=== PATIENT | male | born 1990 | race Caucasian/White ===

== ENCOUNTER → 2016-12-11 | Outpatient (CLI) | payer MEDICARE, OTHER ==
[2016-12-11 09:45] LABS: Anisocytosis Slight; Basophils % (A) 1 %; CH 33.7; CHCM 34.3; Eosinophils # (A) 0.2 k/uL (0-0.7); Eosinophils % (A) 4 %; HDW 3.69; HGB 12.7 gm/dL (13.0-17.5); Luc # (Auto) 0.07; Luc % (Auto) 2; Lymphocytes # (A) 1.6 k/uL (1.0-4.8); Lymphocytes % (A) 36 %; MCH 32.2 pg (25.0-35.0); MCHC 32.7 g/dL (31.0-37.0); MCV 98.6 fL (80.0-100.0); Macrocytosis Slight; Mean Platelet Volume 6.3; Monocytes # (A) 0.4 k/uL (0-1.0); Monocytes % (A) 8 %; Neutrophils # (A) 2.3 k/uL (1.3-7.7); Neutrophils % (A) 51 %; Poikilocytosis Slight; RBC 3.95 m/uL (4.30-5.90); RDW 16.3 % (11.5-15.5); WBC 4.5 k/uL (3.8-10.6); WBC (Perox) 4.49
== END | disposition home or self-care (01) ==
LOC: LABWHC1 08:37
PROVIDERS: ATTEND Psychiatry & Neurology Neurology
DX: G40.813 Lennox-Gastaut syndrome, intractable, with status epilepticus (principal)
CPT/HCPCS: 36415; 80164; 80177; 84450; 84460; 85025

== ENCOUNTER 2018-12-28 15:53 | Emergency (ER) | payer MEDICARE, OTHER ==
[2018-12-28 16:21] VITALS: BP 126/53; PULSE 92; RESP 18; TEMP 97.2
--- NOTE | 2018-12-28 19:13 | ED ---
General Adult HPI - General Chief complaint: Recheck/Abnormal Lab/Rx Stated complaint: Pulled trac out Time Seen by Provider: 12/28/18 16:55 Source: Caregiver Mode of arrival: ambulatory Limitations: altered mental status, physical limitation - History of Present Illness Initial comments: Patient is a 28-year-old male presenting to emergency department with his caregiver after pulling out his tracheostomy tube. Caregiver notes the trach was removed at noon and she did not attempt to replace it.. Caregiver reports trach placement approximately 1 year ago. Caregiver notes she brought a new tracheostomy to for replacement as she did not attempted replacement. Caregiver denies giving the patient any medication to alleviate his symptoms. Caregiver denies decreased oxygen, shortness of breath, chest tightness, chest pain. Caregiver reports patient is acting at his baseline. - Related Data Home Medications Medication Instructions Recorded Confirmed Clobazam [Onfi] 10 mg PEG/G-TUBE BID 08/26/15 12/28/18 Lacosamide [Vimpat] 200 mg PEG/G-TUBE TID 08/26/15 12/28/18 Ascorbic Acid [Vitamin C] 500 mg PEG/G-TUBE BID 12/28/18 12/28/18 Banzel 400mg 1,600 mg PEG/G-TUBE BID 12/28/18 12/28/18 Folic Acid 1 mg PEG/G-TUBE DAILY 12/28/18 12/28/18 Magnesium Hydroxide [Milk of 4,800 mg PEG/G-TUBE MOWEFR 12/28/18 12/28/18 Magnesia] Metoprolol Tartrate [Lopressor] 25 mg PEG/G-TUBE BID 12/28/18 12/28/18 Pantoprazole Sodium [Protonix] 40 mg PEG/G-TUBE BID 12/28/18 12/28/18 Polyethylene Glycol 3350 [Miralax] 17 gm PEG/G-TUBE DAILY 12/28/18 12/28/18 Vitamin B Complex 1 cap PEG/G-TUBE DAILY 12/28/18 12/28/18 clonazePAM [KlonoPIN] 1 mg PEG/G-TUBE TID 12/28/18 12/28/18 levETIRAcetam [Keppra Oral 2,000 mg PEG/G-TUBE TID 12/28/18 12/28/18 Solution] Allergies Allergy/AdvReac Type Severity Reaction Status Date / Time amoxicillin trihydrate Allergy Unknown Verified 12/28/18 18:05 [From Augmentin] ceftriaxone sodium Allergy Unknown Verified 12/28/18 18:05 [From Rocephin] cephalexin monohydrate Allergy Unknown Verified 12/28/18 18:05 [From Keflex] Penicillins Allergy Unknown Verified 12/28/18 18:05 phenobarbital Allergy Unknown Verified 12/28/18 18:05 phenytoin sodium Allergy Unknown Verified 12/28/18 18:05 [From Dilantin] phenytoin sodium extended Allergy Unknown Verified 12/28/18 18:05 [From Dilantin] potassium clavulanate Allergy Unknown Verified 12/28/18 18:05 [From Augmentin] Cephalosporins AdvReac Unknown Verified 12/28/18 18:05 lorazepam [From Ativan] AdvReac Unknown Verified 12/28/18 18:05 Review of Systems ROS Statement: Those systems with pertinent positive or pertinent negative responses have been documented in the HPI. ROS Other: All systems not noted in ROS Statement are negative. Past Medical History Past Medical History: Asthma, Respiratory Disorder, Seizure Disorder Additional Past Medical History / Comment(s): developmental delay, autism History of Any Multi-Drug Resistant Organisms: None Reported Additional Past Surgical History / Comment(s): vagal nerve stimulator 12/2014, left ureter stent, embolist surgery, heel cord lengthening Past Psychological History: ADD/ADHD Smoking Status: Never smoker Past Alcohol Use History: None Reported Past Drug Use History: None Reported General Exam Limitations: altered mental status, physical limitation General appearance: alert, in no apparent distress Head exam: Present: atraumatic, normocephalic, normal inspection Eye exam: Present: normal appearance, PERRL, EOMI Pupils: Present: normal accommodation Neck exam: Present: other (Tracheostomy) Respiratory exam: Present: normal lung sounds bilaterally Cardiovascular Exam: Present: regular rate, normal rhythm, normal heart sounds Neurological exam: Present: alert, oriented X3 Psychiatric exam: Present: normal affect, normal mood Skin exam: Present: warm, intact, normal color Course Vital Signs 12/28/18 16:14 Temperature 97.2 F L Pulse Rate 92 Respiratory 18 Rate Blood Pressure 126/53 O2 Sat by Pulse 98 Oximetry Procedures - Procedures Initial comment: Tracheostomy tube placement by respiratory. Medical Decision Making - Medical Decision Making Patient is a 28-year-old male presenting to emergency department with his caregiver after pulling out his stool. Tracheostomy tube replacement was performed by Kristin from respiratory department. Patient will be discharged as he is acting at his baseline. Caregiver advised to follow-up with primary care. Caregiver advised to return to emergency department if symptoms worsen. Case discussed with physician. Disposition Clinical Impression: Tracheostomy complication, unspecified Disposition: HOME SELF-CARE Condition: Stable Additional Instructions: Please follow-up with primary care. Patient to emergency department if symptoms worsen. Please follow proper tracheostomy tube care. Is patient prescribed a controlled substance at d/c from ED?: No Referrals: Rodri Alcantar MD [Primary Care Provider] - 1-2 days Time of Disposition: 19:13
== END 2018-12-28 19:23 | disposition home or self-care (01) ==
LOC: EC 15:53
DX: J95.09 Other tracheostomy complication (principal); R41.82 Altered mental status, unspecified; G40.909 Epilepsy, unspecified, not intractable, without status epilepticus; F84.0 Autistic disorder; Z88.0 Allergy status to penicillin; Z88.1 Allergy status to other antibiotic agents; Z88.8 Allergy status to other drugs, medicaments and biological substances; Z79.899 Other long term (current) drug therapy
CPT/HCPCS: 99283

== ENCOUNTER 2019-01-16 16:58 | Emergency (ER) | payer MEDICARE, OTHER ==
[2019-01-16] MEDS ORDERED: KETOROLAC 30 MG/ML 1 ML VIAL IM STA (18:38)
[2019-01-16] MEDS ORDERED: MORPHINE SULFATE 2 MG/ML SYRINGE IM STA (20:00)
[2019-01-16 20:22] VITALS: RESP 18
--- NOTE | 2019-01-16 20:23 | ED ---
General Adult HPI - General Chief complaint: Urogenital Stated complaint: Hypotensive Time Seen by Provider: 01/16/19 17:00 Source: patient Mode of arrival: wheelchair Limitations: no limitations - History of Present Illness Initial comments: Patient is a 28 year-old autistic male with a complex medical history that is presenting for urinary retention. Caregiver states that the patient has not been able to urinate since early this morning even though he has been ingesting fluids. Caregiver reports a previous case of urinary retention and which they found the underlying cause to be a kidney stone. Patient is nonverbal. Caregiver states the patient has been in discomfort. Caregiver denies nausea, vomiting, diarrhea. Caregiver denies giving the patient medication to alleviate the symptoms. - Related Data Home Medications Medication Instructions Recorded Confirmed Clobazam [Onfi] 10 mg PEG/G-TUBE BID 08/26/15 12/28/18 Lacosamide [Vimpat] 200 mg PEG/G-TUBE TID 08/26/15 12/28/18 Ascorbic Acid [Vitamin C] 500 mg PEG/G-TUBE BID 12/28/18 12/28/18 Banzel 400mg 1,600 mg PEG/G-TUBE BID 12/28/18 12/28/18 Folic Acid 1 mg PEG/G-TUBE DAILY 12/28/18 12/28/18 Magnesium Hydroxide [Milk of 4,800 mg PEG/G-TUBE MOWEFR 12/28/18 12/28/18 Magnesia] Metoprolol Tartrate [Lopressor] 25 mg PEG/G-TUBE BID 12/28/18 12/28/18 Pantoprazole Sodium [Protonix] 40 mg PEG/G-TUBE BID 12/28/18 12/28/18 Polyethylene Glycol 3350 [Miralax] 17 gm PEG/G-TUBE DAILY 12/28/18 12/28/18 Vitamin B Complex 1 cap PEG/G-TUBE DAILY 12/28/18 12/28/18 clonazePAM [KlonoPIN] 1 mg PEG/G-TUBE TID 12/28/18 12/28/18 levETIRAcetam [Keppra Oral 2,000 mg PEG/G-TUBE TID 12/28/18 12/28/18 Solution] Allergies Allergy/AdvReac Type Severity Reaction Status Date / Time amoxicillin trihydrate Allergy Unknown Verified 01/16/19 17:06 [From Augmentin] ceftriaxone sodium Allergy Unknown Verified 01/16/19 17:06 [From Rocephin] cephalexin monohydrate Allergy Unknown Verified 01/16/19 17:06 [From Keflex] Penicillins Allergy Unknown Verified 01/16/19 17:06 phenobarbital Allergy Unknown Verified 01/16/19 17:06 phenytoin sodium Allergy Unknown Verified 01/16/19 17:06 [From Dilantin] phenytoin sodium extended Allergy Unknown Verified 01/16/19 17:06 [From Dilantin] potassium clavulanate Allergy Unknown Verified 01/16/19 17:06 [From Augmentin] Cephalosporins AdvReac Unknown Verified 01/16/19 17:06 lorazepam [From Ativan] AdvReac Unknown Verified 01/16/19 17:06 Review of Systems ROS Statement: Those systems with pertinent positive or pertinent negative responses have been documented in the HPI. ROS Other: All systems not noted in ROS Statement are negative. Past Medical History Past Medical History: Asthma, Respiratory Disorder, Seizure Disorder Additional Past Medical History / Comment(s): developmental delay, autism History of Any Multi-Drug Resistant Organisms: None Reported Additional Past Surgical History / Comment(s): vagal nerve stimulator 12/2014, left ureter stent, embolist surgery, heel cord lengthening Past Psychological History: ADD/ADHD Smoking Status: Never smoker Past Alcohol Use History: None Reported Past Drug Use History: None Reported General Exam Limitations: language barrier, physical limitation General appearance: alert, in no apparent distress Head exam: Present: atraumatic, normal inspection Eye exam: Present: normal appearance ENT exam: Present: normal exam, other (Tracheostomy) Neck exam: Present: normal inspection Respiratory exam: Present: normal lung sounds bilaterally Cardiovascular Exam: Present: regular rate, normal rhythm, normal heart sounds GI/Abdominal exam: Present: soft, other (Suprapubic discomfort on palpation) Extremities exam: Present: normal inspection Back exam: Present: normal inspection Neurological exam: Present: alert, oriented X3 Psychiatric exam: Present: normal affect, normal mood Skin exam: Present: warm, intact, normal color Course Vital Signs 01/16/19 01/16/19 01/16/19 17:01 17:40 20:22 Temperature 97.9 F Pulse Rate 66 80 76 Respiratory 16 20 18 Rate Blood Pressure 91/59 108/71 99/58 O2 Sat by Pulse 100 100 100 Oximetry 01/16/19 21:27 Temperature Pulse Rate 63 Respiratory 18 Rate Blood Pressure 105/59 O2 Sat by Pulse 98 Oximetry Procedures - Catheter Insertion (Urinary) Indications: to alleviate urinary retention Does Patient Have: no prosthetic heart valve, no penile implant, no artificial urethral sphincter Prophylactic Antibiotics Given: No Bladder Scan/US before Catheterization: Yes (900 ml) Preparation: Povidone-Iodine Type of Catheter Inserted: Guerrero Catheter Albanian Size: 14 Catheter Balloon Size (mLs): 10 Topical Anesthesia Used: Yes (Lidocaine) Results: successfully catheterized-immediate flow Patient Tolerated Procedure: well Complications: none Medical Decision Making - Medical Decision Making Patient is a 28-year-old male presents emergency Department with urinary retention. Bladder scan is showing approximately 900 mL of fluid. Guerrero catheter placement was attempted 3 times even with this smallest size. HEENT attempts failed due to an obstruction. The urine was removed. The Guerrero appears to be coiling in the urethra once it approaches the obstruction site. Patient was given morphine for symptomatically relief. Urology was counseled of the case and they suggested using lidocaine gel on the catheter tip. I performed another catheter attempt with lidocaine cream which was successful. Patient has drained over 900 mL of urine. Patient will be discharged with c atheter in place. Caregiver advised to follow up with urology. Strict return parameters were thoroughly discussed with caregiver was understandable and agrees. Case discussed with Dr. Jordan who is in agreement with the treatment plan. Disposition Clinical Impression: Urinary retention Disposition: HOME SELF-CARE Condition: Stable Instructions (If sedation given, give patient instructions): Urinary Tract Infection in Men (ED) Additional Instructions: Please follow up with urology. Please follow proper catheter care instructions. Please return to emergency department if symptoms worsen. Is patient prescribed a controlled substance at d/c from ED?: No Referrals: Rodri Alcantar MD [Primary Care Provider] - 1-2 days Mukund Jacobson MD [STAFF PHYSICIAN] - 1-2 days Ashish Tamayo MD [STAFF PHYSICIAN] - 1-2 days
[2019-01-16] MEDS ORDERED: LIDOCAINE URO-JET JELLY 2% 5 ML KIT URETHRAL ONE (20:32)
[2019-01-16 22:20] VITALS: BP 100/63; PULSE 70; TEMP 98.2
[2019-01-16 22:23] LABS: Appearance,Urine Clear (Clear); Bilirubin,Urine Negative (Negative); Blood,Urine Negative (Negative); Color,Urine Yellow; Glucose,Urine (UA) Negative (Negative); Ketones,Urine Negative (Negative); Leukocyte Esterase,Urine Negative (Negative); Nitrite,Urine Negative (Negative); Protein,Urine Negative (Negative); Specific Gravity,Urine 1.009 (1.001-1.035); Urobilinogen,Urine <2.0 mg/dL (<2.0)
== END 2019-01-16 22:21 | disposition home or self-care (01) ==
LOC: EC 16:58
DX: R33.9 Retention of urine, unspecified (principal); I95.9 Hypotension, unspecified; G40.909 Epilepsy, unspecified, not intractable, without status epilepticus; Z79.899 Other long term (current) drug therapy; Z88.0 Allergy status to penicillin; Z88.1 Allergy status to other antibiotic agents; Z88.8 Allergy status to other drugs, medicaments and biological substances
CPT/HCPCS: 99285; 51702; 96372 ×2; 51798; 81003; J1885; J2270

== ENCOUNTER → 2019-02-12 | Outpatient (CLI) | payer MEDICARE, OTHER ==
--- NOTE | 2019-02-12 14:20 | US ---
EXAMINATION TYPE: US kidneys/renal and bladder DATE OF EXAM: 02/12/2019 COMPARISON: Prior ultrasound dated February 2002 CLINICAL HISTORY: N13.30 Unspecified hydronephrosis. History of UPJ obstruction with stent, left side in 2004, History of urinary retention and hydronephrosis. EXAM MEASUREMENTS: Right Kidney: 11.6 x 5.8 x 5.6 cm Left Kidney: 13.1 x 7.5 x 7.4 cm cm Right Kidney: There is echogenic focus upper pole with shadowing = 1.0 cm suggesting parenchymal calc ification, mild hydronephrosis is present Left Kidney: Hydronephrosis is moderate to severe on the left exam Bladder: distended with thickened wall =0.7 cm, some internal debris suspected. Bilateral Jets seen: No Normal Post Void Residual: Unable to get patient to void. Exam limited d/t special needs patient. Patient unable to hold breath, or urinate. IMPRESSION: Bilateral hydronephrosis left greater than right.
== END ==
LOC: RADUSWWP 12:10
PROVIDERS: ATTEND Urology
DX: N13.30 Unspecified hydronephrosis (principal); Z88.0 Allergy status to penicillin; Z88.1 Allergy status to other antibiotic agents; Z88.8 Allergy status to other drugs, medicaments and biological substances
CPT/HCPCS: 76770

== ENCOUNTER → 2019-02-26 | Outpatient (CLI) | payer MEDICARE, OTHER ==
[~2019-02-26] MED LIST: FUROSEMIDE 10 MG/ML 2 ML VIAL IV ONE
--- NOTE | 2019-03-01 09:34 | NM ---
EXAMINATION TYPE: NM lasix renogram DATE OF EXAM: 02/26/2019 COMPARISON: NONE HISTORY: Hydronephrosis Following administration of 10 mCi Tc 99m MAG3 with 20mg Lasix. Immediate images post injection FINDINGS: Left: 47.8 %. Right: 52.2 %. Max renal flow left: 9.5 minutes. Max renal flow right: 52.2 minutes. Satisfactory accumulation of radiotracer within both renal collecting systems. After the administrati on of Lasix, there is prompt excretion from both collecting systems. T 1/2 left: Not obtainable minutes. T 1/2 right: Not obtainable minutes. IMPRESSION: 1. Limited exam as discussed above. Split renal function is 48% on the left and 52% on the right. 2. Findings compatible with bilateral hydronephrosis with prolonged time of clearance of radiotracer.
== END | disposition home or self-care (01) ==
LOC: RADNMMAIN 13:08
PROVIDERS: ATTEND Urology
DX: N13.30 Unspecified hydronephrosis (principal); Z88.0 Allergy status to penicillin; Z88.1 Allergy status to other antibiotic agents; Z88.2 Allergy status to sulfonamides; Z88.8 Allergy status to other drugs, medicaments and biological substances
CPT/HCPCS: 78708; A9562

== ENCOUNTER 2019-03-14 13:59 | Emergency (ER) | payer MEDICARE, OTHER ==
[2019-03-14 14:42] LABS: Basophils % (A) 0 %; Eosinophils # (A) 0.1 k/uL (0-0.7); Eosinophils % (A) 2 %; HCT 38.3 % (39.0-53.0); HGB 12.9 gm/dL (13.0-17.5); Lymphocytes % (A) 15 %; MCH 33.1 pg (25.0-35.0); MCHC 33.6 g/dL (31.0-37.0); MCV 98.5 fL (80.0-100.0); Macrocytosis Slight; Monocytes # (A) 0.3 k/uL (0-1.0); Monocytes % (A) 5 %; Neutrophils % (A) 78 %; Platelet Count 232 k/uL (150-450); Poikilocytosis Slight; RBC 3.89 m/uL (4.30-5.90); RDW 15.8 % (11.5-15.5); WBC 6.5 k/uL (3.8-10.6)
--- NOTE | 2019-03-14 14:49 | XR ---
EXAMINATION TYPE: XR KUB DATE OF EXAM: 03/14/2019 COMPARISON: 06/20/2014 HISTORY: Abnormal distention TECHNIQUE: 2 views supine FINDINGS: There is no sign of intestinal obstruction or pneumoperitoneum. Fecal pattern is fairly nor mal. There are clips in the left upper quadrant. Bony structures are intact. Gastrostomy tube is noted. IMPRESSION: Nonacute abdomen.
[2019-03-14 14:56] LABS: ALT 23 U/L (21-72); AST 18 U/L (17-59); African American GFR (CKD) >90 (>60 ml/min/1.73 sqM); Albumin 4.1 g/dL (3.5-5.0); Alkaline Phosphatase 97 U/L (38-126); Anion Gap 10 mmol/L; Blood Urea Nitrogen 12 mg/dL (9-20); Calcium 9.9 mg/dL (8.4-10.2); Carbon Dioxide 26 mmol/L (22-30); Chloride 105 mmol/L (98-107); Glucose 102 mg/dL (74-99); Non-African American GFR(CKD) >90 (>60 ml/min/1.73 sqM); Potassium 3.9 mmol/L (3.5-5.1); Sodium 141 mmol/L (137-145); Total Bilirubin 0.5 mg/dL (0.2-1.3); Total Protein 7.1 g/dL (6.3-8.2)
--- NOTE | 2019-03-14 15:41 | ED ---
Abdominal Pain HPI - General Chief Complaint: Abdominal Pain Stated Complaint: ABDOMINAL PAIN Time Seen by Provider: 03/14/19 14:10 Source: patient Mode of arrival: ambulatory Limitations: no limitations - History of Present Illness Initial Comments: Patient is a 28-year-old male with a history of developmental delay, autism and epilepsy is presenting to emergency Department with his caregiver for a chief complaint of abdominal pain. Caregiver reports patient takes MiraLAX daily and typically has bowel movements every 3 days. Patient had a bowel movement early yesterday. Caregiver reports she noticed abdominal distention today at 1200. Patient has a patent PEG tube according to the caregiver. Caregiver denies any vomiting, fevers or chills. Caregiver reports the patient typically urinates after 1500 after he receives his daily dose of Flomax 3 hours prior to that. Caregiver states the patient has not urinated since yesterday at 2200. - Related Data Home Medications Medication Instructions Recorded Confirmed Clobazam [Onfi] 10 mg PEG/G-TUBE BID 08/26/15 12/28/18 Lacosamide [Vimpat] 200 mg PEG/G-TUBE TID 08/26/15 12/28/18 Ascorbic Acid [Vitamin C] 500 mg PEG/G-TUBE BID 12/28/18 12/28/18 Banzel 400mg 1,600 mg PEG/G-TUBE BID 12/28/18 12/28/18 Folic Acid 1 mg PEG/G-TUBE DAILY 12/28/18 12/28/18 Magnesium Hydroxide [Milk of 4,800 mg PEG/G-TUBE MOWEFR 12/28/18 12/28/18 Magnesia] Metoprolol Tartrate [Lopressor] 25 mg PEG/G-TUBE BID 12/28/18 12/28/18 Pantoprazole Sodium [Protonix] 40 mg PEG/G-TUBE BID 12/28/18 12/28/18 Polyethylene Glycol 3350 [Miralax] 17 gm PEG/G-TUBE DAILY 12/28/18 12/28/18 Vitamin B Complex 1 cap PEG/G-TUBE DAILY 12/28/18 12/28/18 clonazePAM [KlonoPIN] 1 mg PEG/G-TUBE TID 12/28/18 12/28/18 levETIRAcetam [Keppra Oral 2,000 mg PEG/G-TUBE TID 12/28/18 12/28/18 Solution] Allergies Allergy/AdvReac Type Severity Reaction Status Date / Time amoxicillin trihydrate Allergy Unknown Verified 03/14/19 14:08 [From Augmentin] ceftriaxone sodium Allergy Unknown Verified 03/14/19 14:08 [From Rocephin] cephalexin monohydrate Allergy Unknown Verified 03/14/19 14:08 [From Keflex] Penicillins Allergy Unknown Verified 03/14/19 14:08 phenobarbital Allergy Unknown Verified 03/14/19 14:08 phenytoin sodium Allergy Unknown Verified 03/14/19 14:08 [From Dilantin] phenytoin sodium extended Allergy Unknown Verified 03/14/19 14:08 [From Dilantin] potassium clavulanate Allergy Unknown Verified 03/14/19 14:08 [From Augmentin] Cephalosporins AdvReac Unknown Verified 03/14/19 14:08 lorazepam [From Ativan] AdvReac Unknown Verified 03/14/19 14:08 Review of Systems ROS Statement: Those systems with pertinent positive or pertinent negative responses have been documented in the HPI. ROS Other: All systems not noted in ROS Statement are negative. Past Medical History Past Medical History: Asthma, Respiratory Disorder, Seizure Disorder Additional Past Medical History / Comment(s): developmental delay, autism History of Any Multi-Drug Resistant Organisms: None Reported Additional Past Surgical History / Comment(s): vagal nerve stimulator 12/2014, left ureter stent, embolist surgery, heel cord lengthening Past Psychological History: ADD/ADHD Smoking Status: Never smoker Past Alcohol Use History: None Reported Past Drug Use History: None Reported General Exam Limitations: no limitations General appearance: alert, in no apparent distress Head exam: Present: atraumatic, normocephalic, normal inspection Eye exam: Present: normal appearance, PERRL, EOMI Pupils: Present: normal accommodation ENT exam: Present: normal exam, mucous membranes moist, normal external ear exam Neck exam: Present: normal inspection, full ROM Respiratory exam: Present: normal lung sounds bilaterally Cardiovascular Exam: Present: regular rate, normal rhythm, normal heart sounds GI/Abdominal exam: Present: distended, other (PEG tube). Absent: tenderness, guarding, mass, pulsatile mass Extremities exam: Present: normal inspection, full ROM Back exam: Present: normal inspection, full ROM Neurological exam: Present: alert, oriented X3 Psychiatric exam: Present: normal affect, normal mood Skin exam: Present: warm, intact, normal color Course Vital Signs 03/14/19 03/14/19 14:06 17:04 Temperature 97.5 F L 98.8 F Pulse Rate 102 H 78 Respiratory 20 19 Rate Blood Pressure 109/65 115/80 O2 Sat by Pulse 98 100 Oximetry Medical Decision Making - Medical Decision Making Patient is a 28-year-old male with history of developmental delay, autism and epilepsy presenting to emergency Department with his caregiver for a chief complaint of abdominal pain. CBC and CMP are unremarkable. KUB is showing no signs of intestinal obstruction. I was able to put fluid through the PEG tube using a Abraham syringe. On reevaluation patient had urinated large amounts. Patient still had a post-residual volume of 700 mL. Guerrero catheter was placed using lidojet. Patient was able to fully evacuate the bladder. Repeat bladder scan showing urine of approximately 20 mL. Caregiver is satisfied and is ready go home. Strict return parameters were thoroughly discussed with caregiver who is understanding and agreeable. Case discussed with physician. - Lab Data Result diagrams: 03/14/19 14:30 03/14/19 14:30 Lab Results 03/14/19 03/14/19 Range/Units 14:30 14:30 WBC 6.5 (3.8-10.6) k/uL RBC 3.89 L (4.30-5.90) m/uL Hgb 12.9 L (13.0-17.5) gm/dL Hct 38.3 L (39.0-53.0) % MCV 98.5 (80.0-100.0) fL MCH 33.1 (25.0-35.0) pg MCHC 33.6 (31.0-37.0) g/dL RDW 15.8 H (11.5-15.5) % Plt Count 232 (150-450) k/uL Neutrophils % 78 % Lymphocytes % 15 % Monocytes % 5 % Eosinophils % 2 % Basophils % 0 % Neutrophils # 5.0 (1.3-7.7) k/uL Lymphocytes # 1.0 (1.0-4.8) k/uL Monocytes # 0.3 (0-1.0) k/uL Eosinophils # 0.1 (0-0.7) k/uL Basophils # 0.0 (0-0.2) k/uL Poikilocytosis Slight Macrocytosis Slight Sodium 141 (137-145) mmol/L Potassium 3.9 (3.5-5.1) mmol/L Chloride 105 (98-107) mmol/L Carbon Dioxide 26 (22-30) mmol/L Anion Gap 10 mmol/L BUN 12 (9-20) mg/dL Creatinine 0.61 L (0.66-1.25) mg/dL Est GFR (CKD-EPI)AfAm >90 (>60 ml/min/1.73 sqM) Est GFR (CKD-EPI)NonAf >90 (>60 ml/min/1.73 sqM) Glucose 102 H (74-99) mg/dL Calcium 9.9 (8.4-10.2) mg/dL Total Bilirubin 0.5 (0.2-1.3) mg/dL AST 18 (17-59) U/L ALT 23 (21-72) U/L Alkaline Phosphatase 97 (38-126) U/L Total Protein 7.1 (6.3-8.2) g/dL Albumin 4.1 (3.5-5.0) g/dL Disposition Clinical Impression: Urinary retention Disposition: HOME SELF-CARE Condition: Stable Instructions (If sedation given, give patient instructions): Urinary Retention in Men (ED) Additional Instructions: Please follow with primary care. Please return to emergency department if symptoms worsen. Follow proper PEG tube instructions. Is patient prescribed a controlled substance at d/c from ED?: No Referrals: Rodri Alcantar MD [Primary Care Provider] - 1-2 days Time of Disposition: 16:56
[2019-03-14] MEDS ORDERED: LIDOCAINE URO-JET JELLY 2% 5 ML KIT URETHRAL ONE (16:03)
[2019-03-14 17:11] VITALS: BP 115/80; PULSE 78; RESP 19; TEMP 98.8
== END 2019-03-14 17:06 | disposition home or self-care (01) ==
LOC: EC 13:59
DX: R33.9 Retention of urine, unspecified (principal); R14.0 Abdominal distension (gaseous); R10.9 Unspecified abdominal pain; G40.909 Epilepsy, unspecified, not intractable, without status epilepticus; F84.0 Autistic disorder; Z88.0 Allergy status to penicillin; Z88.1 Allergy status to other antibiotic agents; Z88.8 Allergy status to other drugs, medicaments and biological substances; Z79.899 Other long term (current) drug therapy; Z93.1 Gastrostomy status
CPT/HCPCS: 36415; 51702; 51798; 74018; 80053; 85025; 99284

== ENCOUNTER → 2019-04-24 | Outpatient (CLI) | payer MEDICARE, OTHER ==
[2019-04-24 11:18] LABS: HCT 43.4 % (39.0-53.0); HGB 14.5 gm/dL (13.0-17.5); MCH 33.1 pg (25.0-35.0); MCHC 33.5 g/dL (31.0-37.0); MCV 98.7 fL (80.0-100.0); Macrocytosis Slight; Mean Platelet Volume 6.7; Platelet Count 199 k/uL (150-450); RDW 15.7 % (11.5-15.5); WBC 7.2 k/uL (3.8-10.6)
[2019-04-24 17:07] LABS: T4, Free (Free Thyroxine) 1.2 ng/dL (0.80-1.80)
[2019-04-24 17:24] LABS: Iron Saturation 37.27 (15.00-50.00)
[2019-04-24 18:20] LABS: Hemoglobin A1C 3.8 % (4.0-6.0)
[2019-04-26 08:55] LABS: Levetiracetam (Keppra) 30.2 ug/mL (3.0-60.0)
== END | disposition home or self-care (01) ==
LOC: LABWHC1 10:31
PROVIDERS: ATTEND Internal Medicine
DX: E61.1 Iron deficiency (principal); R63.4 Abnormal weight loss
CPT/HCPCS: 84439; 80177; 83540; 83550; 84443; 85027; 83036; 36415; G0480; 80339

== ENCOUNTER → 2019-09-17 | Outpatient (CLI) | payer MEDICARE | END | disposition home or self-care (01) | LOC: LABPAT 13:19 | PROVIDERS: ATTEND Urology | DX: Z01.812 Encounter for preprocedural laboratory examination (principal); R39.14 Feeling of incomplete bladder emptying | CPT/HCPCS: 87077; 87086; 87186 ==

== ENCOUNTER 2019-09-22 07:33 | Day surgery (SDC) | payer MEDICARE, OTHER ==
--- NOTE | 2019-09-20 11:01 | P.GSHP ---
History of Present Illness H&P Date: 09/20/19 Chief Complaint: Incomplete voiding The patient is a 29-year-old male with a history of mental retardation and seizures who originally underwent an endopyelotomy for treatment of a left ureteropelvic junction obstruction in [place] in 2004. A nonobstructive calculus was present in the left kidney at that time and was not treated. MAG3 diuretic renogram in 2004 continued to show caliectasis but there was no evidence of obstruction. He has had problems with infrequent voiding over the last year. He has been taken to the emergency room on several occasions for the purpose of catheterization. He was seen by me in 12/2018. Follow-up renal ultrasound on 02/12/2019 showed bilateral hydronephrosis which was worse on the left side. Repeat MAG3 renogram with Lasix washout on showed prompt excretion from both kidneys. The patient continued to have infrequent voiding and constipation. According to his caregiver he can go 18-27 hours without voiding. Usually has a bowel movement every 3 days. I discussed showing the patient's caregiver had to catheterize him and he came to the office on 09/15 for this purpose. At that time I was unable to insert a 14 Kinyarwanda catheter. Cystoscopy showed a very tight bladder neck which was felt to be a contributory factor to his infrequent bladder emptying and bilateral hydronephrosis. The patient had previously been given a trial of tamsulosin with no improvement. It was my feeling that transurethral incision of the bladder neck and prostate would be a better treatment option than intermittent catheterization or a chronic catheter. The patient is admitted for this purpose. The patient was noted to have 50-100,000 colonies of Enterococcus faecalis on a voided urine culture done preop. According to the caregiver the specimen may have been contaminated at that time. Due to the uncertainty the patient has been started on Macrobid 100 mg twice a day and will also receive gentamicin IV preop. - Review of Systems ROS unobtainable: Reports: due to mental status - Constitutional Constitutional: Denies fever - Cardiovascular Cardiovascular: Denies shortness of breath, Denies syncope - Respiratory Respiratory: Denies cough, Denies wheezing - Gastrointestinal Gastrointestinal: Reports constipation - Genitourinary (Male) Genitourinary: Reports as per HPI Past Medical History Past Medical History: Asthma, Respiratory Disorder, Seizure Disorder Additional Past Medical History / Comment(s): developmental delay, autism History of Any Multi-Drug Resistant Organisms: None Reported Additional Past Surgical History / Comment(s): vagal nerve stimulator 12/2014, left endopyelotomy for treatment of UPJ obstruction-2004, heel cord lengthening, PEG tube Past Psychological History: ADD/ADHD Smoking Status: Never smoker Past Alcohol Use History: None Reported Past Drug Use History: None Reported Medications and Allergies Home Medications Medication Instructions Recorded Confirmed Type Clobazam [Onfi] 10 mg PEG/G-TUBE BID 08/26/15 12/28/18 History Lacosamide [Vimpat] 200 mg PEG/G-TUBE TID 08/26/15 12/28/18 History Ascorbic Acid [Vitamin C] 500 mg PEG/G-TUBE BID 12/28/18 12/28/18 History Banzel 400mg 1,600 mg PEG/G-TUBE BID 12/28/18 12/28/18 History Folic Acid 1 mg PEG/G-TUBE DAILY 12/28/18 12/28/18 History Magnesium Hydroxide [Milk of 4,800 mg PEG/G-TUBE MOWEFR 12/28/18 12/28/18 Hist ory Magnesia] Metoprolol Tartrate [Lopressor] 25 mg PEG/G-TUBE BID 12/28/18 12/28/18 History Pantoprazole Sodium [Protonix] 40 mg PEG/G-TUBE BID 12/28/18 12/28/18 History Polyethylene Glycol 3350 [Miralax] 17 gm PEG/G-TUBE DAILY 12/28/18 12/28/18 History Vitamin B Complex 1 cap PEG/G-TUBE DAILY 12/28/18 12/28/18 History clonazePAM [KlonoPIN] 1 mg PEG/G-TUBE TID 12/28/18 12/28/18 History levETIRAcetam [Keppra Oral 2,000 mg PEG/G-TUBE TID 12/28/18 12/28/18 History Solution] Allergies Allergy/AdvReac Type Severity Reaction Status Date / Time amoxicillin trihydrate Allergy Unknown Verified 03/14/19 14:08 [From Augmentin] ceftriaxone sodium Allergy Unknown Verified 03/14/19 14:08 [From Rocephin] cephalexin monohydrate Allergy Unknown Verified 03/14/19 14:08 [From Keflex] Penicillins Allergy Unknown Verified 03/14/19 14:08 phenobarbital Allergy Unknown Verified 03/14/19 14:08 phenytoin sodium Allergy Unknown Verified 03/14/19 14:08 [From Dilantin] phenytoin sodium extended Allergy Unknown Verified 03/14/19 14:08 [From Dilantin] potassium clavulanate Allergy Unknown Verified 03/14/19 14:08 [From Augmentin] Cephalosporins AdvReac Unknown Verified 03/14/19 14:08 lorazepam [From Ativan] AdvReac Unknown Verified 03/14/19 14:08 Surgical - Exam - General well developed, well nourished - ENT no hearing loss - Neck no masses, no lymphadectomy - Respiratory normal expansion, normal respiratory effort, clear to auscultation - Cardiovascular Rhythm: regular Abnormal Heart Sounds: no systolic murmur, no diastolic murmur - Abdomen Abdomen: soft, no organomegaly Hernia: none - Genitourinary normal penis with no external lesions, testicles non-tender Assessment and Plan (1) Incomplete bladder emptying Narrative/Plan: The patient will undergo transurethral incision of the bladder neck and prostate under general anesthesia. His caregiver and guardian is aware of the operative risks which include anesthesia, bleeding, infection and persistent incomplete and/or infrequent bladder emptying. Status: Acute Code(s): R33.9 - RETENTION OF URINE, UNSPECIFIED SNOMED C ode(s): [id number]
[2019-09-20 15:54] VITALS: BMI 22.6
[~2019-09-22 07:33] MED LIST changes: +DEXAMETHASONE SOD PHOSPHATE 10 MG/ML 1 ML VIAL IV ONE; -FUROSEMIDE 10 MG/ML 2 ML VIAL IV ONE; +HYDROmorphone 0.5 MG/0.5 ML SYRINGE IVP PRN; +LACTATED RINGERS 1,000 ML IV SCH; +LIDOCAINE 1% 20 ML VIAL (10MG/ML) FOR IV START INTRADERMA PRN; +MIDAZOLAM 2 MG/2 ML VIAL IV PRN; +ONDANSETRON 4 MG/2 ML VIAL IVP ONE; +SCOPOLAMINE 1.5MG/72HR PATCH TRANSDERM ONE
[2019-09-22] MEDS ORDERED: GENTAMICIN 110 MG in SODIUM CHLORIDE 0.9% 100 ML IVPB ONE (08:00)
[2019-09-22] MEDS ORDERED: LIDOCAINE 1% INJ 10MG/ML (20 ML MDV) ONE (09:35)
[2019-09-22] MEDS ORDERED: PROPOFOL 10 MG/ML 20 ML VIAL IV ONE (09:35)
[2019-09-22] MEDS ORDERED: fentaNYL (PF) 50 MCG/ML 2 ML AMP ONE (09:35)
[2019-09-22] MEDS ORDERED: MIDAZOLAM 2 MG/2 ML VIAL ONE (09:35)
[2019-09-22] MEDS ORDERED: GLYCOPYRROLATE 0.2 MG/ML 2 ML VIAL ONE (09:35)
[2019-09-22] MEDS ORDERED: ROCURONIUM BROMIDE 10 MG/ML 5 ML VIAL IV ONE (09:35)
[2019-09-22] MEDS ORDERED: NEOSTIGMINE 1 MG/ML 10 ML VIAL ONE (09:35)
[2019-09-22] MEDS ORDERED: LACTATED RINGERS 1,000 ML IV ONE (10:23)
--- NOTE | 2019-09-22 10:47 | P.OP ---
Date of Procedure: 09/22/19 Preoperative Diagnosis: Incomplete bladder emptying secondary to vesicle neck hypertrophy Postoperative Diagnosis: Incomplete bladder emptying secondary to vesicle neck hypertrophy Procedure(s) Performed: Transurethral incision of vesical neck and prostate Anesthesia: EVIN Surgeon: Mukund Jacobson Estimated Blood Loss (ml): 30 Pathology: other (Fragments of bladder neck) Condition: stable Disposition: PACU Indications for Procedure: The patient is a 29-year-old male with mental retardation who has developed bilateral hydronephrosis secondary to infrequent bladder emptying and incomplete bladder emptying. Transurethral incision of the bladder neck and prostate is planned to reduce any potential bladder outflow obstruction. Description of Procedure: The patient was taken the operating suite where adequate general anesthesia via intubation of his tracheostomy was performed. He was placed in the dorsal lithotomy position with his legs suspended from padded Pete stirrups. Pneumatic compression stockings were applied to the lower legs. The genitalia was prepped Betadine solution and draped in sterile fashion. A 25-Peruvian resectoscope sheath with visual obturator and 30 lens was passed through the urethra and into the bladder. The anterior urethra was unremarkable. The prostatic urethra was short with marked elevation of the bladder neck. The bladder was examined. Both ureteral orifices were of normal location and configuration. The bladder was free of tumor foreign body and diverticulum. Unfortunately a Loan knife was not available and for that reason a 24-Peruvian resectoscope loop was modified into a V shape. Using the resectoscope and loop incisions were made through the bladder neck and prostatic urethra at 5 and 7:00. Bleeding vessels were controlled using electrocautery. The tissue resected between the loop was removed from the bladder through the resectoscope. After ensuring adequate hemostasis the resectoscope was removed. A 16-Peruvian coud catheter was inserted and left to gravity drainage. Patient tolerated procedure well and left the operative room awake and in satisfactory condition. His catheter will be removed in 2 days provided that his urine remains clear.
[2019-09-22 10:56] VITALS: TEMP 97
[2019-09-22 12:17] VITALS: BP 107/66; PULSE 48; RESP 18
== END 2019-09-22 13:19 | disposition home or self-care (01) ==
LOC: OR 07:33
PROVIDERS: ATTEND Urology
DX: N32.89 Other specified disorders of bladder (principal); R33.8 Other retention of urine; F79 Unspecified intellectual disabilities; I10 Essential (primary) hypertension; J45.909 Unspecified asthma, uncomplicated; Z93.0 Tracheostomy status; K21.9 Gastro-esophageal reflux disease without esophagitis; G40.909 Epilepsy, unspecified, not intractable, without status epilepticus; F84.0 Autistic disorder; Z96.82 Presence of neurostimulator; Z79.899 Other long term (current) drug therapy; Z88.0 Allergy status to penicillin; Z88.8 Allergy status to other drugs, medicaments and biological substances
CPT/HCPCS: 88305; 52450; J2250; J1100; J2710; J2405; J2001; J3010; J1580; J2704

== ENCOUNTER 2019-10-10 11:45 | Inpatient (IN) | payer MEDICARE, OTHER ==
[2019-10-10] MEDS ORDERED: SODIUM CHLORIDE 0.9% 1,000 ML IV STA ×2 (12:14)
[2019-10-10] MEDS ORDERED: PANTOPRAZOLE 40 MG/10 ML VIAL IVP STA (12:14)
[2019-10-10] MEDS ORDERED: ONDANSETRON 4 MG/2 ML VIAL IVP STA ×2 (12:34→12:35)
[2019-10-10] MEDS ORDERED: levETIRAcetam IV 1,500 MG in SALINE 1 100ML.BAG IVPB STA (12:40)
[2019-10-10] MEDS ORDERED: DIAZEPAM 5 MG/ML 2 ML INJ IVP STA (12:40)
--- NOTE | 2019-10-10 12:44 | ED ---
GI Bleed HPI - General Chief complaint: GI Bleed Stated complaint: Possible GI Bleed Time Seen by Provider: 10/10/19 11:57 Source: patient, RN notes reviewed, old records reviewed Mode of arrival: wheelchair Limitations: no limitations - History of Present Illness Initial comments: This Patient is a 29-year-old male with history of developmental delay, autism. He has a tracheostomy and PEG tube. He presents today with his aunt, guardian and caregiver. Patient presents today with vomiting black coffee-ground emesis, and black substance coming from the PEG tube for the past 2 days. Patient's caregiver also reports that she is concerned for obstruction as she we'll give the Patient medications and then Patient will have severe vomiting afterwards. She denies any cough or fevers. Patient last bowel movements were consistent with diarrhea almost if it's passing over an obstruction. Patient has had previous GI bleeds. Patient had his PEG tube placed at [facility], but has seen Dr. Saleh in the past. Patient's caregiver reports that he has been urinating slightly less. - Related Data Home Medications Medication Instructions Recorded Confirmed Clobazam [Onfi] 20 mg PEG/G-TUBE BID@0000,1200 08/26/15 10/10/19 Lacosamide [Vimpat] 200 mg PEG/G-TUBE 08/26/15 10/10/19 TID@0000,0930,1700 Ascorbic Acid [Vitamin C] 500 mg PEG/G-TUBE BID@0930,1700 12/28/18 10/10/19 Folic Acid 1 mg PEG/G-TUBE DAILY@0930 12/28/18 10/10/19 Polyethylene Glycol 3350 [Miralax] 17 gm PEG/G-TUBE DAILY@0930 12/28/18 10/10/19 Vitamin B Complex 1 cap PEG/G-TUBE DAILY@0930 12/28/18 10/10/19 clonazePAM [KlonoPIN] 1 mg PEG/G-TUBE TID@0000,0930,1700 12/28/18 10/10/19 levETIRAcetam [Keppra Oral 1,800 mg PEG/G-TUBE 12/28/18 10/10/19 Solution] TID@0000,0930,1700 Albuterol Nebulized [Ventolin 5 mg INHALATION Q12H 09/20/19 10/10/19 Nebulized] Cbd Oil 100 mg PEG/G-TUBE BID@0930,1200 09/20/19 10/10/19 Dexlansoprazole [Dexilant] 60 mg PEG/G-TUBE DAILY@0909/20/19 10/10/19 L.acidoph,Paracasei, B.lactis 1 cap PEG/G-TUBE Q72H 09/20/19 10/10/19 [Probiotic] Scopolamine [Scopolamine 1 MG/72 1 patch TRANSDERM Q72H 09/20/19 10/10/19 HR patch] Tamsulosin [Flomax] 0.4 mg PEG/G-TUBE DAILY@0930 09/20/19 10/10/19 Magnesium Citrate 5 oz PO ONCE PRN 10/10/19 10/10/19 Magnesium Hydroxide [Milk of 4,800 mg PO HS PRN 10/10/19 10/10/19 Magnesia] Na Phos,M-B/Na Phos,Di-Ba [Fleet 133 ml RECTAL ONCE PRN 10/10/19 10/10/19 Adult] Rufinamide [Banzel] 1,600 mg PO BID@0000,1200 10/10/19 10/10/19 Allergies Allergy/AdvReac Type Severity Reaction Status Date / Time amoxicillin trihydrate Allergy Unknown Verified 10/10/19 11:56 [From Augmentin] ceftriaxone sodium Allergy Unknown Verified 10/10/19 11:56 [From Rocephin] cephalexin monohydrate Allergy Unknown Verified 10/10/19 11:56 [From Keflex] Penicillins Allergy Unknown Verified 10/10/19 11:56 phenobarbital Allergy Unknown Verified 10/10/19 11:56 phenytoin sodium Allergy Unknown Verified 10/10/19 11:56 [From Dilantin] phenytoin sodium extended Allergy Unknown Verified 10/10/19 11:56 [From Dilantin] potassium clavulanate Allergy Unknown Verified 10/10/19 11:56 [From Augmentin] Cephalosporins AdvReac Unknown Verified 10/10/19 11:56 lorazepam [From Ativan] AdvReac Unknown Verified 10/10/19 11:56 Review of Systems ROS Statement: Those systems with pertinent positive or pertinent negative responses have been documented in the HPI. ROS Other: All systems not noted in ROS Statement are negative. Past Medical History Past Medical History: Asthma, Respiratory Disorder, Seizure Disorder Additional Past Medical History / Comment(s): developmental delay, autism History of Any Multi-Drug Resistant Organisms: None Reported Additional Past Surgical History / Comment(s): vagal nerve stimulator 12/2014, left ureter stent, embolist surgery, heel cord lengthening Past Psychological History: ADD/ADHD Smoking Status: Never smoker General Exam - General Exam Comments Initial Comments: 29-year-old male. Nonverbal. Limitations: no limitations General appearance: alert, in no apparent distress Head exam: Present: atraumatic, normocephalic, normal inspection Eye exam: Present: normal appearance, PERRL, EOMI. Absent: scleral icterus, conjunctival injection, periorbital swelling ENT exam: Present: normal exam, normal oropharynx (Evidence of brown dried emesis over her lips.), mucous membranes dry, mucous membranes moist, other (Patient has evidence of trachea.) Neck exam: Present: normal inspection. Absent: tenderness, meningismus, lymphadenopathy Respiratory exam: Present: normal lung sounds bilaterally. Absent: respiratory distress, wheezes, rales, rhonchi, stridor Cardiovascular Exam: Present: regular rate GI/Abdominal exam: Present: soft, tenderness, normal bowel sounds, other (peg tube site appears well). Absent: distended, guarding, rebound, rigid Extremities exam: Present: normal inspection, full ROM, normal capillary refill. Absent: tenderness, pedal edema, joint swelling, calf tenderness Back exam: Present: normal inspection Neurological exam: Present: alert, oriented X3, CN II-XII intact Psychiatric exam: Present: normal affect, normal mood Skin exam: Present: warm, dry, intact, normal color. Absent: rash Course Vital Signs 10/10/19 10/10/19 10/10/19 11:46 13:02 13:22 Temperature 97.8 F Pulse Rate 68 89 92 Respiratory 18 Rate Blood Pressure 154/94 O2 Sat by Pulse 97 Oximetry - Reevaluation(s) Reevaluation #1: 10/10/19 15:54 Patient's had episodes of projectile [id number] emesis. Positive occult blood and gastric occult blood. Medical Decision Making - Medical Decision Making 29-year-old male with a history of small mental delay autism and epilepsy. He is nonverbal with history of tracheostomy tube and PEG tube. He presented today with complaints of concern for bowel obstruction, with coffee-ground emesis and a small amount of diarrhea. He's had history of bowel instructions the past. Patient caregiver is quite concerned that he has been vomiting up his antiseizure medications and has not been able to tolerate these medicines and is worried that he may go into status epilepticus. She received IV Keppra, and 2 mg of diazepam at this time. He has not had any seizure activity. Patient's caregiver reports that he is not urinating quite as much since having these episodes of diarrhea and vomiting. Patient had multiple episodes of coffee-ground emesis in emergency department. Patient was given IV fluids, laboratory obtained. Evidence of leukocytosis. When he had emesis there is concern for some aspiration. His chest x-ray shows evidence of bilateral pneumonia. Patient will be started on Levaquin and clindamycin due to ALLERGIES. At this time patient's computed tomography scan abdomen and pelvis was completed and shows evidence of dilated bowel loops and colonic extending to the rectum. Patient received enema and is having large bowel movements. At this time also received Guerrero catheter due to some concern for urinary retention related to this colonic stasis. Patient caregiver was informed of all plans. Due to the coffee-ground emesis left consult to GI, hemoglobin is stable at this time. He did receive IV Protonix.. It hopefully can resume PEG tube medications once his vomiting controlled after the colonic impaction is removed after his enemas. - Lab Data Result diagrams: 10/10/19 12:24 10/10/19 12:24 Lab Results 10/10/19 10/10/19 10/10/19 Range/Units 12:24 12:24 12:24 WBC 16.4 H (3.8-10.6) k/uL RBC 4.31 (4.30-5.90) m/uL Hgb 14.1 (13.0-17.5) gm/dL Hct 43.0 (39.0-53.0) % MCV 99.7 (80.0-100.0) fL MCH 32.7 (25.0-35.0) pg MCHC 32.8 (31.0-37.0) g/dL RDW 15.9 H (11.5-15.5) % Plt Count 269 (150-450) k/uL Neutrophils % 92 % Lymphocytes % 3 % Monocytes % 4 % Eosinophils % 1 % Basophils % 0 % Neutrophils # 15.0 H (1.3-7.7) k/uL Lymphocytes # 0.5 L (1.0-4.8) k/uL Monocytes # 0.7 (0-1.0) k/uL Eosinophils # 0.1 (0-0.7) k/uL Basophils # 0.0 (0-0.2) k/uL Macrocytosis Slight PT 9.6 (9.0-12.0) sec INR 0.9 (<1.2) APTT 25.4 (22.0-30.0) sec Sodium 139 (137-145) mmol/L Potassium 3.2 L (3.5-5.1) mmol/L Chloride 106 (98-107) mmol/L Carbon Dioxide 23 (22-30) mmol/L Anion Gap 10 mmol/L BUN 19 (9-20) mg/dL Creatinine 0.78 (0.66-1.25) mg/dL Est GFR (CKD-EPI)AfAm >90 (>60 ml/min/1.73 sqM) Est GFR (CKD-EPI)NonAf >90 (>60 ml/min/1.73 sqM) Glucose 121 H (74-99) mg/dL Plasma Lactic Acid Antonio (0.7-2.0) mmol/L Calcium 9.4 (8.4-10.2) mg/dL Magnesium 2.1 (1.6-2.3) mg/dL Total Bilirubin 0.5 (0.2-1.3) mg/dL AST 20 (17-59) U/L ALT 13 (4-49) U/L Alkaline Phosphatase 129 H (38-126) U/L Total Protein 6.8 (6.3-8.2) g/dL Albumin 4.3 (3.5-5.0) g/dL Lipase 104 (23-300) U/L Gastric Occult Blood (Negative) Stool Occult Blood (Negative) Blood Type Blood Type Confirm Blood Type Recheck Bld Type Recheck Status Antibody Screen Spec Expiration Date 10/10/19 10/10/19 10/10/19 Range/Units 12:24 12:24 12:24 WBC (3.8-10.6) k/uL RBC (4.30-5.90) m/uL Hgb (13.0-17.5) gm/dL Hct (39.0-53.0) % MCV (80.0-100.0) fL MCH (25.0-35.0) pg MCHC (31.0-37.0) g/dL RDW (11.5-15.5) % Plt Count (150-450) k/uL Neutrophils % % Lymphocytes % % Monocytes % % Eosinophils % % Basophils % % Neutrophils # (1.3-7.7) k/uL Lymphocytes # (1.0-4.8) k/uL Monocytes # (0-1.0) k/uL Eosinophils # (0-0.7) k/uL Basophils # (0-0.2) k/uL Macrocytosis PT (9.0-12.0) sec INR (<1.2) APTT (22.0-30.0) sec Sodium (137-145) mmol/L Potassium (3.5-5.1) mmol/L Chloride (98-107) mmol/L Carbon Dioxide (22-30) mmol/L Anion Gap mmol/L BUN (9-20) mg/dL Creatinine (0.66-1.25) mg/dL Est GFR (CKD-EPI)AfAm (>60 ml/min/1.73 sqM) Est GFR (CKD-EPI)NonAf (>60 ml/min/1.73 sqM) Glucose (74-99) mg/dL Plasma Lactic Acid Antonio 0.9 (0.7-2.0) mmol/L Calcium (8.4-10.2) mg/dL Magnesium (1.6-2.3) mg/dL Total Bilirubin (0.2-1.3) mg/dL AST (17-59) U/L ALT (4-49) U/L Alkaline Phosphatase (38-126) U/L Total Protein (6.3-8.2) g/dL Albumin (3.5-5.0) g/dL Lipase (23-300) U/L Gastric Occult Blood (Negative) Stool Occult Blood Positive (Negative) Blood Type O Positive Blood Type Confirm Blood Type Recheck No Previous Record Bld Type Recheck Status CABO Indicated Antibody Screen NEGATIVE Spec Expiration Date 10/13/2019 - 232310/10/19 10/10/19 Range/Units 12:30 13:38 WBC (3.8-10.6) k/uL RBC (4.30-5.90) m/uL Hgb (13.0-17.5) gm/dL Hct (39.0-53.0) % MCV (80.0-100.0) fL MCH (25.0-35.0) pg MCHC (31.0-37.0) g/dL RDW (11.5-15.5) % Plt Count (150-450) k/uL Neutrophils % % Lymphocytes % % Monocytes % % Eosinophils % % Basophils % % Neutrophils # (1.3-7.7) k/uL Lymphocytes # (1.0-4.8) k/uL Monocytes # (0-1.0) k/uL Eosinophils # (0-0.7) k/uL Basophils # (0-0.2) k/uL Macrocytosis PT (9.0-12.0) sec INR (<1.2) APTT (22.0-30.0) sec Sodium (137-145) mmol/L Potassium (3.5-5.1) mmol/L Chloride (98-107) mmol/L Carbon Dioxide (22-30) mmol/L Anion Gap mmol/L BUN (9-20) mg/dL Creatinine (0.66-1.25) mg/dL Est GFR (CKD-EPI)AfAm (>60 ml/min/1.73 sqM) Est GFR (CKD-EPI)NonAf (>60 ml/min/1.73 sqM) Glucose (74-99) mg/dL Plasma Lactic Acid Antonio (0.7-2.0) mmol/L Calcium (8.4-10.2) mg/dL Magnesium (1.6-2.3) mg/dL Total Bilirubin (0.2-1.3) mg/dL AST (17-59) U/L ALT (4-49) U/L Alkaline Phosphatase (38-126) U/L Total Protein (6.3-8.2) g/dL Albumin (3.5-5.0) g/dL Lipase (23-300) U/L Gastric Occult Blood Positive (Negative) Stool Occult Blood (Negative) Blood Type Blood Type Confirm O Positive Blood Type Recheck Bld Type Recheck Status Antibody Screen Spec Expiration Date 10/10/19 15:10 EKG shows normal sinus rhythm normal ECG. Ventricular rate of 80 bpm. SC intervals 150 ms. QS duration is 80 ms. QT QTc is 370/447 seconds. - Radiology Data Radiology results: report reviewed CT shows findings demonstrated dilated bowel loops prominently colonic extending the level of the rectum. Correlating for colonic ileus. Retained fecal debris throughout the colon. Lower lobe infiltrate. Hiatal hernia with thickened distal wall esophagus correlate for esophagitis. Evidence of PEG tube. X-ray shows bilateral lower lobe infiltrate. Critical Care Time Critical Care Time: Yes Total Critical Care Time: 30 Disposition Clinical Impression: Bowel obstruction, Fecal impaction of colon, Aspiration pneumonia, GI bleed, Leukocytosis, Coffee ground emesis, Seizure disorder Disposition: ADMITTED IP TO THIS HOSP Condition: Stable Is patient prescribed a controlled substance at d/c from ED?: No Referrals: Rodri Alcantar MD [Primary Care Provider] - 1-2 days Time of Disposition: 15:51
[2019-10-10] MEDS ORDERED: ALBUTEROL NEBULIZED (CONC) 5 MG, SODIUM CHLORIDE 0.9% NEBULIZ 3 ML INHALATION STA ×2 (12:51)
[2019-10-10 12:56] LABS: Basophils % (A) 0 %; Eosinophils # (A) 0.1 k/uL (0-0.7); Eosinophils % (A) 1 %; HGB 14.1 gm/dL (13.0-17.5); Lymphocytes # (A) 0.5 k/uL (1.0-4.8); Lymphocytes % (A) 3 %; MCH 32.7 pg (25.0-35.0); MCHC 32.8 g/dL (31.0-37.0); MCV 99.7 fL (80.0-100.0); Macrocytosis Slight; Mean Platelet Volume 6.8; Monocytes # (A) 0.7 k/uL (0-1.0); Monocytes % (A) 4 %; Neutrophils % (A) 92 %; Platelet Count 269 k/uL (150-450); RBC 4.31 m/uL (4.30-5.90); RDW 15.9 % (11.5-15.5); WBC 16.4 k/uL (3.8-10.6)
[2019-10-10] MEDS ORDERED: ALBUTEROL NEBULIZED 2.5 MG/3 ML INHALATION STA (13:01)
[2019-10-10 13:06] LABS: INR 0.9 (<1.2); Partial Thromboplastin Time 25.4 sec (22.0-30.0); Prothrombin Time 9.6 sec (9.0-12.0)
[2019-10-10 13:07] LABS: ALT 13 U/L (4-49); AST 20 U/L (17-59); African American GFR (CKD) >90 (>60 ml/min/1.73 sqM); Albumin 4.3 g/dL (3.5-5.0); Alkaline Phosphatase 129 U/L (38-126); Anion Gap 10 mmol/L; Blood Urea Nitrogen 19 mg/dL (9-20); Calcium 9.4 mg/dL (8.4-10.2); Carbon Dioxide 23 mmol/L (22-30); Chloride 106 mmol/L (98-107); Glucose 121 mg/dL (74-99); Magnesium 2.1 mg/dL (1.6-2.3); Non-African American GFR(CKD) >90 (>60 ml/min/1.73 sqM); Potassium 3.2 mmol/L (3.5-5.1); Sodium 139 mmol/L (137-145); Total Bilirubin 0.5 mg/dL (0.2-1.3); Total Protein 6.8 g/dL (6.3-8.2)
--- NOTE | 2019-10-10 14:22 | XR ---
EXAMINATION TYPE: XR chest 2V DATE OF EXAM: 10/10/2019 COMPARISON: 08/26/2015 TECHNIQUE: PA and lateral views submitted. HISTORY: Cough FINDINGS: Limited inspiration. Cardiac device and tracheostomy tube noted. Subsegmental changes involving the l aaron bases. Hypertrophic and degenerative change of the spine. No overt failure. IMPRESSION: 1. Bilateral lower lobe infiltrate.
--- NOTE | 2019-10-10 14:26 | CT ---
EXAMINATION TYPE: CT abdomen pelvis w con DATE OF EXAM: 10/10/2019 COMPARISON: Pain HISTORY: GI bleed, possible obstruction CT DLP: 1422.3 mGycm Automated exposure control for dose reduction was used. CONTRAST: CT scan of the abdomen pelvis is performed with IV Contrast, patient injected with 100 mL of Isovue 3 00. FINDINGS- LUNG BASES-subsegmental changes involving the lung bases suggestive of pneumonia. There is a large hi atal hernia with thickening of the distal esophagus.. LIVER/GB- No gross abnormality is appreciated. PANCREAS- No gross abnormality is seen. SPLEEN- No gross abnormality is seen. ADRENALS- No gross abnormality is seen. KIDNEYS/BLADDER-there is prominence of the renal collecting systems bilaterally. This was also noted by recent ultrasound. A punctate 2 mm upper pole right renal calculus noted.. BOWEL-PEG tube is seen and there appears to be a dilated bowel loops. Extends to the level of the rec madelin. Small amount of free fluid in the pelvis. Correlate for colonic ileus or fecal impaction.. LYMPH NODES- No greater than 1cm abdominal or pelvic lymph nodes areappreciated. OSSEOUS STRUCTURES- No significant abnormality is seen. OTHER- aorta of normal caliber. IMPRESSION- 1. Findings demonstrate markedly dilated bowel loops predominantly colonic extending to the level of the rectum. Correlate for colonic ileus. Retained fecal debris throughout the colon. 2. Lower lobe bilateral infiltrate. 3. Hiatal hernia with thickened wall the distal esophagus correlate for esophagitis. 4. PEG tube.
[2019-10-10] MEDS ORDERED: LEVOFLOXACIN 750MG-D5W PMX 750 MG in DEXTROSE/WATER 1 150ML.BAG IVPB STA (14:48)
[2019-10-10] MEDS ORDERED: CLINDAMYCIN 600 MG in DEXTROSE 5% IN WATER 50 ML IVPB STA ×2 (15:34)
[2019-10-10] MEDS ORDERED: MORPHINE SULFATE 4 MG/ML SYRINGE IV PRN (15:46)
[2019-10-10] MEDS ORDERED: NALOXONE 0.4 MG/ML 1 ML VIAL IV PRN (15:46)
[2019-10-10] MEDS ORDERED: ONDANSETRON 4 MG/2 ML VIAL IVP PRN (15:46)
[2019-10-10] MEDS ORDERED: SODIUM CHLORIDE 0.9% 1,000 ML IV SCH (16:00)
[2019-10-10] MEDS ORDERED: NA PHOS,M-B/NA PHOS,DI-BA 133 ML ENEMA RECTAL PRN (16:00)
[2019-10-10] MEDS ORDERED: MAGNESIUM CITRATE 296 ML BOTTLE PO PRN (16:00)
[2019-10-10] MEDS ORDERED: LACOSAMIDE 200 MG PEG/G-TUBE SCH (17:00)
[2019-10-10] MEDS ORDERED: ASCORBIC ACID 500 MG TAB PEG/G-TUBE SCH (17:00)
[2019-10-10 17:08] LABS: Appearance,Urine Cloudy (Clear); Bacteria,Urine Rare /hpf; Bilirubin,Urine Negative (Negative); Blood,Urine Small (Negative); Color,Urine Yellow; Glucose,Urine (UA) Negative (Negative); Ketones,Urine 1+ (Negative); Leukocyte Esterase,Urine Large (Negative); Mucus,Urine Few /hpf; Nitrite,Urine Negative (Negative); Protein,Urine 1+ (Negative); RBC,Urine 57 /hpf (0-5); WBC,Urine >182 /hpf (0-5)
[2019-10-10 17:09] LABS: Specific Gravity,Urine 1.049 (1.001-1.035)
[2019-10-10] MEDS: clonazePAM 1 MG TAB PEG/G-TUBE SCH ×2 (19:10→23:50)
[2019-10-10] MEDS ORDERED: IPRATROPIUM-ALBUTEROL 3 ML NEB INHALATION PRN (19:17)
[2019-10-10] MEDS ORDERED: ALBUTEROL NEBULIZED 2.5 MG/3 ML INHALATION SCH (20:00)
[2019-10-10] MEDS: IPRATROPIUM-ALBUTEROL 3 ML NEB INHALATION SCH (20:59)
[2019-10-10] MEDS ORDERED: MAGNESIUM HYDROXIDE 2,400 MG/10 ML CUP PO PRN (21:00)
--- NOTE | 2019-10-10 21:37 | HP ---
HISTORY AND PHYSICAL CHIEF COMPLAINTS: GI bleed. HISTORY OF PRESENT ILLNESS: This 29-year-old gentleman with a past medical history of asthma, history of developmental delay, history of respiratory disease, seizure disorder, history of autism, had history of being followed by Dr. Alcantar in the outpatient setting, had last night. The patient's aunt is guardian and caregiver. The patient today presented with vomiting of black colored coffee material, black stools coming out of the PEG tube for the last 2 days. Patient apparently aspirated too. The family is concerned about obstructions which the patient previously had on multiple occasions. The patient also had previous PEG tube insertion and infection and also being managed in [facility]. The patient has seen Dr. Trammell also. The patient currently is stuporous and unable to give a coherent history. Most of the history taken from my discussion with the ER physician, review of chart and discussion with the caregiver at the bedside. There is no history of any trauma at this time. The patient had history of constipation, also. The patient was given with some significant results in the ER. PAST MEDICAL HISTORY: History of asthma, seizure disorder, history of autism, PEG tube placement, ADHD. MEDICATIONS: Prior to admission include home medications are : 1. Vitamin B complex p.o. daily. 2. Banzel 60 mg p.o. b.i.d. 3. Fleet daily p.r.n. 4. Folic acid 1 mg daily. 5. Onfi 20 mg per PEG daily. 6. Magnesium citrate 5 mg p.r.n. 8. Flomax 0.4. 9. Scopolamine 1 patch q.72h hours. 10.Probiotic. 11.Ventolin 2.5 mg b.i.d. 12.MiraLAX 17 g daily. 13.CBD oil 100 mg b.i.d. 14.Dexilant 60 mg per PEG daily. 15.Vitamin C 500 mg b.i.d. 16.Keppra 800 mg p.o. t.i.d. 17.Vimpat 200 mg p.o. t.i.d. 18.Klonopin 1 mg p.o. t.i.d. ALLERGIES: AMOXICILLIN, ROCEPHIN, PENICILLIN, PHENOBARBITAL, DILANTIN, AUGMENTIN, CEPHALOSPORIN, ATIVAN. Family history, social history and review of systems could not be taken because of change in mental status. No history of any smoking per chart. PHYSICAL EXAM: Patient is stuporous. Pulse is at 98. Blood pressure 140/80, respiration 18, temperature 98.2, pulse ox 98% on room air. HEENT is conjunctivae normal. NECK: No JVD. CARDIOVASCULAR: S1, S2 muffled. RESPIRATORY: Breath sounds diminished in the bases. A few scattered rhonchi and crackles. ABDOMEN: Soft. PEG tube in situ. No guarding. No rigidity. No mass palpable. LEGS no edema. NERVOUS SYSTEM: Diffuse contractures and diffuse weakness also. LYMPHATICS: No lymph nodes palpable in the neck or axilla or groin. JOINTS: No active deforming arthropathy. Nervous system otherwise mentioned earlier. The patient is stuporous. Does not cooperate with the exam. Does not move the legs. Skin: No ulcers. No rashes and no bleeding. JOINTS no active deforming arthropathy. LABS: WBC 16.4, hemoglobin 14.6. INR is 0.9 sodium 130 potassium 3.2. UA shows possibly UTI. Stool OB is positive. Gastric OB is also positive. The chest x-ray shows bilateral lower lobe infiltrates, possible aspiration. Abdomen and pelvis CAT scan showed markedly dilated bowel loops upper abdomen predominantly colonic extending to the level of the rectum possibly and lower lobe infiltrate and hiatal hernia, PEG tube placement. ASSESSMENT: 1. Upper gastrointestinal bleeding with possibly peptic ulcer disease. 2. Possible bilateral aspiration pneumonia. 3. Possible bowel obstruction and colonic obstruction secondary to possible constipation. 4. Hypokalemia. 5. Rule out possible urinary tract infection. 6. History of asthma. 7. History of seizure disorder. 8. History of development delay. 9. History of autism. 10.History of seizure disorder partial complex. 11.History of intraabdominal wall abscess. 12.History of vagal nerve stimulator. 13.PEG tube placement. 14.Left ureteral stent. 15.History of attention-deficit disorder, attention-deficit/hyperactivity disorder. 16.FULL CODE. RECOMMENDATION AND DISCUSSION: This 29-year-old gentleman presented with multiple complex medical issues. Continue current medications at this time. We will initiate broad-spectrum IV antibiotics. I would also recommend Gastroenterology and surgical consultation also. Continue the current medications. Monitor hemoglobin closely. The overall prognosis guarded because of multiple complex medical issues. Further recommendations to follow. A copy being forwarded to Dr. Alcantar who is the primary physician. We will also administer bronchodilators and keep the patient NPO for now and continue to monitor, n.p.o. except medications for now and continue to monitor. Prognosis guarded. Further recommendations to follow. MMODL / IJN: [id number] / MTDD
[2019-10-10] MEDS: PANTOPRAZOLE 40 MG/10 ML VIAL IV SCH (21:38)
[2019-10-10] MEDS: SODIUM CHLORIDE 0.9% 1,000 ML IV SCH (21:39)
[2019-10-10] MEDS: LACOSAMIDE IV 200 MG in SODIUM CHLORIDE 0.9% 50 ML IVPB SCH (21:49)
[2019-10-10] MEDS: levETIRAcetam ORAL SOLN 500 MG/5 ML CUP PEG/G-TUBE SCH (23:50)
[2019-10-10] MEDS: metroNIDAZOLE-NS PMX 500 MG in SALINE 1 100ML.BAG IVPB SCH (23:52)
[2019-10-11] MEDS ORDERED: RUFINAMIDE PO SCH
[2019-10-11] MEDS: RUFINAMIDE PO SCH ×2 (03:01→12:09)
[2019-10-11] MEDS: IPRATROPIUM-ALBUTEROL 3 ML NEB INHALATION SCH ×3 (07:55→20:08)
[2019-10-11 08:21] LABS: Basophils % (A) 0 %; Eosinophils # (A) 0.2 k/uL (0-0.7); Eosinophils % (A) 2 %; HCT 35.4 % (39.0-53.0); HGB 11.6 gm/dL (13.0-17.5); Lymphocytes % (A) 14 %; MCH 32.6 pg (25.0-35.0); MCHC 32.8 g/dL (31.0-37.0); MCV 99.5 fL (80.0-100.0); Macrocytosis Slight; Mean Platelet Volume 6.8; Monocytes # (A) 0.4 k/uL (0-1.0); Monocytes % (A) 5 %; Neutrophils # (A) 5.8 k/uL (1.3-7.7); Neutrophils % (A) 77 %; Platelet Count 229 k/uL (150-450); Poikilocytosis Slight; RBC 3.56 m/uL (4.30-5.90); WBC 7.5 k/uL (3.8-10.6)
[2019-10-11] MEDS: metroNIDAZOLE-NS PMX 500 MG in SALINE 1 100ML.BAG IVPB SCH ×2 (08:28→15:42)
[2019-10-11] MEDS: PANTOPRAZOLE 40 MG/10 ML VIAL IV SCH ×2 (08:28→22:21)
[2019-10-11 08:30] LABS: African American GFR (CKD) >90 (>60 ml/min/1.73 sqM); Anion Gap 8 mmol/L; Blood Urea Nitrogen 13 mg/dL (9-20); Calcium 8.7 mg/dL (8.4-10.2); Carbon Dioxide 25 mmol/L (22-30); Chloride 110 mmol/L (98-107); Glucose 90 mg/dL (74-99); Non-African American GFR(CKD) >90 (>60 ml/min/1.73 sqM); Potassium 3.3 mmol/L (3.5-5.1); Sodium 143 mmol/L (137-145)
[2019-10-11] MEDS: levETIRAcetam ORAL SOLN 500 MG/5 ML CUP PEG/G-TUBE SCH ×2 (08:49→18:00)
[2019-10-11] MEDS: TAMSULOSIN 0.4 MG CAP.ER.24H PO SCH (08:49)
[2019-10-11] MEDS: FOLIC ACID 1 MG TAB PEG/G-TUBE SCH (08:49)
[2019-10-11] MEDS: LACTOBACILLUS ACIDOPH & BULGAR 1 EACH PACKET PEG/G-TUBE SCH (08:49)
[2019-10-11] MEDS: clonazePAM 1 MG TAB PEG/G-TUBE SCH ×2 (08:49→18:00)
[2019-10-11] MEDS: SODIUM CHLORIDE 0.9% 1,000 ML IV SCH (08:50)
[2019-10-11] MEDS ORDERED: SCOPOLAMINE 1.5MG/72HR PATCH TRANSDERM SCH (09:00)
[2019-10-11] MEDS: LACOSAMIDE IV 200 MG in SODIUM CHLORIDE 0.9% 50 ML IVPB SCH ×2 (09:19→22:20)
[2019-10-11] MEDS ORDERED: CANNABIDIOL PEG/G-TUBE SCH (09:30)
[2019-10-11] MEDS ORDERED: DEXLANSOPRAZOLE 60 MG PEG/G-TUBE SCH (09:30)
[2019-10-11] MEDS ORDERED: POLYETHYLENE GLYCOL 3350 17 GM POWD.PACK PEG/G-TUBE SCH (09:30)
[2019-10-11] MEDS ORDERED: NON FORMULARY DRUG (Vitamin B Complex [Vitamin B Complex] 1 CAP) PEG/G-TUBE SCH (09:30)
--- NOTE | 2019-10-11 10:40 | P.CONS ---
History of Present Illness - Reason for Consult Consult date: 10/10/19 aspiration pneumonia Requesting physician: Rakesh Haji - Chief Complaint vomiting x 2 days - History of Present Illness Patient is a 29-year-old male with developmental delay autism and this patient currently do have a tracheostomy and a PEG tube and has been under the care of his aunt who is his guardian, the patient has been brought to the [facility] ER today with the vomiting black coffee-ground emesis and the black's substance coming from his PEG tube for the last 2 days aunt who provided most of the history did mention what ever had to give him to his feeding tube comes out through his mouth within 2 hours is not very clear the patient has been complai wong of any abdominal pain and had no diarrhea or bleeding per rectum no significant cough has been noticed by the aunt with the same to the patient was brought into the ER on arrival to the ER the patient has been afebrile patient did have white count of 16.4 patient did have a positive UA he also have a chest x-ray shows bilateral lower lobe infiltrate CT of abdominal pelvis was completed which shows markedly dilated bowel loops predominantly colonic extending to the level of the rectum correlate for ileus lower lobe infiltrate hiatal hernia with thickened wall distal esophagus correlate for esophagitis patient has been started on Levaquin because of his multiple antibiotic allergies infectious disease was consulted for further recommendation regarding antibiotic and concern for possible aspiration pneumonia most information has been obtained from review the chart and talking to the aunt as the patient himself is unable to write and reliable history. Review of Systems Positive points mentioned in history of present illness complete review could not be obtained because of his underlying medical condition Past Medical History Past Medical History: Asthma, Respiratory Disorder, Seizure Disorder Additional Past Medical History / Comment(s): developmental delay, autism, last sz last night partial complex, trach, intra abdominal wall abcess History of Any Multi-Drug Resistant Organisms: None Reported Additional Past Surgical History / Comment(s): vagal nerve stimulator 12/2014, left ureter stent, embolist surgery, heel cord lengthening, trans urethral prostate incision Past Anesthesia/Blood Transfusion Reactions: No Reported Reaction Past Psychological History: ADD/ADHD Smoking Status: Never smoker Past Alcohol Use History: None Reported Past Drug Use History: None Reported Medications and Allergies Home Medications Medication Instructions Recorded Confirmed Type Clobazam [Onfi] 20 mg PEG/G-TUBE BID@0000,1200 08/26/15 10/10/19 History Lacosamide [Vimpat] 200 mg PEG/G-TUBE 08/26/15 10/10/19 History TID@0000,0930,1700 Ascorbic Acid [Vitamin C] 500 mg PEG/G-TUBE BID@0930,1700 12/28/18 10/10/19 History Folic Acid 1 mg PEG/G-TUBE DAILY@0912/28/18 10/10/19 History Polyethylene Glycol 3350 [Miralax] 17 gm PEG/G-TUBE DAILY@30 12/28/18 10/10/19 History Vitamin B Complex 1 cap PEG/G-TUBE DAILY@92912/28/18 10/10/19 History clonazePAM [KlonoPIN] 1 mg PEG/G-TUBE TID@0000,0930,1700 12/28/18 10/10/19 History levETIRAcetam [Keppra Oral 1,800 mg PEG/G-TUBE 12/28/18 10/10/19 History Solution] TID@0000,0930,1700 Albuterol Nebulized [Ventolin 5 mg INHALATION Q12H 09/20/19 10/10/19 History Nebulized] Cbd Oil 100 mg PEG/G-TUBE BID@0930,1200 09/20/19 10/10/19 History Dexlansoprazole [Dexilant] 60 mg PEG/G-TUBE DAILY@92909/20/19 10/10/19 History L.acidoph,Paracasei, B.lactis 1 cap PEG/G-TUBE Q72H 09/20/19 10/10/19 History [Probiotic] Scopolamine [Scopolamine 1 MG/72 1 patch TRANSDERM Q72H 09/20/19 10/10/19 History HR patch] Tamsulosin [Flomax] 0.4 mg PEG/G-TUBE DAILY@92909/20/19 10/10/19 History Magnesium Citrate 5 oz PO ONCE PRN 10/10/19 10/10/19 History Magnesium Hydroxide [Milk of 4,800 mg PO HS PRN 10/10/19 10/10/19 History Magnesia] Na Phos,M-B/Na Phos,Di-Ba [Fleet 133 ml RECTAL ONCE PRN 10/10/19 10/10/19 History Adult] Rufinamide [Banzel] 1,600 mg PO BID@0000,1200 10/10/19 10/10/19 History Allergies Allergy/AdvReac Type Severity Reaction Status Date / Time amoxicillin trihydrate Allergy Unknown Verified 10/10/19 11:56 [From Augmentin] ceftriaxone sodium Allergy Unknown Verified 10/10/19 11:56 [From Rocephin] cephalexin monohydrate Allergy Unknown Verified 10/10/19 11:56 [From Keflex] Penicillins Allergy Unknown Verified 10/10/19 11:56 phenobarbital Allergy Unknown Verified 10/10/19 11:56 phenytoin sodium Allergy Unknown Verified 10/10/19 11:56 [From Dilantin] phenytoin sodium extended Allergy Unknown Verified 10/10/19 11:56 [From Dilantin] potassium clavulanate Allergy Unknown Verified 10/10/19 11:56 [From Augmentin] Cephalosporins AdvReac Unknown Verified 10/10/19 11:56 lorazepam [From Ativan] AdvReac Unknown Verified 10/10/19 11:56 Physical Exam Vitals: Vital Signs Temp Pulse Pulse Resp BP BP Pulse Ox 10/10/19 18:17 98.3 F 74 21 96/58 95 10/10/19 16:56 98 18 148/88 98 10/10/19 13:22 92 10/10/19 13:02 89 10/10/19 11:46 97.8 F 68 18 154/94 97 Intake and Output 10/10/19 10/10/19 10/10/19 06:59 14:59 22:59 Other: Voiding Method Indwelling Catheter Weight 74.843 kg 74.843 kg GENERAL DESCRIPTION: Middle-aged male lying in bed, no distress. No tachypnea or accessory muscle of respiration use. HEENT: Shows Pallor , no scleral icterus. Oral mucous membrane is dry. No pharyngeal erythema or thrush NECK: Trachea central, no thyromegaly. LUNGS: Unlabored breathing. Decreased breath sound at the base. No wheeze or crackle. HEART: S1, S2, regular rate and rhythm. No loud murmur ABDOMEN: Soft, no tenderness , guarding or rigidity, no organomegaly EXTREMITIES: No edema of feet. SKIN: No rash, no masses palpable. NEUROLOGICAL: The patient is awake, orientation could not determine as the patie nt with underlying autism and developmental delay Results CBC & Chem 7: 10/11/19 07:42 10/11/19 07:42 Labs: Abnormal Lab Results - Last 24 Hours (Table) 10/10/19 10/10/19 10/10/19 Range/Units 12:24 12:24 16:39 WBC 16.4 H (3.8-10.6) k/uL RDW 15.9 H (11.5-15.5) % Neutrophils # 15.0 H (1.3-7.7) k/uL Lymphocytes # 0.5 L (1.0-4.8) k/uL Potassium 3.2 L (3.5-5.1) mmol/L Glucose 121 H (74-99) mg/dL Alkaline Phosphatase 129 H (38-126) U/L Ur Specific [place] 1.049 H (1.001-1.035) Urine Protein 1+ H (Negative) Urine Ketones 1+ H (Negative) Urine Blood Small H (Negative) Ur Leukocyte Esterase Large H (Negative) Urine RBC 57 H (0-5) /hpf Urine WBC >182 H (0-5) /hpf Urine Bacteria Rare H (None) /hpf Urine Mucus Few H (None) /hpf Assessment and Plan Assessment: 1-patient presented to hospital with vomiting in this patient who did have elevated white count presentation though no temperature and CT abdominal pelvis has been suggestive of colonic ileus and bilateral lobe infiltrate underlying aspiration pneumonitis not entirely excluded. 2-patient with multiple antibiotic allergies that would limit the number of antibiotics safe to use (1) Allergy to antibiotic Current Visit: Yes Status: Acute Code(s): Z88.1 - ALLERGY STATUS TO OTHER ANTIBIOTIC AGENTS STATUS SNOMED Code(s): 677013548037597 (2) Aspiration pneumonia Current Visit: Yes Status: Acute Code(s): J69.0 - PNEUMONITIS DUE TO INHALATION OF FOOD AND VOMIT SNOMED Code(s): 885313652 Plan: 1-try to obtain a sputum for Gram stain and culture 2-Levaquin 500 mg daily, however will add Flagyl 500 mg IV every 8 hour 3-IV fluids We will follow on clinical condition and cultures to further adjust medication if needed Thank you for this consultation will follow this patient along with you Time with Patient: Greater than 30
--- NOTE | 2019-10-11 13:13 | P.CNPUL ---
History of Present Illness Consult date: 10/11/19 Reason for consult: dyspnea, hypoxemia, pneumonia Chief complaint: Aspiration pneumonia History of present illness: This is a 29-year-old status post trach and PEG due to developmental delay, patient has a history of chronic seizure disorder, patient's PEG tube has been recently changed about 2 months ago developed problems associated with severe constipation and vomiting and bluish blood-tinged secretions coming out through the PEG tube came into the hospital for further evaluation suspicion of pneumonia, chest x-ray revealed bilateral lower lobe infiltrate consistent with aspiration pneumonia patient is currently getting broad-spectrum antibiotics finally he has a bowel movement is abdomen is more softer now, patient also has a computed tomography scan of the abdominal pelvis which revealed dilated loops of bowel and colon Review of Systems ROS unobtainable: due to mental status Past Medical History Past Medical History: Asthma, Respiratory Disorder, Seizure Disorder Additional Past Medical History / Comment(s): developmental delay, autism, last sz last night partial complex, trach, intra abdominal wall abcess History of Any Multi-Drug Resistant Organisms: None Reported Additional Past Surgical History / Comment(s): vagal nerve stimulator 12/2014, left ureter stent, embolist surgery, heel cord lengthening, trans urethral prostate incision Past Anesthesia/Blood Transfusion Reactions: No Reported Reaction Past Psychological History: ADD/ADHD Smoking Status: Never smoker Past Alcohol Use History: None Reported Past Drug Use History: None Reported Medications and Allergies Home Medications Medication Instructions Recorded Confirmed Type Clobazam [Onfi] 20 mg PEG/G-TUBE BID@0000,1200 08/26/15 10/10/19 History Lacosamide [Vimpat] 200 mg PEG/G-TUBE 08/26/15 10/10/19 History TID@0000,0930,1700 Ascorbic Acid [Vitamin C] 500 mg PEG/G-TUBE BID@0930,1700 12/28/18 10/10/19 History Folic Acid 1 mg PEG/G-TUBE DAILY@0930 12/28/18 10/10/19 History Polyethylene Glycol 3350 [Miralax] 17 gm PEG/G-TUBE DAILY@0930 12/28/18 10/10/19 History Vitamin B Complex 1 cap PEG/G-TUBE DAILY@0930 12/28/18 10/10/19 History clonazePAM [KlonoPIN] 1 mg PEG/G-TUBE TID@0000,0930,1700 12/28/18 10/10/19 History levETIRAcetam [Keppra Oral 1,800 mg PEG/G-TUBE 12/28/18 10/10/19 History Solution] TID@0000,0930,1700 Albuterol Nebulized [Ventolin 5 mg INHALATION Q12H 09/20/19 10/10/19 History Nebulized] Cbd Oil 100 mg PEG/G-TUBE BID@0930,1200 09/20/19 10/10/19 History Dexlansoprazole [Dexilant] 60 mg PEG/G-TUBE DAILY@0930 09/20/19 10/10/19 History L.acidoph,Paracasei, B.lactis 1 cap PEG/G-TUBE Q72H 09/20/19 10/10/19 History [Probiotic] Scopolamine [Scopolamine 1 MG/72 1 patch TRANSDERM Q72H 09/20/19 10/10/19 History HR patch] Tamsulosin [Flomax] 0.4 mg PEG/G-TUBE DAILY@0930 09/20/19 10/10/19 History Magnesium Citrate 5 oz PO ONCE PRN 10/10/19 10/10/19 History Magnesium Hydroxide [Milk of 4,800 mg PO HS PRN 10/10/19 10/10/19 History Magnesia] Na Phos,M-B/Na Phos,Di-Ba [Fleet 133 ml RECTAL ONCE PRN 10/10/19 10/10/19 Hist ory Adult] Rufinamide [Banzel] 1,600 mg PO BID@0000,1200 10/10/19 10/10/19 History Allergies Allergy/AdvReac Type Severity Reaction Status Date / Time amoxicillin trihydrate Allergy Unknown Verified 10/10/19 11:56 [From Augmentin] ceftriaxone sodium Allergy Unknown Verified 10/10/19 11:56 [From Rocephin] cephalexin monohydrate Allergy Unknown Verified 10/10/19 11:56 [From Keflex] Penicillins Allergy Unknown Verified 10/10/19 11:56 phenobarbital Allergy Unknown Verified 10/10/19 11:56 phenytoin sodium Allergy Unknown Verified 10/10/19 11:56 [From Dilantin] phenytoin sodium extended Allergy Unknown Verified 10/10/19 11:56 [From Dilantin] potassium clavulanate Allergy Unknown Verified 10/10/19 11:56 [From Augmentin] Cephalosporins AdvReac Unknown Verified 10/10/19 11:56 lorazepam [From Ativan] AdvReac Unknown Verified 10/10/19 11:56 Physical Exam Vitals: Vital Signs Temp Pulse Pulse Resp BP BP Pulse Ox 10/11/19 11:56 84 10/11/19 11:44 86 10/11/19 08:11 82 10/11/19 07:56 80 10/11/19 07:12 97.9 F 65 18 90/57 95 10/11/19 00:27 97.3 F L 84 14 94/50 92 L 10/10/19 21:10 86 10/10/19 20:59 88 10/10/19 18:17 98.3 F 74 21 96/58 95 10/10/19 16:56 98 18 148/88 98 10/10/19 13:22 92 Intake and Output 10/10/19 10/11/19 10/11/19 22:59 06:59 14:59 Intake Total 550 500 420 Output Total 950 200 Balance -400 300 420 Intake: Intake, IV Titration 550 500 300 Amount Clindamycin 600 mg In 50 Dextrose 5% in Water 50 ml @ 50 mls/hr IVPB ONCE [facility] Rx#:[id number] Lacosamide IV 200 mg In 100 50 Sodium Chloride 0.9% 50 ml @ 100 mls/hr IVPB BID [facility] Rx#:[id number] Sodium Chloride 0.9% 1, 400 400 150 000 ml @ 50 mls/hr IV . Q20H [facility] Rx#:[id number] metroNIDAZOLE-NS PMX 500 100 100 mg In Saline 1 100ml.bag @ 100 mls/hr IVPB Q8HR [facility] Rx#:[id number] Tube Feeding 120 Output: Urine 950 200 Uretheral (Guerrero) 950 200 Other: Voiding Method Indwelling Catheter Indwelling Catheter Indwelling Catheter Weight 74.843 kg - Constitutional General appearance: average body habitus, disheveled, no acute distress - EENT Eyes: EOMI, PERRLA Ears: bilateral: normal - Neck Neck: normal ROM Carotids: bilateral: upstroke normal - Respiratory Respiratory: bilateral: CTA, diminished, negative: dullness, rales, rhonchi - Cardiovascular Rhythm: regular Heart sounds: normal: S1, S2 - Gastrointestinal General gastrointestinal: decreased bowel sounds - Musculoskeletal Musculoskeletal: generalized weakness, strength equal bilaterally Results - Laboratory Findings CBC and BMP: 10/11/19 07:42 10/11/19 07:42 PT/INR, D-dimer PT 9.6 sec (9.0-12.0) 10/10/19 12:24 INR 0.9 (<1.2) 10/10/19 12:24 Abnormal lab findings: Abnormal Labs 10/10/19 10/10/19 10/10/19 12:24 12:24 16:39 WBC 16.4 H RBC Hgb Hct RDW 15.9 H Neutrophils # 15.0 H Lymphocytes # 0.5 L Potassium 3.2 L Chloride Glucose 121 H Alkaline Phosphatase 129 H Ur Specific [place] 1.049 H Urine Protein 1+ H Urine Ketones 1+ H Urine Blood Small H Ur Leukocyte Esterase Large H Urine RBC 57 H Urine WBC >182 H Urine Bacteria Rare H Urine Mucus Few H 10/11/19 10/11/19 07:42 07:42 WBC RBC 3.56 L Hgb 11.6 L Hct 35.4 L RDW 16.0 H Neutrophils # Lymphocytes # Potassium 3.3 L Chloride 110 H Glucose Alkaline Phosphatase Ur Specific [place] Urine Protein Urine Ketones Urine Blood Ur Leukocyte Esterase Urine RBC Urine WBC Urine Bacteria Urine Mucus - Diagnostic Findings Chest x-ray: report reviewed, image reviewed (Finding as noted above) Assessment and Plan Assessment: Acute hypoxic respiratory failure Bilateral aspiration pneumonia Bowel obstruction likely due to retained fecal material Developmentally delayed Status post chronic Peg tube and tracheostomy Severe degree of seizure disorder Past history of respiratory failure requiring vent support Plan: Maintain trach keep saturation over 92% supplemental oxygen as needed Pulmonary toilet Respiratory to suction as needed Seizure precautions Nothing by mouth for now Hold tube feed Broad-spectrum antibiotics for bilateral aspiration pneumonia Further recommendations pending plan of care as per clinical response of the patient Time with Patient: Greater than 30
--- NOTE | 2019-10-11 14:17 | P.GSCN ---
History of Present Illness Consult date: 10/11/19 Reason for Consult: bowel obstruction Requesting physician: Rakesh Haji History of present illness: CHIEF COMPLAINT: bowel obstruction HISTORY OF PRESENT ILLNESS: 29-year-old male with history of developmental delay and autism who has a tracheostomy and PEG tube who presented to the emergency room with his family and caregiver secondary to emesis. Apparently patient's fa brenda has been giving him his medications and patient has been vomiting afterwards. General surgery was consulted for further evaluation. PAST MEDICAL HISTORY: See list. PAST SURGICAL HISTORY: See list. SOCIAL HISTORY: No illicit drug use. REVIEW OF SYSTEMS: Unable to obtain secondary to cognitive impairment PHYSICAL EXAM: VITAL SIGNS: Reviewed. GENERAL: Well-developed in no acute distress. HEENT: Trach noted. No sclera icterus. Extraocular movements grossly intact. Moist buccal mucosa. Head is atraumatic, normocephalic. ABDOMEN: Soft. Distended. Nontender. PEG tube noted. NEUROLOGIC: Nonverbal at baseline LABORATORY DATA: WBC 16.4 on admission. Repeat 7.5. IMAGING: CT abdomen and pelvis: Findings demonstrate markedly dilated bowel loops predominantly colonic exciting to follow up the rectum. Correlate for colonic ileus. Retained fecal debris throughout the colon. Hiatal hernia with thickened wall of the distal esophagus. Correlate for esophagitis. PEG tube noted. ASSESSMENT: 1. Vomiting 2. Megacolon, colonic ileus 3. History of trach and PEG PLAN: -Soap suds enemas until clear -No oral cathartics to be given via PEG tube -Place PEG tube to dependent drainage Nurse practitioner note has been reviewed by physician. Signing provider agrees with the documented findings, assessment, and plan of care. Past Medical History Past Medical History: Asthma, Respiratory Disorder, Seizure Disorder Additional Past Medical History / Comment(s): developmental delay, autism, last sz last night partial complex, trach, intra abdominal wall abcess History of Any Multi-Drug Resistant Organisms: None Reported Additional Past Surgical History / Comment(s): vagal nerve stimulator 12/2014, left ureter stent, embolist surgery, heel cord lengthening, trans urethral prostate incision Past Anesthesia/Blood Transfusion Reactions: No Reported Reaction Past Psychological History: ADD/ADHD Smoking Status: Never smoker Past Alcohol Use History: None Reported Past Drug Use History: None Reported Medications and Allergies Home Medications Medication Instructions Recorded Confirmed Type Clobazam [Onfi] 20 mg PEG/G-TUBE BID@0000,1200 08/26/15 10/10/19 History Lacosamide [Vimpat] 200 mg PEG/G-TUBE 08/26/15 10/10/19 History TID@0000,0930,1700 Ascorbic Acid [Vitamin C] 500 mg PEG/G-TUBE BID@0930,1700 12/28/18 10/10/19 History Folic Acid 1 mg PEG/G-TUBE DAILY@0930 12/28/18 10/10/19 History Polyethylene Glycol 3350 [Miralax] 17 gm PEG/G-TUBE DAILY@0930 12/28/18 10/10/19 History Vitamin B Complex 1 cap PEG/G-TUBE DAILY@92912/28/18 10/10/19 History clonazePAM [KlonoPIN] 1 mg PEG/G-TUBE TID@0000,0930,1700 12/28/18 10/10/19 History levETIRAcetam [Keppra Oral 1,800 mg PEG/G-TUBE 12/28/18 10/10/19 History Solution] TID@0000,0930,1700 Albuterol Nebulized [Ventolin 5 mg INHALATION Q12H 09/20/19 10/10/19 History Nebulized] Cbd Oil 100 mg PEG/G-TUBE BID@0930,1200 09/20/19 10/10/19 History Dexlansoprazole [Dexilant] 60 mg PEG/G-TUBE DAILY@92909/20/19 10/10/19 History L.acidoph,Paracasei, B.lactis 1 cap PEG/G-TUBE Q72H 09/20/19 10/10/19 History [Probiotic] Scopolamine [Scopolamine 1 MG/72 1 patch TRANSDERM Q72H 09/20/19 10/10/19 History HR patch] Tamsulosin [Flomax] 0.4 mg PEG/G-TUBE DAILY@92909/20/19 10/10/19 History Magnesium Citrate 5 oz PO ONCE PRN 10/10/19 10/10/19 History Magnesium Hydroxide [Milk of 4,800 mg PO HS PRN 10/10/19 10/10/19 History Magnesia] Na Phos,M-B/Na Phos,Di-Ba [Fleet 133 ml RECTAL ONCE PRN 10/10/19 10/10/19 History Adult] Rufinamide [Banzel] 1,600 mg PO BID@0000,1200 10/10/19 10/10/19 History Allergies Allergy/AdvReac Type Severity Reaction Status Date / Time amoxicillin trihydrate Allergy Unknown Verified 10/10/19 11:56 [From Augmentin] ceftriaxone sodium Allergy Unknown Verified 10/10/19 11:56 [From Rocephin] cephalexin monohydrate Allergy Unknown Verified 10/10/19 11:56 [From Keflex] Penicillins Allergy Unknown Verified 10/10/19 11:56 phenobarbital Allergy Unknown Verified 10/10/19 11:56 phenytoin sodium Allergy Unknown Verified 10/10/19 11:56 [From Dilantin] phenytoin sodium extended Allergy Unknown Verified 10/10/19 11:56 [From Dilantin] potassium clavulanate Allergy Unknown Verified 10/10/19 11:56 [From Augmentin] Cephalosporins AdvReac Unknown Verified 10/10/19 11:56 lorazepam [From Ativan] AdvReac Unknown Verified 10/10/19 11:56 Surgical - Exam Vital Signs Temp Pulse Resp BP Pulse Ox 97.8 F 68 18 154/94 97 10/10/19 11:46 10/10/19 11:46 10/10/19 11:46 10/10/19 11:46 10/10/19 11:46 Results - Labs 10/11/19 07:42 10/11/19 07:42 Abnormal Lab Results - Last 24 Hours (Table) 10/10/19 10/11/19 10/11/19 Range/Units 16:39 07:42 07:42 RBC 3.56 L (4.30-5.90) m/uL Hgb 11.6 L (13.0-17.5) gm/dL Hct 35.4 L (39.0-53.0) % RDW 16.0 H (11.5-15.5) % Potassium 3.3 L (3.5-5.1) mmol/L Chloride 110 H (98-107) mmol/L Ur Specific [place] 1.049 H (1.001-1.035) Urine Protein 1+ H (Negative) Urine Ketones 1+ H (Negative) Urine Blood Small H (Negative) Ur Leukocyte Esterase Large H (Negative) Urine RBC 57 H (0-5) /hpf Urine WBC >182 H (0-5) /hpf Urine Bacteria Rare H (None) /hpf Urine Mucus Few H (None) /hpf Microbiology - Last 24 Hours (Table) 10/10/19 22:00 Urine Culture - Preliminary Urine,Catheterized Diabetes panel 10/11/19 Range/Units 07:42 Sodium 143 (137-145) mmol/L Potassium 3.3 L (3.5-5.1) mmol/L Chloride 110 H (98-107) mmol/L Carbon Dioxide 25 (22-30) mmol/L BUN 13 (9-20) mg/dL Creatinine 0.74 (0.66-1.25) mg/dL Glucose 90 (74-99) mg/dL Calcium 8.7 (8.4-10.2) mg/dL Calcium panel 10/11/19 Range/Units 07:42 Calcium 8.7 (8.4-10.2) mg/dL Pituitary panel 10/11/19 Range/Units 07:42 Sodium 143 (137-145) mmol/L Potassium 3.3 L (3.5-5.1) mmol/L Chloride 110 H (98-107) mmol/L Carbon Dioxide 25 (22-30) mmol/L BUN 13 (9-20) mg/dL Creatinine 0.74 (0.66-1.25) mg/dL Glucose 90 (74-99) mg/dL Calcium 8.7 (8.4-10.2) mg/dL Adrenal panel 10/11/19 Range/Units 07:42 Sodium 143 (137-145) mmol/L Potassium 3.3 L (3.5-5.1) mmol/L Chloride 110 H (98-107) mmol/L Carbon Dioxide 25 (22-30) mmol/L BUN 13 (9-20) mg/dL Creatinine 0.74 (0.66-1.25) mg/dL Glucose 90 (74-99) mg/dL Calcium 8.7 (8.4-10.2) mg/dL
--- NOTE | 2019-10-11 14:49 | XR ---
Abdomen HISTORY: Bowel obstruction Frontal view of the abdomen correlated to prior KUB 819, CT 10/10/2019 The air-filled loops of small and large bowel are present. Retained fecal debris is present within th e rectum. Metallic coils are present and grouped in the left upper quadrant. No evident pneumoperiton eum or pathologic calcification. Lung bases are not included on exam. IMPRESSION: The large amount of fecal debris seen in the sigmoid and rectum on prior exam is not evid ent on today's exam, correlate for fecal stasis. Correlate for ileus.
--- NOTE | 2019-10-11 16:55 | CDI ---
Documentation Clarification Form Date: 10/11/2019 04:38:15 PM From: Jacquelin Borges RN CCDS Admit Date: 10/10/2019 03:51:00 PM Patient Name: Gibran Baldwin Visit Number: [id number] Discharge Date: ATTENTION: The Clinical Documentation Specialists (CDI) and [facility] Coding Staff appreciate your assistance in clarifying documentation. Please respond to the clarification below the line at the bottom and electronically sign. The CDI & [facility] Coding staff will review the response and follow-up if needed. Please note: Queries are made part of the Legal Health Record. If you have any questions, please contact the author of this message via ITS. Dr. Adin Cardoza Your patient has a documented diagnosis of Acute Hypoxic Respiratory Failure which may lack sufficient clinical evidence/support. In your 10/10 Consult History/Risk Factors: 29-year-old male presents to the ED with black coffee ground emesis, a black substance coming from peg tube and severe vomiting. Medical history of Developmental delay, Autism, Tracheostomy and Peg tube. Clinical Indicators: 10/09 11:46 VSS 154/94 69 97.8 18 97% room air 10/10 00:27 RR 14 oxygen saturation 92% room air 10/10 07:12 RR 18 oxygen saturation 95% room air Per your Pulmonology consult 10/10 Maintain trach keep saturation over 92% supplemental oxygen as needed Per your Pulmonology consult Past history of respiratory failure requiring vent support. Treatment: Pulmonary toilet, Respiratory to suction as needed. Supplemental oxygen as needed Based on the clinical evidence and your professional judgment, do you feel Acute Hypoxic Respiratory is a valid diagnosis? No, Acute Hypoxic Respiratory Failure is ruled out. Other (please specify diagnosis) __Pneumonia (Last Revision: July 2019) MTDD
[2019-10-11] MEDS: LEVOFLOXACIN 750MG-D5W PMX 750 MG in DEXTROSE/WATER 1 150ML.BAG IVPB SCH (17:01)
[2019-10-11] MEDS ORDERED: POLYETHYLENE GLYCOL 3350 17 GM POWD.PACK PO SCH (17:15)
--- NOTE | 2019-10-11 17:58 | PN ---
PROGRESS NOTE DATE OF SERVICE: 10/11/2019 This 29-year-old gentleman who was admitted with acute upper GI bleeding with possibly peptic ulcer also had bilateral aspiration pneumonia. The patient also had tracheostomy and PEG tube. The patient also had possibly suspected lower abdominal obstruction with possible chronic obstruction. The patient also had a CT scan of the abdomen and pelvis. Multiple consultants are following the patient closely. Plain x-ray of the abdomen flat plate, which was ordered by me and reviewed personally by me today showed significant dilated bowel loops. Patient is being closely monitored. Past medical history reviewed. Review of systems could not be taken; the patient is rather drowsy. CURRENT MEDICATIONS: Reviewed. They include: 1. DuoNeb q.i.d. and p.r.n. 2. Klonopin 1 mg b.i.d. 3. Folic acid. 4. Dilaudid. 5. Lacosamide. 6. Lactobacillus. 7. Keppra. 8. Levaquin 750 mg. 9. Flagyl 500 mg IV q.8. 10.Narcan. 11.Onfi. 12.Banzel. 13.Zofran. 14.Protonix. 15.Flomax. PHYSICAL EXAMINATION: The pulse is 82, blood pressure 90/57, respiration 18, temperature 97.9, pulse ox 94% on room air. HEENT: Conjunctivae normal. NECK: No jugular venous distention. Status post tracheostomy. CARDIOVASCULAR SYSTEM: S1, S2 muffled. RESPIRATORY SYSTEM: Breath sounds diminished at the bases. A few scattered rhonchi and crackles. ABDOMEN: Soft. Mild diffuse distention. No mass palpable. PEG tube LEGS: No edema. No swelling. NERVOUS SYSTEM: No focal deficit. LABS: WBC 7.5, hemoglobin 11.6, sodium 143, potassium 3.3. UA noted; possible UTI. ASSESSMENT: 1. Acute upper gastrointestinal bleeding with possible peptic ulcer disease. 2. Possible bibasilar aspiration pneumonia. 3. Possible bowel obstruction with colonic distention, possibly secondary to constipation. 4. Possible acute urinary tract infection, present on admission. 5. Hypokalemia. 6. History of asthma. 7. History of seizure disorder. 8. History of developmental delay. 9. History of autism. 10.History of seizure disorder, partial complex. 11.History intraabdominal wall abscess. 12.History of vagal nerve stimulator. 13.PEG tube placement. 14.Left ureteral stent. 15.History of attention deficit disorder, attention deficit hyperactivity disorder. 16.FULL CODE. RECOMMENDATIONS AND DISCUSSION: I recommend to continue current medications, continue with the monitoring, symptomatic treatment. Continue with broad-spectrum IV antibiotics. I would also recommend surgical evaluation. Patient is n.p.o. Would also recommend infectious disease and pulmonary evaluations. Guarded prognosis because of multiple complex medical issues. Further recommendations to follow. Cut down on the IV fluids. DVT prophylaxis. MMODL / IJN: [id number] / MTDD
[2019-10-11] MEDS: HEPARIN SODIUM,PORCINE 5,000 UNIT/ML 1 ML VIAL SQ SCH (22:21)
--- NOTE | 2019-10-11 22:53 | CONS ---
CONSULTATION DATE OF DICTATION: 10/11/2019 REASON FOR CONSULTATION: Coffee-ground emesis. HISTORY OF PRESENT ILLNESS: The patient is a 29-year-old white male with history of developmental delay, seizure disorder and autism who was brought to the emergency room by his aunt, where he presented with abdominal distention, worsening constipation and multiple episodes of coffee-ground emesis. The patient has a history of chronic constipation and has been in the hospital recently for the same. He was started on MiraLAX through the PEG tube and he was doing reasonably well. However, for the last one week his schedule has been changed and he started having worsening constipation. The patient was having abdominal distention with abdominal discomfort associated with multiple episodes of nausea or vomiting that happened 2 days ago. He had about 3 or 4 episodes of coffee-ground emesis and he was taken to the emergency room and subsequently admitted to the hospital for further evaluation. His initial abdominal x-rays did show evidence of fecal stasis. The patient was given 2 enemas in the ER and he had 2 large bowel movements. PAST MEDICAL HISTORY: Significant for developmental delay, seizure disorder, asthma, autism, ADHD. PAST SURGICAL HISTORY: PEG tube placement. MEDICATIONS: Medications at home include vitamin B, Fleet enemas as needed, folic acid, magnesium citrate, Flomax, scopolamine, probiotic, Ventolin, MiraLAX, CBD oil, Dexilant, Vitamin C, Keppra, Vimpat and Klonopin. ALLERGIES: AMOXICILLIN, ROCEPHIN, PENICILLIN, PHENOBARB, DILANTIN, AUGMENTIN, CEPHALOSPORIN AND ATIVAN. FAMILY HISTORY: Unremarkable. REVIEW OF SYSTEMS: Review of systems could not be obtained because patient could not provide this. PHYSICAL EXAMINATION: He appears comfortable. No apparent distress. Vital signs are stable. Blood pressure is 140/82, pulse rate 86 per minute and afebrile. HEENT examination unremarkable. Conjunctivae pink. Sclerae anicteric. Oral cavity no lesions. NECK: No JVD or lymph node enlargement. CHEST: Clear to auscultation. HEART: Regular rate and rhythm. ABDOMEN: Soft. PEG tube in place. It was non-tender, non-distended. Bowel sounds are positive. No organomegaly. EXTREMITIES: No pedal edema. NEUROLOGIC: He is awake. Some extremity contractures noted. LABS/IMAGING: Labs done at the time of admission to the hospital showed WBC 16.4, hemoglobin 14.1, platelets normal. Today hemoglobin is down to 11.6, WBC 7.5, platelets normal. Basic metabolic panel is within normal limits. PT/INR is within normal limits. BUN is 19, creatinine 0.78. CT of the abdomen and pelvis done in the emergency room yesterday did show markedly dilated bowel loops predominantly involving the colon extending all the way to the level of rectum with retained fecal debris throughout the colon. There was a hiatal hernia with thickening of the distal wall of the esophagus and left lower lobe bilateral infiltrate noted. Abdominal x-rays from this morning: Large amount of fecal debris in the sigmoid and rectum consistent with fecal stasis. IMPRESSION: 1. Chronic constipation with CT scan of the abdomen showing dilated colon with retained stool, especially in the rectum and in the sigmoid colon consistent with severe fecal stasis. Patient presently receiving enema and had 2 large bowel movements. Will start him back on MiraLAX via the PEG tube 17 grams twice daily. 2. Upper gastrointestinal bleed with several episodes of coffee-ground emesis. Hemoglobin dropped from 14 to 11.5 g/dL. Last EGD done at the time of PEG tube placement was about a year and a half ago. 3. History of developmental delay and autism. 4. History of seizure disorder. 5. Possible urinary tract infection, on broad-spectrum antibiotics. RECOMMENDATIONS: 1. Monitor hemoglobin daily. 2. Continue Protonix 40 mg daily. 3. Will continue Fleet enemas as needed and start him on MiraLAX via the PEG tube. Will do 17.5 grams twice daily and adjust based on results. 4. Continue with antibiotics. 5. Repeat CBC in the morning. 6. No plans for any endoscopic intervention at the present time. 7. Will follow with you closely. Thank you for this consultation. MMODL / IJN: [id number] /
--- NOTE | 2019-10-11 22:57 | PN ---
PROGRESS NOTE DATE OF SERVICE: 10/11/2019 REASON FOR FOLLOWUP: Possible aspiration pneumonia. INTERVAL HISTORY: The patient is currently afebrile. Patient has been breathing comfortably. No significant cough has been reported. No further vomiting and the patient did have a bowel movement. The patient himself unable to provide any history. PHYSICAL EXAMINATION: Blood pressure 92/50 with a pulse of 82, temperature 97.9. He is 94% on room air. General description is a young male lying in bed in no distress. Respiratory system: Unlabored breathing, decreased breath sounds in the base. No wheeze. Heart S1, S2. Regular rate and rhythm. ABDOMEN: Soft. No tenderness. LABS: Hemoglobin 11.4, white count normal at 7.5 creatinine 0.74. DIAGNOSTIC IMPRESSION AND PLAN: Patient admitted to the hospital with acute nausea, vomiting in this patient with evidence of large bowel obstruction. Chest x-ray also suspicious for pneumonia. Patient does have MULTIPLE ANTIBIOTIC ALLERGIES. Currently covered on Levaquin and Flagyl to continue and monitor his clinical course closely. MMODL / IJN: [id number] /
[2019-10-12] MEDS: RUFINAMIDE PO SCH ×2 (01:08→11:37)
[2019-10-12] MEDS: levETIRAcetam ORAL SOLN 500 MG/5 ML CUP PEG/G-TUBE SCH ×3 (01:08→17:02)
[2019-10-12] MEDS: metroNIDAZOLE-NS PMX 500 MG in SALINE 1 100ML.BAG IVPB SCH ×3 (01:09→15:37)
[2019-10-12] MEDS: clonazePAM 1 MG TAB PEG/G-TUBE SCH ×3 (01:09→17:03)
[2019-10-12] MEDS: SODIUM CHLORIDE 0.9% 1,000 ML IV SCH (07:44)
[2019-10-12 07:46] LABS: Basophils % (A) 0 %; Eosinophils # (A) 0.1 k/uL (0-0.7); Eosinophils % (A) 2 %; HCT 33.4 % (39.0-53.0); Lymphocytes % (A) 20 %; MCH 33.2 pg (25.0-35.0); MCHC 33.1 g/dL (31.0-37.0); MCV 100.5 fL (80.0-100.0); Macrocytosis Slight; Monocytes # (A) 0.3 k/uL (0-1.0); Monocytes % (A) 5 %; Neutrophils # (A) 3.7 k/uL (1.3-7.7); Neutrophils % (A) 71 %; Platelet Count 213 k/uL (150-450); Poikilocytosis Slight; RBC 3.32 m/uL (4.30-5.90); RDW 15.8 % (11.5-15.5); WBC 5.2 k/uL (3.8-10.6)
[2019-10-12 07:55] LABS: African American GFR (CKD) >90 (>60 ml/min/1.73 sqM); Anion Gap 7 mmol/L; Blood Urea Nitrogen 13 mg/dL (9-20); Calcium 8.6 mg/dL (8.4-10.2); Carbon Dioxide 22 mmol/L (22-30); Chloride 111 mmol/L (98-107); Glucose 84 mg/dL (74-99); Non-African American GFR(CKD) >90 (>60 ml/min/1.73 sqM); Potassium 3.2 mmol/L (3.5-5.1); Sodium 140 mmol/L (137-145)
[2019-10-12] MEDS: IPRATROPIUM-ALBUTEROL 3 ML NEB INHALATION SCH ×3 (08:42→19:49)
[2019-10-12] MEDS: LACOSAMIDE IV 200 MG in SODIUM CHLORIDE 0.9% 50 ML IVPB SCH ×2 (09:04→22:22)
[2019-10-12] MEDS: HEPARIN SODIUM,PORCINE 5,000 UNIT/ML 1 ML VIAL SQ SCH ×2 (09:05→20:03)
[2019-10-12] MEDS: PANTOPRAZOLE 40 MG/10 ML VIAL IV SCH ×2 (09:05→20:03)
[2019-10-12] MEDS: TAMSULOSIN 0.4 MG CAP.ER.24H PO SCH (09:06)
[2019-10-12] MEDS: FOLIC ACID 1 MG TAB PEG/G-TUBE SCH (09:06)
[2019-10-12] MEDS: SCOPOLAMINE 1.5MG/72HR PATCH TRANSDERM SCH (09:29)
[2019-10-12] MEDS ORDERED: PEG 3350-NA SULF,BICARB,CL/KCL 4,000 ML BOTTLE PO ONE (09:35)
--- NOTE | 2019-10-12 12:40 | PN ---
PROGRESS NOTE DATE OF DICTATION: 10/12/2019 The patient is a 29-year-old pleasant white male with history of autism and developmental delay disorder who has a PEG tube placement in 2018, presents to the hospital with coffee-ground emesis and severe constipation. He had no further episodes of nausea, vomiting, or coffee-grounds emesis. Presently, he is n.p.o. He was given enemas in the ER for colonic distention with fecal stasis and had 2 large bowel movements. Repeat abdominal x-rays yesterday afternoon did show fecal stasis in the sigmoid colon and rectum. He did not have any further bowel movements. He was started on MiraLAX yesterday. As per the nursing staff and the family, he denies any symptoms. PHYSICAL EXAMINATION: On physical examination, he appears comfortable, no apparent distress. Vital signs are stable. Blood pressure 91/51, pulse rate 55, temperature of 97.8. HEENT EXAMINATION: Unremarkable. Conjunctivae pink. Sclerae anicteric. Oral cavity no lesions. NECK: No JVD or lymph node enlargement. CHEST: Clear to auscultation. HEART: Regular rate and rhythm. ABDOMEN: Soft. It was nondistended, nontender. EXTREMITIES: No pedal edema. SKIN: No rashes. NEURO: He is awake, not oriented to name or place. LABS: WBC 5.2, hemoglobin 11, platelets normal. Basic metabolic panel is within normal limits. Potassium is 3.2. IMPRESSION: 1. Upper gastrointestinal bleed/coffee-ground emesis, resolved. Hemoglobin stable at 11 g/dL. 2. Severe constipation with dilated colon. The patient received a few enemas in the ER with some relief. Now continues to have persistent constipation. RECOMMENDATIONS: 1. Continue with Protonix 40 mg daily. 2. Monitor CBC daily. 3. Give him Fleet enema x1 today and as per surgical recommendations we will start him on GoLYTELY prep. 4. Repeat abdominal x-rays tomorrow. 5. We will follow with you closely. Thank you for this consultation. MMODL / IJN: [id number] /
--- NOTE | 2019-10-12 13:08 | P.PN ---
Subjective Progress Note Date: 10/12/19 Principal diagnosis: Acute hypoxic respiratory failure Bilateral aspiration pneumonia Bowel obstruction likely due to retained fecal material Developmentally delayed Status post chronic Peg tube and tracheostomy Severe degree of seizure disorder Past history of respiratory failure requiring vent support 10/12/2019, patient seen and evaluated examined overall no significant change and no cough or congestion is present no more episodes of vomiting has been noted patient is getting therapy for pneumonia ID service has been following respiratory status remains stable This is a 29-year-old status post trach and PEG due to developmental delay, patient has a history of chronic seizure disorder, patient's PEG tube has been recently changed about 2 months ago developed problems associated with severe constipation and vomiting and bluish blood-tinged secretions coming out through the PEG tube came into the hospital for further evaluation suspicion of pneumonia, chest x-ray revealed bilateral lower lobe infiltrate consistent with aspiration pneumonia patient is currently getting broad-spectrum antibiotics finally he has a bowel movement is abdomen is more softer now, patient also has a computed tomography scan of the abdominal pelvis which revealed dilated loops of bowel and colon Objective - Vital Signs Vital signs: Vital Signs Temp 97.8 F 10/12/19 07:16 Pulse 78 10/12/19 12:46 Resp 22 10/12/19 08:42 BP 91/51 10/12/19 07:16 Pulse Ox 93 L 10/12/19 07:16 Intake & Output 10/11/19 10/12/19 10/12/19 18:59 06:59 18:59 Intake Total 420 600 Output Total 500 420 Balance 420 -500 180 Intake: Intake, IV Titration 300 400 Amount Lacosamide IV 200 mg In 50 50 Sodium Chloride 0.9% 50 ml @ 100 mls/hr IVPB BID [facility] Rx#:[id number] Sodium Chloride 0.9% 1, 150 250 000 ml @ 50 mls/hr IV . Q20H [facility] Rx#:[id number] metroNIDAZOLE-NS PMX 500 100 100 mg In Saline 1 100ml.bag @ 100 mls/hr IVPB Q8HR [facility] Rx#:[id number] Tube Feeding 120 Other 200 Output: Urine 500 420 Other: Voiding Method Indwelling Catheter Indwelling Catheter Diaper # Voids 1 # Bowel Movements 1 - Exam - Constitutional General appearance: average body habitus, disheveled, no acute distress - EENT Eyes: EOMI, PERRLA Ears: bilateral: normal - Neck Neck: normal ROM Carotids: bilateral: upstroke normal - Respiratory Respiratory: bilateral: CTA, diminished, negative: dullness, rales, rhonchi - Cardiovascular Rhythm: regular Heart sounds: normal: S1, S2 - Gastrointestinal General gastrointestinal: decreased bowel sounds - Musculoskeletal Musculoskeletal: generalized weakness, strength equal bilaterally - Labs CBC & Chem 7: 10/12/19 07:20 10/12/19 07:20 Labs: Abnormal Lab Results - Last 24 Hours (Table) 10/12/19 10/12/19 Range/Units 07:20 07:20 RBC 3.32 L (4.30-5.90) m/uL Hgb 11.0 L (13.0-17.5) gm/dL Hct 33.4 L (39.0-53.0) % MCV 100.5 H (80.0-100.0) fL RDW 15.8 H (11.5-15.5) % Potassium 3.2 L (3.5-5.1) mmol/L Chloride 111 H (98-107) mmol/L Microbiology - Last 24 Hours (Table) 10/10/19 12:24 Blood Culture - Preliminary Blood No Growth after 24 hours 10/10/19 22:00 Urine Culture - Preliminary Urine,Catheterized Assessment and Plan Assessment: Acute hypoxic respiratory failure Bilateral aspiration pneumonia Bowel obstruction likely due to retained fecal material Developmentally delayed Status post chronic Peg tube and tracheostomy Severe degree of seizure disorder Past history of respiratory failure requiring vent support Plan: Maintain trach keep saturation over 92% supplemental oxygen as needed Pulmonary toilet Respiratory to suction as needed Seizure precautions Nothing by mouth for now Hold tube feed Broad-spectrum antibiotics for bilateral aspiration pneumonia Further recommendations pending plan of care as per clinical response of the patient Time with Patient: Greater than 30
--- NOTE | 2019-10-12 13:37 | P.PN ---
Subjective Progress Note Date: 10/12/19 CHIEF COMPLAINT: bowel obstruction HISTORY OF PRESENT ILLNESS: Patient examined at the bedside with Dr. Lobo. Caregiver present. He received soap suds enemas yesterday with moderate stool output per nursing. No nausea or vomiting today. PHYSICAL EXAM: VITAL SIGNS: Reviewed. GENERAL: Well-developed in no acute distress. HEENT: Trach noted. No sclera icterus. Extraocular movements grossly intact. Moist buccal mucosa. Head is atraumatic, normocephalic. ABDOMEN: Soft. Distended. Nontender. PEG tube noted. NEUROLOGIC: Nonverbal at baseline ASSESSMENT: 1. Vomiting 2. Megacolon, colonic ileus 3. History of trach and PEG PLAN: -2L GoLYTELY to be given today via PEG tube -If patient has good results with GoLYTELY will reimage abdomen tomorrow. If not we will proceed with additional 2 L of GoLYTELY tomorrow Nurse practitioner note has been reviewed by physician. Signing provider agrees with the documented findings, assessment, and plan of care. Objective - Vital Signs Vital signs: Vital Signs Temp 97.8 F 10/12/19 07:16 Pulse 78 10/12/19 12:46 Resp 22 10/12/19 08:42 BP 91/51 10/12/19 07:16 Pulse Ox 93 L 10/12/19 07:16 Intake & Output 10/11/19 10/12/19 10/12/19 18:59 06:59 18:59 Intake Total 420 600 Output Total 500 420 Balance 420 -500 180 Intake: Intake, IV Titration 300 400 Amount Lacosamide IV 200 mg In 50 50 Sodium Chloride 0.9% 50 ml @ 100 mls/hr IVPB BID [facility] Rx#:[id number] Sodium Chloride 0.9% 1, 150 250 000 ml @ 50 mls/hr IV . Q20H [facility] Rx#:[id number] metroNIDAZOLE-NS PMX 500 100 100 mg In Saline 1 100ml.bag @ 100 mls/hr IVPB Q8HR [facility] Rx#:[id number] Tube Feeding 120 Other 200 Output: Urine 500 420 Other: Voiding Method Indwelling Catheter Indwelling Catheter Diaper # Voids 1 # Bowel Movements 1 - Labs CBC & Chem 7: 10/12/19 07:20 10/12/19 07:20 Labs: Abnormal Lab Results - Last 24 Hours (Table) 10/12/19 10/12/19 Range/Units 07:20 07:20 RBC 3.32 L (4.30-5.90) m/uL Hgb 11.0 L (13.0-17.5) gm/dL Hct 33.4 L (39.0-53.0) % MCV 100.5 H (80.0-100.0) fL RDW 15.8 H (11.5-15.5) % Potassium 3.2 L (3.5-5.1) mmol/L Chloride 111 H (98-107) mmol/L Microbiology - Last 24 Hours (Table) 10/10/19 12:24 Blood Culture - Preliminary Blood No Growth after 24 hours 10/10/19 22:00 Urine Culture - Preliminary Urine,Catheterized
[2019-10-12] MEDS: LEVOFLOXACIN 750MG-D5W PMX 750 MG in DEXTROSE/WATER 1 150ML.BAG IVPB SCH (17:02)
--- NOTE | 2019-10-12 20:19 | PN ---
PROGRESS NOTE DATE OF SERVICE: 10/12/2019 This 29-year-old gentleman who was admitted with acute upper gastrointestinal bleeding also had possible bowel obstruction. Patient also had bibasilar aspiration pneumonia. Patient on antibiotics. Pulmonary and as well as surgery is following the patient closely. The surgery was concerned possible megacolon chronically as GoLYTELY has been recommended. The patient being closely monitored. PAST MEDICAL HISTORY: Reviewed. REVIEW OF SYMPTOMS: Review of systems could not be taken. CURRENT MEDICATIONS: 1. Tylenol. 2. DuoNeb q.i.d. and p.r.n. 3. Klonopin 1 mg per PEG daily. 4. Folic acid. 5. Heparin. 6. Dilaudid. 8. Lactobacillus. 9. Keppra. 10.Levaquin. 11.Flagyl. 12.Morphine. 13.Narcan. 14.Clobazam. 15.Zofran. 16.Protonix. 17.Scopolamine. 18.Flomax. PHYSICAL EXAM: Patient is stuporous. Pulse 74.. Blood pressure 108/62, respirations 18, temp 98.1, pulse ox 94% on room air. HEENT: Conjunctivae normal. NECK: No JVD. CARDIOVASCULAR: S1, S2 muffled. RESPIRATIONS: Breath sounds diminished in the bases. A few scattered rhonchi and crackles. ABDOMEN: Soft, mild diffuse distention. NERVOUS SYSTEM: Unchanged. LAB: sodium 140, potassium 3.2. Urine WBC more than 182, positive and urine culture showed group D Enterococcus. ASSESSMENT: 1. Acute upper gastrointestinal bleeding with possibly peptic ulcer disease. 2. Possible bibasilar aspiration pneumonia with possible sepsis. 3. Change in mental status, metabolic encephalopathy, acute on chronic. 4. Group B Enterococcus from the urine culture. 5. Possible bowel obstruction with colonic distention possibly secondary to constipation. 6. Possible megacolon. 7. Possible acute urinary tract infection present on admission. 8. Hypokalemia. 9. History of asthma. 10.History of seizure disorder. 11.History of development delay. 12.History of autism. 13.History of seizure disorder, partial complex. 14.History of intraabdominal wall abscess. 15.History of vagal nerve stimulator. 16.History of PEG tube placement. 17.Left ureteral stent placement history. 18.History of attention-deficit disorder/attention-deficit/hyperactivity disorder. 19.FULL CODE. RECOMMENDATIONS AND DISCUSSION: This 29-year-old gentleman with multiple complex medical issues, we will monitor the patient closely, continue the current medications, management and symptomatic treatment. We will await the sensitivities of enterococci. Otherwise, we will continue to follow up with Gastroenterology and surgery and Pulmonary. Guarded prognosis because of multiple complex medical issues. Infectious Disease was also consulted. See orders for further details. Discussed with the mother who understands and agrees. Further recommendations to follow. MMODL / IJN: [id number] / MTDD
[2019-10-12] MEDS: HYDROmorphone 0.5 MG/0.5 ML SYRINGE IVP PRN (22:26)
--- NOTE | 2019-10-12 22:59 | PN ---
PROGRESS NOTE DATE OF SERVICE: 10/12/2019. REASON FOR FOLLOWUP: Aspiration pneumonitis. INTERVAL HISTORY: The patient is currently afebrile. Patient has been breathing comfortably. No further vomiting has been reported or any worsening cough. No respiratory distress. Did not have a bowel movement today. The patient unable to provide any history. Most information provided by the aunt who is the caregiver. PHYSICAL EXAMINATION: Blood pressure 111/61 with a pulse of 76. Temperature is 97.8. He is 95% on room air. General description is a middle-aged male lying in bed in no distress. Respiratory system: Unlabored breathing. Decreased breath sounds in the bases. No wheeze. Heart S1, S2. Regular rate and rhythm. Abdomen soft, no tenderness. LABS: Hemoglobin 11, white count 5.2. BUN of 13, creatinine 0.74. UA Group D Enterococcus. DIAGNOSTIC IMPRESSION AND PLAN: Patient admitted to the hospital with acute nausea, vomiting in this patient who did have evidence of large bowel obstruction. Patient multiple ANTIBIOTIC ALLERGIES currently covered with Levaquin and Flagyl to continue and monitor clinical course closely. MMODL / IJN: [id number] / MTDD
[2019-10-13] MEDS: RUFINAMIDE PO SCH ×2 (00:43→11:48)
[2019-10-13] MEDS: levETIRAcetam ORAL SOLN 500 MG/5 ML CUP PEG/G-TUBE SCH ×3 (00:43→16:09)
[2019-10-13] MEDS: metroNIDAZOLE-NS PMX 500 MG in SALINE 1 100ML.BAG IVPB SCH ×3 (00:44→14:55)
[2019-10-13] MEDS: clonazePAM 1 MG TAB PEG/G-TUBE SCH ×3 (00:44→16:09)
[2019-10-13] MEDS: HYDROmorphone 0.5 MG/0.5 ML SYRINGE IVP PRN (04:18)
[2019-10-13] MEDS: SODIUM CHLORIDE 0.9% 1,000 ML IV SCH (05:44)
[2019-10-13] MEDS: IPRATROPIUM-ALBUTEROL 3 ML NEB INHALATION SCH ×3 (07:20→21:26)
[2019-10-13 07:24] LABS: Basophils % (A) 0 %; Eosinophils # (A) 0.1 k/uL (0-0.7); Eosinophils % (A) 2 %; HCT 33.6 % (39.0-53.0); HGB 11.2 gm/dL (13.0-17.5); Lymphocytes # (A) 1.1 k/uL (1.0-4.8); Lymphocytes % (A) 20 %; MCH 32.7 pg (25.0-35.0); MCHC 33.4 g/dL (31.0-37.0); MCV 97.9 fL (80.0-100.0); Macrocytosis Slight; Mean Platelet Volume 7.3; Monocytes # (A) 0.2 k/uL (0-1.0); Monocytes % (A) 4 %; Neutrophils % (A) 73 %; Platelet Count 218 k/uL (150-450); Poikilocytosis Slight; RBC 3.43 m/uL (4.30-5.90); RDW 15.7 % (11.5-15.5); WBC 5.5 k/uL (3.8-10.6)
[2019-10-13] MEDS: HEPARIN SODIUM,PORCINE 5,000 UNIT/ML 1 ML VIAL SQ SCH ×2 (08:00→21:37)
[2019-10-13] MEDS: PANTOPRAZOLE 40 MG/10 ML VIAL IV SCH ×2 (08:00→21:37)
[2019-10-13] MEDS: FOLIC ACID 1 MG TAB PEG/G-TUBE SCH (08:01)
[2019-10-13] MEDS: TAMSULOSIN 0.4 MG CAP.ER.24H PO SCH (08:01)
[2019-10-13] MEDS ORDERED: Potassium Replacement Protocol 1 EACH MISC MISCELLANE PRN ×4 (08:17→22:36)
[2019-10-13 08:19] LABS: African American GFR (CKD) >90 (>60 ml/min/1.73 sqM); Anion Gap 9 mmol/L; Blood Urea Nitrogen 8 mg/dL (9-20); Calcium 8.2 mg/dL (8.4-10.2); Carbon Dioxide 23 mmol/L (22-30); Chloride 107 mmol/L (98-107); Glucose 78 mg/dL (74-99); Non-African American GFR(CKD) >90 (>60 ml/min/1.73 sqM); Sodium 139 mmol/L (137-145)
[2019-10-13 08:30] LABS: Potassium 2.7 mmol/L (3.5-5.1)
[2019-10-13] MEDS: POTASSIUM BICARBONATE/CIT AC 20 MEQ TABLET.EFF NG-TUBE SCH ×4 (08:36→23:18)
[2019-10-13] MEDS: IOPAMIDOL CONTRAST (ORAL USE) VIAL PO PRN ×2 (08:42→10:02)
[2019-10-13] MEDS ORDERED: POTASSIUM BICARBONATE/CIT AC 20 MEQ TABLET.EFF NG-TUBE SCH (09:00)
--- NOTE | 2019-10-13 09:49 | P.PN ---
Subjective Progress Note Date: 10/13/19 CHIEF COMPLAINT: bowel obstruction HISTORY OF PRESENT ILLNESS: Patient examined at the bedside. Caregiver present. Patient received 2L GoLYTELY yesterday and a soap suds enema. Nursing reports he had a small bowel movement this morning PHYSICAL EXAM: VITAL SIGNS: Reviewed. GENERAL: Well-developed in no acute distress. HEENT: Trach noted. No sclera icterus. Extraocular movements grossly intact. Moist buccal mucosa. Head is atraumatic, normocephalic. ABDOMEN: Soft. Distended. Nontender. PEG tube noted. NEUROLOGIC: Nonverbal at baseline ASSESSMENT: 1. Vomiting 2. Megacolon, colonic ileus 3. History of trach and PEG PLAN: Obtain CT abdomen pelvis with oral contrast (via peg) to evaluate status of colonic ileus Further recommendations pending CT results Nurse practitioner note has been reviewed by physician. Signing provider agrees with the documented findings, assessment, and plan of care. Objective - Vital Signs Vital signs: Vital Signs Temp 97.5 F L 10/13/19 07:00 Pulse 70 10/13/19 07:29 Resp 15 10/13/19 07:00 BP 94/55 10/13/19 07:00 Pulse Ox 99 10/13/19 07:00 Intake & Output 10/12/19 10/13/19 10/13/19 18:59 06:59 18:59 Intake Total 600 Output Total 420 825 Balance 180 -825 Intake: Intake, IV Titration 400 Amount Lacosamide IV 200 mg In 50 Sodium Chloride 0.9% 50 ml @ 100 mls/hr IVPB BID [facility] Rx#:[id number] Sodium Chloride 0.9% 1, 250 000 ml @ 50 mls/hr IV . Q20H [facility] Rx#:[id number] metroNIDAZOLE-NS PMX 500 100 mg In Saline 1 100ml.bag @ 100 mls/hr IVPB Q8HR [facility] Rx#:[id number] Other 200 Output: Urine 420 825 Other: Voiding Method Indwelling Catheter Indwelling Catheter # Voids 1 # Bowel Movements 1 - Labs CBC & Chem 7: 10/13/19 06:40 10/13/19 06:40 Labs: Abnormal Lab Results - Last 24 Hours (Table) 10/13/19 10/13/19 Range/Units 06:40 06:40 RBC 3.43 L (4.30-5.90) m/uL Hgb 11.2 L (13.0-17.5) gm/dL Hct 33.6 L (39.0-53.0) % RDW 15.7 H (11.5-15.5) % Potassium 2.7 L* (3.5-5.1) mmol/L BUN 8 L (9-20) mg/dL Calcium 8.2 L (8.4-10.2) mg/dL Microbiology - Last 24 Hours (Table) 10/10/19 12:24 Blood Culture - Preliminary Blood No Growth after 48 hours 10/10/19 22:00 Urine Culture - Preliminary Urine,Catheterized Group D Enterococcus
[2019-10-13] MEDS: LACOSAMIDE IV 200 MG in SODIUM CHLORIDE 0.9% 50 ML IVPB SCH ×2 (10:03→21:03)
--- NOTE | 2019-10-13 10:56 | CT ---
EXAMINATION TYPE: CT abdomen pelvis wo con DATE OF EXAM: 10/13/2019 HISTORY: colonic ileus CT DLP: 767.9 mGycm. Automated Exposure Control for Dose Reduction was Utilized. TECHNIQUE: CT scan of the abdomen and pelvis is performed with oral but without IV contrast. Oral co ntrast was presumed given through PEG tube. COMPARISON: CT 3 days earlier FINDINGS: Within the limitations of a non-contrast study, the following observations are made. Exam noted suboptimal as patient has virtual no intra-abdominal fat. LUNG BASES: Motion artifact degradation makes evaluation suboptimal. New small to tiny right greater than left pleural effusions. Persistent posterior atelectasis and/or consolidation. LIVER/GB: No significant abnormality is appreciated. PANCREAS: No significant abnormality is seen. SPLEEN: No significant abnormality is seen. ADRENALS: No significant abnormality is seen. KIDNEYS: Similar to prior study severe left-sided hydronephrosis and moderate right-sided hydronephro sis. Guerrero catheter within bladder which shows some decompression versus prior. There is moderate con centric wall thickening noted. Cannot exclude underlying acute cystitis. Correlate clinically. BOWEL: Redemonstration of moderate size hiatal hernia. PEG tube remains in place. Oral contrast reach es level of the cecum making evaluation of distal bowel suboptimal. There is no significant small bow el dilatation. There is diffuse prominence of colonic loops along the periphery filled with fluid and fecal material. Prominent dilatation involves somewhat redundant sigmoid colon similar to prior. GENITAL ORGANS: No gross abnormality seen. LYMPH NODES: No greater than 1cm abdominal or pelvic lymph nodes are appreciated. OSSEOUS STRUCTURES: No significant abnormality is seen. OTHER: No significant additional abnormality is seen. IMPRESSION: Suboptimal study. Persistent severe fluid and fecal filled colon especially distally with out suspicious small bowel dilatation suggests severe colonic ileus. Possible underlying acute cystit is.
--- NOTE | 2019-10-13 11:28 | P.PN ---
Subjective Progress Note Date: 10/13/19 Principal diagnosis: Acute hypoxic respiratory failure Bilateral aspiration pneumonia Bowel obstruction likely due to retained fecal material Developmentally delayed Status post chronic Peg tube and tracheostomy Severe degree of seizure disorder Past history of respiratory failure requiring vent support 10/13/2019, patient seen and evaluated examined during the rounds overall remains stable pulmonary standpoint remains on antibiotics for aspiration pneumonia congestion is present, computed tomography scan of the abdomen revealed a large hiatal hernia, PEG tube has been stable, 10/12/2019, patient seen and evaluated examined overall no significant change and no cough or congestion is present no more episodes of vomiting has been noted patient is getting therapy for pneumonia ID service has been following respiratory status remains stable This is a 29-year-old status post trach and PEG due to developmental delay, patient has a history of chronic seizure disorder, patient's PEG tube has been recently changed about 2 months ago developed problems associated with severe constipation and vomiting and bluish blood-tinged secretions coming out through the PEG tube came into the hospital for further evaluation suspicion of pneumonia, chest x-ray revealed bilateral lower lobe infiltrate consistent with aspiration pneumonia patient is currently getting broad-spectrum antibiotics finally he has a bowel movement is abdomen is more softer now, patient also has a computed tomography scan of the abdominal pelvis which revealed dilated loops of bowel and colon Objective - Vital Signs Vital signs: Vital Signs Temp 97.5 F L 10/13/19 07:00 Pulse 70 10/13/19 07:29 Resp 15 10/13/19 07:00 BP 94/55 10/13/19 07:00 Pulse Ox 99 10/13/19 07:00 Intake & Output 10/12/19 10/13/19 10/13/19 18:59 06:59 18:59 Intake Total 600 Output Total 420 825 Balance 180 -825 Intake: Intake, IV Titration 400 Amount Lacosamide IV 200 mg In 50 Sodium Chloride 0.9% 50 ml @ 100 mls/hr IVPB BID [facility] Rx#:[id number] Sodium Chloride 0.9% 1, 250 000 ml @ 50 mls/hr IV . Q20H [facility] Rx#:[id number] metroNIDAZOLE-NS PMX 500 100 mg In Saline 1 100ml.bag @ 100 mls/hr IVPB Q8HR [facility] Rx#:[id number] Other 200 Output: Urine 420 825 Other: Voiding Method Indwelling Catheter Indwelling Catheter # Voids 1 # Bowel Movements 1 - Exam - Constitutional General appearance: average body habitus, disheveled, no acute distress - EENT Eyes: EOMI, PERRLA Ears: bilateral: normal - Neck Neck: normal ROM Carotids: bilateral: upstroke normal - Respiratory Respiratory: bilateral: CTA, diminished, negative: dullness, rales, rhonchi - Cardiovascular Rhythm: regular Heart sounds: normal: S1, S2 - Gastrointestinal General gastrointestinal: decreased bowel sounds - Musculoskeletal Musculoskeletal: generalized weakness, strength equal bilaterally - Labs CBC & Chem 7: 10/13/19 06:40 10/13/19 06:40 Labs: Abnormal Lab Results - Last 24 Hours (Table) 10/13/19 10/13/19 Range/Units 06:40 06:40 RBC 3.43 L (4.30-5.90) m/uL Hgb 11.2 L (13.0-17.5) gm/dL Hct 33.6 L (39.0-53.0) % RDW 15.7 H (11.5-15.5) % Potassium 2.7 L* (3.5-5.1) mmol/L BUN 8 L (9-20) mg/dL Calcium 8.2 L (8.4-10.2) mg/dL Microbiology - Last 24 Hours (Table) 10/10/19 12:24 Blood Culture - Preliminary Blood No Growth after 48 hours 10/10/19 22:00 Urine Culture - Preliminary Urine,Catheterized Group D Enterococcus Assessment and Plan Assessment: Acute hypoxic respiratory failure Bilateral aspiration pneumonia Bowel obstruction likely due to retained fecal material Developmentally delayed Status post chronic Peg tube and tracheostomy Severe degree of seizure disorder Past history of respiratory failure requiring vent support Plan: Maintain trach keep saturation over 92% supplemental oxygen as needed Pulmonary toilet Respiratory to suction as needed Seizure precautions Nothing by mouth for now Hold tube feed Broad-spectrum antibiotics for bilateral aspiration pneumonia Further recommendations pending plan of care as per clinical response of the patient Time with Patient: Greater than 30
[2019-10-13] MEDS ORDERED: Magnesium Replacement Protocol 1 EACH MISC MISCELLANE PRN (12:01)
--- NOTE | 2019-10-13 12:08 | P.PN ---
Subjective This is a pleasant 29 years old male with past medical history of developmental delay, autism, seizure disorder, status post vagal neurostimulator, left ureteral stent, presents this signs symptoms of bowel obstruction secondary to fecal impaction, surgeries been evaluated the patient GoLYTELY and has been tried with no much success and enema with only moderate stool, and surgery team recommended CAT scan of the abdomen and pelvis today. Showing fecal impaction with possible small bowel dilatation suggestive of colonic ileus, possible cystitis Patient is nothing by mouth and hold tube feeds, hemodynamically stable, blood pressure is 94/55, which is similar to last few days on the presentation. Low potassium is been replaced, WBC is normal 5.5K, urine cultures, group D enterococcus Objective - Vital Signs Vital signs: Vital Signs Temp 97.5 F L 10/13/19 07:00 Pulse 70 10/13/19 07:29 Resp 15 10/13/19 08:06 BP 94/55 10/13/19 07:00 Pulse Ox 99 10/13/19 07:00 Intake & Output 10/12/19 10/13/19 10/13/19 18:59 06:59 18:59 Intake Total 600 Output Total 420 825 Balance 180 -825 Weight 74.843 kg Intake: Intake, IV Titration 400 Amount Lacosamide IV 200 mg In 50 Sodium Chloride 0.9% 50 ml @ 100 mls/hr IVPB BID [facility] Rx#:[id number] Sodium Chloride 0.9% 1, 250 000 ml @ 50 mls/hr IV . Q20H [facility] Rx#:[id number] metroNIDAZOLE-NS PMX 500 100 mg In Saline 1 100ml.bag @ 100 mls/hr IVPB Q8HR [facility] Rx#:[id number] Other 200 Output: Urine 420 825 Other: Voiding Method Indwelling Catheter Indwelling Catheter Indwelling Catheter # Voids 1 # Bowel Movements 1 - Exam -GENERAL: Average for age, no respiratory distress HEENT: Pupils are round and equally reacting to light. EOMI. No scleral icterus. No conjunctival pallor. Normocephalic, atraumatic. No pharyngeal erythema. No thyromegaly. CARDIOVASCULAR: S1 and S2 present. No murmurs, rubs, or gallops. PULMONARY: Chest is clear to auscultation, no wheezing or crackles. -ABDOMEN: Soft, nontender, nondistended, normoactive bowel sounds. No palpable organomegaly. PEG tube is in a Place MUSCULOSKELETAL: No joint swelling or deformity. EXTREMITIES: No cyanosis, clubbing, or pedal edema. NEUROLOGICAL: Gross neurological examination did not reveal any focal deficits. SKIN: No rashes. no petechiae. - Labs CBC & Chem 7: 10/13/19 06:40 10/13/19 06:40 Labs: Abnormal Lab Results - Last 24 Hours (Table) 10/13/19 10/13/19 Range/Units 06:40 06:40 RBC 3.43 L (4.30-5.90) m/uL Hgb 11.2 L (13.0-17.5) gm/dL Hct 33.6 L (39.0-53.0) % RDW 15.7 H (11.5-15.5) % Potassium 2.7 L* (3.5-5.1) mmol/L BUN 8 L (9-20) mg/dL Calcium 8.2 L (8.4-10.2) mg/dL Microbiology - Last 24 Hours (Table) 10/10/19 12:24 Blood Culture - Preliminary Blood No Growth after 48 hours 10/10/19 22:00 Urine Culture - Preliminary Urine,Catheterized Group D Enterococcus Assessment and Plan Assessment: Bowel obstruction secondary to fecal impaction Possible aspiration pneumonia Possible upper GI bleed Suspicion for acute urinary tract infection and acute cystitis Developmental delay status post Jomar and tracheostomy History of seizure Plan: This is a pleasant 29 years old male who presents with bowel obstruction, possible aspiration pneumonia and UTI and GI bleed. Patient is followed by silver consult including surgery, gastroenterology, and infectious disease. Patient currently on antibiotics as per ID recommendation. Continue with gentle hydration. Follow-up culture results Labs and medication were reviewed.. Continue same treatment. Continue with symptomatic treatment. Resume home medication. Monitor lytes and vitals. DVT and GI prophylaxis. Further recommendations of the clinical course of the patient DVT prophylaxis: No heparin in view of possible GI bleed GI Prophylaxis: Pepcid PT/OT: Pending Prognosis is guarded
[2019-10-13] MEDS: METOCLOPRAMIDE 5 MG/ML 2 ML VIAL IVP SCH ×2 (12:22→21:30)
--- NOTE | 2019-10-13 13:02 | PN ---
PROGRESS NOTE DATE OF DICTATION: 10/13/2019 The patient is a 29-year-old pleasant white male admitted to the hospital with coffee- ground emesis and severe constipation. He was given enemas with some help yesterday was given GoLYTELY with no relief. He also had another enema yesterday morning and did not have any bowel movements. As per the patient's mother who is taking care of him, he still has severe constipation. CT of the abdomen and pelvis was ordered by surgical services which once again showed a moderate-size hiatal hernia, PEG tube in place. There is no bowel obstruction, but there was diffuse prominence of the colonic loops with fecal material in the left colon. The patient is nonverbal. PHYSICAL EXAMINATION: On physical examination, sleeping, no acute distress. Vital signs are stable. Blood pressure 94/55, pulse rate 69, temperature 97.5. HEENT: Examination unremarkable. Conjunctivae pink. Sclerae anicteric. NECK: No JVD or lymph node enlargement. CHEST: Clear to auscultation. HEART: Regular rate and rhythm. ABDOMEN: PEG tube in place but it appeared very soft, nontender. Bowel sounds are positive. EXTREMITIES: No pedal edema. He has extremity contractures noted. LABS: WBC 5.5, hemoglobin 11.2, platelets normal. Basic metabolic panel shows a potassium is 2.7, but otherwise unremarkable. IMPRESSION: 1. Severe constipation, status post enema and GoLYTELY prep yesterday with no significant relief. CT scan done this morning once again showed fecal stasis with dilated colonic loops. 2. Coffee-grounds emesis, resolved. 3. History of PEG tube placement 2 years ago. Feeds are on hold. 4. Mild anemia. 5. Mild hypokalemia. RECOMMENDATION: 1. At this time, recommend continuing with MiraLAX 1 scoop twice daily as well as a Fleet enema every day or every other day based on the symptoms. 2. Await recommendations from Surgery. 3. Will sign off at this time and he can follow up in the office following discharge from the hospital for continued management of GI problems. Thank you for this consultation. MMODL / IJN: [id number] /
[2019-10-13] MEDS: LEVOFLOXACIN 750MG-D5W PMX 750 MG in DEXTROSE/WATER 1 150ML.BAG IVPB SCH (16:09)
[2019-10-13] MEDS ORDERED: VANCOMYCIN IV PER PHARMACY 1 EACH MISC MISCELLANE PRN (20:55)
[2019-10-13] MEDS ORDERED: VANCOMYCIN 1,500 MG in SODIUM CHLORIDE 0.9% 250 ML IVPB STA (20:58)
[2019-10-13 20:59] LABS: Magnesium 1.6 mg/dL (1.6-2.3); Potassium 3.2 mmol/L (3.5-5.1)
--- NOTE | 2019-10-13 21:52 | PN ---
PROGRESS NOTE DATE OF SERVICE: 10/13/2019 REASON FOR FOLLOWUP: 1. Aspiration pneumonitis. 2. UTI. INTERVAL HISTORY: The patient is currently afebrile, has been breathing comfortably. The patient continues to have problems with constipation, but no vomiting has been reported. CT of abdomen and pelvis has been done which shows evidence of colonic ileus and the patient unable to provide any history. PHYSICAL EXAMINATION: Blood pressure 94/55 with a pulse of 69, temperature 97.5. He is 99% on room air. General description is a middle-aged male lying in bed in no distress. RESPIRATORY SYSTEM: Unlabored breathing with decreased breath sounds at the base. No wheeze. HEART: S1, S2. Regular rate and rhythm. ABDOMEN: Soft. No tenderness. EXTREMITIES: No edema of the feet. LABS: Hemoglobin is 11.1, white count of 5.5 with a BUN of 8, creatinine 0.66. Potassium low at 2.7. Urine was positive. Urine culture now showing Enterococcus. DIAGNOSTIC IMPRESSION AND PLAN: 1. Patient admitted to hospital with significant vomiting secondary to ileus with concern for possible aspiration pneumonitis. The patient is covered with Levaquin and Flagyl; to continue. 2. Patient with a positive urinalysis. CT has been suggestive of cystitis. Urine with Enterococcus. Patient with PENICILLIN ALLERGY. Will add vancomycin and monitor his kidney function and clinical course closely. MMODL / IJN: [id number] / MTDD
[2019-10-14] MEDS: METOCLOPRAMIDE 5 MG/ML 2 ML VIAL IVP SCH ×5 (00:27→23:32)
[2019-10-14] MEDS: clonazePAM 1 MG TAB PEG/G-TUBE SCH ×4 (00:27→23:32)
[2019-10-14] MEDS: levETIRAcetam ORAL SOLN 500 MG/5 ML CUP PEG/G-TUBE SCH ×3 (00:51→17:00)
[2019-10-14] MEDS: metroNIDAZOLE-NS PMX 500 MG in SALINE 1 100ML.BAG IVPB SCH ×4 (00:51→23:34)
[2019-10-14] MEDS: RUFINAMIDE PO SCH ×3 (00:51→23:33)
[2019-10-14] MEDS: POTASSIUM BICARBONATE/CIT AC 20 MEQ TABLET.EFF NG-TUBE SCH (00:54)
[2019-10-14] MEDS: VANCOMYCIN 1,250 MG in SODIUM CHLORIDE 0.9% 250 ML IVPB SCH ×2 (05:17→21:08)
[2019-10-14] MEDS: SODIUM CHLORIDE 0.9% 1,000 ML IV SCH ×2 (05:17→16:07)
[2019-10-14 07:50] LABS: African American GFR (CKD) >90 (>60 ml/min/1.73 sqM); Anion Gap 9 mmol/L; Blood Urea Nitrogen 5 mg/dL (9-20); Calcium 8.7 mg/dL (8.4-10.2); Carbon Dioxide 22 mmol/L (22-30); Chloride 109 mmol/L (98-107); Glucose 80 mg/dL (74-99); Magnesium 1.7 mg/dL (1.6-2.3); Non-African American GFR(CKD) >90 (>60 ml/min/1.73 sqM); Potassium 3.4 mmol/L (3.5-5.1); Sodium 140 mmol/L (137-145)
[2019-10-14] MEDS: IPRATROPIUM-ALBUTEROL 3 ML NEB INHALATION SCH ×4 (07:55→19:02)
[2019-10-14] MEDS: HEPARIN SODIUM,PORCINE 5,000 UNIT/ML 1 ML VIAL SQ SCH ×2 (09:36→21:04)
[2019-10-14] MEDS: LACTOBACILLUS ACIDOPH & BULGAR 1 EACH PACKET PEG/G-TUBE SCH (09:37)
[2019-10-14] MEDS: PANTOPRAZOLE 40 MG/10 ML VIAL IV SCH ×2 (09:38→21:04)
[2019-10-14] MEDS: FOLIC ACID 1 MG TAB PEG/G-TUBE SCH (09:38)
[2019-10-14] MEDS: TAMSULOSIN 0.4 MG CAP.ER.24H PO SCH (09:38)
[2019-10-14] MEDS: HYDROmorphone 0.5 MG/0.5 ML SYRINGE IVP PRN (09:47)
--- NOTE | 2019-10-14 09:56 | CDI ---
Documentation Clarification Form Date: 10/14/2019 08:53:33 AM From: Jacquelin Borges RN CCDS Admit Date: 10/10/2019 03:51:00 PM Patient Name: Gibran Baldwin Visit Number: [id number] Discharge Date: ATTENTION: The Clinical Documentation Specialists (CDI) and [facility] Coding Staff appreciate your assistance in clarifying documentation. Please respond to the clarification below the line at the bottom and electronically sign. The CDI & [facility] Coding staff will review the response and follow-up if needed. Please note: Queries are made part of the Legal Health Record. If you have any questions, please contact the author of this message via ITS. Dr. Rosado E Sheet The diagnosis possible sepsis was documented in the H&P and in Progress notes 10/10, 10/[address] Haji but is not noted in subsequent documentation. History/Risk Factors: 29 -year-old male presets to the ED with vomiting black colored coffee material and black stools coming out of the Peg Tube for the last two days. Clinical Indicators: Per ID Progress Note 10/12 Patient admitted to hospital with significant vomiting secondary to ileus with concern for possible aspiration pneumonitis. Patient with a positive urinalysis. Ct has been suggestive of cystitis. Urine with Enterococcus. VSS 10/09 154/94 68 97.8 18 97% ra Labs 10/09 Wbc 16.4, Neutrophils 15.0, K 3.2, Alk Phos 129, Gastric occult blood positive, Stool occult blood positive 10/11 UA - Culture Group D Enterococcus 10/09 CXR Bilateral lower lobe infiltrate Treatment: 10/09 0.9ns1L bolus x1, 0.9ns 100cc/hr 10/09 Clindamycin Ivpb x1, Levaquin Ivp Q24Hr Dominique, 10/10 Metronidazole Ivpb Q8Hr dominique, 10/12 Vancomycin Ivpb Q 8H dominique, Please clarify if the Sepsis was Present/active this admission Treated and resolved this admission Ruled out Other, please specify Clinically unable to determine (Last Query Form Revision: March 2019) A: during my evaluation i do not think pt has sepsis MTDD
--- NOTE | 2019-10-14 10:14 | P.PN ---
Subjective Progress Note Date: 10/14/19 CHIEF COMPLAINT: bowel obstruction HISTORY OF PRESENT ILLNESS: Patient examined at the bedside. Caregiver present. Nursing reports patient had a few small loose bowel movements overnight. PHYSICAL EXAM: VITAL SIGNS: Reviewed. GENERAL: Well-developed in no acute distress. HEENT: Trach noted. No sclera icterus. Extraocular movements grossly intact. Moist buccal mucosa. Head is atraumatic, normocephalic. ABDOMEN: Soft. Distended. Nontender. PEG tube noted. NEUROLOGIC: Nonverbal at baseline ASSESSMENT: 1. Vomiting 2. Megacolon, colonic ileus 3. History of trach and PEG PLAN: Obtain CT abdomen pelvis with rectal contrast Further recommendations pending CT results Nurse practitioner note has been reviewed by physician. Signing provider agrees with the documented findings, assessment, and plan of care. Objective - Vital Signs Vital signs: Vital Signs Temp 97.9 F 10/14/19 07:00 Pulse 70 10/14/19 08:13 Resp 16 10/14/19 07:00 BP 101/61 10/14/19 07:00 Pulse Ox 95 10/14/19 07:00 Intake & Output 10/13/19 10/14/19 10/14/19 18:59 06:59 18:59 Intake Total 725 Output Total 1800 1300 Balance -1075 -1300 Weight 74.843 kg Intake: Intake, IV Titration 725 Amount Lacosamide IV 200 mg In 50 Sodium Chloride 0.9% 50 ml @ 100 mls/hr IVPB BID [facility] Rx#:[id number] Levofloxacin 750Mg-D5w 150 Pmx 750 mg In Dextrose/ Water 1 150ml.bag @ 100 mls/hr IVPB Q24H [facility] Rx#: [id number] Sodium Chloride 0.9% 1, 425 000 ml @ 100 mls/hr IV . Q10H [facility] Rx#:[id number] metroNIDAZOLE-NS PMX 500 100 mg In Saline 1 100ml.bag @ 100 mls/hr IVPB Q8HR [facility] Rx#:[id number] Output: Urine 1800 1300 Other: Voiding Method Indwelling Catheter Indwelling Catheter - Labs CBC & Chem 7: 10/13/19 06:40 10/14/19 06:46 Labs: Abnormal Lab Results - Last 24 Hours (Table) 10/13/19 10/14/19 Range/Units 20:18 06:46 Potassium 3.2 L 3.4 L (3.5-5.1) mmol/L Chloride 109 H (98-107) mmol/L BUN 5 L (9-20) mg/dL Creatinine 0.61 L (0.66-1.25) mg/dL Microbiology - Last 24 Hours (Table) 10/10/19 22:00 Urine Culture - Final Urine,Catheterized Enterococcus faecalis VRE 10/10/19 12:24 Blood Culture - Preliminary Blood No Growth after 72 hours
[2019-10-14] MEDS: LACOSAMIDE IV 200 MG in SODIUM CHLORIDE 0.9% 50 ML IVPB SCH ×2 (11:02→22:32)
--- NOTE | 2019-10-14 11:15 | P.PN ---
Subjective Progress Note Date: 10/14/19 Principal diagnosis: Acute hypoxic respiratory failure Bilateral aspiration pneumonia Bowel obstruction likely due to retained fecal material Developmentally delayed Status post chronic Peg tube and tracheostomy Severe degree of seizure disorder Past history of respiratory failure requiring vent support 10/14/2019, patient seen eval examined during the rounds labs reviewed medications reviewed, as per request of the family trach has been evaluated, care plan discussed with the respiratory therapist as well, tracheostomy stoma appears to be stable inner cannula clean, no evidence of infection, no need to change tracheostomy 10/13/2019, patient seen and evaluated examined during the rounds overall remains stable pulmonary standpoint remains on antibiotics for aspiration pneumonia congestion is present, computed tomography scan of the abdomen revealed a large hiatal hernia, PEG tube has been stable, 10/12/2019, patient seen and evaluated examined overall no significant change and no cough or congestion is present no more episodes of vomiting has been noted patient is getting therapy for pneumonia ID service has been following respiratory status remains stable This is a 29-year-old status post trach and PEG due to developmental delay, patient has a history of chronic seizure disorder, patient's PEG tube has been recently changed about 2 months ago developed problems associated with severe constipation and vomiting and bluish blood-tinged secretions coming out through the PEG tube came into the hospital for further evaluation suspicion of pneumonia, chest x-ray revealed bilateral lower lobe infiltrate consistent with aspiration pneumonia patient is currently getting broad-spectrum antibiotics finally he has a bowel movement is abdomen is more softer now, patient also has a computed tomography scan of the abdominal pelvis which revealed dilated loops of bowel and colon Objective - Vital Signs Vital signs: Vital Signs Temp 97.9 F 10/14/19 07:00 Pulse 70 10/14/19 08:13 Resp 16 10/14/19 07:00 BP 101/61 10/14/19 07:00 Pulse Ox 95 10/14/19 07:00 Intake & Output 10/13/19 10/14/19 10/14/19 18:59 06:59 18:59 Intake Total 725 Output Total 1800 1300 500 Balance -1075 -1300 -500 Weight 74.843 kg Intake: Intake, IV Titration 725 Amount Lacosamide IV 200 mg In 50 Sodium Chloride 0.9% 50 ml @ 100 mls/hr IVPB BID [facility] Rx#:[id number] Levofloxacin 750Mg-D5w 150 Pmx 750 mg In Dextrose/ Water 1 150ml.bag @ 100 mls/hr IVPB Q24H [facility] Rx#: [id number] Sodium Chloride 0.9% 1, 425 000 ml @ 100 mls/hr IV . Q10H [facility] Rx#:[id number] metroNIDAZOLE-NS PMX 500 100 mg In Saline 1 100ml.bag @ 100 mls/hr IVPB Q8HR [facility] Rx#:[id number] Output: Urine 1800 1300 500 Uretheral (Guerrero) 500 Other: Voiding Method Indwelling Catheter Indwelling Catheter - Exam - Constitutional General appearance: average body habitus, disheveled, no acute distress - EENT Eyes: EOMI, PERRLA Ears: bilateral: normal - Neck Neck: normal ROM Carotids: bilateral: upstroke normal - Respiratory Respiratory: bilateral: CTA, diminished, negative: dullness, rales, rhonchi - Cardiovascular Rhythm: regular Heart sounds: normal: S1, S2 - Gastrointestinal General gastrointestinal: decreased bowel sounds - Musculoskeletal Musculoskeletal: generalized weakness, strength equal bilaterally - Labs CBC & Chem 7: 10/13/19 06:40 10/14/19 06:46 Labs: Abnormal Lab Results - Last 24 Hours (Table) 10/13/19 10/14/19 Range/Units 20:18 06:46 Potassium 3.2 L 3.4 L (3.5-5.1) mmol/L Chloride 109 H (98-107) mmol/L BUN 5 L (9-20) mg/dL Creatinine 0.61 L (0.66-1.25) mg/dL Microbiology - Last 24 Hours (Table) 10/10/19 22:00 Urine Culture - Final Urine,Catheterized Enterococcus faecalis VRE 10/10/19 12:24 Blood Culture - Preliminary Blood No Growth after 72 hours Assessment and Plan Assessment: Acute hypoxic respiratory failure Bilateral aspiration pneumonia Bowel obstruction likely due to retained fecal material Developmentally delayed Status post chronic Peg tube and tracheostomy Severe degree of seizure disorder Past history of respiratory failure requiring vent support Plan: Maintain trach keep saturation over 92% supplemental oxygen as needed Pulmonary toilet Respiratory to suction as needed Seizure precautions Nothing by mouth for now Hold tube feed Broad-spectrum antibiotics for bilateral aspiration pneumonia Further recommendations pending plan of care as per clinical response of the patient Time with Patient: Greater than 30
--- NOTE | 2019-10-14 12:21 | P.PN ---
Subjective This is a pleasant 29 years old male with past medical history of developmental delay, autism, seizure disorder, status post vagal neurostimulator, left ureteral stent, presents this signs symptoms of bowel obstruction secondary to fecal impaction, surgeries been evaluated the patient GoLYTELY and has been tried with no much success and enema with only moderate stool, and surgery team recommended CAT scan of the abdomen and pelvis today. Showing fecal impaction with possible small bowel dilatation suggestive of colonic ileus, possible cystitis Patient is nothing by mouth and hold tube feeds, hemodynamically stable, blood pressure is 94/55, which is similar to last few days on the presentation. Low potassium is been replaced, WBC is normal 5.5K, urine cultures, group D enterococcus 10/14/2019 Patient is lying comfortable in bed, no distress, mother at bedside, patient didn't have bowel movement since yesterday, no abdominal tenderness or significant pain, the mother does not think he needs abdominal pain medication for now. He got several laxative for his fecal impaction contributing to his bowel obstruction/ileus. His hemoglobin is stable at 11.2. No other episodes of GI bleed. Patient remains on Levaquin and Flagyl for his infection, possible pneumonia. Patient mother states that he has history of bilateral hydronephrosis and he has recent procedure done by Dr. De Dios recently including transurethral incision of the prostate to help him urinating, repeat imaging showed persistent hydronephrosis. Guerrero catheter was placed when he came to the hospital. We'll ask for urology reevaluation. Low potassium replaced. Surgical team recommended CAT scan of the abdomen and L this with rectal contrast which is pending Objective - Vital Signs Vital signs: Vital Signs Temp 97.9 F 10/14/19 07:00 Pulse 70 10/14/19 08:13 Resp 16 10/14/19 07:00 BP 101/61 10/14/19 07:00 Pulse Ox 95 10/14/19 07:00 Intake & Output 10/13/19 10/14/19 10/14/19 18:59 06:59 18:59 Intake Total 725 Output Total 1800 1300 500 Balance -1075 -1300 -500 Weight 74.843 kg Intake: Intake, IV Titration 725 Amount Lacosamide IV 200 mg In 50 Sodium Chloride 0.9% 50 ml @ 100 mls/hr IVPB BID [facility] 234 BEDS AT THE [facility] Rx#:[id number] Levofloxacin 750Mg-D5w 150 Pmx 750 mg In Dextrose/ Water 1 150ml.bag @ 100 mls/hr IVPB Q24H COUNTS INCLUDE 234 BEDS AT THE [facility] Rx#: [id number] Sodium Chloride 0.9% 1, 425 000 ml @ 100 mls/hr IV . Q10H COUNTS INCLUDE 234 BEDS AT THE [facility] Rx#:[id number] metroNIDAZOLE-NS PMX 500 100 mg In Saline 1 100ml.bag @ 100 mls/hr IVPB Q8HR [facility] Rx#:[id number] Output: Urine 1800 1300 500 Uretheral (Guerrero) 500 Other: Voiding Method Indwelling Catheter Indwelling Catheter - Exam -GENERAL: Average for age, no respiratory distress HEENT: Pupils are round and equally reacting to light. EOMI. No scleral icterus. No conjunctival pallor. Normocephalic, atraumatic. No pharyngeal erythema. No thyromegaly. CARDIOVASCULAR: S1 and S2 present. No murmurs, rubs, or gallops. PULMONARY: Chest is clear to auscultation, no wheezing or crackles. -ABDOMEN: Soft, nontender, nondistended, normoactive bowel sounds. No palpable organomegaly. PEG tube is in a Place MUSCULOSKELETAL: No joint swelling or deformity. EXTREMITIES: No cyanosis, clubbing, or pedal edema. NEUROLOGICAL: Gross neurological examination did not reveal any focal deficits. SKIN: No rashes. no petechiae. - Labs CBC & Chem 7: 10/13/19 06:40 10/14/19 06:46 Labs: Abnormal Lab Results - Last 24 Hours (Table) 10/13/19 10/14/19 Range/Units 20:18 06:46 Potassium 3.2 L 3.4 L (3.5-5.1) mmol/L Chloride 109 H (98-107) mmol/L BUN 5 L (9-20) mg/dL Creatinine 0.61 L (0.66-1.25) mg/dL Microbiology - Last 24 Hours (Table) 10/10/19 22:00 Urine Culture - Final Urine,Catheterized Enterococcus faecalis VRE 10/10/19 12:24 Blood Culture - Preliminary Blood No Growth after 72 hours Assessment and Plan Assessment: Bowel obstruction secondary to fecal impaction Possible aspiration pneumonia Possible upper GI bleed Bilateral hydronephrosis, he follows up with Dr. Noel Suspicion for acute urinary tract infection and acute cystitis Developmental delay status post Jomar and tracheostomy History of seizure Plan: This is a pleasant 29 years old male who presents with bowel obstruction, possible aspiration pneumonia and UTI and GI bleed. Patient is followed by several consult including surgery, gastroenterology, and infectious disease. Follow-up CAT scan of the pole ordered by surgery team. Patient currently on antibiotics as per ID recommendation. Continue with gentle hydration. Follow- up culture results. Consult urology for his hydronephrosis Labs and medication were reviewed.. Continue same treatment. Continue with symptomatic treatment. Resume home medication. Monitor lytes and vitals. DVT and GI prophylaxis. Further recommendations of the clinical course of the patient DVT prophylaxis: No heparin in view of possible GI bleed GI Prophylaxis: Pepcid PT/OT: Pending Prognosis is guarded
--- NOTE | 2019-10-14 16:11 | CT ---
EXAMINATION TYPE: CT abdomen pelvis wo con DATE OF EXAM: 10/14/2019 COMPARISON: CT abdomen pelvis dated 10/13/2019 HISTORY: bowel obstruction CT DLP: 593.7 mGycm Automated exposure control for dose reduction was used. TECHNIQUE: Helical acquisition of images was performed from the lung bases through the pelvis. FINDINGS: LUNG BASES: Similar trace right pleural effusion and bibasilar airspace disease. LIVER/GB: Unremarkable unenhanced morphology. No cholelithiasis seen. PANCREAS: No significant abnormality is seen. SPLEEN: No splenomegaly seen. ADRENALS: No discrete nodule. KIDNEYS: Severe left-sided hydronephrosis and surgical clips seen near the left ureteropelvic junctio n. Moderate right hydronephrosis. Nonobstructing 3 mm right upper pole renal calculus is seen. Urinar y bladder again displays circumferential wall thickening with air likely introduced from the Guerrero ca theter. FREE AIR: No free air is visualized ADENOPATHY: Nondiagnostic given the lack of intravenous contrast and paucity of bowel gas. OSSEOUS STRUCTURES: No significant abnormality is seen. BOWEL: Rectal contrast oral contrast extends to the entirety of the large bowel. Air-fluid levels ar e seen. Bowel measures up to 6.0 cm, upper limits of normal. In the redundant sigmoid colon there is a focal area of narrowing seen to the right of midline on image 78 of the axiale plane and image 43 o f the coronal plane. This could relate to colonic spasm or incomplete stricture. Less likely mucosal neoplasm in a patient of this age. Positive intra-abdominal fat and lack of contrast limit evaluation of the small bowel. There is a percutaneous enteric gastric tube present. Small to moderate hiatal h ernia. IMPRESSION: 1. NO EVIDENCE OF OBSTRUCTION RECTAL CONTRAST EXTENDS THROUGH THE ENTIRETY OF THE NONDILATED COLON . HOWEVER THERE IS NARROWING OF THE REDUNDANT SIGMOID COLON RIGHT PARA MIDLINE MARKED ON THE IMAGES T HAT COULD RELATE TO STRICTURE, SPASM, OR LESS LIKELY NEOPLASM IN A PATIENT OF THIS AGE. 2. REDEMONSTRATION OF SEVERE LEFT AND MODERATE RIGHT HYDRONEPHROSIS. 3. AGAIN THE URINARY BLADDER DISPLAYS CIRCUMFERENTIAL THICKENING. CORRELATE WITH URINALYSIS.
--- NOTE | 2019-10-14 16:41 | PN ---
PROGRESS NOTE DATE OF SERVICE: 10/14/2019 REASON FOR FOLLOWUP: 1. Aspiration pneumonitis. 2. VRE urinary tract infection. INTERVAL HISTORY: The patient is currently afebrile, has been breathing comfortably. the patient has discomfort from constipation, but no vomiting has been reported or any respiratory distress. The patient did have a Guerrero catheter placed in the ER and sample obtained from the same is now showing a VRE. PHYSICAL EXAMINATION: Blood pressure 101/61 with a pulse of 72, temperature 97.9. He is 95% on room air. General description is a young male lying in bed in no distress. RESPIRATORY SYSTEM: Unlabored breathing with decreased breath sounds at the base. No wheeze. HEART: S1, S2. Regular rate and rhythm. ABDOMEN: Soft. No tenderness. LABS: Creatinine 0.61. Urine with VRE sensitive to penicillin. DIAGNOSTIC IMPRESSION AND PLAN: 1. Patient with a vancomycin-resistant Enterococcus urinary tract infection in this patient with PENICILLIN ALLERGY. Will add daptomycin. 2. Patient with aspiration pneumonitis, currently covered with Levaquin and Flagyl; to continue. Monitor his clinical course closely. MMODL / IJN: [id number] / ARMIDA
[2019-10-14] MEDS: LEVOFLOXACIN 750MG-D5W PMX 750 MG in DEXTROSE/WATER 1 150ML.BAG IVPB SCH (17:01)
--- NOTE | 2019-10-14 18:31 | P.GSCN ---
History of Present Illness Consult date: 10/14/19 Reason for Consult: Bilateral hydronephrosi History of present illness: The patient is a 29-year-old male with a history of mental retardation who was admitted on 10/10/2019 for evaluation of abdominal bloating and vomiting. He has a history of chronic constipation and had not had a bowel movement in several days. He also had increasing difficulty with voiding and had not voided since the previous day. CT scan of the abdomen and pelvis with IV contrast showed bilateral hydronephrosis and a partially distended bladder. Marked fecal stasis was present. A catheter was placed in the emergency room and drained 950 cc of urine. BUN/creatinine at the time of admission were 13/0.74. The patient's fecal impaction has been treated with a combination of laxatives and enemas but he still has a large amount of stool in the lower colon based on a noncontrast CT scan of the abdomen and pelvis performed on 10/12. He has remained afebrile. Urine culture from the catheter placed in the emergency room grew group D enterococcus. I was asked to see the patient due to the bilateral hydronephrosis noted on the CT scan. The history is from a conversation with the patient's aunt who is his caregiver and a review of my office records. The patient has a history of infrequent voiding which began over 1 year ago. This was partly related to chronic constipation and has been treated on several occasions with in and out catheterization. Renal ultrasound in 01/2019 showed bilateral hydronephrosis which was worse on the left side. A MAG3 renogram with Lasix washout showed excretion from both kidneys and it was my feeling that the hydronephrosis was related to chronic bladder distention from infrequent voiding. The patient was seen at [facility] due to his chronic constipation but his problem continued despite their recommendations. He also continued to have increasing difficulty in voiding. When seen by me on September 15 the patient was voiding every 18-27 hours. I initially suggested that the patient have a trial of intermittent catheterization but this proved to be difficult for the patient's aunt to perform. Cystoscopy on 09/15 showed a very tight bladder neck which appeared to be the source of the difficulty in catheterization. I performed transurethral incision of the vesical neck and prostate on 09/22/2019. According to the patient's aunt he had been voiding much better following the procedure and was able to void 3 times daily. His problem with worsening constipation has resulted in infrequent voiding which culminated with his return to the emergency room. 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 A nonobstructive calculus was noted in the left kidney at that time. Review of Systems ROS unobtainable: due to mental status - Constitutional Denies fever - Gastrointestinal Reports as per HPI, Reports constipation - Genitourinary Reports as per HPI Past Medical History Past Medical History: Asthma, Respiratory Disorder, Seizure Disorder Additional Past Medical History / Comment(s): developmental delay, autism, last sz last night partial complex, trach, intra abdominal wall abcess History of Any Multi-Drug Resistant Organisms: None Reported Additional Past Surgical History / Comment(s): vagal nerve stimulator 12/2014, left UPJ endopylotomy, embolist surgery, heel cord lengthening, transurethral bladder neck and prostate incision 09/22/2019 Past Anesthesia/Blood Transfusion Reactions: No Reported Reaction Past Psychological History: ADD/ADHD Smoking Status: Never smoker Past Alcohol Use History: None Reported Past Drug Use History: None Reported - Past Family History Mother Additional Family Medical History / Comment(s): of Suicide at 22 Medications and Allergies Home Medications Medication Instructions Recorded Confirmed Type Clobazam [Onfi] 20 mg PEG/G-TUBE BID@0000,1200 08/26/15 10/10/19 History Lacosamide [Vimpat] 200 mg PEG/G-TUBE 08/26/15 10/10/19 History TID@0000,0930,1700 Ascorbic Acid [Vitamin C] 500 mg PEG/G-TUBE BID@0930,1700 12/28/18 10/10/19 History Folic Acid 1 mg PEG/G-TUBE DAILY@0930 12/28/18 10/10/19 History Polyethylene Glycol 3350 [Miralax] 17 gm PEG/G-TUBE DAILY@0930 12/28/18 10/10/19 History Vitamin B Complex 1 cap PEG/G-TUBE DAILY@0930 12/28/18 10/10/19 History clonazePAM [KlonoPIN] 1 mg PEG/G-TUBE TID@0000,0930,1700 12/28/18 10/10/19 History levETIRAcetam [Keppra Oral 1,800 mg PEG/G-TUBE 12/28/18 10/10/19 History Solution] TID@0000,0930,1700 Albuterol Nebulized [Ventolin 5 mg INHALATION Q12H 09/20/19 10/10/19 History Nebulized] Cbd Oil 100 mg PEG/G-TUBE BID@0930,1200 09/20/19 10/10/19 History Dexlansoprazole [Dexilant] 60 mg PEG/G-TUBE DAILY@0930 09/20/19 10/10/19 History L.acidoph,Paracasei, B.lactis 1 cap PEG/G-TUBE Q72H 09/20/19 10/10/19 History [Probiotic] Scopolamine [Scopolamine 1 MG/72 1 patch TRANSDERM Q72H 09/20/19 10/10/19 History HR patch] Tamsulosin [Flomax] 0.4 mg PEG/G-TUBE DAILY@0930 09/20/19 10/10/19 History Magnesium Citrate 5 oz PO ONCE PRN 10/10/19 10/10/19 History Magnesium Hydroxide [Milk of 4,800 mg PO HS PRN 10/10/19 10/10/19 History Magnesia] Na Phos,M-B/Na Phos,Di-Ba [Fleet 133 ml RECTAL ONCE PRN 10/10/19 10/10/19 History Adult] Rufinamide [Banzel] 1,600 mg PO BID@0000,1200 10/10/19 10/10/19 History Allergies Allergy/AdvReac Type Severity Reaction Status Date / Time amoxicillin trihydrate Allergy Unknown Verified 10/10/19 11:56 [From Augmentin] ceftriaxone sodium Allergy Unknown Verified 10/10/19 11:56 [From Rocephin] cephalexin monohydrate Allergy Unknown Verified 10/10/19 11:56 [From Keflex] Penicillins Allergy Unknown Verified 10/10/19 11:56 phenobarbital Allergy Unknown Verified 10/10/19 11:56 phenytoin sodium Allergy Unknown Verified 10/10/19 11:56 [From Dilantin] phenytoin sodium extended Allergy Unknown Verified 10/10/19 11:56 [From Dilantin] potassium clavulanate Allergy Unknown Verified 10/10/19 11:56 [From Augmentin] Cephalosporins AdvReac Unknown Verified 10/10/19 11:56 lorazepam [From Ativan] AdvReac Unknown Verified 10/10/19 11:56 Surgical - Exam Vital Signs Temp Pulse Resp BP Pulse Ox 97.8 F 68 18 154/94 97 10/10/19 11:46 10/10/19 11:46 10/10/19 11:46 10/10/19 11:46 10/10/19 11:46 - General well developed, well nourished - ENT no hearing loss - Respiratory normal respiratory effort - Abdomen Abdomen: non tender - Genitourinary normal penis with no external lesions, testicles non-tender, other (Guerrero cat heter in place) Results - Labs 10/13/19 06:40 10/14/19 06:46 Abnormal Lab Results - Last 24 Hours (Table) 10/13/19 10/14/19 Range/Units 20:18 06:46 Potassium 3.2 L 3.4 L (3.5-5.1) mmol/L Chloride 109 H (98-107) mmol/L BUN 5 L (9-20) mg/dL Creatinine 0.61 L (0.66-1.25) mg/dL Microbiology - Last 24 Hours (Table) 10/10/19 12:24 Blood Culture - Preliminary Blood No Growth after 96 hours 10/10/19 22:00 Urine Culture - Final Urine,Catheterized Enterococcus faecalis VRE Diabetes panel 10/13/19 10/14/19 10/14/19 Range/Units 20:18 02:03 06:46 Sodium 140 (137-145) mmol/L Potassium 3.2 L 3.6 3.4 L (3.5-5.1) mmol/L Chloride 109 H (98-107) mmol/L Carbon Dioxide 22 (22-30) mmol/L BUN 5 L (9-20) mg/dL Creatinine 0.61 L (0.66-1.25) mg/dL Glucose 80 (74-99) mg/dL Calcium 8.7 (8.4-10.2) mg/dL Calcium panel 10/14/19 Range/Units 06:46 Calcium 8.7 (8.4-10.2) mg/dL Pituitary panel 10/13/19 10/14/19 10/14/19 Range/Units 20:18 02:03 06:46 Sodium 140 (137-145) mmol/L Potassium 3.2 L 3.6 3.4 L (3.5-5.1) mmol/L Chloride 109 H (98-107) mmol/L Carbon Dioxide 22 (22-30) mmol/L BUN 5 L (9-20) mg/dL Creatinine 0.61 L (0.66-1.25) mg/dL Glucose 80 (74-99) mg/dL Calcium 8.7 (8.4-10.2) mg/dL Adrenal panel 10/13/19 10/14/19 10/14/19 Range/Units 20:18 02:03 06:46 Sodium 140 (137-145) mmol/L Potassium 3.2 L 3.6 3.4 L (3.5-5.1) mmol/L Chloride 109 H (98-107) mmol/L Carbon Dioxide 22 (22-30) mmol/L BUN 5 L (9-20) mg/dL Creatinine 0.61 L (0.66-1.25) mg/dL Glucose 80 (74-99) mg/dL Calcium 8.7 (8.4-10.2) mg/dL Assessment and Plan (1) Bilateral hydronephrosis Narrative/Plan: The patient's bilateral hydronephrosis is chronic and appears to be related to his infrequent frequent bladder emptying. This in turn is related to his chronic constipation. The patient underwent transurethral incision of his bladder neck and prostate 3 weeks ago and had been voiding more frequently since then according to his aunt. Once the patient's fecal impaction has been treated he can have a voiding trial. Until that time his catheter should be left in place. Once the catheter has been removed he should be monitored with the bladder scan unit to assess his postvoid residuals. His urinary tract Infection is resistant to Levaquin and it would be reasonable to discontinue it and use an alternative antibiotic. Current Visit: Yes Status: Acute Code(s): N13.30 - UNSPECIFIED HYDRONEPHROSIS SNOMED Code(s): 54601873
[2019-10-15] MEDS: levETIRAcetam ORAL SOLN 500 MG/5 ML CUP PEG/G-TUBE SCH ×3 (00:17→17:25)
[2019-10-15] MEDS: HYDROmorphone 0.5 MG/0.5 ML SYRINGE IVP PRN (01:07)
[2019-10-15] MEDS: SODIUM CHLORIDE 0.9% 1,000 ML IV SCH ×2 (01:30→03:38)
[2019-10-15] MEDS ORDERED: VANCOMYCIN TROUGH DUE 1 EACH MISC MISCELLANE ONE (04:00)
[2019-10-15 04:48] LABS: African American GFR (CKD) >90 (>60 ml/min/1.73 sqM); Anion Gap 8 mmol/L; Blood Urea Nitrogen 5 mg/dL (9-20); Calcium 8.5 mg/dL (8.4-10.2); Carbon Dioxide 22 mmol/L (22-30); Chloride 108 mmol/L (98-107); Glucose 89 mg/dL (74-99); Non-African American GFR(CKD) >90 (>60 ml/min/1.73 sqM); Potassium 3.1 mmol/L (3.5-5.1); Sodium 138 mmol/L (137-145)
[2019-10-15] MEDS: METOCLOPRAMIDE 5 MG/ML 2 ML VIAL IVP SCH ×3 (05:42→17:25)
[2019-10-15] MEDS: LACOSAMIDE IV 200 MG in SODIUM CHLORIDE 0.9% 50 ML IVPB SCH ×2 (08:50→22:08)
[2019-10-15] MEDS: metroNIDAZOLE-NS PMX 500 MG in SALINE 1 100ML.BAG IVPB SCH ×2 (08:52→17:25)
[2019-10-15] MEDS: PANTOPRAZOLE 40 MG/10 ML VIAL IV SCH ×2 (08:53→22:02)
[2019-10-15] MEDS: TAMSULOSIN 0.4 MG CAP.ER.24H PO SCH (08:53)
[2019-10-15] MEDS: HEPARIN SODIUM,PORCINE 5,000 UNIT/ML 1 ML VIAL SQ SCH ×2 (08:53→22:02)
[2019-10-15] MEDS: POTASSIUM BICARBONATE/CIT AC 20 MEQ TABLET.EFF PO SCH ×2 (08:53→11:13)
[2019-10-15] MEDS: FOLIC ACID 1 MG TAB PEG/G-TUBE SCH (08:53)
[2019-10-15] MEDS: SCOPOLAMINE 1.5MG/72HR PATCH TRANSDERM SCH (08:53)
[2019-10-15] MEDS: clonazePAM 1 MG TAB PEG/G-TUBE SCH ×2 (08:53→17:25)
[2019-10-15] MEDS: IPRATROPIUM-ALBUTEROL 3 ML NEB INHALATION SCH ×3 (09:00→21:04)
[2019-10-15] MEDS ORDERED: PEG 3350-NA SULF,BICARB,CL/KCL 4,000 ML BOTTLE PO ONE (10:13)
--- NOTE | 2019-10-15 10:27 | P.PN ---
Subjective Progress Note Date: 10/15/19 Principal diagnosis: Acute hypoxic respiratory failure Bilateral aspiration pneumonia Bowel obstruction likely due to retained fecal material Developmentally delayed Status post chronic Peg tube and tracheostomy Severe degree of seizure disorder Past history of respiratory failure requiring vent support 10/15/2019, patient remains on trach collar without and supple dependent and oxygen at room air, oxygen saturation has been stable, afebrile, 93% room air, patient getting therapy for aspiration pneumonia 10/14/2019, patient seen eval examined during the rounds labs reviewed medications reviewed, as per request of the family trach has been evaluated, care plan discussed with the respiratory therapist as well, tracheostomy stoma appears to be stable inner cannula clean, no evidence of infection, no need to change tracheostomy 10/13/2019, patient seen and evaluated examined during the rounds overall remains stable pulmonary standpoint remains on antibiotics for aspiration pneumonia congestion is present, computed tomography scan of the abdomen revealed a large hiatal hernia, PEG tube has been stable, 10/12/2019, patient seen and evaluated examined overall no significant change and no cough or congestion is present no more episodes of vomiting has been no jose luis patient is getting therapy for pneumonia ID service has been following respiratory status remains stable This is a 29-year-old status post trach and PEG due to developmental delay, patient has a history of chronic seizure disorder, patient's PEG tube has been recently changed about 2 months ago developed problems associated with severe constipation and vomiting and bluish blood-tinged secretions coming out through the PEG tube came into the hospital for further evaluation suspicion of pneum onia, chest x-ray revealed bilateral lower lobe infiltrate consistent with aspiration pneumonia patient is currently getting broad-spectrum antibiotics finally he has a bowel movement is abdomen is more softer now, patient also has a computed tomography scan of the abdominal pelvis which revealed dilated loops of bowel and colon Objective - Vital Signs Vital signs: Vital Signs Temp 97.2 F L 10/15/19 07:00 Pulse 70 10/15/19 09:19 Resp 18 10/15/19 07:00 BP 133/88 10/15/19 07:00 Pulse Ox 93 L 10/15/19 07:00 Intake & Output 10/14/19 10/15/19 10/15/19 18:59 06:59 18:59 Intake Total 0 Output Total 1000 1100 Balance -1000 -1100 Weight 74.843 kg Intake: Oral 0 Output: Urine 1000 1100 Uretheral (Guerrero) 1000 1100 Other: Voiding Method Indwelling Catheter Indwelling Catheter # Voids 1 # Bowel Movements 3 - Exam - Constitutional General appearance: average body habitus, disheveled, no acute distress - EENT Eyes: EOMI, PERRLA Ears: bilateral: normal - Neck Neck: normal ROM Carotids: bilateral: upstroke normal - Respiratory Respiratory: bilateral: CTA, diminished, negative: dullness, rales, rhonchi - Cardiovascular Rhythm: regular Heart sounds: normal: S1, S2 - Gastrointestinal General gastrointestinal: decreased bowel sounds - Musculoskeletal Musculoskeletal: generalized weakness, strength equal bilaterally - Labs CBC & Chem 7: 10/13/19 06:40 10/15/19 03:39 Labs: Abnormal Lab Results - Last 24 Hours (Table) 10/15/19 Range/Units 03:39 Potassium 3.1 L (3.5-5.1) mmol/L Chloride 108 H (98-107) mmol/L BUN 5 L (9-20) mg/dL Creatinine 0.58 L (0.66-1.25) mg/dL Microbiology - Last 24 Hours (Table) 10/10/19 22:00 Urine Culture - Final Urine,Catheterized Enterococcus faecalis VRE 10/10/19 12:24 Blood Culture - Preliminary Blood No Growth after 96 hours Assessment and Plan Assessment: Acute hypoxic respiratory failure Bilateral aspiration pneumonia Bowel obstruction likely due to retained fecal material Developmentally delayed Status post chronic Peg tube and tracheostomy Severe degree of seizure disorder Past history of respiratory failure requiring vent support Plan: Maintain trach keep saturation over 92% supplemental oxygen as needed Pulmonary toilet Respiratory to suction as needed Seizure precautions Nothing by mouth for now Hold tube feed Broad-spectrum antibiotics for bilateral aspiration pneumonia Further recommendations pending plan of care as per clinical response of the patient Time with Patient: Greater than 30
--- NOTE | 2019-10-15 10:43 | P.PN ---
Progress Note - Text Progress Note Date: 10/15/19 Patient's CAT scan performed last night shows no evidence of rectal obstruction. Patient did have a 6 albumin with a knuckle blasts minimal. On exam his vital signs appear stable. Abdomen soft there is still distention. Colonic ileus. Patient will be given GoLYTELY today.
[2019-10-15] MEDS: RUFINAMIDE PO SCH (13:34)
--- NOTE | 2019-10-15 14:53 | P.PN ---
Subjective Progress Note Date: 10/15/19 Principal diagnosis: This is a pleasant 29 years old male with past medical history of developmental delay, autism, seizure disorder, status post vagal neurostimulator, left ureter al stent, presents this signs symptoms of bowel obstruction secondary to fecal impaction, surgeries been evaluated the patient GoLYTELY and has been tried with no much success and enema with only moderate stool, and surgery team recommended CAT scan of the abdomen and pelvis today. Showing fecal impaction with possible small bowel dilatation suggestive of colonic ileus, possible cystitis Patient is nothing by mouth and hold tube feeds, hemodynamically stable, blood pressure is 94/55, which is similar to last few days on the presentation. Low potassium is been replaced, WBC is normal 5.5K, urine cultures, group D enterococcus 10/14/2019 Patient is lying comfortable in bed, no distress, mother at bedside, patient didn't have bowel movement since yesterday, no abdominal tenderness or signif icant pain, the mother does not think he needs abdominal pain medication for now. He got several laxative for his fecal impaction contributing to his bowel obstruction/ileus. His hemoglobin is stable at 11.2. No other episodes of GI bleed. Patient remains on Levaquin and Flagyl for his infection, possible pneumonia. Patient mother states that he has history of bilateral hydronephrosis and he has recent procedure done by Dr. De Dios recently including transurethral incision of the prostate to help him urinating, repeat imaging showed persistent hydronephrosis. Guerrero catheter was placed when he came to the hospital. We'll ask for urology reevaluation. Low potassium replaced. Surgical team recommended CAT scan of the abdomen and L this with rectal contrast which is pending 10/15/2019 Patient is seen and evaluated in follow-up today sleeping and appears to be in no acute distress. Patient does have a trach collar and is currently on room air. Per nursing staff patient had 4 large bowel movements yesterday but CT of the abdomen continues to show a narrowing of the redundant sigmoid colon midline that could possibly relate to stricture, spasm, or possible neoplasm although unlikely, severe left and moderate right hydronephrosis and urinary bladder circumferential thickening. Patient is being followed by urology and sees them in the outpatient setting as well. Patient continues to have an indwelling Guerrero catheter and will continue at this time. Patient remains on IV ant ibiotics in the form of daptomycin, Levaquin, and Flagyl and will continue at this time. Infectious disease is following. Patient is also being evaluated by surgery and will continue with Bernard today. Will continue to monitor closely. Objective - Vital Signs Vital signs: Vital Signs Temp 97.2 F L 10/15/19 07:00 Pulse 64 10/15/19 12:27 Resp 18 10/15/19 07:00 BP 133/88 10/15/19 07:00 Pulse Ox 93 L 10/15/19 07:00 Intake & Output 10/14/19 10/15/19 10/15/19 18:59 06:59 18:59 Intake Total 0 Output Total 1000 1100 Balance -1000 -1100 Weight 74.843 kg Intake: Oral 0 Output: Urine 1000 1100 Uretheral (Guerrero) 1000 1100 Other: Voiding Method Indwelling Catheter Indwelling Catheter # Voids 1 # Bowel Movements 3 - Exam -GENERAL: Average for age, no respiratory distress, noted to be resting but arousable HEENT: Pupils are round and equally reacting to light. EOMI. No scleral icterus. No conjunctival pallor. Normocephalic, atraumatic. No pharyngeal erythema. No thyromegaly. CARDIOVASCULAR: S1 and S2 present. No murmurs, rubs, or gallops. PULMONARY: Chest is clear to auscultation, no wheezing or crackles. -ABDOMEN: Soft, nontender, nondistended, normoactive bowel sounds. No palpable organomegaly. PEG tube is in a Place. Tube feeding on hold at this time per surgery MUSCULOSKELETAL: No joint swelling or deformity. EXTREMITIES: No cyanosis, clubbing, or pedal edema. NEUROLOGICAL: Gross neurological examination did not reveal any focal deficits. SKIN: No rashes. no petechiae. - Labs CBC & Chem 7: 10/13/19 06:40 10/15/19 03:39 Labs: Abnormal Lab Results - Last 24 Hours (Table) 10/15/19 Range/Units 03:39 Potassium 3.1 L (3.5-5.1) mmol/L Chloride 108 H (98-107) mmol/L BUN 5 L (9-20) mg/dL Creatinine 0.58 L (0.66-1.25) mg/dL Microbiology - Last 24 Hours (Table) 03/15/20 22:00 Urine Culture - Final Urine,Catheterized Enterococcus faecalis VRE 10/10/19 12:24 Blood Culture - Preliminary Blood No Growth after 96 hours Assessment and Plan Assessment: Bowel obstruction secondary to fecal impaction Possible aspiration pneumonia Hypokalemia Possible upper GI bleed Bilateral hydronephrosis, he follows up with Dr. Jacobson Suspicion for acute urinary tract infection and acute cystitis Developmental delay status post Jomar and tracheostomy History of seizure Plan: This is a pleasant 29 years old male who presents with bowel obstruction, possible aspiration pneumonia and UTI and GI bleed. Patient is followed by several consult including surgery, gastroenterology, and infectious disease. CT of the abdomen pelvis performed as mentioned previously. Patient currently on antibiotics as per ID recommendation. Continue with gentle hydration. Follow- up culture results. Blood cultures remain negative and urine cultures finalized showing enterococcus faecalis VRE. urology following. Patient will continue with GoLYTELY and will be monitored closely. Tube Feedings on hold at this time. Labs and medication were reviewed.. Potassium 3.1 today and will be replaced. Will repeat a.m. labs. Continue same treatment. Continue with symptomatic treatment. Resume home medication. Monitor lytes and vitals. DVT and GI prophylaxis. Further recommendations of the clinical course of the patient DVT prophylaxis: No heparin in view of possible GI bleed GI Prophylaxis: Pepcid PT/OT: Pending Prognosis is guarded
[2019-10-15] MEDS: LEVOFLOXACIN 750MG-D5W PMX 750 MG in DEXTROSE/WATER 1 150ML.BAG IVPB SCH (17:24)
--- NOTE | 2019-10-15 20:44 | PN ---
PROGRESS NOTE DATE OF SERVICE: 10/15/2019 REASON FOR FOLLOWUP: 1. VRE urinary tract infection. 2. Aspiration pneumonia. INTERVAL HISTORY: The patient is currently afebrile, has been breathing comfortably. He did have multiple bowel movements. No further vomiting reported. The patient is currently unable to provide any history. He did have a Guerrero catheter was placed in the ER. PHYSICAL EXAMINATION: Blood pressure 98/54 with a pulse of 63, temperature 97.5. He is 98% on room air. General description is a middle-aged male lying in bed in no distress. Respiratory system: Unlabored breathing. Clear to auscultation anteriorly. Heart S1, S2. Regular rate and rhythm. Abdomen soft, no drainage. LABS: Creatinine 0.58. DIAGNOSTIC IMPRESSION AND PLAN: 1. Patient with VRE urinary tract infection. Repeat urine culture has been noted. If overall negative, the patient may not need antibiotic on discharge especially for the VRE urinary tract infection. 2. Aspiration pneumonitis covered with Levaquin and Flagyl. Plan to switch to short course of oral on discharge. MMODL / IJN: [id number] /
[2019-10-15 23:23] LABS: Appearance,Urine Cloudy (Clear); Bacteria,Urine Rare /hpf; Bilirubin,Urine Negative (Negative); Blood,Urine Trace (Negative); Color,Urine Yellow; Glucose,Urine (UA) Negative (Negative); Ketones,Urine 3+ (Negative); Leukocyte Esterase,Urine Large (Negative); Mucus,Urine Occasional /hpf; Nitrite,Urine Negative (Negative); Protein,Urine 1+ (Negative); RBC,Urine 6 /hpf (0-5); Specific Gravity,Urine 1.017 (1.001-1.035); Squamous Epithelial Cell,Urine <1 /hpf (0-4); Urobilinogen,Urine <2.0 mg/dL (<2.0); WBC,Urine 111 /hpf (0-5)
[2019-10-16] MEDS: clonazePAM 1 MG TAB PEG/G-TUBE SCH ×3 (00:13→17:51)
[2019-10-16] MEDS: metroNIDAZOLE-NS PMX 500 MG in SALINE 1 100ML.BAG IVPB SCH ×3 (00:13→18:09)
[2019-10-16] MEDS: METOCLOPRAMIDE 5 MG/ML 2 ML VIAL IVP SCH ×4 (00:13→20:15)
[2019-10-16] MEDS: levETIRAcetam ORAL SOLN 500 MG/5 ML CUP PEG/G-TUBE SCH ×3 (00:14→17:50)
[2019-10-16] MEDS: RUFINAMIDE PO SCH ×2 (00:14→13:37)
[2019-10-16] MEDS: SODIUM CHLORIDE 0.9% 1,000 ML IV SCH (06:22)
[2019-10-16 06:53] LABS: Basophils % (A) 0 %; Eosinophils # (A) 0.1 k/uL (0-0.7); Eosinophils % (A) 3 %; HCT 36.7 % (39.0-53.0); HGB 12.8 gm/dL (13.0-17.5); Lymphocytes # (A) 0.8 k/uL (1.0-4.8); Lymphocytes % (A) 17 %; MCH 33.2 pg (25.0-35.0); MCHC 34.8 g/dL (31.0-37.0); MCV 95.3 fL (80.0-100.0); Mean Platelet Volume 6.6; Monocytes # (A) 0.2 k/uL (0-1.0); Monocytes % (A) 5 %; Neutrophils # (A) 3.5 k/uL (1.3-7.7); Neutrophils % (A) 74 %; Platelet Count 227 k/uL (150-450); Poikilocytosis Slight; RBC 3.85 m/uL (4.30-5.90); RDW 15.3 % (11.5-15.5); WBC 4.7 k/uL (3.8-10.6)
[2019-10-16 07:10] LABS: Potassium 3.3 mmol/L (3.5-5.1)
[2019-10-16 07:11] LABS: African American GFR (CKD) >90 (>60 ml/min/1.73 sqM); Anion Gap 10 mmol/L; Blood Urea Nitrogen 4 mg/dL (9-20); Calcium 8.8 mg/dL (8.4-10.2); Carbon Dioxide 22 mmol/L (22-30); Chloride 107 mmol/L (98-107); Glucose 74 mg/dL (74-99); Non-African American GFR(CKD) >90 (>60 ml/min/1.73 sqM); Sodium 139 mmol/L (137-145)
[2019-10-16] MEDS: HYDROmorphone 0.5 MG/0.5 ML SYRINGE IVP PRN ×3 (08:16→20:16)
[2019-10-16] MEDS: IPRATROPIUM-ALBUTEROL 3 ML NEB INHALATION SCH ×3 (09:00→20:41)
--- NOTE | 2019-10-16 09:47 | P.PN ---
Subjective Progress Note Date: 10/16/19 Principal diagnosis: Acute hypoxic respiratory failure Bilateral aspiration pneumonia Bowel obstruction likely due to retained fecal material Developmentally delayed Status post chronic Peg tube and tracheostomy Severe degree of seizure disorder Past history of respiratory failure requiring vent support 10/16/2019, patient seen eval examined during the rounds labs reviewed medications reviewed, urine culture is positive for Enterococcus faecalis VRE, respiratory standpoint doing well mild coarse breath sounds present at overall on room air saturation is 95-96% tolerating antibiotics well, noted is made of the abnormal computed tomography scan suggesting of narrowing and sigmoid colon level likely spasm or stricture versus neoplasm, along with bilateral hydronephrosis and thickening of the bladder urology and general surgery has been following 10/15/2019, patient remains on trach collar without and supple dependent and oxygen at room air, oxygen saturation has been stable, afebrile, 93% room air, patient getting therapy for aspiration pneumonia 10/14/2019, patient seen eval examined during the rounds labs reviewed medications reviewed, as per request of the family trach has been evaluated, care plan discussed with the respiratory therapist as well, tracheostomy stoma appears to be stable inner cannula clean, no evidence of infection, no need to change tracheostomy 10/13/2019, patient seen and evaluated examined during the rounds overall remains stable pulmonary standpoint remains on antibiotics for aspiration pneumonia congestion is present, computed tomography scan of the abdomen revealed a large hiatal hernia, PEG tube has been stable, 10/12/2019, patient seen and evaluated examined overall no significant change and no cough or congestion is present no more episodes of vomiting has been noted patient is getting therapy for pneumonia ID service has been following respiratory status remains stable This is a 29-year-old status post trach and PEG due to developmental delay, patient has a history of chronic seizure disorder, patient's PEG tube has been recently changed about 2 months ago developed problems associated with severe constipation and vomiting and bluish blood-tinged secretions coming out through the PEG tube came into the hospital for further evaluation suspicion of pneumonia, chest x-ray revealed bilateral lower lobe infiltrate consistent with aspiration pneumonia patient is currently getting broad-spectrum antibiotics finally he has a bowel movement is abdomen is more softer now, patient also has a computed tomography scan of the abdominal pelvis which revealed dilated loops of bowel and colon Objective - Vital Signs Vital signs: Vital Signs Temp 98.3 F 10/16/19 07:00 Pulse 70 10/16/19 09:20 Resp 17 10/16/19 07:00 BP 107/69 10/16/19 07:00 Pulse Ox 92 L 10/16/19 07:00 Intake & Output 10/15/19 10/16/19 10/16/19 18:59 06:59 18:59 Output Total 1700 1300 Balance -1700 -1300 Weight 74.843 kg Output: Urine 1700 1300 Uretheral (Guerrero) 800 Other: Voiding Method Indwelling Catheter Indwelling Catheter - Exam - Constitutional General appearance: average body habitus, disheveled, no acute distress - EENT Eyes: EOMI, PERRLA Ears: bilateral: normal - Neck Neck: normal ROM Carotids: bilateral: upstroke normal - Respiratory Respiratory: bilateral: CTA, diminished, negative: dullness, rales, rhonchi - Cardiovascular Rhythm: regular Heart sounds: normal: S1, S2 - Gastrointestinal General gastrointestinal: decreased bowel sounds - Musculoskeletal Musculoskeletal: generalized weakness, strength equal bilaterally - Labs CBC & Chem 7: 10/16/19 06:19 10/16/19 06:19 Labs: Abnormal Lab Results - Last 24 Hours (Table) 10/15/19 10/16/19 10/16/19 Range/Units 23:10 06:19 06:19 RBC 3.85 L (4.30-5.90) m/uL Hgb 12.8 L (13.0-17.5) gm/dL Hct 36.7 L (39.0-53.0) % Lymphocytes # 0.8 L (1.0-4.8) k/uL Potassium 3.3 L (3.5-5.1) mmol/L BUN 4 L (9-20) mg/dL Creatinine 0.63 L (0.66-1.25) mg/dL Urine Protein 1+ H (Negative) Urine Ketones 3+ H (Negative) Urine Blood Trace H (Negative) Ur Leukocyte Esterase Large H (Negative) Urine RBC 6 H (0-5) /hpf Urine WBC 111 H (0-5) /hpf Urine Bacteria Rare H (None) /hpf Urine Mucus Occasional H (None) /hpf Microbiology - Last 24 Hours (Table) 10/10/19 12:24 Blood Culture - Preliminary Blood No Growth after 120 hours 10/10/19 22:00 Urine Culture - Final Urine,Catheterized Enterococcus faecalis VRE Assessment and Plan Assessment: Acute hypoxic respiratory failure, status post tract Bilateral aspiration pneumonia Bowel obstruction at sigmoid colon level stricture/spasm/neoplasm Bilateral hydronephrosis with bladder wall thickening Developmentally delayed Status post chronic Peg tube and tracheostomy Severe degree of seizure disorder Past history of respiratory failure requiring vent support Plan: Maintain trach keep saturation over 92% supplemental oxygen as needed Pulmonary toilet Respiratory to suction as needed Seizure precautions Nothing by mouth for now Hold tube feed Broad-spectrum antibiotics for bilateral aspiration pneumonia Further recommendations pending plan of care as per clinical response of the patient Further evaluation by urology and general surgery for bilateral hydronephrosis and bowel obstruction in progress Time with Patient: Greater than 30
[2019-10-16] MEDS: LACOSAMIDE IV 200 MG in SODIUM CHLORIDE 0.9% 50 ML IVPB SCH ×2 (10:09→21:11)
[2019-10-16] MEDS: HEPARIN SODIUM,PORCINE 5,000 UNIT/ML 1 ML VIAL SQ SCH ×2 (10:18→20:15)
[2019-10-16] MEDS: TAMSULOSIN 0.4 MG CAP.ER.24H PO SCH (10:18)
[2019-10-16] MEDS: PANTOPRAZOLE 40 MG/10 ML VIAL IV SCH ×2 (10:18→20:16)
[2019-10-16] MEDS: FOLIC ACID 1 MG TAB PEG/G-TUBE SCH (10:18)
--- NOTE | 2019-10-16 11:29 | P.PN ---
Progress Note - Text Progress Note Date: 10/16/19 The patient had several bowel movements yesterday. On exam his vital signs are stable. His abdomen is soft. Status post resolving colonic ileus. Patient will continue with his diet.
--- NOTE | 2019-10-16 15:07 | P.PN ---
Subjective This is a pleasant 29 years old male with past medical history of developmental delay, autism, seizure disorder, status post vagal neurostimulator, left ureteral stent, presents this signs symptoms of bowel obstruction secondary to fecal impaction, surgeries been evaluated the patient GoLYTELY and has been tried with no much success and enema with only moderate stool, and surgery team recommended CAT scan of the abdomen and pelvis today. Showing fecal impaction with possible small bowel dilatation suggestive of colonic ileus, possible cystitis Patient is nothing by mouth and hold tube feeds, hemodynamically stable, blood pressure is 94/55, which is similar to last few days on the presentation. Low potassium is been replaced, WBC is normal 5.5K, urine cultures, group D enterococcus 10/14/2019 Patient is lying comfortable in bed, no distress, mother at bedside, patient didn't have bowel movement since yesterday, no abdominal tenderness or significant pain, the mother does not think he needs abdominal pain medication for now. He got several laxative for his fecal impaction contributing to his bowel obstruction/ileus. His hemoglobin is stable at 11.2. No other episodes of GI bleed. Patient remains on Levaquin and Flagyl for his infection, possible pneumonia. Patient mother states that he has history of bilateral hydronephrosis and he has recent procedure done by Dr. De Dios recently including transurethral incision of the prostate to help him urinating, repeat imaging showed persistent hydronephrosis. Guerrero catheter was placed when he came to the hospital. We'll ask for urology reevaluation. Low potassium replaced. Surgical team recommended CAT scan of the abdomen and L this with rectal contrast which is pending 10/15/2019 Patient is seen and evaluated in follow-up today sleeping and appears to be in no acute distress. Patient does have a trach collar and is currently on room air. Per nursing staff patient had 4 large bowel movements yesterday but CT of the abdomen continues to show a narrowing of the redundant sigmoid colon midline that could possibly relate to stricture, spasm, or possible neoplasm although unlikely, severe left and moderate right hydronephrosis and urinary bladder circumferential thickening. Patient is being followed by urology and sees them in the outpatient setting as well. Patient continues to have an indwelling Guerrero catheter and will continue at this time. Patient remains on IV antibiotics in the form of daptomycin, Levaquin, and Flagyl and will continue at this time. Infectious disease is following. Patient is also being evaluated by surgery and will continue with GoLYTELY today. Will continue to monitor closely. 10/16/2019 Patient is doing better as he starts having some bowel movement with GoLYTELY. Repeat CAT scan showed no obstruction and surgery consult on the case closely. On Guerrero catheter. PEG tube is on hold. Tracheostomy is in a Place. No se izure no other active issues. Discussed with staff Objective - Vital Signs Vital signs: Vital Signs Temp 98.3 F 10/16/19 07:00 Pulse 64 10/16/19 12:32 Resp 17 10/16/19 07:00 BP 107/69 10/16/19 07:00 Pulse Ox 92 L 10/16/19 07:00 Intake & Output 10/15/19 10/16/19 10/16/19 18:59 06:59 18:59 Output Total 1700 1300 1430 Balance -1700 -1300 -1430 Weight 74.843 kg Output: Urine 1700 1300 1430 Uretheral (Guerrero) 800 800 Other: Voiding Method Indwelling Catheter Indwelling Catheter Indwelling Catheter - Exam -GENERAL: Average for age, no respiratory distress HEENT: Pupils are round and equally reacting to light. EOMI. No scleral icterus. No conjunctival pallor. Normocephalic, atraumatic. No pharyngeal erythema. No thyromegaly. CARDIOVASCULAR: S1 and S2 present. No murmurs, rubs, or gallops. PULMONARY: Chest is clear to auscultation, no wheezing or crackles. -ABDOMEN: Soft, nontender, nondistended, normoactive bowel sounds. No palpable organomegaly. PEG tube is in a Place MUSCULOSKELETAL: No joint swelling or deformity. EXTREMITIES: No cyanosis, clubbing, or pedal edema. NEUROLOGICAL: Gross neurological examination did not reveal any focal deficits. SKIN: No rashes. no petechiae. - Labs CBC & Chem 7: 10/16/19 06:19 10/16/19 06:19 Labs: Abnormal Lab Results - Last 24 Hours (Table) 10/15/19 10/16/19 10/16/19 Range/Units 23:10 06:19 06:19 RBC 3.85 L (4.30-5.90) m/uL Hgb 12.8 L (13.0-17.5) gm/dL Hct 36.7 L (39.0-53.0) % Lymphocytes # 0.8 L (1.0-4.8) k/uL Potassium 3.3 L (3.5-5.1) mmol/L BUN 4 L (9-20) mg/dL Creatinine 0.63 L (0.66-1.25) mg/dL Urine Protein 1+ H (Negative) Urine Ketones 3+ H (Negative) Urine Blood Trace H (Negative) Ur Leukocyte Esterase Large H (Negative) Urine RBC 6 H (0-5) /hpf Urine WBC 111 H (0-5) /hpf Urine Bacteria Rare H (None) /hpf Urine Mucus Occasional H (None) /hpf Microbiology - Last 24 Hours (Table) 10/15/19 23:10 Urine Culture - Preliminary Urine,Voided 10/10/19 12:24 Blood Culture - Preliminary Blood No Growth after 120 hours Assessment and Plan Assessment: Bowel obstruction secondary to fecal impaction Possible aspiration pneumonia Possible upper GI bleed Bilateral hydronephrosis, he follows up with Dr. Noel Suspicion for acute urinary tract infection and acute cystitis Developmental delay status post Jomar and tracheostomy History of seizure Plan: This is a pleasant 29 years old male who presents with bowel obstruction, possible aspiration pneumonia and UTI and GI bleed. Patient is followed by several consult including surgery, gastroenterology, and infectious disease. Follow-up CAT scan of the pole ordered by surgery team. Patient currently on antibiotics as per ID recommendation. Continue with gentle hydration. Follow- up culture results. Consult urology for his hydronephrosis Labs and medication were reviewed.. Continue same treatment. Continue with symptomatic treatment. Resume home medication. Monitor lytes and vitals. DVT and GI prophylaxis. Further recommendations of the clinical course of the patient DVT prophylaxis: No heparin in view of possible GI bleed GI Prophylaxis: Pepcid PT/OT: Pending Prognosis is guarded
[2019-10-16] MEDS ORDERED: Potassium Replacement Protocol 1 EACH MISC MISCELLANE PRN (15:27)
[2019-10-16] MEDS: LEVOFLOXACIN 750MG-D5W PMX 750 MG in DEXTROSE/WATER 1 150ML.BAG IVPB SCH (15:49)
[2019-10-16] MEDS: POTASSIUM BICARBONATE/CIT AC 20 MEQ TABLET.EFF NG-TUBE SCH ×2 (15:49→17:50)
--- NOTE | 2019-10-16 19:00 | PN ---
PROGRESS NOTE DATE OF SERVICE: 10/16/19. REASON FOR FOLLOWUP: Aspiration pneumonia and VRE urinary tract infection. INTERVAL HISTORY: The patient is currently afebrile. The patient seemed to be resting comfortably. He is awake, alert, not able to communicate or provide any history. No vomiting or diarrhea has been reported. PHYSICAL EXAMINATION: Blood pressure 106/52 with a pulse of 77. Temperature 97.3. He is 98% on room air. General description is a middle-aged male lying in bed in no distress. Respiratory system: Unlabored breathing. Clear to auscultation anteriorly. Heart S1, S2. Regular rate and rhythm. ABDOMEN: Soft. No tenderness. LABS: Repeat urine is currently slightly better compared to initial UA. DIAGNOSTIC IMPRESSION AND PLAN: 1. Patient with VRE urinary tract infection. Urinalysis seemed to have improved. He will continue with daptomycin which can be discontinued on Friday morning and finish a short course of oral Macrobid. 2. The patient with aspiration pneumonitis on Levaquin and Flagyl. To continue and monitor clinical course closely. MMODL / IJN: [id number] /
[2019-10-17] MEDS: clonazePAM 1 MG TAB PEG/G-TUBE SCH ×3 (00:22→16:14)
[2019-10-17] MEDS: METOCLOPRAMIDE 5 MG/ML 2 ML VIAL IVP SCH ×4 (00:22→17:04)
[2019-10-17] MEDS: levETIRAcetam ORAL SOLN 500 MG/5 ML CUP PEG/G-TUBE SCH ×3 (00:22→16:14)
[2019-10-17] MEDS: metroNIDAZOLE-NS PMX 500 MG in SALINE 1 100ML.BAG IVPB SCH ×3 (00:23→14:53)
[2019-10-17] MEDS: RUFINAMIDE PO SCH ×2 (00:23→11:29)
[2019-10-17] MEDS: SODIUM CHLORIDE 0.9% 1,000 ML IV SCH ×3 (05:34→21:37)
[2019-10-17 07:03] LABS: Basophils % (A) 0 %; Eosinophils # (A) 0.2 k/uL (0-0.7); Eosinophils % (A) 4 %; HCT 38.5 % (39.0-53.0); HGB 13.1 gm/dL (13.0-17.5); Lymphocytes # (A) 0.9 k/uL (1.0-4.8); Lymphocytes % (A) 24 %; MCH 33.1 pg (25.0-35.0); MCV 97.3 fL (80.0-100.0); Mean Platelet Volume 6.9; Monocytes # (A) 0.3 k/uL (0-1.0); Monocytes % (A) 7 %; Neutrophils # (A) 2.4 k/uL (1.3-7.7); Neutrophils % (A) 62 %; Platelet Count 206 k/uL (150-450); Poikilocytosis Slight; RBC 3.95 m/uL (4.30-5.90); RDW 15.5 % (11.5-15.5); WBC 3.8 k/uL (3.8-10.6)
[2019-10-17 07:48] LABS: African American GFR (CKD) >90 (>60 ml/min/1.73 sqM); Anion Gap 7 mmol/L; Blood Urea Nitrogen 3 mg/dL (9-20); Calcium 8.8 mg/dL (8.4-10.2); Carbon Dioxide 25 mmol/L (22-30); Chloride 106 mmol/L (98-107); Glucose 86 mg/dL (74-99); Non-African American GFR(CKD) >90 (>60 ml/min/1.73 sqM); Potassium 3.3 mmol/L (3.5-5.1); Sodium 138 mmol/L (137-145)
[2019-10-17] MEDS ORDERED: Potassium Replacement Protocol 1 EACH MISC MISCELLANE PRN (08:13)
[2019-10-17] MEDS: PANTOPRAZOLE 40 MG/10 ML VIAL IV SCH ×2 (08:20→21:20)
[2019-10-17] MEDS: LACOSAMIDE IV 200 MG in SODIUM CHLORIDE 0.9% 50 ML IVPB SCH ×2 (08:20→21:20)
[2019-10-17] MEDS: LACTOBACILLUS ACIDOPH & BULGAR 1 EACH PACKET PEG/G-TUBE SCH (08:21)
[2019-10-17] MEDS: HEPARIN SODIUM,PORCINE 5,000 UNIT/ML 1 ML VIAL SQ SCH ×2 (08:21→21:20)
[2019-10-17] MEDS: TAMSULOSIN 0.4 MG CAP.ER.24H PO SCH (08:21)
[2019-10-17] MEDS: FOLIC ACID 1 MG TAB PEG/G-TUBE SCH (08:21)
[2019-10-17] MEDS: HYDROmorphone 0.5 MG/0.5 ML SYRINGE IVP PRN ×2 (08:27→14:52)
[2019-10-17] MEDS: POTASSIUM BICARBONATE/CIT AC 20 MEQ TABLET.EFF NG-TUBE SCH ×2 (08:29→10:48)
[2019-10-17] MEDS: IPRATROPIUM-ALBUTEROL 3 ML NEB INHALATION SCH ×3 (08:47→19:38)
--- NOTE | 2019-10-17 10:23 | P.PN ---
Progress Note - Text Progress Note Date: 10/17/19 The patient is resting comfortably his bed. He has had bowel movements on Friday however he has none yesterday. On exam is lesser stable. His abdomen soft. Patient will resume tube feeds. We will add lactulose 30 mL by mouth 3 times a day. He'll be observed.
[2019-10-17] MEDS: LACTULOSE 20 GM/30 ML CUP PO SCH ×3 (10:48→21:23)
--- NOTE | 2019-10-17 10:53 | P.PN ---
Subjective Progress Note Date: 10/17/19 Principal diagnosis: Acute hypoxic respiratory failure Bilateral aspiration pneumonia Bowel obstruction likely due to retained fecal material Developmentally delayed Status post chronic Peg tube and tracheostomy Severe degree of seizure disorder Past history of respiratory failure requiring vent support 10/17/2019, patient seen eval examined during the rounds remains on trach and PEG respiratory status stable breathing no obvious cough or shortness of breath noted 10/16/2019, patient seen eval examined during the rounds labs reviewed medications reviewed, urine culture is positive for Enterococcus faecalis VRE, respiratory standpoint doing well mild coarse breath sounds present at overall on room air saturation is 95-96% tolerating antibiotics well, noted is made of the abnormal computed tomography scan suggesting of narrowing and sigmoid colon level likely spasm or stricture versus neoplasm, along with bilateral hydronephrosis and thickening of the bladder urology and general surgery has been following 10/15/2019, patient remains on trach collar without and supple dependent and oxygen at room air, oxygen saturation has been stable, afebrile, 93% room air, patient getting therapy for aspiration pneumonia 10/14/2019, patient seen eval examined during the rounds labs reviewed medications reviewed, as per request of the family trach has been evaluated, care plan discussed with the respiratory therapist as well, tracheostomy stoma appears to be stable inner cannula clean, no evidence of infection, no need to change tracheostomy 10/13/2019, patient seen and evaluated examined during the rounds overall remains stable pulmonary standpoint remains on antibiotics for aspiration pneumonia congestion is present, computed tomography scan of the abdomen revealed a large hiatal hernia, PEG tube has been stable, 10/12/2019, patient seen and evaluated examined overall no significant change and no cough or congestion is present no more episodes of vomiting has been noted patient is getting therapy for pneumonia ID service has been following respiratory status remains stable This is a 29-year-old status post trach and PEG due to developmental delay, patient has a history of chronic seizure disorder, patient's PEG tube has been recently changed about 2 months ago developed problems associated with severe constipation and vomiting and bluish blood-tinged secretions coming out through the PEG tube came into the hospital for further evaluation suspicion of pneumonia, chest x-ray revealed bilateral lower lobe infiltrate consistent with aspiration pneumonia patient is currently getting broad-spectrum antibiotics finally he has a bowel movement is abdomen is more softer now, patient also has a computed tomography scan of the abdominal pelvis which revealed dilated loops of bowel and colon Objective - Vital Signs Vital signs: Vital Signs Temp 97.1 F L 10/17/19 07:00 Pulse 76 10/17/19 08:48 Resp 16 10/17/19 07:00 BP 93/58 10/17/19 07:00 Pulse Ox 99 10/17/19 07:00 Intake & Output 10/16/19 10/17/19 10/17/19 18:59 06:59 18:59 Intake Total 500 100 425 Output Total 2730 1800 Balance -2230 -1700 425 Intake: Intake, IV Titration 100 425 Amount Lacosamide IV 200 mg In 100 Sodium Chloride 0.9% 50 ml @ 100 mls/hr IVPB BID [facility] Rx#:[id number] Sodium Chloride 0.9% 1, 225 000 ml @ 75 mls/hr IV . [id number] [facility] Rx#:[id number] metroNIDAZOLE-NS PMX 500 100 100 mg In Saline 1 100ml.bag @ 100 mls/hr IVPB Q8HR [facility] Rx#:[id number] Other 500 Output: Urine 2730 1800 Uretheral (Guerrero) 1600 900 Other: Voiding Method Indwelling Catheter Indwelling Catheter Indwelling Catheter - Exam - Constitutional General appearance: average body habitus, disheveled, no acute distress - EENT Eyes: EOMI, PERRLA Ears: bilateral: normal - Neck Neck: normal ROM Carotids: bilateral: upstroke normal - Respiratory Respiratory: bilateral: CTA, diminished, negative: dullness, rales, rhonchi - Cardiovascular Rhythm: regular Heart sounds: normal: S1, S2 - Gastrointestinal General gastrointestinal: decreased bowel sounds - Musculoskeletal Musculoskeletal: generalized weakness, strength equal bilaterally - Labs CBC & Chem 7: 10/17/19 06:31 10/17/19 06:31 Labs: Abnormal Lab Results - Last 24 Hours (Table) 10/17/19 10/17/19 Range/Units 06:31 06:31 RBC 3.95 L (4.30-5.90) m/uL Hct 38.5 L (39.0-53.0) % Lymphocytes # 0.9 L (1.0-4.8) k/uL Potassium 3.3 L (3.5-5.1) mmol/L BUN 3 L (9-20) mg/dL Microbiology - Last 24 Hours (Table) 10/10/19 12:24 Blood Culture - Final Blood No Growth after 144 hours 10/15/19 23:10 Urine Culture - Preliminary Urine,Voided Assessment and Plan Assessment: Acute hypoxic respiratory failure, status post tract Bilateral aspiration pneumonia Bowel obstruction at sigmoid colon level stricture/spasm/neoplasm Bilateral hydronephrosis with bladder wall thickening Developmentally delayed Status post chronic Peg tube and tracheostomy Severe degree of seizure disorder Past history of respiratory failure requiring vent support Plan: Maintain trach keep saturation over 92% supplemental oxygen as needed, so far does not feed any oxygen Pulmonary toilet Respiratory to suction as needed Seizure precautions Nothing by mouth for now Hold tube feed Broad-spectrum antibiotics for bilateral aspiration pneumonia Further recommendations pending plan of care as per clinical response of the patient Further evaluation by urology and general surgery for bilateral hydronephrosis and bowel obstruction in progress Once they are cleared from surgical and urological standpoint can be discharged home from pulmonary critical care standpoint Time with Patient: Greater than 30
--- NOTE | 2019-10-17 11:16 | P.PN ---
Subjective This is a pleasant 29 years old male with past medical history of developmental delay, autism, seizure disorder, status post vagal neurostimulator, left ureteral stent, presents this signs symptoms of bowel obstruction secondary to fecal impaction, surgeries been evaluated the patient GoLYTELY and has been tried with no much success and enema with only moderate stool, and surgery team recommended CAT scan of the abdomen and pelvis today. Showing fecal impaction with possible small bowel dilatation suggestive of colonic ileus, possible cystitis Patient is nothing by mouth and hold tube feeds, hemodynamically stable, blood pressure is 94/55, which is similar to last few days on the presentation. Low potassium is been replaced, WBC is normal 5.5K, urine cultures, group D enterococcus 10/14/2019 Patient is lying comfortable in bed, no distress, mother at bedside, patient didn't have bowel movement since yesterday, no abdominal tenderness or significant pain, the mother does not think he needs abdominal pain medication for now. He got several laxative for his fecal impaction contributing to his bowel obstruction/ileus. His hemoglobin is stable at 11.2. No other episodes of GI bleed. Patient remains on Levaquin and Flagyl for his infection, possible pneumonia. Patient mother states that he has history of bilateral hydronephrosis and he has recent procedure done by Dr. De Dios recently including transurethral incision of the prostate to help him urinating, repeat imaging showed persistent hydronephrosis. Guerrero catheter was placed when he came to the hospital. We'll ask for urology reevaluation. Low potassium replaced. Surgical team recommended CAT scan of the abdomen and L this with rectal contrast which is pending 10/15/2019 Patient is seen and evaluated in follow-up today sleeping and appears to be in no acute distress. Patient does have a trach collar and is currently on room air. Per nursing staff patient had 4 large bowel movements yesterday but CT of the abdomen continues to show a narrowing of the redundant sigmoid colon midline that could possibly relate to stricture, spasm, or possible neoplasm although unlikely, severe left and moderate right hydronephrosis and urinary bladder circumferential thickening. Patient is being followed by urology and sees them in the outpatient setting as well. Patient continues to have an indwelling Guerrero catheter and will continue at this time. Patient remains on IV antibiotics in the form of daptomycin, Levaquin, and Flagyl and will continue at this time. Infectious disease is following. Patient is also being evaluated by surgery and will continue with GoLYTELY today. Will continue to monitor closely. 10/16/2019 Patient is doing better as he starts having some bowel movement with GoLYTELY. Repeat CAT scan showed no obstruction and surgery consult on the case closely. On Guerrero catheter. PEG tube is on hold. Tracheostomy is in a Place. No se izure no other active issues. Discussed with staff 10/17/2019 Patient is comfortable in bed, he has small bowel movement today, he has significant bowel movements yesterday while on GoLYTELY. Surgical service R following the case closely and there started to his PEG tube feeding and add lactulose. Vitals stable, labs no change, low potassium replaced Decreased normal saline to 40 mL per hour Objective - Vital Signs Vital signs: Vital Signs Temp 97.1 F L 10/17/19 07:00 Pulse 76 10/17/19 08:48 Resp 16 10/17/19 07:00 BP 93/58 10/17/19 07:00 Pulse Ox 99 10/17/19 07:00 Intake & Output 10/16/19 10/17/19 10/17/19 18:59 06:59 18:59 Intake Total 500 100 425 Output Total 2730 1800 Balance -2230 -1700 425 Intake: Intake, IV Titration 100 425 Amount Lacosamide IV 200 mg In 100 Sodium Chloride 0.9% 50 ml @ 100 mls/hr IVPB BID [facility] Rx#:[id number] Sodium Chloride 0.9% 1, 225 000 ml @ 75 mls/hr IV . [id number] [facility] Rx#:[id number] metroNIDAZOLE-NS PMX 500 100 100 mg In Saline 1 100ml.bag @ 100 mls/hr IVPB Q8HR [facility] Rx#:[id number] Other 500 Output: Urine 2730 1800 Uretheral (Guerrero) 1600 900 Other: Voiding Method Indwelling Catheter Indwelling Catheter Indwelling Catheter - Exam -GENERAL: Average for age, no respiratory distress HEENT: Pupils are round and equally reacting to light. EOMI. No scleral icterus. No conjunctival pallor. Normocephalic, atraumatic. No pharyngeal erythema. No thyromegaly. CARDIOVASCULAR: S1 and S2 present. No murmurs, rubs, or gallops. PULMONARY: Chest is clear to auscultation, no wheezing or crackles. -ABDOMEN: Soft, nontender, nondistended, normoactive bowel sounds. No palpable o rganomegaly. PEG tube is in a Place MUSCULOSKELETAL: No joint swelling or deformity. EXTREMITIES: No cyanosis, clubbing, or pedal edema. NEUROLOGICAL: Gross neurological examination did not reveal any focal deficits. SKIN: No rashes. no petechiae. - Labs CBC & Chem 7: 10/17/19 06:31 10/17/19 06:31 Labs: Abnormal Lab Results - Last 24 Hours (Table) 10/17/19 10/17/19 Range/Units 06:31 06:31 RBC 3.95 L (4.30-5.90) m/uL Hct 38.5 L (39.0-53.0) % Lymphocytes # 0.9 L (1.0-4.8) k/uL Potassium 3.3 L (3.5-5.1) mmol/L BUN 3 L (9-20) mg/dL Microbiology - Last 24 Hours (Table) 10/15/19 23:10 Urine Culture - Final Urine,Voided 10/10/19 12:24 Blood Culture - Final Blood No Growth after 144 hours Assessment and Plan Assessment: Bowel obstruction secondary to fecal impaction Possible aspiration pneumonia Possible upper GI bleed Bilateral hydronephrosis, he follows up with Dr. Noel Suspicion for acute urinary tract infection and acute cystitis Developmental delay status post Jomar and tracheostomy History of seizure Plan: This is a pleasant 29 years old male who presents with bowel obstruction, possible aspiration pneumonia and UTI and GI bleed. Patient is followed by several consult including surgery, gastroenterology, and infectious disease. resume tube feeding by surgery team. Patient currently on antibiotics as per ID recommendation. Continue with gentle hydration. Follow-up culture results. Consult urology for his hydronephrosis Labs and medication were reviewed.. Continue same treatment. Continue with symptomatic treatment. Resume home medication. Monitor lytes and vitals. DVT and GI prophylaxis. Further recommendations of the clinical course of the patient DVT prophylaxis: No heparin in view of possible GI bleed GI Prophylaxis: Pepcid PT/OT: Pending Prognosis is guarded
[2019-10-17 12:46] VITALS: BMI 23.3
[2019-10-17] MEDS: LEVOFLOXACIN 750MG-D5W PMX 750 MG in DEXTROSE/WATER 1 150ML.BAG IVPB SCH (16:15)
--- NOTE | 2019-10-17 20:38 | PN ---
PROGRESS NOTE DATE OF SERVICE: 10/17/2019. REASON FOR FOLLOWUP: 1. VRE urinary tract infection. 2. Aspiration pneumonia. INTERVAL HISTORY: The patient is currently afebrile. Patient has been breathing comfortably. No further nausea or vomiting has been reported or any diarrhea. Patient still unable to provide any history. PHYSICAL EXAMINATION: Blood pressure 85/55 with a pulse of 75. Temperature is 97.5. He is 99% on room air. General description is a middle-aged male lying in bed in no distress. Respiratory system: Unlabored breathing. Decreased breath sounds in the bases. No wheeze. Heart S1, S2. Regular rate and rhythm. Abdomen soft, no tenderness. LABS: Repeat urine culture so far negative. DIAGNOSTIC IMPRESSION AND PLAN: 1. Patient admitted to hospital with vomiting with concern for aspiration pneumonitis, in this patient who received about 7 days of Levaquin and Flagyl that can be discontinued on discharge. 2. Patient with VRE urinary tract infection adequately treated. Sputum culture has been negative. Discontinue the vancomycin after tomorrow's dose. MMODL / IJN: [id number] /
[2019-10-18] MEDS: metroNIDAZOLE-NS PMX 500 MG in SALINE 1 100ML.BAG IVPB SCH (00:02)
[2019-10-18] MEDS: RUFINAMIDE PO SCH ×3 (00:03→23:18)
[2019-10-18] MEDS: levETIRAcetam ORAL SOLN 500 MG/5 ML CUP PEG/G-TUBE SCH ×4 (00:03→23:17)
[2019-10-18] MEDS: METOCLOPRAMIDE 5 MG/ML 2 ML VIAL IVP SCH ×3 (00:04→13:08)
[2019-10-18] MEDS: clonazePAM 1 MG TAB PEG/G-TUBE SCH ×4 (00:04→23:17)
[2019-10-18] MEDS: HYDROmorphone 0.5 MG/0.5 ML SYRINGE IVP PRN (00:36)
[2019-10-18 07:22] LABS: African American GFR (CKD) >90 (>60 ml/min/1.73 sqM); Anion Gap 8 mmol/L; Blood Urea Nitrogen 3 mg/dL (9-20); Calcium 8.7 mg/dL (8.4-10.2); Carbon Dioxide 20 mmol/L (22-30); Chloride 110 mmol/L (98-107); Glucose 77 mg/dL (74-99); Magnesium 1.7 mg/dL (1.6-2.3); Non-African American GFR(CKD) >90 (>60 ml/min/1.73 sqM); Potassium 3.5 mmol/L (3.5-5.1); Sodium 138 mmol/L (137-145)
[2019-10-18] MEDS: IPRATROPIUM-ALBUTEROL 3 ML NEB INHALATION SCH ×3 (09:12→21:15)
--- NOTE | 2019-10-18 10:34 | P.PN ---
Subjective Progress Note Date: 10/18/19 CHIEF COMPLAINT: bowel obstruction HISTORY OF PRESENT ILLNESS: Patient examined at the bedside. Nursing reports tube feeding was disconnected by patient. No bowel movement thus far today. PHYSICAL EXAM: VITAL SIGNS: Reviewed. GENERAL: Well-developed in no acute distress. HEENT: Trach noted. No sclera icterus. Extraocular movements grossly intact. Moist buccal mucosa. Head is atraumatic, normocephalic. ABDOMEN: Soft. Nondistended. Nontender. PEG tube noted. NEUROLOGIC: Nonverbal at baseline ASSESSMENT: 1. Vomiting 2. Megacolon, colonic ileus 3. History of trach and PEG PLAN: Resume tube feeds as tolerated Continue current bowel regimen Increase lactulose to 30gram TID Discontinue Dilaudid Nurse practitioner note has been reviewed by physician. Signing provider agrees with the documented findings, assessment, and plan of care. Objective - Vital Signs Vital signs: Vital Signs Temp 98.0 F 10/18/19 07:00 Pulse 74 10/18/19 09:26 Resp 17 10/18/19 07:00 BP 102/65 10/18/19 07:00 Pulse Ox 97 10/18/19 07:00 Intake & Output 10/17/19 10/18/19 10/18/19 18:59 06:59 18:59 Intake Total 425 360 Output Total 1250 Balance 425 -890 Weight 74 kg Intake: Intake, IV Titration 425 Amount Lacosamide IV 200 mg In 100 Sodium Chloride 0.9% 50 ml @ 100 mls/hr IVPB BID [facility] Rx#:[id number] Sodium Chloride 0.9% 1, 225 000 ml @ 40 mls/hr IV . Q24H [facility] Rx#:[id number] metroNIDAZOLE-NS PMX 500 100 mg In Saline 1 100ml.bag @ 100 mls/hr IVPB Q8HR [facility] Rx#:[id number] Tube Feeding 360 Output: Urine 1250 Other: Voiding Method Indwelling Catheter Indwelling Catheter - Labs CBC & Chem 7: 10/17/19 06:31 10/18/19 06:34 Labs: Abnormal Lab Results - Last 24 Hours (Table) 10/18/19 Range/Units 06:34 Chloride 110 H (98-107) mmol/L Carbon Dioxide 20 L (22-30) mmol/L BUN 3 L (9-20) mg/dL Microbiology - Last 24 Hours (Table) 10/15/19 23:10 Urine Culture - Final Urine,Voided
[2019-10-18] MEDS: PANTOPRAZOLE 40 MG/10 ML VIAL IV SCH (10:54)
[2019-10-18] MEDS: LACTULOSE 20 GM/30 ML CUP PO SCH ×3 (10:54→23:16)
[2019-10-18] MEDS: LACOSAMIDE IV 200 MG in SODIUM CHLORIDE 0.9% 50 ML IVPB SCH (10:55)
[2019-10-18] MEDS: HEPARIN SODIUM,PORCINE 5,000 UNIT/ML 1 ML VIAL SQ SCH ×2 (10:55→23:16)
[2019-10-18] MEDS: FOLIC ACID 1 MG TAB PEG/G-TUBE SCH (10:55)
[2019-10-18] MEDS: TAMSULOSIN 0.4 MG CAP.ER.24H PO SCH (10:55)
[2019-10-18] MEDS: SCOPOLAMINE 1.5MG/72HR PATCH TRANSDERM SCH (10:56)
--- NOTE | 2019-10-18 11:43 | P.PN ---
Subjective Progress Note Date: 10/18/19 Principal diagnosis: Acute hypoxic respiratory failure Bilateral aspiration pneumonia Bowel obstruction likely due to retained fecal material Developmentally delayed Status post chronic Peg tube and tracheostomy Severe degree of seizure disorder Past history of respiratory failure requiring vent support 10/18/2019, patient seen eval reexamined during the rounds labs reviewed medications reviewed, care plan discussed with primary care, stable from pulmonary standpoint for discharge, patient is still have 2 more days of daptomycin left 10/17/2019, patient seen eval examined during the rounds remains on trach and PEG respiratory status stable breathing no obvious cough or shortness of breath noted 10/16/2019, patient seen eval examined during the rounds labs reviewed medications reviewed, urine culture is positive for Enterococcus faecalis VRE, respiratory standpoint doing well mild coarse breath sounds present at overall on room air saturation is 95-96% tolerating antibiotics well, noted is made of the abnormal computed tomography scan suggesting of narrowing and sigmoid colon level likely spasm or stricture versus neoplasm, along with bilateral hydron ephrosis and thickening of the bladder urology and general surgery has been following 10/15/2019, patient remains on trach collar without and supple dependent and oxygen at room air, oxygen saturation has been stable, afebrile, 93% room air, patient getting therapy for aspiration pneumonia 10/14/2019, patient seen eval examined during the rounds labs reviewed medications reviewed, as per request of the family trach has been evaluated, care plan discussed with the respiratory therapist as well, tracheostomy stoma appears to be stable inner cannula clean, no evidence of infection, no need to c hange tracheostomy 10/13/2019, patient seen and evaluated examined during the rounds overall remain s stable pulmonary standpoint remains on antibiotics for aspiration pneumonia congestion is present, computed tomography scan of the abdomen revealed a large hiatal hernia, PEG tube has been stable, 10/12/2019, patient seen and evaluated examined overall no significant change and no cough or congestion is present no more episodes of vomiting has been noted patient is getting therapy for pneumonia ID service has been following respiratory status remains stable This is a 29-year-old status post trach and PEG due to developmental delay, patient has a history of chronic seizure disorder, patient's PEG tube has been recently changed about 2 months ago developed problems associated with severe c onstipation and vomiting and bluish blood-tinged secretions coming out through the PEG tube came into the hospital for further evaluation suspicion of pneumonia, chest x-ray revealed bilateral lower lobe infiltrate consistent with aspiration pneumonia patient is currently getting broad-spectrum antibiotics finally he has a bowel movement is abdomen is more softer now, patient also has a computed tomography scan of the abdominal pelvis which revealed dilated loops of bowel and colon Objective - Vital Signs Vital signs: Vital Signs Temp 98.0 F 10/18/19 07:00 Pulse 74 10/18/19 09:26 Resp 17 10/18/19 07:00 BP 102/65 10/18/19 07:00 Pulse Ox 97 10/18/19 07:00 Intake & Output 10/17/19 10/18/19 10/18/19 18:59 06:59 18:59 Intake Total 425 360 Output Total 1250 375 Balance 425 -890 -375 Weight 74 kg Intake: Intake, IV Titration 425 Amount Lacosamide IV 200 mg In 100 Sodium Chloride 0.9% 50 ml @ 100 mls/hr IVPB BID [facility] Rx#:[id number] Sodium Chloride 0.9% 1, 225 000 ml @ 40 mls/hr IV . Q24H [facility] Rx#:[id number] metroNIDAZOLE-NS PMX 500 100 mg In Saline 1 100ml.bag @ 100 mls/hr IVPB Q8HR [facility] Rx#:[id number] Tube Feeding 360 Output: Urine 1250 375 Other: Voiding Method Indwelling Catheter Indwelling Catheter - Exam - Constitutional General appearance: average body habitus, disheveled, no acute distress - EENT Eyes: EOMI, PERRLA Ears: bilateral: normal - Neck Neck: normal ROM Carotids: bilateral: upstroke normal - Respiratory Respiratory: bilateral: CTA, diminished, negative: dullness, rales, rhonchi - Cardiovascular Rhythm: regular Heart sounds: normal: S1, S2 - Gastrointestinal General gastrointestinal: decreased bowel sounds - Musculoskeletal Musculoskeletal: generalized weakness, strength equal bilaterally - Labs CBC & Chem 7: 10/17/19 06:31 10/18/19 06:34 Labs: Abnormal Lab Results - Last 24 Hours (Table) 10/18/19 Range/Units 06:34 Chloride 110 H (98-107) mmol/L Carbon Dioxide 20 L (22-30) mmol/L BUN 3 L (9-20) mg/dL Microbiology - Last 24 Hours (Table) 10/15/19 23:10 Urine Culture - Final Urine,Voided Assessment and Plan Assessment: VRE urinary tract infection Acute hypoxic respiratory failure, status post tract Bilateral aspiration pneumonia Bowel obstruction at sigmoid colon level stricture/spasm/neoplasm Bilateral hydronephrosis with bladder wall thickening Developmentally delayed Status post chronic Peg tube and tracheostomy Severe degree of seizure disorder Past history of respiratory failure requiring vent support Plan: Maintain trach keep saturation over 92% supplemental oxygen as needed, so far does not feed any oxygen Pulmonary toilet Respiratory to suction as needed Seizure precautions Nothing by mouth for now Hold tube feed Broad-spectrum antibiotics for bilateral aspiration pneumonia and VRE UTI Further recommendations pending plan of care as per clinical response of the patient Further evaluation by urology and general surgery for bilateral hydronephrosis and bowel obstruction in progress Once they are cleared from surgical and urological standpoint can be discharged home from pulmonary critical care standpoint Time with Patient: Greater than 30
[2019-10-18] MEDS: LACOSAMIDE 50 MG TABLET PEG/G-TUBE SCH ×3 (12:11→23:17)
[2019-10-18] MEDS: METOCLOPRAMIDE 10 MG TAB PEG/G-TUBE SCH ×2 (12:46→18:42)
--- NOTE | 2019-10-18 13:02 | P.PN ---
Subjective This is a pleasant 29 years old male with past medical history of developmental delay, autism, seizure disorder, status post vagal neurostimulator, left ureteral stent, presents this signs symptoms of bowel obstruction secondary to fecal impaction, surgeries been evaluated the patient GoLYTELY and has been tried with no much success and enema with only moderate stool, and surgery team recommended CAT scan of the abdomen and pelvis today. Showing fecal impaction with possible small bowel dilatation suggestive of colonic ileus, possible cystitis Patient is nothing by mouth and hold tube feeds, hemodynamically stable, blood pressure is 94/55, which is similar to last few days on the presentation. Low potassium is been replaced, WBC is normal 5.5K, urine cultures, group D enterococcus 10/14/2019 Patient is lying comfortable in bed, no distress, mother at bedside, patient didn't have bowel movement since yesterday, no abdominal tenderness or significant pain, the mother does not think he needs abdominal pain medication for now. He got several laxative for his fecal impaction contributing to his bowel obstruction/ileus. His hemoglobin is stable at 11.2. No other episodes of GI bleed. Patient remains on Levaquin and Flagyl for his infection, possible pneumonia. Patient mother states that he has history of bilateral hydronephrosis and he has recent procedure done by Dr. De Dios recently including transurethral incision of the prostate to help him urinating, repeat imaging showed persistent hydronephrosis. Guerrero catheter was placed when he came to the hospital. We'll ask for urology reevaluation. Low potassium replaced. Surgical team recommended CAT scan of the abdomen and L this with rectal contrast which is pending 10/15/2019 Patient is seen and evaluated in follow-up today sleeping and appears to be in no acute distress. Patient does have a trach collar and is currently on room air. Per nursing staff patient had 4 large bowel movements yesterday but CT of the abdomen continues to show a narrowing of the redundant sigmoid colon midline that could possibly relate to stricture, spasm, or possible neoplasm although unlikely, severe left and moderate right hydronephrosis and urinary bladder circumferential thickening. Patient is being followed by urology and sees them in the outpatient setting as well. Patient continues to have an indwelling Guerrero catheter and will continue at this time. Patient remains on IV antibiotics in the form of daptomycin, Levaquin, and Flagyl and will continue at this time. Infectious disease is following. Patient is also being evaluated by surgery and will continue with GoLYTELY today. Will continue to monitor closely. 10/16/2019 Patient is doing better as he starts having some bowel movement with GoLYTELY. Repeat CAT scan showed no obstruction and surgery consult on the case closely. On Guerrero catheter. PEG tube is on hold. Tracheostomy is in a Place. No se izure no other active issues. Discussed with staff 10/17/2019 Patient is comfortable in bed, he has small bowel movement today, he has significant bowel movements yesterday while on GoLYTELY. Surgical service R following the case closely and there started to his PEG tube feeding and add lactulose. Vitals stable, labs no change, low potassium replaced Decreased normal saline to 40 mL per hour 10/18/2019 Patient looks comfortable, no distress, abdomen looks soft, he did not have bowel movement today after starting lactulose and tube feeding, as per staff he could not tolerate tube feeds at the usual rate, so they held it and started to gradually at lower rate. IV site is infiltrated and pills can be restarted for him via PEG tube as at home, he remains on daptomycin, Levaquin and Flagyl as per ID team recommendation.creatinine normal at potassium was low normal 3.5, magnesium 1.7. Continue Dilaudid as it contributes to his lazy bowel. Deep monitoring for now Objective - Vital Signs Vital signs: Vital Signs Temp 98.0 F 10/18/19 07:00 Pulse 80 10/18/19 12:04 Resp 17 10/18/19 07:00 BP 102/65 10/18/19 07:00 Pulse Ox 97 10/18/19 07:00 Intake & Output 10/17/19 10/18/19 10/18/19 18:59 06:59 18:59 Intake Total 425 360 Output Total 1250 375 Balance 425 -890 -375 Weight 74 kg Intake: Intake, IV Titration 425 Amount Lacosamide IV 200 mg In 100 Sodium Chloride 0.9% 50 ml @ 100 mls/hr IVPB BID [facility] Rx#:[id number] Sodium Chloride 0.9% 1, 225 000 ml @ 40 mls/hr IV . Q24H [facility] Rx#:[id number] metroNIDAZOLE-NS PMX 500 100 mg In Saline 1 100ml.bag @ 100 mls/hr IVPB Q8HR [facility] Rx#:[id number] Tube Feeding 360 Output: Urine 1250 375 Other: Voiding Method Indwelling Catheter Indwelling Catheter - Exam -GENERAL: Average for age, no respiratory distress HEENT: Pupils are round and equally reacting to light. EOMI. No scleral icterus. No conjunctival pallor. Normocephalic, atraumatic. No pharyngeal erythema. No thyromegaly. CARDIOVASCULAR: S1 and S2 present. No murmurs, rubs, or gallops. PULMONARY: Chest is clear to auscultation, no wheezing or crackles. -ABDOMEN: Soft, nontender, nondistended, normoactive bowel sounds. No palpable organomegaly. PEG tube is in a Place MUSCULOSKELETAL: No joint swelling or deformity. EXTREMITIES: No cyanosis, clubbing, or pedal edema. NEUROLOGICAL: Gross neurological examination did not reveal any focal deficits. SKIN: No rashes. no petechiae. - Labs CBC & Chem 7: 10/17/19 06:31 10/18/19 06:34 Labs: Abnormal Lab Results - Last 24 Hours (Table) 10/18/19 Range/Units 06:34 Chloride 110 H (98-107) mmol/L Carbon Dioxide 20 L (22-30) mmol/L BUN 3 L (9-20) mg/dL Microbiology - Last 24 Hours (Table) 10/15/19 23:10 Urine Culture - Final Urine,Voided Assessment and Plan Assessment: Bowel obstruction secondary to fecal impaction Possible aspiration pneumonia Possible upper GI bleed Bilateral hydronephrosis, he follows up with Dr. Noel Suspicion for acute urinary tract infection and acute cystitis Developmental delay status post Jomar and tracheostomy History of seizure Plan: This is a pleasant 29 years old male who presents with bowel obstruction, possible aspiration pneumonia and UTI and GI bleed. Patient is followed by several consult including surgery, gastroenterology, and infectious disease. resume tube feeding by surgery team. Patient currently on antibiotics as per ID recommendation. Continue with gentle hydration. Follow-up culture results. Consult urology for his hydronephrosis Labs and medication were reviewed.. Continue same treatment. Continue with symptomatic treatment. Resume home medication. Monitor lytes and vitals. DVT and GI prophylaxis. Further recommendations of the clinical course of the patient DVT prophylaxis: No heparin in view of possible GI bleed GI Prophylaxis: Pepcid PT/OT: Pending Prognosis is guarded
[2019-10-18] MEDS ORDERED: LEVOFLOXACIN 750 MG TAB PEG/G-TUBE SCH (16:00)
[2019-10-18] MEDS: PANTOPRAZOLE SODIUM 40 MG GRANULE PKT PEG/G-TUBE SCH (16:08)
--- NOTE | 2019-10-18 17:17 | PN ---
PROGRESS NOTE DATE OF SERVICE: 10/18/2019. REASON FOR FOLLOWUP: 1. Aspiration pneumonitis. 2. VRE UTI. INTERVAL HISTORY: The patient is currently afebrile. The patient has been breathing comfortably. No further vomiting has been reported. Did have a bowel movement. Patient is not able to provide any history. PHYSICAL EXAMINATION: Blood pressure 97/62 with a pulse of 68, temperature 98. He is 97% on room air. General description is a middle-aged male lying in bed in no distress. RESPIRATORY SYSTEM: Unlabored breathing with decreased breath sounds at the base. No wheeze. HEART: S1, S2. Regular rate and rhythm. ABDOMEN: Soft. No tenderness. LABS: BUN of 3, creatinine 0.68. DIAGNOSTIC IMPRESSION AND PLAN: 1. Patient admitted with aspiration pneumonia. Patient is currently covered with Levaquin and Flagyl. May switch to p.o. with no IV access hold on midline 2. Patient with vancomycin-resistant Enterococcus urinary tract infection, adequately treated. Daptomycin can be discontinued. MMODL / IJN: [id number] / [id number]
[2019-10-18] MEDS: SODIUM CHLORIDE 0.9% 1,000 ML IV SCH (22:30)
[2019-10-19 02:37] VITALS: BP 103/69; RESP 17; TEMP 97.6
[2019-10-19 06:31] LABS: African American GFR (CKD) >90 (>60 ml/min/1.73 sqM); Anion Gap 8 mmol/L; Blood Urea Nitrogen 4 mg/dL (9-20); Calcium 9.2 mg/dL (8.4-10.2); Carbon Dioxide 24 mmol/L (22-30); Chloride 107 mmol/L (98-107); Glucose 82 mg/dL (74-99); Magnesium 1.8 mg/dL (1.6-2.3); Non-African American GFR(CKD) >90 (>60 ml/min/1.73 sqM); Potassium 3.5 mmol/L (3.5-5.1); Sodium 139 mmol/L (137-145)
[2019-10-19] MEDS: HEPARIN SODIUM,PORCINE 5,000 UNIT/ML 1 ML VIAL SQ SCH (07:43)
[2019-10-19] MEDS: clonazePAM 1 MG TAB PEG/G-TUBE SCH (07:43)
[2019-10-19] MEDS: LACOSAMIDE 50 MG TABLET PEG/G-TUBE SCH (07:43)
[2019-10-19] MEDS: LACTULOSE 20 GM/30 ML CUP PO SCH (07:43)
[2019-10-19] MEDS: levETIRAcetam ORAL SOLN 500 MG/5 ML CUP PEG/G-TUBE SCH (07:44)
[2019-10-19] MEDS: TAMSULOSIN 0.4 MG CAP.ER.24H PO SCH (07:44)
[2019-10-19] MEDS: FOLIC ACID 1 MG TAB PEG/G-TUBE SCH (07:44)
[2019-10-19] MEDS: METOCLOPRAMIDE 10 MG TAB PEG/G-TUBE SCH ×2 (07:45→12:47)
[2019-10-19] MEDS: PANTOPRAZOLE SODIUM 40 MG GRANULE PKT PEG/G-TUBE SCH (07:45)
[2019-10-19] MEDS: IPRATROPIUM-ALBUTEROL 3 ML NEB INHALATION SCH ×2 (08:41→12:17)
--- NOTE | 2019-10-19 09:33 | P.PN ---
Subjective Progress Note Date: 10/19/19 Principal diagnosis: Acute hypoxic respiratory failure Bilateral aspiration pneumonia Bowel obstruction likely due to retained fecal material Developmentally delayed Status post chronic Peg tube and tracheostomy Severe degree of seizure disorder Past history of respiratory failure requiring vent support 10/19/2019, overall not significantly changed remains afebrile respirations stable with stable saturation on the trach collar, ID recommendation noted plan is to switch to for PEG tube 10/18/2019, patient seen eval reexamined during the rounds labs reviewed medications reviewed, care plan discussed with primary care, stable from pulmonary standpoint for discharge, patient is still have 2 more days of daptomycin left 10/17/2019, patient seen eval examined during the rounds remains on trach and PEG respiratory status stable breathing no obvious cough or shortness of breath noted 10/16/2019, patient seen eval examined during the rounds labs reviewed medicatio ns reviewed, urine culture is positive for Enterococcus faecalis VRE, respiratory standpoint doing well mild coarse breath sounds present at overall on room air saturation is 95-96% tolerating antibiotics well, noted is made of the abnormal computed tomography scan suggesting of narrowing and sigmoid colon level likely spasm or stricture versus neoplasm, along with bilateral hydronephrosis and thickening of the bladder urology and general surgery has been following 10/15/2019, patient remains on trach collar without and supple dependent and oxygen at room air, oxygen saturation has been stable, afebrile, 93% room air, patient getting therapy for aspiration pneumonia 10/14/2019, patient seen eval examined during the rounds labs reviewed medications reviewed, as per request of the family trach has been evaluated, care plan discussed with the respiratory therapist as well, tracheostomy stoma appears to be stable inner cannula clean, no evidence of infection, no need to change tracheostomy 10/13/2019, patient seen and evaluated examined during the rounds overall remains stable pulmonary standpoint remains on antibiotics for aspiration pneumonia congestion is present, computed tomography scan of the abdomen revealed a large hiatal hernia, PEG tube has been stable, 10/12/2019, patient seen and evaluated examined overall no significant change and no cough or congestion is present no more episodes of vomiting has been noted patient is getting therapy for pneumonia ID service has been following respiratory status remains stable This is a 29-year-old status post trach and PEG due to developmental delay, patient has a history of chronic seizure disorder, patient's PEG tube has been recently changed about 2 months ago developed problems associated with severe constipation and vomiting and bluish blood-tinged secretions coming out through the PEG tube came into the hospital for further evaluation suspicion of pneumonia, chest x-ray revealed bilateral lower lobe infiltrate consistent with aspiration pneumonia patient is currently getting broad-spectrum antibiotics finally he has a bowel movement is abdomen is more softer now, patient also has a computed tomography scan of the abdominal pelvis which revealed dilated loops of bowel and colon Objective - Vital Signs Vital signs: Vital Signs Temp 97.6 F 10/19/19 02:36 Pulse 72 10/19/19 08:52 Resp 17 10/19/19 02:36 BP 103/69 10/19/19 02:36 Pulse Ox 98 10/19/19 02:36 Intake & Output 10/18/19 10/19/19 10/19/19 18:59 06:59 18:59 Output Total 675 500 Balance -675 -500 Weight 74 kg Output: Urine 675 500 Other: Voiding Method Indwelling Catheter Indwelling Catheter # Bowel Movements 1 1 - Exam - Constitutional General appearance: average body habitus, disheveled, no acute distress - EENT Eyes: EOMI, PERRLA Ears: bilateral: normal - Neck Neck: normal ROM Carotids: bilateral: upstroke normal - Respiratory Respiratory: bilateral: CTA, diminished, negative: dullness, rales, rhonchi - Cardiovascular Rhythm: regular Heart sounds: normal: S1, S2 - Gastrointestinal General gastrointestinal: decreased bowel sounds - Musculoskeletal Musculoskeletal: generalized weakness, strength equal bilaterally - Labs CBC & Chem 7: 10/17/19 06:31 10/19/19 06:03 Labs: Abnormal Lab Results - Last 24 Hours (Table) 10/19/19 Range/Units 06:03 BUN 4 L (9-20) mg/dL Assessment and Plan Assessment: VRE urinary tract infection Acute hypoxic respiratory failure, status post tract Bilateral aspiration pneumonia Bowel obstruction at sigmoid colon level stricture/spasm/neoplasm Bilateral hydronephrosis with bladder wall thickening Developmentally delayed Status post chronic Peg tube and tracheostomy Severe degree of seizure disorder Past history of respiratory failure requiring vent support Plan: Maintain trach keep saturation over 92% supplemental oxygen as needed, so far does not feed any oxygen Pulmonary toilet Respiratory to suction as needed Seizure precautions Nothing by mouth for now Hold tube feed Broad-spectrum antibiotics for bilateral aspiration pneumonia and VRE UTI Further recommendations pending plan of care as per clinical response of the patient Further evaluation by urology and general surgery for bilateral hydronephrosis and bowel obstruction in progress Once they are cleared from surgical and urological standpoint can be discharged home from pulmonary critical care standpoint Time with Patient: Greater than 30
--- NOTE | 2019-10-19 11:50 | P.DS ---
Providers Date of admission: 10/10/19 15:51 Attending physician: Rakesh Haji Consults: 10/10/19 15:46 Consult Physician Stat Consulting Provider: Miracle Trammell Consult Reason/Comments: gi bleed, bowel obstruction, colonic ileus Do you want consulting provider notified?: Yes 10/10/19 19:16 Consult Physician Routine Consulting Provider: Josue Mckeon Consult Reason/Comments: pneumonia aspiration Do you want consulting provider notified?: Yes 10/11/19 12:12 Consult Physician Routine Consulting Provider: Garrett Lobo Consult Reason/Comments: bowel obstruction Do you want consulting provider notified?: Yes 10/11/19 12:52 Consult Physician Urgent Consulting Provider: Adin Cardoza Consult Reason/Comments: pneumonia Do you want consulting provider notified?: Yes 10/13/19 19:48 Consult Physician Routine Consulting Provider: Mukund Jacobson Consult Reason/Comments: b/l hydronephrosis Do you want consulting provider notified?: Yes Primary care physician: Ortiz Mace [facility] Course: 29 years old male with past medical history of developmental delay, autism, seizure disorder, status post vagal neurostimulator, left ureteral stent, presents this signs symptoms of bowel obstruction secondary to fecal impaction, surgeries been evaluated the patient GoLYTELY and has been tried with no much success and enema with only moderate stool, and surgery team recommended CAT scan of the abdomen and pelvis today. Showing fecal impaction with possible small bowel dilatation suggestive of colonic ileus, possible cystitis Patient is nothing by mouth and hold tube feeds, hemodynamically stable, blood pressure is 94/55, which is similar to last few days on the presentation. Low potassium is been replaced, WBC is normal 5.5K, urine cultures, group D enterococcus 10/14/2019 Patient is lying comfortable in bed, no distress, mother at bedside, patient didn't have bowel movement since yesterday, no abdominal tenderness or significant pain, the mother does not think he needs abdominal pain medication for now. He got several laxative for his fecal impaction contributing to his bowel obstruction/ileus. His hemoglobin is stable at 11.2. No other episodes of GI bleed. Patient remains on Levaquin and Flagyl for his infection, possible pneumonia. Patient mother states that he has history of bilateral hydronephrosis and he has recent procedure done by Dr. De Dios recently including transurethral incision of the prostate to help him urinating, repeat imaging showed persistent hydronephrosis. Guerrero catheter was placed when he came to the hospital. We'll ask for urology reevaluation. Low potassium replaced. Surgical team recommended CAT scan of the abdomen and L this with rectal contrast which is pending 10/15/2019 Patient is seen and evaluated in follow-up today sleeping and appears to be in no acute distress. Patient does have a trach collar and is currently on room air. Per nursing staff patient had 4 large bowel movements yesterday but CT of the abdomen continues to show a narrowing of the redundant sigmoid colon midline that could possibly relate to stricture, spasm, or possible neoplasm although unlikely, severe left and moderate right hydronephrosis and urinary bladder circumferential thickening. Patient is being followed by urology and sees them in the outpatient setting as well. Patient continues to have an indwelling Guerrero catheter and will continue at this time. Patient remains on IV antibiotics in the form of daptomycin, Levaquin, and Flagyl and will continue at this time. Infectious disease is following. Patient is also being evaluated by surgery and will continue with GoLYTELY today. Will continue to monitor closely. 10/16/2019 Patient is doing better as he starts having some bowel movement with GoLYTELY. Repeat CAT scan showed no obstruction and surgery consult on the case closely. On Guerrero catheter. PEG tube is on hold. Tracheostomy is in a Place. No seizure no other active issues. Discussed with staff 10/17/2019 Patient is comfortable in bed, he has small bowel movement today, he has significant bowel movements yesterday while on GoLYTELY. Surgical service R following the case closely and there started to his PEG tube feeding and add lactulose. Vitals stable, labs no change, low potassium replaced Decreased normal saline to 40 mL per hour 10/18/2019 Patient looks comfortable, no distress, abdomen looks soft, he did not have bowel movement today after starting lactulose and tube feeding, as per staff he could not tolerate tube feeds at the usual rate, so they held it and started to gradually at lower rate. IV site is infiltrated and pills can be restarted for him via PEG tube as at home, he remains on daptomycin, Levaquin and Flagyl as per ID team recommendation.creatinine normal at potassium was low normal 3.5, magnesium 1.7. Continue Dilaudid as it contributes to his lazy bowel. Deep monitoring for now 10/19/2019 Patient is being discharged today patient completed IV antibiotic therapy and infectious disease not recommending any more antibiotics patient will be discharged today. Patient is also on scopolamine which is contributing to his urinary retention as well as constipation will cut down the dose of scopolamine and patient will be started on lactulose as needed basis for constipation - Exam -GENERAL: Average for age, no respiratory distress, Patient has cerebral palsy HEENT: Pupils are round and equally reacting to light. EOMI. No scleral icterus. No conjunctival pallor. Normocephalic, atraumatic. No pharyngeal erythema. No thyromegaly. CARDIOVASCULAR: S1 and S2 present. No murmurs, rubs, or gallops. PULMONARY: Chest is clear to auscultation, no wheezing or crackles. -ABDOMEN: Soft, nontender, nondistended, normoactive bowel sounds. No palpable organomegaly. PEG tube is in a Place MUSCULOSKELETAL: No joint swelling or deformity. EXTREMITIES: No cyanosis, clubbing, or pedal edema. NEUROLOGICAL: Gross neurological examination did not reveal any focal deficits. SKIN: No rashes. no petechiae. Assessment and Plan Assessment: Bowel obstruction secondary to fecal impaction Possible aspiration pneumonia Possible upper GI bleed Bilateral hydronephrosis, he follows up with Dr. Noel Suspicion for acute urinary tract infection and acute cystitis Developmental delay status post Jomar and tracheostomy History of seizure Patient Condition at Discharge: Stable Plan - Discharge Summary Discharge Rx Participant: Yes New Discharge Prescriptions: New Lactulose [Cephulac] 30 gm PO TID PRN #30 dose PRN Reason: Constipation Scopolamine [Scopolamine 1 MG/72 HR patch] 1 patch TRANSDERM Q72H #10 patch Continue Lacosamide [Vimpat] 200 mg PEG/G-TUBE TID@0000,0930,1700 Clobazam [Onfi] 20 mg PEG/G-TUBE BID@0000,1200 Vitamin B Complex 1 cap PEG/G-TUBE DAILY@0930 Polyethylene Glycol 3350 [Miralax] 17 gm PEG/G-TUBE DAILY@0930 Folic Acid 1 mg PEG/G-TUBE DAILY@0930 Ascorbic Acid [Vitamin C] 500 mg PEG/G-TUBE BID@0930,1700 levETIRAcetam [Keppra Oral Solution] 1,800 mg PEG/G-TUBE TID@0000,0930,1700 clonazePAM [KlonoPIN] 1 mg PEG/G-TUBE TID@0000,0930,1700 Albuterol Nebulized [Ventolin Nebulized] 5 mg INHALATION Q12H L.acidoph,Paracasei, B.lactis [Probiotic] 1 cap PEG/G-TUBE Q72H Tamsulosin [Flomax] 0.4 mg PEG/G-TUBE DAILY@0930 Dexlansoprazole [Dexilant] 60 mg PEG/G-TUBE DAILY@0930 Cbd Oil 100 mg PEG/G-TUBE BID@0930,1200 Na Phos,M-B/Na Phos,Di-Ba [Fleet Adult] 133 ml RECTAL ONCE PRN PRN Reason: CONSTIPATION FOR 5 DAYS Magnesium Citrate 5 oz PO ONCE PRN PRN Reason: CONSTIPATION FOR 4 DAYS Magnesium Hydroxide [Milk of Magnesia] 4,800 mg PO HS PRN PRN Reason: CONSTIPATION FOR 3 DAYS Rufinamide [Banzel] 1,600 mg PO BID@0000,1200 Discontinued Scopolamine [Scopolamine 1 MG/72 HR patch] 1 patch TRANSDERM Q72H Discharge Medication List Clobazam [Onfi] 20 mg PEG/G-TUBE BID@0000,1200 08/26/15 [History] Lacosamide [Vimpat] 200 mg PEG/G-TUBE TID@0000,0930,1700 08/26/15 [History] Ascorbic Acid [Vitamin C] 500 mg PEG/G-TUBE BID@0930,1700 12/28/18 [History] Folic Acid 1 mg PEG/G-TUBE DAILY@92912/28/18 [History] Polyethylene Glycol 3350 [Miralax] 17 gm PEG/G-TUBE DAILY@92912/28/18 [History] Vitamin B Complex 1 cap PEG/G-TUBE DAILY@92912/28/18 [History] clonazePAM [KlonoPIN] 1 mg PEG/G-TUBE TID@0000,0930,17012/28/18 [History] levETIRAcetam [Keppra Oral Solution] 1,800 mg PEG/G-TUBE TID@0000,0930,17012/28/18 [History] Albuterol Nebulized [Ventolin Nebulized] 5 mg INHALATION Q12H 09/20/19 [History] Cbd Oil 100 mg PEG/G-TUBE BID@0930,1200 09/20/19 [History] Dexlansoprazole [Dexilant] 60 mg PEG/G-TUBE DAILY@92909/20/19 [History] L.acidoph,Paracasei, B.lactis [Probiotic] 1 cap PEG/G-TUBE Q72H 09/20/19 [Histo ry] Tamsulosin [Flomax] 0.4 mg PEG/G-TUBE DAILY@92909/20/19 [History] Magnesium Citrate 5 oz PO ONCE PRN 10/10/19 [History] Magnesium Hydroxide [Milk of Magnesia] 4,800 mg PO HS PRN 10/10/19 [History] Na Phos,M-B/Na Phos,Di-Ba [Fleet Adult] 133 ml RECTAL ONCE PRN 10/10/19 [History] Rufinamide [Banzel] 1,600 mg PO BID@0000,1200 10/10/19 [History] Lactulose [Cephulac] 30 gm PO TID PRN #30 dose 10/19/19 [Rx] Scopolamine [Scopolamine 1 MG/72 HR patch] 1 patch TRANSDERM Q72H #10 patch 10/19/19 [Rx] Follow up Appointment(s)/Referral(s): Rodri Alcantar MD [Primary Care Provider] - 1-2 days [facility] [NON-STAFF] - As Needed Garrett Lobo MD [STAFF PHYSICIAN] - 1 Week Activity/Diet/Wound Care/Special Instructions: Greyson enteral: [phone] Discharge Disposition: HOME WITH HOME HEALTH SERVICES
[2019-10-19 12:30] VITALS: PULSE 70
[2019-10-19] MEDS: RUFINAMIDE PO SCH (12:48)
--- NOTE | 2019-10-19 13:09 | PN ---
PROGRESS NOTE DATE OF SERVICE: 10/19/2019. REASON FOR FOLLOWUP: 1. Aspiration pneumonitis. 2. UTI. INTERVAL HISTORY: The patient is afebrile. The patient has breathing comfortably. He is hemodynamically stable. No further vomiting has been witnessed. He did have a bowel movement. PHYSICAL EXAMINATION: Blood pressure 130/69 with a pulse of 96, temperature is 97.3, General description is a middle-aged male, lying in bed in no distress. RESPIRATORY SYSTEM: Unlabored breathing, clear to auscultation, no wheeze. HEART: S1, S2, regular rate and rhythm. ABDOMEN: Soft, nontender. LABS: Repeat urine culture has been negative. DIAGNOSTIC IMPRESSION AND PLAN: 1. Patient with VRE urinary tract infection adequately treated. Repeat has been negative. No need for further antibiotics on discharge. 2. Aspiration pneumonitis, adequately treated. No need for antibiotics on discharge, patient is breathing comfortably on room air and no findings on clinical exam MMODL / IJN: [id number] / MTDD
--- NOTE | 2019-10-19 14:07 | P.PN ---
Subjective Progress Note Date: 10/19/19 CHIEF COMPLAINT: bowel obstruction HISTORY OF PRESENT ILLNESS: Patient examined at the bedside with Dr. Lobo. Patient has been having frequent bowel movements. He appears comfortable. Tolerating tube feedings. PHYSICAL EXAM: VITAL SIGNS: Reviewed. GENERAL: Well-developed in no acute distress. HEENT: Trach noted. No sclera icterus. Extraocular movements grossly intact. Moist buccal mucosa. Head is atraumatic, normocephalic. ABDOMEN: Soft. Nondistended. Nontender. PEG tube noted. NEUROLOGIC: Nonverbal at baseline ASSESSMENT: 1. Vomiting 2. Megacolon, colonic ileus 3. History of trach and PEG PLAN: Continue tube feedings Stable for discharge home from a surgical standpoint May continue lactulose outpatient PRN for constipation. Patient to also resume previous bowel regimen medications at discharge Nurse practitioner note has been reviewed by physician. Signing provider agrees with the documented findings, assessment, and plan of care. Objective - Vital Signs Vital signs: Vital Signs Temp 97.6 F 10/19/19 02:36 Pulse 70 10/19/19 12:29 Resp 17 10/19/19 02:36 BP 103/69 10/19/19 02:36 Pulse Ox 98 10/19/19 02:36 Intake & Output 10/18/19 10/19/19 10/19/19 18:59 06:59 18:59 Output Total 675 500 Balance -675 -500 Weight 74 kg 74 kg Output: Urine 675 500 Other: Voiding Method Indwelling Catheter Indwelling Catheter # Bowel Movements 1 1 - Labs CBC & Chem 7: 10/17/19 06:31 10/19/19 06:03 Labs: Abnormal Lab Results - Last 24 Hours (Table) 10/19/19 Range/Units 06:03 BUN 4 L (9-20) mg/dL
== END 2019-10-19 15:28 | disposition home health service (06) | DRG 388 ==
LOC: EC 11:45 → 4SSUR 15:51
PROVIDERS: ADMIT Hospitalist; ATTEND Hospitalist
PROC: 3E0G76Z Introduction of Nutritional Substance into Upper GI, Via Natural or Artificial Opening (ICD-10-PCS; principal; 2019-10-10)
DX: K56.41 Fecal impaction (principal); J69.0 Pneumonitis due to inhalation of food and vomit; G93.41 Metabolic encephalopathy; N30.00 Acute cystitis without hematuria; F84.0 Autistic disorder; G40.209 Localization-related (focal) (partial) symptomatic epilepsy and epileptic syndromes with complex partial seizures, not intractable, without status epilepticus; K59.39 Other megacolon; K92.2 Gastrointestinal hemorrhage, unspecified; N13.6 Pyonephrosis; Q43.8 Other specified congenital malformations of intestine; Z16.21 Resistance to vancomycin; Z16.23 Resistance to quinolones and fluoroquinolones; Z43.1 Encounter for attention to gastrostomy; D64.9 Anemia, unspecified; E87.6 Hypokalemia; F79 Unspecified intellectual disabilities; J45.909 Unspecified asthma, uncomplicated; K44.9 Diaphragmatic hernia without obstruction or gangrene; N32.89 Other specified disorders of bladder; Z88.0 Allergy status to penicillin; Z88.1 Allergy status to other antibiotic agents; Z81.8 Family history of other mental and behavioral disorders; F90.9 Attention-deficit hyperactivity disorder, unspecified type; Z88.8 Allergy status to other drugs, medicaments and biological substances; Z43.0 Encounter for attention to tracheostomy; B95.2 Enterococcus as the cause of diseases classified elsewhere; G80.9 Cerebral palsy, unspecified
CPT/HCPCS: 36415; 51702; 71046; 74018; 74176; 74177; 80048; 80053; 80202; 81001; 82271; 82272; 83605; 83690; 83735; 84100; 84132; 85025; 85610; 85730; 86850; 86900; 86901; 87040; 87077; 87086; 87186; 93005; 94640; 96365; 96366; 96368; 96375; 99291

== ENCOUNTER 2019-10-22 15:29 | Emergency (ER) | payer MEDICARE, OTHER ==
[2019-10-22] MEDS ORDERED: SODIUM CHLORIDE 0.9% 1,000 ML IV STA (16:00)
[2019-10-22 16:32] LABS: HCT 37.8 % (39.0-53.0); HGB 12.5 gm/dL (13.0-17.5); RBC 3.82 m/uL (4.30-5.90); WBC 10.8 k/uL (3.8-10.6)
[2019-10-22 16:33] LABS: Basophils % (A) 0 %; Eosinophils # (A) 0.1 k/uL (0-0.7); Eosinophils % (A) 1 %; Lymphocytes # (A) 0.6 k/uL (1.0-4.8); Lymphocytes % (A) 6 %; MCH 32.7 pg (25.0-35.0); Macrocytosis Slight; Mean Platelet Volume 6.9; Monocytes # (A) 0.6 k/uL (0-1.0); Monocytes % (A) 5 %; Neutrophils # (A) 9.4 k/uL (1.3-7.7); Neutrophils % (A) 87 %; Platelet Count 207 k/uL (150-450); Poikilocytosis Slight; RDW 15.8 % (11.5-15.5)
[2019-10-22 16:41] LABS: ALT 47 U/L (4-49); AST 33 U/L (17-59); African American GFR (CKD) >90 (>60 ml/min/1.73 sqM); Albumin 4.3 g/dL (3.5-5.0); Alkaline Phosphatase 112 U/L (38-126); Anion Gap 11 mmol/L; Blood Urea Nitrogen 7 mg/dL (9-20); Carbon Dioxide 24 mmol/L (22-30); Chloride 105 mmol/L (98-107); Glucose 110 mg/dL (74-99); Magnesium 1.9 mg/dL (1.6-2.3); Non-African American GFR(CKD) >90 (>60 ml/min/1.73 sqM); Potassium 3.5 mmol/L (3.5-5.1); Sodium 140 mmol/L (137-145); Total Bilirubin 0.2 mg/dL (0.2-1.3); Total Protein 6.7 g/dL (6.3-8.2)
[2019-10-22 16:42] LABS: INR 0.9 (<1.2); Partial Thromboplastin Time 23.4 sec (22.0-30.0); Prothrombin Time 9.6 sec (9.0-12.0)
--- NOTE | 2019-10-22 16:52 | ED ---
Nausea/Vomiting/Diarrhea HPI - General Chief complaint: Nausea/Vomiting/Diarrhea Stated complaint: Vomiting, blood in stool Time Seen by Provider: 10/22/19 15:38 Source: Caregiver Mode of arrival: wheelchair Limitations: altered mental status, physical limitation - History of Present Illness Initial comments: Patient is a 29-year-old male, with history of developmental delay, autism, presenting to the emergency department with his roping tender/guardian/aunt. Patient has tracheostomy and PEG tube. Small Kick Press Operator states that patient had one episode of vomiting at approximately noon today and also had stool with blood in it today. Patient was recently discharged from the hospital 4 days ago for bowel obstruction. They have not followed up since discharge. Patient is not complaining of any abdominal pain. The roping tender does not believe that he is in any pain as he seems very comfortable at home. Patient has been requesting to sleep a lot and not able to help with transfers very much. Small Kick Press Operator has not been able to give a lot of the PEG tube feedings secondary to patient not wanting to sit upright for just today. There've been no fevers, shortness of breath, cough. There are no other complaints at this time. Upon arrival to the ER, vital signs are stable. - Related Data Home Medications Medication Instructions Recorded Confirmed Clobazam [Onfi] 20 mg PEG/G-TUBE BID@0000,1200 08/26/15 10/22/19 Lacosamide [Vimpat] 200 mg PEG/G-TUBE 08/26/15 10/22/19 TID@0000,0930,1700 Ascorbic Acid [Vitamin C] 500 mg PEG/G-TUBE BID@0930,1700 12/28/18 10/22/19 Folic Acid 1 mg PEG/G-TUBE DAILY@92912/28/18 10/22/19 Polyethylene Glycol 3350 [Miralax] 17 gm PEG/G-TUBE DAILY@0912/28/18 10/22/19 Vitamin B Complex 1 cap PEG/G-TUBE DAILY@92912/28/18 10/22/19 clonazePAM [KlonoPIN] 1 mg PEG/G-TUBE TID@0000,0930,1700 12/28/18 10/22/19 levETIRAcetam [Keppra Oral 1,800 mg PEG/G-TUBE 12/28/18 10/22/19 Solution] TID@0000,0930,1700 Albuterol Nebulized [Ventolin 5 mg INHALATION RT-BID 09/20/19 10/22/19 Nebulized] Cbd Oil 100 mg PEG/G-TUBE BID@0930,1200 09/20/19 10/22/19 Dexlansoprazole [Dexilant] 60 mg PEG/G-TUBE DAILY@0930 09/20/19 10/22/19 L.acidoph,Paracasei, B.lactis 1 cap PEG/G-TUBE Q72H 09/20/19 10/22/19 [Probiotic] Tamsulosin [Flomax] 0.4 mg PEG/G-TUBE DAILY@0930 09/20/19 10/22/19 Magnesium Citrate 5 oz PEG/G-TUBE ONCE PRN 10/10/19 10/22/19 Magnesium Hydroxide [Milk of 4,800 mg PO HS PRN 10/10/19 10/22/19 Magnesia] Na Phos,M-B/Na Phos,Di-Ba [Fleet 133 ml RECTAL ONCE PRN 10/10/19 10/22/19 Adult] Rufinamide [Banzel] 1,600 mg PO BID@0000,1200 10/10/19 10/22/19 Lactulose [Cephulac] 30 gm PEG/G-TUBE TID PRN 10/22/19 10/22/19 Previous Rx's Medication Instructions Recorded Scopolamine [Scopolamine 1 MG/72 1 patch TRANSDERM Q72H #10 patch 10/19/19 HR patch] Allergies Allergy/AdvReac Type Severity Reaction Status Date / Time amoxicillin trihydrate Allergy Unknown Verified 10/22/19 15:34 [From Augmentin] ceftriaxone sodium Allergy Unknown Verified 10/22/19 15:34 [From Rocephin] cephalexin monohydrate Allergy Unknown Verified 10/22/19 15:34 [From Keflex] Penicillins Allergy Unknown Verified 10/22/19 15:34 phenobarbital Allergy Unknown Verified 10/22/19 15:34 phenytoin sodium Allergy Unknown Verified 10/22/19 15:34 [From Dilantin] phenytoin sodium extended Allergy Unknown Verified 10/22/19 15:34 [From Dilantin] potassium clavulanate Allergy Unknown Verified 10/22/19 15:34 [From Augmentin] Cephalosporins AdvReac Unknown Verified 10/22/19 15:34 lorazepam [From Ativan] AdvReac Unknown Verified 10/22/19 15:34 Review of Systems ROS Statement: Those systems with pertinent positive or pertinent negative responses have been documented in the HPI. ROS Other: All systems not noted in ROS Statement are negative. 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 Date of last positivie culture/infection: 10/10/19 MDRO Source:: VRE URINE Additional Past Surgical History / Comment(s): vagal nerve stimulator 12/2014, left UPJ endopylotomy, embolist surgery, heel cord lengthening, transurethral bladder neck and prostate incision 09/22/2019 Past Anesthesia/Blood Transfusion Reactions: No Reported Reaction Past Psychological History: ADD/ADHD Smoking Status: Never smoker Past Alcohol Use History: None Reported Past Drug Use History: None Reported - Past Family History Mother Additional Family Medical History / Comment(s): of Suicide at 22 General Exam - General Exam Comments Initial Comments: GENERAL: Well-appearing, well-nourished and in no acute distress. Resting comfortably. HEAD: Atraumatic, normocephalic. EYES: Pupils equal round and reactive to light, extraocular movements intact, sclera anicteric, conjunctiva are normal. ENT: TMs normal, nares patent, oropharynx clear without exudates. Moist mucous membranes. Trach present. NECK: Normal range of motion, supple without lymphadenopathy or JVD. LUNGS: Breath sounds clear to auscultation bilaterally and equal. No wheezes rales or rhonchi. HEART: Regular rate and rhythm without murmurs, rubs or gallops. ABDOMEN: Soft, nontender, normoactive bowel sounds. No guarding, no rebound. No masses appreciated. PEG tube site appears clean and dry. No signs of infection. : Deferred EXTREMITIES: Normal range of motion, no pitting or edema. No clubbing or cyanosis. NEUROLOGICAL: Developmental delay, autism. PSYCH: Normal mood, normal affect. SKIN: Warm, Dry, normal turgor, no rashes or lesions noted. Limitations: altered mental status, physical limitation Course Vital Signs 10/22/19 10/22/19 15:31 19:39 Temperature 97.4 F L 97.3 F L Pulse Rate 89 77 Respiratory 20 18 Rate Blood Pressure 128/66 133/76 O2 Sat by Pulse 100 97 Oximetry Medical Decision Making - Medical Decision Making Patient is a 29-year-old male she also some, mental delay here with roping tender for one episode of vomiting and diarrhea as well as weakness 1 day. Patient was recently admitted for bowel obstruction. Vitals are stable. Abdomen feels soft, nontender. Laboratory shows very slight leukocytosis at 10.8. Hemoglobin is 12.5, lipase is 317. Lactic acid is normal. Urine shows 2+ ketones, 78 WBC, rare bacteria. Urine culture is pending. Stool occult is negative. KUB shows persistent overall nonspecific bowel gas pattern,Moderate proximal and distal fecal retention seen. Patient was given fluids. Patient roping tender wanted us to give an enema before discharge. Patient had significant bowel movement with enema. Patient is stable for discharge. Caretakers agreement with this plan of care. She will continue to increase fluid intake and give additional enema if needed. He'll follow up with PCP. Return parameters were discussed with the roping tender and she verbalized understanding. Case discussed with Dr. Lees. - Lab Data Result diagrams: 10/22/19 16:10 10/22/19 16:10 Lab Results 10/22/19 10/22/19 10/22/19 Range/Units 16:10 16:10 16:10 WBC 10.8 H (3.8-10.6) k/uL RBC 3.82 L (4.30-5.90) m/uL Hgb 12.5 L (13.0-17.5) gm/dL Hct 37.8 L (39.0-53.0) % MCV 99.0 (80.0-100.0) fL MCH 32.7 (25.0-35.0) pg MCHC 33.0 (31.0-37.0) g/dL RDW 15.8 H (11.5-15.5) % Plt Count 207 (150-450) k/uL Neutrophils % 87 % Lymphocytes % 6 % Monocytes % 5 % Eosinophils % 1 % Basophils % 0 % Neutrophils # 9.4 H (1.3-7.7) k/uL Lymphocytes # 0.6 L (1.0-4.8) k/uL Monocytes # 0.6 (0-1.0) k/uL Eosinophils # 0.1 (0-0.7) k/uL Basophils # 0.0 (0-0.2) k/uL Poikilocytosis Slight Macrocytosis Slight PT (9.0-12.0) sec INR (<1.2) APTT (22.0-30.0) sec Sodium 140 (137-145) mmol/L Potassium 3.5 (3.5-5.1) mmol/L Chloride 105 (98-107) mmol/L Carbon Dioxide 24 (22-30) mmol/L Anion Gap 11 mmol/L BUN 7 L (9-20) mg/dL Creatinine 0.79 (0.66-1.25) mg/dL Est GFR (CKD-EPI)AfAm >90 (>60 ml/min/1.73 sqM) Est GFR (CKD-EPI)NonAf >90 (>60 ml/min/1.73 sqM) Glucose 110 H (74-99) mg/dL Plasma Lactic Acid Antonio (0.7-2.0) mmol/L Calcium 9.0 (8.4-10.2) mg/dL Magnesium 1.9 (1.6-2.3) mg/dL Total Bilirubin 0.2 (0.2-1.3) mg/dL AST 33 (17-59) U/L ALT 47 (4-49) U/L Alkaline Phosphatase 112 (38-126) U/L Total Protein 6.7 (6.3-8.2) g/dL Albumin 4.3 (3.5-5.0) g/dL Lipase 317 H (23-300) U/L Urine Color Urine Appearance (Clear) Urine pH (5.0-8.0) Ur Specific [place] (1.001-1.035) Urine Protein (Negative) Urine Glucose (UA) (Negative) Urine Ketones (Negative) Urine Blood (Negative) Urine Nitrite (Negative) Urine Bilirubin (Negative) Urine Urobilinogen (<2.0) mg/dL Ur Leukocyte Esterase (Negative) Urine RBC (0-5) /hpf Urine WBC (0-5) /hpf Urine Bacteria (None) /hpf Hyaline Casts (0-2) /lpf Urine Mucus (None) /hpf Stool Occult Blood Negative (Negative) 10/22/19 10/22/19 10/22/19 Range/Units 16:10 16:10 17:55 WBC (3.8-10.6) k/uL RBC (4.30-5.90) m/uL Hgb (13.0-17.5) gm/dL Hct (39.0-53.0) % MCV (80.0-100.0) fL MCH (25.0-35.0) pg MCHC (31.0-37.0) g/dL RDW (11.5-15.5) % Plt Count (150-450) k/uL Neutrophils % % Lymphocytes % % Monocytes % % Eosinophils % % Basophils % % Neutrophils # (1.3-7.7) k/uL Lymphocytes # (1.0-4.8) k/uL Monocytes # (0-1.0) k/uL Eosinophils # (0-0.7) k/uL Basophils # (0-0.2) k/uL Poikilocytosis Macrocytosis PT 9.6 (9.0-12.0) sec INR 0.9 (<1.2) APTT 23.4 (22.0-30.0) sec Sodium (137-145) mmol/L Potassium (3.5-5.1) mmol/L Chloride (98-107) mmol/L Carbon Dioxide (22-30) mmol/L Anion Gap mmol/L BUN (9-20) mg/dL Creatinine (0.66-1.25) mg/dL Est GFR (CKD-EPI)AfAm (>60 ml/min/1.73 sqM) Est GFR (CKD-EPI)NonAf (>60 ml/min/1.73 sqM) Glucose (74-99) mg/dL Plasma Lactic Acid Antonio 0.9 (0.7-2.0) mmol/L Calcium (8.4-10.2) mg/dL Magnesium (1.6-2.3) mg/dL Total Bilirubin (0.2-1.3) mg/dL AST (17-59) U/L ALT (4-49) U/L Alkaline Phosphatase (38-126) U/L Total Protein (6.3-8.2) g/dL Albumin (3.5-5.0) g/dL Lipase (23-300) U/L Urine Color Light Yellow Urine Appearance Clear (Clear) Urine pH 6.0 (5.0-8.0) Ur Specific [place] 1.011 (1.001-1.035) Urine Protein Trace H (Negative) Urine Glucose (UA) Negative (Negative) Urine Ketones 2+ H (Negative) Urine Blood Small H (Negative) Urine Nitrite Negative (Negative) Urine Bilirubin Negative (Negative) Urine Urobilinogen <2.0 (<2.0) mg/dL Ur Leukocyte Esterase Large H (Negative) Urine RBC 6 H (0-5) /hpf Urine WBC 70 H (0-5) /hpf Urine Bacteria Rare H (None) /hpf Hyaline Casts 1 (0-2) /lpf Urine Mucus Rare H (None) /hpf Stool Occult Blood (Negative) Disposition Clinical Impression: Constipation, Dehydration Disposition: HOME SELF-CARE Condition: Stable Instructions (If sedation given, give patient instructions): Constipation (ED) Additional Instructions: Please return to the Emergency Department if symptoms worsen or any other concerns. Continue with at home enemas as needed for constipation as well as MiraLAX. Follow up with GI doctor as discussed. Is patient prescribed a controlled substance at d/c from ED?: No Referrals: Rodri Alcantar MD [Primary Care Provider] - 1-2 days
[2019-10-22] MEDS ORDERED: LIDOCAINE URO-JET JELLY 2% 5 ML KIT URETHRAL ONE (17:50)
[2019-10-22 18:07] LABS: Appearance,Urine Clear (Clear); Bacteria,Urine Rare /hpf; Bilirubin,Urine Negative (Negative); Blood,Urine Small (Negative); Color,Urine Light Yellow; Glucose,Urine (UA) Negative (Negative); Hyaline Casts,Urine 1 /lpf (0-2); Ketones,Urine 2+ (Negative); Leukocyte Esterase,Urine Large (Negative); Mucus,Urine Rare /hpf; Nitrite,Urine Negative (Negative); Protein,Urine Trace (Negative); RBC,Urine 6 /hpf (0-5); Specific Gravity,Urine 1.011 (1.001-1.035); Urobilinogen,Urine <2.0 mg/dL (<2.0); WBC,Urine 70 /hpf (0-5)
--- NOTE | 2019-10-22 18:23 | XR ---
EXAMINATION TYPE: XR KUB DATE OF EXAM: 10/22/2019 6:14 PM CLINICAL HISTORY: Vomiting and pain. Bloody diarrhea today. TECHNIQUE: Two supine KUB images of the abdomen are obtained. COMPARISON: CT abdomen and pelvis 8 days ago. FINDINGS: Lung bases remain clear. PEG tube redemonstrated in nondistended stomach. Persistent gas pr ominent colonic loops. Some possibility of small bowel gas redemonstrated. Fecal prominence in the ri ght colon and rectum currently. Left mid abdominal vascular coils redemonstrated. Osseous structures are intact. IMPRESSION: Persistent overall nonspecific bowel gas pattern favoring diffuse colonic ileus. Moderate proximal and distal colonic fecal retention on current study.
[2019-10-22] MEDS: NA PHOS,M-B/NA PHOS,DI-BA 133 ML ENEMA RECTAL STA ×2 (18:42→18:58)
[2019-10-22 19:43] VITALS: BP 133/76; PULSE 77; RESP 18; TEMP 97.3
== END 2019-10-22 19:39 | disposition home or self-care (01) ==
LOC: EC 15:29
DX: E86.0 Dehydration (principal); K59.00 Constipation, unspecified; D72.829 Elevated white blood cell count, unspecified; R82.71 Bacteriuria; R82.81 Pyuria; R11.0 Nausea; R19.7 Diarrhea, unspecified; R53.1 Weakness; F84.0 Autistic disorder; R41.82 Altered mental status, unspecified; Z93.1 Gastrostomy status; J45.909 Unspecified asthma, uncomplicated; G40.909 Epilepsy, unspecified, not intractable, without status epilepticus; Z88.0 Allergy status to penicillin; Z88.1 Allergy status to other antibiotic agents; Z88.8 Allergy status to other drugs, medicaments and biological substances; Z79.899 Other long term (current) drug therapy
CPT/HCPCS: 36415; 51701; 74018; 80053; 81001; 82272; 83605; 83690; 83735; 85025; 85610; 85730; 87086; 96360; 96361; 99285

== ENCOUNTER 2019-12-23 17:39 | Emergency (ER) | payer MEDICARE, OTHER ==
[2019-12-23 17:48] VITALS: BP 94/60; PULSE 72; RESP 17; TEMP 97.7
[2019-12-23] MEDS ORDERED: LIDOCAINE URO-JET JELLY 2% 5 ML KIT URETHRAL ONE (18:07)
--- NOTE | 2019-12-23 18:08 | ED ---
Male Urogenital HPI - General Chief complaint: Urogenital Stated complaint: Urine retention Source: patient Mode of arrival: wheelchair Limitations: language barrier, altered mental status, physical limitation - History of Present Illness Initial comments: Patient is a 29 -year-old male with extensive past medical history presenting to emergency Department with chief complaint of urinary retention. Caregiver states patient has not urinated in the past 2 days. Although, she has been decreasing his fluid intake and almost half of his baseline due to his repetitive urinary retention issues. States that an appointment scheduled tomorrow to see a urologist. States the patient has a distended lower abdomen. States she has been given an enema in order to promote urine movement. Denies any night sweats fevers or chills. Caregiver denies any testicular swelling or penile discharge. - Related Data Home Medications Medication Instructions Recorded Confirmed Clobazam [Onfi] 20 mg PEG/G-TUBE BID@0000,1200 08/26/15 10/22/19 Lacosamide [Vimpat] 200 mg PEG/G-TUBE 08/26/15 10/22/19 TID@0000,0930,1700 Ascorbic Acid [Vitamin C] 500 mg PEG/G-TUBE BID@0930,1700 12/28/18 10/22/19 Folic Acid 1 mg PEG/G-TUBE DAILY@0930 12/28/18 10/22/19 Polyethylene Glycol 3350 [Miralax] 17 gm PEG/G-TUBE DAILY@0930 12/28/18 10/22/19 Vitamin B Complex 1 cap PEG/G-TUBE DAILY@0930 12/28/18 10/22/19 clonazePAM [KlonoPIN] 1 mg PEG/G-TUBE TID@0000,0930,1700 12/28/18 10/22/19 levETIRAcetam [Keppra Oral 1,800 mg PEG/G-TUBE 12/28/18 10/22/19 Solution] TID@0000,0930,1700 Albuterol Nebulized [Ventolin 5 mg INHALATION RT-BID 09/20/19 10/22/19 Nebulized] Cbd Oil 100 mg PEG/G-TUBE BID@0930,1200 09/20/19 10/22/19 Dexlansoprazole [Dexilant] 60 mg PEG/G-TUBE DAILY@0930 09/20/19 10/22/19 L.acidoph,Paracasei, B.lactis 1 cap PEG/G-TUBE Q72H 09/20/19 10/22/19 [Probiotic] Tamsulosin [Flomax] 0.4 mg PEG/G-TUBE DAILY@0930 09/20/19 10/22/19 Magnesium Citrate 5 oz PEG/G-TUBE ONCE PRN 10/10/19 10/22/19 Magnesium Hydroxide [Milk of 4,800 mg PO HS PRN 10/10/19 10/22/19 Magnesia] Na Phos,M-B/Na Phos,Di-Ba [Fleet 133 ml RECTAL ONCE PRN 10/10/19 10/22/19 Adult] Rufinamide [Banzel] 1,600 mg PO BID@0000,1200 10/10/19 10/22/19 Lactulose [Cephulac] 30 gm PEG/G-TUBE TID PRN 10/22/19 10/22/19 Previous Rx's Medication Instructions Recorded Scopolamine [Scopolamine 1 MG/72 1 patch TRANSDERM Q72H #10 patch 10/19/19 HR patch] Allergies Allergy/AdvReac Type Severity Reaction Status Date / Time amoxicillin trihydrate Allergy Unknown Verified 12/23/19 17:49 [From Augmentin] ceftriaxone sodium Allergy Unknown Verified 12/23/19 17:49 [From Rocephin] cephalexin monohydrate Allergy Unknown Verified 12/23/19 17:49 [From Keflex] Penicillins Allergy Unknown Verified 12/23/19 17:49 phenobarbital Allergy Unknown Verified 12/23/19 17:49 phenytoin sodium Allergy Unknown Verified 12/23/19 17:49 [From Dilantin] phenytoin sodium extended Allergy Unknown Verified 12/23/19 17:49 [From Dilantin] potassium clavulanate Allergy Unknown Verified 12/23/19 17:49 [From Augmentin] Cephalosporins AdvReac Unknown Verified 12/23/19 17:49 lorazepam [From Ativan] AdvReac Unknown Verified 12/23/19 17:49 Review of Systems ROS Statement: Those systems with pertinent positive or pertinent negative responses have been documented in the HPI. ROS Other: All systems not noted in ROS Statement are negative. Past Medical History Past Medical History: Asthma, Respiratory Disorder, Seizure Disorder Additional Past Medical History / Comment(s): developmental delay, autism, last sz last night partial complex, trach, intra abdominal wall abcess, georges gasteat seizures. History of Any Multi-Drug Resistant Organisms: VRE Date of last positivie culture/infection: 10/10/19 MDRO Source:: VRE URINE, Additional Past Surgical History / Comment(s): vagal nerve stimulator 12/2014, left UPJ endopylotomy, embolist surgery, heel cord lengthening, transurethral bladder neck and prostate incision 09/22/2019 Past Anesthesia/Blood Transfusion Reactions: No Reported Reaction Past Psychological History: ADD/ADHD Smoking Status: Never smoker Past Alcohol Use History: None Reported Past Drug Use History: None Reported - Past Family History Mother Additional Family Medical History / Comment(s): of Suicide at 22 General Exam Limitations: language barrier, altered mental status, physical limitation General appearance: alert, in no apparent distress Head exam: Present: atraumatic, normocephalic, normal inspection Eye exam: Present: normal appearance, PERRL, EOMI Pupils: Present: normal accommodation ENT exam: Present: normal exam, mucous membranes moist Neck exam: Present: normal inspection, full ROM Respiratory exam: Present: normal lung sounds bilaterally Cardiovascular Exam: Present: regular rate, normal rhythm, normal heart sounds GI/Abdominal exam: Present: soft, distended (Lower abdominal distention) Extremities exam: Present: normal inspection, full ROM Back exam: Present: normal inspection, full ROM Neurological exam: Present: alert Psychiatric exam: Present: normal affect, normal mood Skin exam: Present: warm, dry, intact, normal color Course Vital Signs 12/23/19 17:44 Temperature 97.7 F Pulse Rate 72 Respiratory 17 Rate Blood Pressure 94/60 O2 Sat by Pulse 100 Oximetry Medical Decision Making - Medical Decision Making Patient is a 29-year-old male presenting to emergency Department with a chief complaint of urinary retention. Patient has history of repetitive urinary retention issues. On exam patient has lower abdominal distention and appears to be discomfort when region is palpated. Full catheter was placed and patient was able to drain nearly 500 mL of urine. UA is unremarkable. Urine culture pending. Post void bladder scan reveals 100 mL of urine left in the bladder. Guerrero catheter continues to drain. They're going to see urologist tomorrow. Return parameters thoroughly discussed the patient is understanding and agreeable. Case discussed with physician. - Lab Data Lab Results 12/23/19 Range/Units 18:25 Urine Color Yellow Urine Appearance Clear (Clear) Urine pH 5.5 (5.0-8.0) Ur Specific [place] 1.029 (1.001-1.035) Urine Protein Trace H (Negative) Urine Glucose (UA) Negative (Negative) Urine Ketones Trace H (Negative) Urine Blood Negative (Negative) Urine Nitrite Negative (Negative) Urine Bilirubin Negative (Negative) Urine Urobilinogen <2.0 (<2.0) mg/dL Ur Leukocyte Esterase Negative (Negative) Disposition Clinical Impression: Acute urinary retention Disposition: HOME SELF-CARE Condition: Stable Instructions (If sedation given, give patient instructions): Urinary Retention in Men (ED) Additional Instructions: Follow-up with urology. Return to emergency department if symptoms worsen. Is patient prescribed a controlled substance at d/c from ED?: No Referrals: Rodri Alcantar MD [Primary Care Provider] - 1-2 days Time of Disposition: 19:10
[2019-12-23 18:48] LABS: Appearance,Urine Clear (Clear); Bilirubin,Urine Negative (Negative); Blood,Urine Negative (Negative); Color,Urine Yellow; Glucose,Urine (UA) Negative (Negative); Ketones,Urine Trace (Negative); Leukocyte Esterase,Urine Negative (Negative); Nitrite,Urine Negative (Negative); PH, Urine 5.5 (5.0-8.0); Protein,Urine Trace (Negative); Specific Gravity,Urine 1.029 (1.001-1.035); Urobilinogen,Urine <2.0 mg/dL (<2.0)
== END 2019-12-23 19:26 | disposition home or self-care (01) ==
LOC: EC 17:39
DX: R33.9 Retention of urine, unspecified (principal); R14.0 Abdominal distension (gaseous); G40.909 Epilepsy, unspecified, not intractable, without status epilepticus; R62.50 Unspecified lack of expected normal physiological development in childhood; J45.909 Unspecified asthma, uncomplicated; F90.9 Attention-deficit hyperactivity disorder, unspecified type; Z79.51 Long term (current) use of inhaled steroids; Z79.899 Other long term (current) drug therapy; Z88.8 Allergy status to other drugs, medicaments and biological substances; Z88.0 Allergy status to penicillin; Z88.1 Allergy status to other antibiotic agents; Z87.19 Personal history of other diseases of the digestive system; Z93.1 Gastrostomy status
CPT/HCPCS: 51702; 51798; 81003; 99284

== ENCOUNTER 2020-01-27 19:11 | Emergency (ER) | payer MEDICARE, OTHER ==
[2020-01-27 19:27] VITALS: RESP 18; TEMP 98
--- NOTE | 2020-01-27 20:10 | ED ---
General Adult HPI - General Chief complaint: Seizure Stated complaint: Peg tube issues Time Seen by Provider: 01/27/20 19:50 Source: patient, family Mode of arrival: wheelchair Limitations: altered mental status, physical limitation - History of Present Illness Initial comments: Patient is a 29-year-old male with extensive medical history, nonverbal with PEG tube dependent presenting to emergency Department with a chief complaint of PEG tube problems. Caregiver states she attempted to give his antiepileptic medication which include Keppra, Vimpat, clonazepam about 4 hours prior to arrival when she was able to push the medication through the PEG tube but after she removed the syringe, large amounts of air came out. Caregiver states she was not able to draw any residual. She is concerned the PEG tube was malfunctioning. States the PEG tube was replaced less than 4 months ago. Caregiver states the patient developed a seizure around 1900 today which is somewhat typical for him. However, she is concerned the patient might undergo status epilepticus as the medication could potentially not have gone through the PEG tube. She is requesting KUB to confirm placement of PEG tube. - Related Data Home Medications Medication Instructions Recorded Confirmed Clobazam [Onfi] 20 mg PEG/G-TUBE BID@0000,1200 08/26/15 10/22/19 Lacosamide [Vimpat] 200 mg PEG/G-TUBE 08/26/15 10/22/19 TID@0000,0930,1700 Ascorbic Acid [Vitamin C] 500 mg PEG/G-TUBE BID@0930,1700 12/28/18 10/22/19 Folic Acid 1 mg PEG/G-TUBE DAILY@0912/28/18 10/22/19 Polyethylene Glycol 3350 [Miralax] 17 gm PEG/G-TUBE DAILY@0930 12/28/18 10/22/19 Vitamin B Complex 1 cap PEG/G-TUBE DAILY@0930 12/28/18 10/22/19 clonazePAM [KlonoPIN] 1 mg PEG/G-TUBE TID@0000,0930,1700 12/28/18 10/22/19 levETIRAcetam [Keppra Oral 1,800 mg PEG/G-TUBE 12/28/18 10/22/19 Solution] TID@0000,0930,1700 Albuterol Nebulized [Ventolin 5 mg INHALATION RT-BID 09/20/19 10/22/19 Nebulized] Cbd Oil 100 mg PEG/G-TUBE BID@0930,1200 09/20/19 10/22/19 Dexlansoprazole [Dexilant] 60 mg PEG/G-TUBE DAILY@0909/20/19 10/22/19 L.acidoph,Paracasei, B.lactis 1 cap PEG/G-TUBE Q72H 09/20/19 10/22/19 [Probiotic] Tamsulosin [Flomax] 0.4 mg PEG/G-TUBE DAILY@92909/20/19 10/22/19 Magnesium Citrate 5 oz PEG/G-TUBE ONCE PRN 10/10/19 10/22/19 Magnesium Hydroxide [Milk of 4,800 mg PO HS PRN 10/10/19 10/22/19 Magnesia] Na Phos,M-B/Na Phos,Di-Ba [Fleet 133 ml RECTAL ONCE PRN 10/10/19 10/22/19 Adult] Rufinamide [Banzel] 1,600 mg PO BID@0000,1200 10/10/19 10/22/19 Lactulose [Cephulac] 30 gm PEG/G-TUBE TID PRN 10/22/19 10/22/19 Previous Rx's Medication Instructions Recorded Scopolamine [Scopolamine 1 MG/72 1 patch TRANSDERM Q72H #10 patch 10/19/19 HR patch] Allergies Allergy/AdvReac Type Severity Reaction Status Date / Time amoxicillin trihydrate Allergy Unknown Verified 01/27/20 19:27 [From Augmentin] ceftriaxone sodium Allergy Unknown Verified 01/27/20 19:27 [From Rocephin] cephalexin monohydrate Allergy Unknown Verified 01/27/20 19:27 [From Keflex] Penicillins Allergy Unknown Verified 01/27/20 19:27 phenobarbital Allergy Unknown Verified 01/27/20 19:27 phenytoin sodium Allergy Unknown Verified 01/27/20 19:27 [From Dilantin] phenytoin sodium extended Allergy Unknown Verified 01/27/20 19:27 [From Dilantin] potassium clavulanate Allergy Unknown Verified 01/27/20 19:27 [From Augmentin] Cephalosporins AdvReac Unknown Verified 01/27/20 19:27 lorazepam [From Ativan] AdvReac Unknown Verified 01/27/20 19:27 Review of Systems ROS Statement: Those systems with pertinent positive or pertinent negative responses have been documented in the HPI. ROS Other: All systems not noted in ROS Statement are negative. Past Medical History Past Medical History: Asthma, Respiratory Disorder, Seizure Disorder Additional Past Medical History / Comment(s): developmental delay, autism, last sz last night partial complex, trach, intra abdominal wall abcess, georges gasteat seizures. urinary retention, chronic constipation History of Any Multi-Drug Resistant Organisms: VRE Date of last positivie culture/infection: 10/10/19 MDRO Source:: VRE URINE, Additional Past Surgical History / Comment(s): vagal nerve stimulator 12/2014, left UPJ endopylotomy, embolist surgery, heel cord lengthening, transurethral bladder neck and prostate incision 09/22/2019 Past Anesthesia/Blood Transfusion Reactions: No Reported Reaction Past Psychological History: ADD/ADHD Smoking Status: Never smoker Past Alcohol Use History: None Reported Past Drug Use History: None Reported - Past Family History Mother Additional Family Medical History / Comment(s): of Suicide at 22 General Exam Limitations: altered mental status, physical limitation General appearance: alert, in no apparent distress Head exam: Present: atraumatic, normocephalic, normal inspection Eye exam: Present: normal appearance, PERRL, EOMI Pupils: Present: normal accommodation ENT exam: Present: normal exam, normal oropharynx, mucous membranes moist, TM's normal bilaterally, normal external ear exam Neck exam: Present: normal inspection, full ROM Respiratory exam: Present: normal lung sounds bilaterally. Absent: respiratory distress, wheezes Cardiovascular Exam: Present: regular rate, normal rhythm, normal heart sounds GI/Abdominal exam: Present: soft, other (PEG tube in place. Well anchored.). Absent: distended, tenderness, guarding Extremities exam: Present: normal inspection, full ROM Back exam: Present: normal inspection, full ROM Neurological exam: Present: alert, other (Nonverbal) Psychiatric exam: Present: normal affect, normal mood Skin exam: Present: warm, dry, intact, normal color Course Vital Signs 01/27/20 19:20 Temperature 98.0 F Pulse Rate 98 Respiratory 18 Rate Blood Pressure 108/77 O2 Sat by Pulse 96 Oximetry Medical Decision Making - Medical Decision Making Patient is a 29-year-old male with extensive medical history, nonverbal, PEG tube dependent presenting to emergency Department with chief complaint of PEG tube issues. On exam the PEG tube appears to be well anchored with no surrounding excoriations at the abdominal site. PEG tube was able to be flushed with warm water. X-ray with contrast was performed and it showed a patent PEG tube. Caregiver states the timing of the seizure had a concern but now she is comfortable going home and given him the rest of the medication. Return parameters discussed. Case discussed with physician. Disposition Clinical Impression: PEG tube malfunction Disposition: HOME SELF-CARE Condition: Stable Instructions (If sedation given, give patient instructions): How to Use and Care for Your PEG Tube (ED) Additional Instructions: Follow-up with your primary care. Return to emergency department if symptoms worsen. Is patient prescribed a controlled substance at d/c from ED?: No Referrals: Rodri Alcantar MD [Primary Care Provider] - 1-2 days Time of Disposition: 21:01
--- NOTE | 2020-01-27 20:35 | XR ---
EXAMINATION TYPE: XR KUB DATE OF EXAM: 01/27/2020 COMPARISON: 10/25/2019 HISTORY: Checking Peg tube placement TECHNIQUE: Single supine KUB image of the abdomen is obtained FINDINGS: 30 ml of Isovue 370 injected into Peg Tube. Contrast is noted within the stomach. No evidence for nanda k. IMPRESSION: 1. Appropriate PEG tube placement.
[2020-01-27 21:24] VITALS: BP 80/55; PULSE 114
== END 2020-01-27 21:20 | disposition home or self-care (01) ==
LOC: EC 19:11
DX: K94.23 Gastrostomy malfunction (principal); G40.909 Epilepsy, unspecified, not intractable, without status epilepticus; J45.909 Unspecified asthma, uncomplicated; F84.0 Autistic disorder; K59.09 Other constipation; R62.50 Unspecified lack of expected normal physiological development in childhood; F90.9 Attention-deficit hyperactivity disorder, unspecified type; Z79.51 Long term (current) use of inhaled steroids; Z79.899 Other long term (current) drug therapy; Z88.1 Allergy status to other antibiotic agents; Z88.8 Allergy status to other drugs, medicaments and biological substances; Z88.0 Allergy status to penicillin; Z87.19 Personal history of other diseases of the digestive system
CPT/HCPCS: 74018; 99284; Q9967

== ENCOUNTER → 2020-05-05 | Outpatient (CLI) | payer MEDICARE, OTHER ==
[2020-05-05 12:43] LABS: Basophils % (A) 0 %; Eosinophils # (A) 0.1 k/uL (0-0.7); Eosinophils % (A) 1 %; HCT 41.7 % (39.0-53.0); HGB 13.7 gm/dL (13.0-17.5); Lymphocytes # (A) 1.1 k/uL (1.0-4.8); Lymphocytes % (A) 22 %; MCH 33.8 pg (25.0-35.0); MCHC 32.8 g/dL (31.0-37.0); Macrocytosis Slight; Mean Platelet Volume 6.6; Monocytes # (A) 0.3 k/uL (0-1.0); Monocytes % (A) 5 %; Neutrophils # (A) 3.6 k/uL (1.3-7.7); Neutrophils % (A) 71 %; Platelet Count 208 k/uL (150-450); RBC 4.04 m/uL (4.30-5.90)
[2020-05-05 22:41] LABS: ALT 18 U/L (10-49); AST 27 U/L (14-35)
== END | disposition home or self-care (01) ==
LOC: LABWHC1 11:08
PROVIDERS: ATTEND Psychiatry & Neurology Neurology
DX: G40.814 Lennox-Gastaut syndrome, intractable, without status epilepticus (principal)
CPT/HCPCS: 36415; 80177; 80235; 84450; 84460; 85025

== ENCOUNTER 2020-07-03 13:01 | Day surgery (SDC) | payer MEDICARE, OTHER ==
[2020-06-30 09:35] VITALS: BMI 21.5
[~2020-07-03 13:01] MED LIST changes: -DEXAMETHASONE SOD PHOSPHATE 10 MG/ML 1 ML VIAL IV ONE; +DEXAMETHASONE SOD PHOSPHATE 4 MG/ML 1 ML VIAL IV ONE; -HYDROmorphone 0.5 MG/0.5 ML SYRINGE IVP PRN; +LIDOCAINE 1% (10MG/ML) FOR IV START INTRADERMA PRN; -LIDOCAINE 1% 20 ML VIAL (10MG/ML) FOR IV START INTRADERMA PRN; -MIDAZOLAM 2 MG/2 ML VIAL IV PRN; +MIDAZOLAM 2 MG/2 ML VIAL ONE; -SCOPOLAMINE 1.5MG/72HR PATCH TRANSDERM ONE
[2020-07-03 14:25] LABS: Glucose,Whole Blood 96 mg/dL (75-99)
[2020-07-03] MEDS ORDERED: LACTATED RINGERS 1,000 ML IV ONE (14:47)
--- NOTE | 2020-07-03 15:20 | P.PCN ---
Date of Procedure: 07/03/20 Anesthesia: MAC, regional Surgeon: Adin Cardoza Disposition: same day Indications for Procedure: Recurrent bronchitis, tracheostomy exchange, broken upper end of tracheostomy Operative Findings: As below Description of Procedure: Patient prepared and draped in a usual fashion informed consent obtained from the guardian, fiberoptic bronchoscope passed from the old #6 Shiley which is non-cuffed fenestrated, extensive amount of mucus plugging were seen bilaterally along with mucosal erythematous edema DL was performed from the right lower lobe as well as the left lower lobe tolerated well followed after bronchoscopy the old tracheostomy was removed and new tracheostomy #6 Shiley non-cough fenestrated was inserted without any difficulty secured with trach tie, after securing the tracheostomy inspection done to confirm well above the rafiq stable position of tracheostomy noted chest x-ray is pending patient daughter procedure well no complication noted BAL was sent for Gram stain and culture and cytology,
[2020-07-03 15:28] VITALS: TEMP 98
--- NOTE | 2020-07-03 15:48 | XR ---
EXAMINATION TYPE: XR chest 1V portable DATE OF EXAM: 07/03/2020 COMPARISON: 10/10/2019 HISTORY: Post bronchoscopy TECHNIQUE: Single frontal view of the chest is obtained. FINDINGS: Exam limited by positioning. Tracheostomy tube stable. Metallic device overlying the left chest with leads extending cephalad. No overt failure. Left lower lobe subsegmental infiltrate is imp roved. Right lung clear. Right basilar infiltrate markedly improved. No overt failure or obvious pneu mothorax. IMPRESSION: 1. Interval near complete resolution of bilateral lower lobe infiltrate.
[2020-07-03 16:16] VITALS: BP 97/58; PULSE 61; RESP 20
--- NOTE | 2020-07-05 07:33 | CDI ---
Date: 07.05.2020 CDS/Regulatory Compliance Coordinator Name: Jagruti Dominguez Phone: If any questions, call [facility] Sales Consultant at [phone] Patient Name: Gibran Baldwin Admit Date 07.03.20 Discharge Date: 07.03.20 ATTENTION: The [facility] Coding Staff appreciate your assistance in clarifying documentation. Please respond to the clarification below the line at the bottom and electronically sign. The [facility] Coding staff will review the response and follow-up if needed. Please note: Queries are made part of the Legal Health Record. If you have any questions, please contact the Health And Wellness Sales Consultant. Dear Dr. Cardoza In order to code to the greatest specificity and for the greatest reimbursement I need the following information: In your procedure note you have documented the use of a fiberoptic bronchoscope and DL was performed FROM the right lower lobe as well as the left lower lobe. Please clarify from where the BAL was performed Thank you for your kind consideration. right lower lobe____AND__ left lower lobe MTDD
== END 2020-07-03 16:28 | disposition home or self-care (01) ==
LOC: ORWHC2ENDO 13:01
PROVIDERS: ATTEND Internal Medicine Sleep Medicine
DX: J20.9 Acute bronchitis, unspecified (principal); J44.0 Chronic obstructive pulmonary disease with (acute) lower respiratory infection; J95.03 Malfunction of tracheostomy stoma; T17.990A Other foreign object in respiratory tract, part unspecified in causing asphyxiation, initial encounter; J96.90 Respiratory failure, unspecified, unspecified whether with hypoxia or hypercapnia; F03.90 Unspecified dementia, unspecified severity, without behavioral disturbance, psychotic disturbance, mood disturbance, and anxiety; G40.909 Epilepsy, unspecified, not intractable, without status epilepticus; F73 Profound intellectual disabilities; F90.9 Attention-deficit hyperactivity disorder, unspecified type; F84.0 Autistic disorder; Z87.09 Personal history of other diseases of the respiratory system; Z79.899 Other long term (current) drug therapy; Z79.01 Long term (current) use of anticoagulants; Z88.0 Allergy status to penicillin; Z88.1 Allergy status to other antibiotic agents; Z88.8 Allergy status to other drugs, medicaments and biological substances; Z98.890 Other specified postprocedural states
CPT/HCPCS: 31624; 31502; 87798 ×3; 87496; 87498; 87529; 88108; 88305; 87252; 87502; 87634; 87070; 87205; 87116; 87102; 87077; 87186; 87206; 71045; J2250

== ENCOUNTER 2020-07-07 12:48 | Emergency (ER) | payer MEDICARE, OTHER ==
[2020-07-07 13:05] VITALS: RESP 18; TEMP 97.6
--- NOTE | 2020-07-07 14:09 | XR ---
Left forearm and left elbow HISTORY: Trauma and pain 3 views of the left elbow and 2 views the left forearm Bone mineralization, joint spaces and alignment are maintained. No evident elbow joint effusion. Ther e is mild arthropathy change present within the elbow, views are nonstandard. IMPRESSION: No acute fracture or dislocation is evident.
--- NOTE | 2020-07-07 14:33 | ED ---
General Adult HPI - General Source: RN notes reviewed, old records reviewed, Caregiver Mode of arrival: wheelchair Limitations: altered mental status, physical limitation <Adama Sarabia - Last Filed: 07/07/20 14:32> <Jennifer Brown - Last Filed: 07/07/20 22:34> - General Chief complaint: Extremity Injury, Upper Stated complaint: lt arm injury Time Seen by Provider: 07/07/20 13:07 - History of Present Illness Initial comments: 29-year-old male patient to ED for evaluation of possible left elbow injury. Patient is developmentally delayed. Caregiver believes the patient may have fallen last night as she noticed a bruise on his elbow today. Otherwise no signs of external trauma noted. No fall was witnessed. Patient did not appear to be any pain is acting and using all extremities at baseline. Ambulatory without difficulty. Systemic: Pt denies fatigue, fever/chills, rash. Pt denies weakness, night s weats, weight loss. Neuro: Pt denies headache, visual disturbances, syncope or pre-syncope. HEENT: Pt denies ocular discharge or irritation, otalgia, rhinorrhea, pharyngitis or notable lymphadenopathy. Cardiopulmonary: Pt denies chest pain, SOB, heart palpitations, dyspnea on exertion. Abdominal/GI: Pt denies abdominal pain, n/v/d. : Pt denies dysuria, burning w/ urination, frequency/urgency. Denies new onset urinary or bowel incontinence. MSK: Pt denies myalgia, loss of strength or function in extremities. Neuro: Pt denies new onset weakness, paresthesias. (Adama Sarabia) - Related Data Home Medications Medication Instructions Recorded Confirmed Clobazam [Onfi] 20 mg PEG/G-TUBE BID 08/26/15 07/03/20 Lacosamide [Vimpat] 200 mg PEG/G-TUBE TID 08/26/15 07/03/20 Ascorbic Acid [Vitamin C] 500 mg PEG/G-TUBE BID 12/28/18 07/03/20 Folic Acid 1 mg PEG/G-TUBE DAILY 12/28/18 07/03/20 Vitamin B Complex 1 cap PEG/G-TUBE DAILY 12/28/18 07/03/20 clonazePAM [KlonoPIN] 1 mg PEG/G-TUBE TID 12/28/18 07/03/20 levETIRAcetam [Keppra Oral 16 ml PEG/G-TUBE Q8H 12/28/18 07/03/20 Solution] polyethylene glycoL 3350 [Miralax] 17 gm PEG/G-TUBE TID 12/28/18 07/03/20 Albuterol Nebulized [Ventolin 2.5 mg INHALATION RT-BID 09/20/19 07/03/20 Nebulized] Dexlansoprazole [Dexilant] 60 mg PEG/G-TUBE DAILY 09/20/19 07/03/20 Tamsulosin [Flomax] 0.4 mg PEG/G-TUBE DAILY 09/20/19 07/03/20 Na Phos,M-B/Na Phos,Di-Ba [Fleet 133 ml RECTAL ONCE PRN 10/10/19 07/03/20 Adult] Rufinamide [Banzel] 1,600 mg PO 0000 10/10/19 07/03/20 Cbd Capsule 750 mg PEG/G-TUBE DAILY 06/30/20 07/03/20 Lactulose 45 ml PO TID 06/30/20 07/03/20 Rufinamide [Banzel] 1,200 mg PO 1200 06/30/20 07/03/20 Vitamin B6 100 mg PO HS 06/30/20 07/03/20 Previous Rx's Medication Instructions Recorded Scopolamine [Scopolamine 1 MG/72 1 patch TRANSDERM Q72H #10 patch 10/19/19 HR patch] Allergies Allergy/AdvReac Type Severity Reaction Status Date / Time amoxicillin trihydrate Allergy Unknown Verified 07/07/20 13:05 [From Augmentin] ceftriaxone sodium Allergy Unknown Verified 07/07/20 13:05 [From Rocephin] cephalexin monohydrate Allergy Unknown Verified 07/07/20 13:05 [From Keflex] Penicillins Allergy Unknown Verified 07/07/20 13:05 phenobarbital Allergy Unknown Verified 07/07/20 13:05 phenytoin sodium Allergy Unknown Verified 07/07/20 13:05 [From Dilantin] phenytoin sodium extended Allergy Unknown Verified 07/07/20 13:05 [From Dilantin] potassium clavulanate Allergy Unknown Verified 07/07/20 13:05 [From Augmentin] Cephalosporins AdvReac Unknown Verified 07/07/20 13:05 lorazepam [From Ativan] AdvReac Unknown Verified 07/07/20 13:05 surgical tape AdvReac hyperpigmentation Uncoded 07/07/20 13:05 of skin Review of Systems ROS Other: All systems not noted in ROS Statement are negative. <Adama Sarabia - Last Filed: 07/07/20 14:32> ROS Other: All systems not noted in ROS Statement are negative. <KevinJennifer Shabbir - Last Filed: 07/07/20 22:34> ROS Statement: Those systems with pertinent positive or pertinent negative responses have been documented in the HPI. Past Medical History Past Medical History: Asthma, Renal Disease, Seizure Disorder Additional Past Medical History / Comment(s): Developmental delay, Autism, daily seizures, Joss Gasteat Seizures, last Grand mal Seizure (Status Epilepticus Dec 05 2017) has trach, PEG Tube, urinary retention, chronic constipation. Hx ulcers. Tenses up, clenches fists, shakes, a lot, screeches when excited, has a strong upper body. Arms are permanently bent, he walks on toes. "Flight Risk." History of Any Multi-Drug Resistant Organisms: VRE Date of last positivie culture/infection: 10/10/19 MDRO Source:: VRE URINE Additional Past Surgical History / Comment(s): Vagal nerve stimulator, left UPJ endopylotomy, embolist surgery (renal artery), heel cord lengthening, transurethral bladder neck and prostate incision 09/22/2019. Traceostomy. PEG Tube palced. Exploratory Laprotomy. Past Anesthesia/Blood Transfusion Reactions: No Reported Reaction Past Psychological History: ADD/ADHD Smoking Status: Never smoker Past Alcohol Use History: None Reported Past Drug Use History: None Reported - Past Family History Mother Additional Family Medical History / Comment(s): of Suicide at 22. <Adama Sarabia - Last Filed: 07/07/20 14:32> General Exam Limitations: altered mental status, physical limitation <Adama Sarabia - Last Filed: 07/07/20 14:32> - General Exam Comments Initial Comments: Constitutional: NAD, AOX3, Pt has pleasant affect. HEENT: NC/AT, trachea midline, neck supple, no lymphadenopathy. External ears appear normal, without discharge. Mucous membranes moist. Eyes PERRLA, EOM intact. There is no scleral icterus. No pallor noted. Cardiopulmonary: RRR, no murmurs, rubs or gallops, no JVD noted. Lungs CTAB in anterior and posterior candelaria. No peripheral edema. Abdominal exam: Abdomen soft and non-distended. Abdomen non-tender to palpation in all 4 quadrants. Bowel sounds active in LLQ. No hepatosplenomegaly. No ecchymosis Neuro: CN II-XII grossly intact. No nuchal rigidity. No raccon eyes, no martinez sign, no hemotympanum. No cervical spinal tenderness. MSK: Small bruise noted to the medial aspect of the left elbow. Full active ROM in upper lower extremities. No areas of tenderness. Full active ROM in upper and lower extremities. (Adama Sarabia) Course Vital Signs 07/07/20 07/07/20 13:01 14:45 Temperature 97.6 F 97.6 F Pulse Rate 74 80 Respiratory 18 18 Rate Blood Pressure 106/61 95/57 O2 Sat by Pulse 99 96 Oximetry Medical Decision Making <Adama Sarabia - Last Filed: 07/07/20 14:32> <Jennifer Brown - Last Filed: 07/07/20 22:34> - Medical Decision Making 29-year-old male patient to ED for evaluation of possible injury to his left elbow. Plain films are negative. No other signs of external trauma is noted. Patient discharged outpatient follow-up and return precautions. Case discussed with Dr. Brown. (Adama Sarabia) I was available for consultation in the emergency department. The history and physical exam were done by the midlevel provider. I was consulted for this patients care. I reviewed the case with the midlevel provider and based on their presentation of the patient, I agree with the assessment, medical decision making and plan of care as documented. Chart was dictated using [employer] dictation software. Attempts were made to correct any dictation errors however some typographical errors may persist. Patient was seen during a national state of emergency due to the Covid-19 pandemic. (Jennifer Brown) Disposition Is patient prescribed a controlled substance at d/c from ED?: No <Adama Sarabia - Last Filed: 07/07/20 14:32> <Jennifer Brown - Last Filed: 07/07/20 22:34> Clinical Impression: Arm bruise Disposition: HOME SELF-CARE Condition: Stable Instructions (If sedation given, give patient instructions): Fall Prevention (ED) Additional Instructions: Follow up with PCP tomorrow. Return to ED with any worsening symptoms. Referrals: Rodri Alcantar MD [Primary Care Provider] - 1-2 days
[2020-07-07 15:02] VITALS: BP 95/57; PULSE 80
== END 2020-07-07 14:45 | disposition home or self-care (01) ==
LOC: EC 12:48
DX: S40.022A Contusion of left upper arm, initial encounter (principal); J45.909 Unspecified asthma, uncomplicated; F84.0 Autistic disorder; G40.409 Other generalized epilepsy and epileptic syndromes, not intractable, without status epilepticus; F90.9 Attention-deficit hyperactivity disorder, unspecified type; K59.09 Other constipation; Z79.899 Other long term (current) drug therapy; Z79.51 Long term (current) use of inhaled steroids; Z88.1 Allergy status to other antibiotic agents; Z88.0 Allergy status to penicillin; Z88.8 Allergy status to other drugs, medicaments and biological substances; Z91.09 Other allergy status, other than to drugs and biological substances; Z93.0 Tracheostomy status; Z93.1 Gastrostomy status; Z96.82 Presence of neurostimulator; Z98.890 Other specified postprocedural states; X58.XXXA Exposure to other specified factors, initial encounter
CPT/HCPCS: 99283

== ENCOUNTER → 2020-08-16 | Outpatient (CLI) | payer MEDICARE, OTHER ==
[2020-08-16 15:50] LABS: African American GFR (CKD) 116.5 (60.0-200.0); Non-African American GFR(CKD) 100.5 (60.0-200.0)
== END | disposition home or self-care (01) ==
LOC: LABWHC1 09:20
PROVIDERS: ATTEND Specialist
DX: G40.814 Lennox-Gastaut syndrome, intractable, without status epilepticus (principal); Z79.899 Other long term (current) drug therapy
CPT/HCPCS: 36415; 82565; 84450; 84460

== ENCOUNTER 2020-09-05 17:30 | Emergency (ER) | payer MEDICARE, OTHER ==
[2020-09-05 17:42] VITALS: RESP 20
--- NOTE | 2020-09-05 18:59 | XR ---
EXAMINATION TYPE: XR chest 1V portable DATE OF EXAM: 09/05/2020 COMPARISON: NONE HISTORY: 07/03/2020. TECHNIQUE: Single frontal view of the chest is obtained. FINDINGS: There is mild bibasilar hazy opacity. No pleural effusion, or pneumothorax seen. The card iac silhouette size is within normal limits. Tracheostomy tube with tip overlying the proximal intra thoracic trachea. Neurostimulator device with leads along the cervical spine seen. The osseous struct ures are intact. IMPRESSION: Mild bibasilar opacities, favor atelectasis.
--- NOTE | 2020-09-05 19:01 | XR ---
EXAM: Abdomen radiograph. HISTORY: Pain/constipation. TECHNIQUE: Supine AP view. COMPARISON: 72,020. FINDINGS: There are nondilated bowel loops with a nonobstructive pattern. There are no pathologic calcification s. No acute osseous abnormality seen. There is large colonic stool burden. Gastric tube is seen. Post surgical changes overlying the left upper quadrant seen. IMPRESSION: Nonobstructive bowel gas pattern. Large colonic stool burden.
[2020-09-05 19:13] LABS: Basophils % (A) 0 %; Eosinophils # (A) 0.1 k/uL (0-0.7); Eosinophils % (A) 1 %; HCT 39.4 % (39.0-53.0); HGB 13.1 gm/dL (13.0-17.5); Lymphocytes # (A) 0.8 k/uL (1.0-4.8); Lymphocytes % (A) 13 %; MCH 33.1 pg (25.0-35.0); MCHC 33.3 g/dL (31.0-37.0); MCV 99.5 fL (80.0-100.0); Macrocytosis Slight; Mean Platelet Volume 6.6; Monocytes # (A) 0.3 k/uL (0-1.0); Monocytes % (A) 5 %; Neutrophils # (A) 5.1 k/uL (1.3-7.7); Neutrophils % (A) 80 %; Platelet Count 203 k/uL (150-450); Poikilocytosis Slight; RBC 3.96 m/uL (4.30-5.90); RDW 15.5 % (11.5-15.5); WBC 6.4 k/uL (3.8-10.6)
[2020-09-05 19:22] LABS: ALT 17 U/L (4-49); AST 27 U/L (17-59); African American GFR (CKD) >90 (>60 ml/min/1.73 sqM); Albumin 4.5 g/dL (3.5-5.0); Alkaline Phosphatase 115 U/L (38-126); Anion Gap 11 mmol/L; Blood Urea Nitrogen 21 mg/dL (9-20); Calcium 9.6 mg/dL (8.4-10.2); Carbon Dioxide 21 mmol/L (22-30); Chloride 110 mmol/L (98-107); Glucose 98 mg/dL (74-99); Magnesium 2.2 mg/dL (1.6-2.3); Non-African American GFR(CKD) >90 (>60 ml/min/1.73 sqM); Potassium 3.7 mmol/L (3.5-5.1); Sodium 142 mmol/L (137-145); Total Bilirubin 0.4 mg/dL (0.2-1.3); Total Protein 7.4 g/dL (6.3-8.2)
--- NOTE | 2020-09-05 20:20 | ED ---
Seizure HPI - General Chief Complaint: Seizure Stated Complaint: Seizure Time Seen by Provider: 09/05/20 17:55 Source: EMS Limitations: altered mental status, physical limitation - History of Present Illness Initial Comments: Is a 30-year-old male with a history of epilepsy tracheostomy. He is on multiple medications including Keppra, Klonopin, on feet, other meds in order to control his seizures. Despite these medications he still has seizures about 5 or 6 times a day. The patient has also been having some constipation. The caregiver at bedside states that he had difficult having bowel movements today. She states that she gave him his oral antiepileptic medications however he subsequently vomited these up. After that the patient proceeded to have multiple seizures throughout an hour. She states that the seizures lasted only a matter of seconds to minutes however he still had multiple of them over the last hour. In one of his seizures he did pull out his tracheostomy tube seizure brought to the emergency department. She states that prior to him coming he did have a large bowel movement and was able to keep down his afternoon medications. The patient has had reduction in his seizures since that time. There is been no fevers or chills. No cough. No other acute complaints. - Related Data Home Medications Medication Instructions Recorded Confirmed Clobazam [Onfi] 20 mg PEG/G-TUBE BID 08/26/15 07/03/20 Lacosamide [Vimpat] 200 mg PEG/G-TUBE TID 08/26/15 07/03/20 Ascorbic Acid [Vitamin C] 500 mg PEG/G-TUBE BID 12/28/18 07/03/20 Folic Acid 1 mg PEG/G-TUBE DAILY 12/28/18 07/03/20 clonazePAM [KlonoPIN] 1 mg PEG/G-TUBE TID 12/28/18 07/03/20 levETIRAcetam [Keppra Oral 16 ml PEG/G-TUBE Q8H 12/28/18 07/03/20 Solution] polyethylene glycoL 3350 [Miralax] 17 gm PEG/G-TUBE TID 12/28/18 07/03/20 Albuterol Nebulized [Ventolin 2.5 mg INHALATION RT-BID 09/20/19 07/03/20 Nebulized] Dexlansoprazole [Dexilant] 60 mg PEG/G-TUBE DAILY 09/20/19 07/03/20 Tamsulosin [Flomax] 0.4 mg PEG/G-TUBE DAILY 09/20/19 07/03/20 Cbd Capsule 750 mg PEG/G-TUBE DAILY 06/30/20 07/03/20 Lactulose 45 ml PO TID 06/30/20 07/03/20 Banzel 400mg 1,200 mg PO DAILY@1200 09/05/20 09/05/20 Banzel 400mg 1,600 mg PO HS@0000 09/05/20 09/05/20 Cannabidiol (Cbd) [Epidiolex] 25 mg PO DIRECTED 09/05/20 09/05/20 Pyridoxine HCl (Vitamin B6) 100 mg PO HS@0000 09/05/20 09/05/20 [Vitamin B-6] Previous Rx's Medication Instructions Recorded Scopolamine [Scopolamine 1 MG/72 1 patch TRANSDERM Q72H #10 patch 10/19/19 HR patch] Allergies Allergy/AdvReac Type Severity Reaction Status Date / Time amoxicillin trihydrate Allergy Unknown Verified 09/05/20 21:47 [From Augmentin] ceftriaxone sodium Allergy Unknown Verified 09/05/20 21:47 [From Rocephin] cephalexin monohydrate Allergy Unknown Verified 09/05/20 21:47 [From Keflex] Penicillins Allergy Unknown Verified 09/05/20 21:47 phenobarbital Allergy Unknown Verified 09/05/20 21:47 phenytoin sodium Allergy Unknown Verified 09/05/20 21:47 [From Dilantin] phenytoin sodium extended Allergy Unknown Verified 09/05/20 21:47 [From Dilantin] potassium clavulanate Allergy Unknown Verified 09/05/20 21:47 [From Augmentin] Cephalosporins AdvReac Unknown Verified 09/05/20 21:47 lorazepam [From Ativan] AdvReac Unknown Verified 09/05/20 21:47 surgical tape AdvReac hyperpigmentation Uncoded 07/07/20 13:05 of skin Review of Systems ROS Statement: Those systems with pertinent positive or pertinent negative responses have been documented in the HPI. ROS Other: All systems not noted in ROS Statement are negative. Past Medical History Past Medical History: Asthma, Renal Disease, Seizure Disorder Additional Past Medical History / Comment(s): Developmental delay, Autism, daily seizures, [place] Gasteat Seizures, last Grand mal Seizure (Status Epilepticus Dec 05 2017) has trach, PEG Tube, urinary retention, chronic constipation. Hx ulcers. Tenses up, clenches fists, shakes, a lot, screeches when excited, has a strong upper body. Arms are permanently bent, he walks on toes. "Flight Risk." History of Any Multi-Drug Resistant Organisms: VRE Date of last positivie culture/infection: 10/10/19 MDRO Source:: VRE URINE Additional Past Surgical History / Comment(s): Vagal nerve stimulator, left UPJ endopylotomy, embolist surgery (renal artery), heel cord lengthening, transurethral bladder neck and prostate incision 09/22/2019. Traceostomy. PEG Tube palced. Exploratory Laprotomy. Past Anesthesia/Blood Transfusion Reactions: No Reported Reaction Past Psychological History: ADD/ADHD Smoking Status: Never smoker Past Alcohol Use History: None Reported Past Drug Use History: None Reported - Past Family History Mother Additional Family Medical History / Comment(s): of Suicide at 22. General Exam - General Exam Comments Initial Comments: Constitutional: [Awake alert] [Appears comfortable] Head: [Normocephalic atraumatic] Eyes: [no conjunctival injection] [No scleral icterus] [EOMI] Neck: [No JVD] [Supple], Tracheostomy present however the tube is been removed from the hole Heart: [Regular rate rhythm] [normal S1-S2] [no murmurs] Lungs: [Clear to auscultation bilaterally] [No wheezing] [No rales] Abdomen: [Soft] [nondistended] [nontender] Extremities: [Non edematous] [DP pulses intact] [Radial pulses intact] Neuro: Patient is awake and alert and at baseline, does not answer questions which is baseline, moving extremities, no seizure activity seen [No focal neurologic deficits] Psych: [Appropriate mood and affect] Limitations: altered mental status, physical limitation Course Vital Signs 09/05/20 09/05/20 09/05/20 17:38 21:26 22:08 Temperature 99.9 F H 98.5 F 98.7 F Pulse Rate 89 76 74 Respiratory 20 20 20 Rate Blood Pressure 120/75 95/53 103/57 O2 Sat by Pulse 98 97 98 Oximetry - Reevaluation(s) Reevaluation #1: EKG showing normal sinus rhythm with rate 76. This normalizes second centimeters to emergency. QTC is 420. Other intervals normal. No ectopy. 09/05/20 22:59 Medical Decision Making - Medical Decision Making This a 30-year-old male who presents emergency department for seizure. The patient is a history of constipation which causes him to vomit. He did vomit up his seizure medications earlier today. The mother feels that the reason he was seizing is because he did not get his seizure medications.Patient's temp was 99.9 on arrival however otherwise the rest of his blood work was unremarkable. I did ask her mother about fevers at home and she stated he has not had any. I asked about increased cough or secretions from the tracheostomy she states that he has not had any of that as well. He has not indicated this had any discomfort with urination. Patient does not have a white blood cell count. Blood work otherwise was unremarkable as well. Vitals were rechecked and the patient was afebrile. The mother refused urinalysis and straight catheterization. I explained to her that I could not rule out a urinary tract infection as the cause for the seizure however she stated that she understood this and one to take him home. She stated that she would monitor for signs of fever or any other concerns. All questions were answered. - Lab Data Result diagrams: 09/05/20 19:02 09/05/20 19:02 Lab Results 09/05/20 09/05/20 Range/Units 19:02 19:02 WBC 6.4 (3.8-10.6) k/uL RBC 3.96 L (4.30-5.90) m/uL Hgb 13.1 (13.0-17.5) gm/dL Hct 39.4 (39.0-53.0) % MCV 99.5 (80.0-100.0) fL MCH 33.1 (25.0-35.0) pg MCHC 33.3 (31.0-37.0) g/dL RDW 15.5 (11.5-15.5) % Plt Count 203 (150-450) k/uL MPV 6.6 Neutrophils % 80 % Lymphocytes % 13 % Monocytes % 5 % Eosinophils % 1 % Basophils % 0 % Neutrophils # 5.1 (1.3-7.7) k/uL Lymphocytes # 0.8 L (1.0-4.8) k/uL Monocytes # 0.3 (0-1.0) k/uL Eosinophils # 0.1 (0-0.7) k/uL Basophils # 0.0 (0-0.2) k/uL Poikilocytosis Slight Macrocytosis Slight Sodium 142 (137-145) mmol/L Potassium 3.7 (3.5-5.1) mmol/L Chloride 110 H (98-107) mmol/L Carbon Dioxide 21 L (22-30) mmol/L Anion Gap 11 mmol/L BUN 21 H (9-20) mg/dL Creatinine 0.84 (0.66-1.25) mg/dL Est GFR (CKD-EPI)AfAm >90 (>60 ml/min/1.73 sqM) Est GFR (CKD-EPI)NonAf >90 (>60 ml/min/1.73 sqM) Glucose 98 (74-99) mg/dL Calcium 9.6 (8.4-10.2) mg/dL Magnesium 2.2 (1.6-2.3) mg/dL Total Bilirubin 0.4 (0.2-1.3) mg/dL AST 27 (17-59) U/L ALT 17 (4-49) U/L Alkaline Phosphatase 115 (38-126) U/L Total Protein 7.4 (6.3-8.2) g/dL Albumin 4.5 (3.5-5.0) g/dL Disposition Clinical Impression: Focal seizure Disposition: HOME SELF-CARE Condition: Stable Instructions (If sedation given, give patient instructions): Recurrent Seizures in Adults (ED) Is patient prescribed a controlled substance at d/c from ED?: No Referrals: Rodri Alcantar MD [Primary Care Provider] - 1-2 days
[2020-09-05 22:10] VITALS: BP 103/57; PULSE 74; TEMP 98.7
== END 2020-09-05 22:15 | disposition home or self-care (01) ==
LOC: EC 17:30
DX: G40.909 Epilepsy, unspecified, not intractable, without status epilepticus (principal); J45.909 Unspecified asthma, uncomplicated; F84.0 Autistic disorder; F90.9 Attention-deficit hyperactivity disorder, unspecified type; Z79.899 Other long term (current) drug therapy; Z79.51 Long term (current) use of inhaled steroids; Z88.0 Allergy status to penicillin; Z88.1 Allergy status to other antibiotic agents; Z88.8 Allergy status to other drugs, medicaments and biological substances; Z91.048 Other nonmedicinal substance allergy status
CPT/HCPCS: 71045; 74018; 80053; 83735; 85025; 93005; 99284

== ENCOUNTER 2020-10-04 18:25 | Emergency (ER) | payer MEDICARE, OTHER ==
[2020-10-04 18:30] VITALS: TEMP 98.1
[2020-10-04 19:01] VITALS: BP 106/69; PULSE 80; RESP 18
--- NOTE | 2020-10-04 19:02 | ED ---
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 Patient does have trach secondary to status epilepticus and being placed on a vent. Patient still has secretions and therefore trach was placed. Today patient was found with trach out. Unclear patient pulled it out or fell out. Patient otherwise doing well. Patient has limited verbal ability and unable to state any complaints. - Related Data Home Medications Medication Instructions Recorded Confirmed Clobazam [Onfi] 20 mg PEG/G-TUBE BID@1200,0000 08/26/15 09/05/20 Lacosamide [Vimpat] 200 mg PEG/G-TUBE 08/26/15 09/05/20 TID@1000,1700,0000 Ascorbic Acid [Vitamin C] 500 mg PEG/G-TUBE BID@1000,1700 12/28/18 09/05/20 Folic Acid 1 mg PEG/G-TUBE DAILY@1000 12/28/18 09/05/20 clonazePAM [KlonoPIN] 1 mg PEG/G-TUBE TID@1000,1700,0000 12/28/18 09/05/20 levETIRAcetam [Keppra Oral 18 ml PEG/G-TUBE TID@1000,1700,0000 12/28/18 09/05/20 Solution] polyethylene glycoL 3350 [Miralax] 17 gm PEG/G-TUBE TID@1000,1700,0000 12/28/18 09/05/20 Albuterol Nebulized [Ventolin 2.5 mg INHALATION RT-TID PRN 09/20/19 09/05/20 Nebulized] Dexlansoprazole [Dexilant] 60 mg PEG/G-TUBE DAILY@1200 09/20/19 09/05/20 Tamsulosin [Flomax] 0.4 mg PEG/G-TUBE DAILY@1200 09/20/19 09/05/20 Cbd Capsule 750 mg PEG/G-TUBE DAILY@1200 06/30/20 09/05/20 Lactulose 30 gm PO TID@1000,1700,0000 06/30/20 09/05/20 Banzel 400mg 1,200 mg PO DAILY@1200 09/05/20 09/05/20 Banzel 400mg 1,600 mg PO HS@0000 09/05/20 09/05/20 Cannabidiol (Cbd) [Epidiolex] 25 mg PO DIRECTED 09/05/20 09/05/20 Pyridoxine HCl (Vitamin B6) 100 mg PO HS@0000 09/05/20 09/05/20 [Vitamin B-6] Previous Rx's Medication Instructions Recorded Scopolamine [Scopolamine 1 MG/72 1 patch TRANSDERM Q72H #10 patch 10/19/19 HR patch] Allergies Allergy/AdvReac Type Severity Reaction Status Date / Time amoxicillin trihydrate Allergy Unknown Verified 09/05/20 21:47 [From Augmentin] ceftriaxone sodium Allergy Unknown Verified 09/05/20 21:47 [From Rocephin] cephalexin monohydrate Allergy Unknown Verified 09/05/20 21:47 [From Keflex] Penicillins Allergy Unknown Verified 09/05/20 21:47 phenobarbital Allergy Unknown Verified 09/05/20 21:47 phenytoin sodium Allergy Unknown Verified 09/05/20 21:47 [From Dilantin] phenytoin sodium extended Allergy Unknown Verified 09/05/20 21:47 [From Dilantin] potassium clavulanate Allergy Unknown Verified 09/05/20 21:47 [From Augmentin] Cephalosporins AdvReac Unknown Verified 09/05/20 21:47 lorazepam [From Ativan] AdvReac Unknown Verified 09/05/20 21:47 surgical tape AdvReac hyperpigmentation Uncoded 07/07/20 13:05 of skin Review of Systems ROS Statement: Those systems with pertinent positive or pertinent negative responses have been documented in the HPI. Limitations: ROS unobtainable due to patients medical condition Past Medical History Past Medical History: Asthma, Renal Disease, Seizure Disorder Additional Past Medical History / Comment(s): Developmental delay, Autism, daily seizures, [place] Gasteat Seizures, last Grand mal Seizure (Status Epilepticus Dec 05 2017) has trach, PEG Tube, urinary retention, chronic constipation. Hx ulcers. Tenses up, clenches fists, shakes, a lot, screeches when excited, has a strong upper body. Arms are permanently bent, he walks on toes. "Flight Risk." History of Any Multi-Drug Resistant Organisms: VRE Date of last positivie culture/infection: 10/10/19 MDRO Source:: VRE URINE Additional Past Surgical History / Comment(s): Vagal nerve stimulator, left UPJ endopylotomy, embolist surgery (renal artery), heel cord lengthening, transurethral bladder neck and prostate incision 09/22/2019. Traceostomy. PEG Tube palced. Exploratory Laprotomy. Past Anesthesia/Blood Transfusion Reactions: No Reported Reaction Past Psychological History: ADD/ADHD Smoking Status: Never smoker Past Alcohol Use History: None Reported Past Drug Use History: None Reported - Past Family History Mother Additional Family Medical History / Comment(s): of Suicide at 22. General Exam Limitations: no limitations General appearance: alert, in no apparent distress Head exam: Present: other (Patient does have a helmet on) Eye exam: Present: normal appearance Neck exam: Present: other (Ostomy site open without bleeding or obstruction.) Respiratory exam: Present: normal lung sounds bilaterally Cardiovascular Exam: Present: regular rate, normal rhythm GI/Abdominal exam: Present: soft. Absent: tenderness Extremities exam: Present: normal inspection Neurological exam: Present: alert Psychiatric exam: Present: normal affect, normal mood Skin exam: Present: normal color Course Vital Signs 10/04/20 18:26 Temperature 98.1 F Pulse Rate 73 Respiratory 16 Rate Blood Pressure 126/105 O2 Sat by Pulse 94 L Oximetry Procedures - Procedures Initial comment: Trach was replaced with a #6. Lubrication was applied. Inner cannula replaced. No complications. Patient is breathing well following procedure. Disposition Clinical Impression: Encounter for tracheostomy tube change Disposition: HOME SELF-CARE Condition: Stable Additional Instructions: Please follow-up with primary care physician in the next day or 2 for recheck. Please also follow-up with your doctor, Dr. Cardoza in the next couple of days. Return for difficulty breathing, problems with tracheostomy, or other concerns. Is patient prescribed a controlled substance at d/c from ED?: No Referrals: Rodri Alcantar MD [Primary Care Provider] - 1-2 days Time of Disposition: 19:02
== END 2020-10-04 19:12 | disposition home or self-care (01) ==
LOC: EC 18:25
DX: Z43.0 Encounter for attention to tracheostomy (principal); F90.9 Attention-deficit hyperactivity disorder, unspecified type; G40.909 Epilepsy, unspecified, not intractable, without status epilepticus; J45.909 Unspecified asthma, uncomplicated; F84.0 Autistic disorder; Z79.899 Other long term (current) drug therapy; Z88.0 Allergy status to penicillin; Z88.1 Allergy status to other antibiotic agents; Z88.8 Allergy status to other drugs, medicaments and biological substances; Z91.048 Other nonmedicinal substance allergy status
CPT/HCPCS: 99283

== ENCOUNTER 2021-01-03 00:24 | Emergency (ER) | payer MEDICARE, OTHER ==
[2021-01-03 00:32] VITALS: TEMP 97.8
--- NOTE | 2021-01-03 00:45 | ED ---
Recheck HPI - General Chief Complaint: Recheck/Abnormal Lab/Rx Stated Complaint: Trach Issues Time Seen by Provider: 01/03/21 00:38 Source: family, RN notes reviewed, old records reviewed Mode of arrival: ambulatory Limitations: language barrier, altered mental status, physical limitation - History of Present Illness Initial Comments: This is a 30-year-old male DF for evaluation patient Dese for evaluation regards to placement of trach. Patient himself is unable to give history patient presents with caregiver who provides history -: hour(s) Returns Today for: other (Trach displaced) Symptoms Since Prior Visit: no new symptoms Context: planned re-check Associated Symptoms: none - Related Data Home Medications Medication Instructions Recorded Confirmed Clobazam [Onfi] 20 mg PEG/G-TUBE BID@1200,0000 08/26/15 09/05/20 Lacosamide [Vimpat] 200 mg PEG/G-TUBE 08/26/15 09/05/20 TID@1000,1700,0000 Ascorbic Acid [Vitamin C] 500 mg PEG/G-TUBE BID@1000,1700 12/28/18 09/05/20 Folic Acid 1 mg PEG/G-TUBE DAILY@1000 12/28/18 09/05/20 clonazePAM [KlonoPIN] 1 mg PEG/G-TUBE TID@1000,1700,0000 12/28/18 09/05/20 levETIRAcetam [Keppra Oral 18 ml PEG/G-TUBE TID@1000,1700,0000 12/28/18 09/05/20 Solution] polyethylene glycoL 3350 [Miralax] 17 gm PEG/G-TUBE TID@1000,1700,0000 12/28/18 09/05/20 Albuterol Nebulized [Ventolin 2.5 mg INHALATION RT-TID PRN 09/20/19 09/05/20 Nebulized] Dexlansoprazole [Dexilant] 60 mg PEG/G-TUBE DAILY@1200 09/20/19 09/05/20 Tamsulosin [Flomax] 0.4 mg PEG/G-TUBE DAILY@1200 09/20/19 09/05/20 Cbd Capsule 750 mg PEG/G-TUBE DAILY@1200 06/30/20 09/05/20 Lactulose 30 gm PO TID@1000,1700,0000 06/30/20 09/05/20 Banzel 400mg 1,200 mg PO DAILY@1200 09/05/20 09/05/20 Banzel 400mg 1,600 mg PO HS@0000 09/05/20 09/05/20 Cannabidiol (Cbd) [Epidiolex] 25 mg PO DIRECTED 09/05/20 09/05/20 Pyridoxine HCl (Vitamin B6) 100 mg PO HS@0000 09/05/20 09/05/20 [Vitamin B-6] Previous Rx's Medication Instructions Recorded Scopolamine [Scopolamine 1 MG/72 1 patch TRANSDERM Q72H #10 patch 10/19/19 HR patch] Allergies Allergy/AdvReac Type Severity Reaction Status Date / Time amoxicillin trihydrate Allergy Unknown Verified 01/03/21 00:26 [From Augmentin] ceftriaxone sodium Allergy Unknown Verified 01/03/21 00:26 [From Rocephin] cephalexin monohydrate Allergy Unknown Verified 01/03/21 00:26 [From Keflex] Penicillins Allergy Unknown Verified 01/03/21 00:26 phenobarbital Allergy Unknown Verified 01/03/21 00:26 phenytoin sodium Allergy Unknown Verified 01/03/21 00:26 [From Dilantin] phenytoin sodium extended Allergy Unknown Verified 01/03/21 00:26 [From Dilantin] potassium clavulanate Allergy Unknown Verified 01/03/21 00:26 [From Augmentin] Cephalosporins AdvReac Unknown Verified 01/03/21 00:26 lorazepam [From Ativan] AdvReac Unknown Verified 01/03/21 00:26 surgical tape AdvReac hyperpigmentation Uncoded 01/03/21 00:26 of skin Review of Systems ROS Statement: Those systems with pertinent positive or pertinent negative responses have been documented in the HPI. ROS Other: All systems not noted in ROS Statement are negative. Past Medical History Past Medical History: Asthma, Renal Disease, Seizure Disorder Additional Past Medical History / Comment(s): Developmental delay, Autism, daily seizures, [place] Gasteat Seizures, last Grand mal Seizure (Status Epilepticus Dec 05 2017) has trach, PEG Tube, urinary retention, chronic constipation. Hx ulcers. Tenses up, clenches fists, shakes, a lot, screeches when excited, has a strong upper body. Arms are permanently bent, he walks on toes. "Flight Risk." History of Any Multi-Drug Resistant Organisms: VRE Date of last positivie culture/infection: 10/10/19 MDRO Source:: VRE URINE Additional Past Surgical History / Comment(s): Vagal nerve stimulator, left UPJ endopylotomy, embolist surgery (renal artery), heel cord lengthening, transurethral bladder neck and prostate incision 09/22/2019. Traceostomy. PEG Tube palced. Exploratory Laprotomy. Past Anesthesia/Blood Transfusion Reactions: No Reported Reaction Past Psychological History: ADD/ADHD Smoking Status: Never smoker Past Alcohol Use History: None Reported Past Drug Use History: None Reported - Past Family History Mother Additional Family Medical History / Comment(s): of Suicide at 22. General Exam - General Exam Comments Initial Comments: Trach became dislodged Limitations: language barrier, altered mental status, physical limitation General appearance: alert, in no apparent distress Head exam: Present: atraumatic, normocephalic, normal inspection Eye exam: Present: normal appearance, PERRL, EOMI. Absent: scleral icterus, conjunctival injection, periorbital swelling ENT exam: Present: normal exam, mucous membranes moist Neck exam: Present: normal inspection. Absent: tenderness, meningismus, lymphadenopathy Respiratory exam: Present: normal lung sounds bilaterally. Absent: respiratory distress, wheezes, rales, rhonchi, stridor Cardiovascular Exam: Present: regular rate, normal rhythm, normal heart sounds. Absent: systolic murmur, diastolic murmur, rubs, gallop, clicks GI/Abdominal exam: Present: soft, normal bowel sounds. Absent: distended, tenderness, guarding, rebound, rigid Extremities exam: Present: normal inspection, full ROM, normal capillary refill. Absent: tenderness, pedal edema, joint swelling, calf tenderness Back exam: Present: normal inspection Neurological exam: Present: alert, oriented X3, CN II-XII intact Psychiatric exam: Present: normal affect, normal mood Skin exam: Present: warm, dry, intact, normal color. Absent: rash Course Vital Signs 01/03/21 01/03/21 00:27 01:44 Temperature 97.8 F Pulse Rate 106 H 80 Respiratory 24 16 Rate Blood Pressure 90/43 94/50 O2 Sat by Pulse 94 L 99 Oximetry - Reevaluation(s) Reevaluation #1: Medical record is reviewed Patient symptoms significantly improved here in the ER Patient informed results questions answered Trachea is replaced here in the ER Medical Decision Making - Medical Decision Making 30 male DF for evaluation patient has trach place replaced here in the ER p atient can be discharged home no distress Disposition Clinical Impression: Trachea displaced Disposition: HOME SELF-CARE Condition: Good Instructions (If sedation given, give patient instructions): Tracheostomy Care (ED) Is patient prescribed a controlled substance at d/c from ED?: No Referrals: Rodri Alcantar MD [Primary Care Provider] - 1-2 days
[2021-01-03 01:45] VITALS: BP 94/50; PULSE 80; RESP 16
== END 2021-01-03 01:46 | disposition home or self-care (01) ==
LOC: EC 00:24
DX: J39.8 Other specified diseases of upper respiratory tract (principal); J45.909 Unspecified asthma, uncomplicated; G40.909 Epilepsy, unspecified, not intractable, without status epilepticus
CPT/HCPCS: 99282

== ENCOUNTER 2021-02-20 23:20 | Emergency (ER) | payer MEDICARE, OTHER ==
--- NOTE | 2021-03-15 16:44 | CDI ---
Documentation Clarification Form Date: 03/15/21 From: Bonnie Tenorio Phone: Admit Date: 02/20/2021 11:20:00 PM Patient Name: Gibran Baldwin Visit Number: [id number] Discharge Date: 02/20/21 Payor: MEDICARE HMO Dr. Robin Jordan Dear Dr. Mike ED clinical impression since you did not write it on the scanned written downtime form. Please add below the line . This document is considered a part of the legal medical record. Thank you, Bonnie Tenorio Trial Manager, Coding Tracheostomy Tube Dislodged. Tracheostomy Tube Replaced MTDD
== END 2021-02-21 00:32 | disposition home or self-care (01) ==
LOC: EC 23:20
DX: J95.03 Malfunction of tracheostomy stoma (principal)
CPT/HCPCS: 99282

== ENCOUNTER → 2021-05-17 | Outpatient (CLI) | payer MEDICARE, OTHER ==
[2021-05-17 16:15] LABS: HCT 29.8 % (39.6-50.0); HGB 9.6 g/dL (13.0-17.0); MCHC 32.2 g/dL (32.0-37.0); MCV 105.7 fL (80.0-97.0); Mean Platelet Volume 9.2 fL (9.5-12.2); Platelet Count 305 X 10*3/uL (140-440); RBC 2.82 X 10*6/uL (4.40-5.60); RDW 15.6 % (11.5-14.5); WBC 5.76 X 10*3/uL (4.50-10.00)
[2021-05-17 16:57] LABS: Basophils # (A) 0.01 X 10*3/uL (0.00-0.10); Basophils % (A) 0.2 %; Eosinophils # (A) 0.04 X 10*3/uL (0.04-0.35); Eosinophils % (A) 0.7 %; Lymphocytes # (A) 1.08 X 10*3/uL (0.90-5.00); Lymphocytes % (A) 18.8 %; Monocytes # (A) 0.47 X 10*3/uL (0.20-1.00); Monocytes % (A) 8.2 %; Neutrophils # (A) 4.14 X 10*3/uL (1.80-7.70); Neutrophils % (A) 71.8 %
[2021-05-17 17:58] LABS: Anion Gap 17.6 mmol/L (4.00-12.00); Carbon Dioxide 19.3 mmol/L (21.6-31.8); Potassium 3.5 mmol/L (3.5-5.5)
[2021-05-18 07:57] LABS: Levetiracetam (Keppra) 50.3 ug/mL (3.0-60.0)
== END | disposition home or self-care (01) ==
LOC: LABWHC1 09:47
PROVIDERS: ATTEND Psychiatry & Neurology Neurology
DX: G40.814 Lennox-Gastaut syndrome, intractable, without status epilepticus (principal)
CPT/HCPCS: 80051; 80177; 84450; 84460; 85025; 80235; 36415; G0480; 80346

== ENCOUNTER → 2021-06-13 | Outpatient (CLI) | payer MEDICARE, OTHER ==
[2021-06-13 16:25] LABS: Basophils # (A) 0.02 X 10*3/uL (0.00-0.10); Basophils % (A) 0.2 %; Eosinophils # (A) 0.08 X 10*3/uL (0.04-0.35); HCT 23.9 % (39.6-50.0); HGB 7.4 g/dL (13.0-17.0); MCH 34.6 pg (27.0-32.0); MCV 111.7 fL (80.0-97.0); Mean Platelet Volume 9.4 fL (9.5-12.2); Monocytes # (A) 0.56 X 10*3/uL (0.20-1.00); Monocytes % (A) 6.9 %; Neutrophils # (A) 6.14 X 10*3/uL (1.80-7.70); Neutrophils % (A) 75.4 %; Platelet Count 354 X 10*3/uL (140-440); RBC 2.14 X 10*6/uL (4.40-5.60); RDW 16.2 % (11.5-14.5); WBC 8.14 X 10*3/uL (4.50-10.00)
[2021-06-13 18:19] LABS: % Iron Saturation 25.3 (15.00-50.00); Folate, Serum 15.2 ng/mL (4.40-31.00); T4, Free (Free Thyroxine) 1.06 ng/dL (0.800-1.800)
== END | disposition home or self-care (01) ==
LOC: LABWHC1 06-12 14:46 → EEVIPCON 07:54 → LABWHC1 07:54
PROVIDERS: ATTEND Internal Medicine Gastroenterology
DX: G40.89 Other seizures (principal); D63.8 Anemia in other chronic diseases classified elsewhere; R63.4 Abnormal weight loss
CPT/HCPCS: 36415; 82306; 82607; 82728; 82746; 83540; 83550; 84207; 84425; 84439; 84443; 85025

== ENCOUNTER 2021-06-28 21:00 | Inpatient (IN) | payer MEDICARE, OTHER ==
[2021-06-28 23:04] LABS: Anisocytosis Slight; Basophils % (A) 0 %; Eosinophils # (A) 0.1 k/uL (0-0.7); Eosinophils % (A) 1 %; HCT 28.8 % (39.0-53.0); HGB 9.6 gm/dL (13.0-17.5); Hypochromasia Slight; Lymphocytes # (A) 1.2 k/uL (1.0-4.8); Lymphocytes % (A) 17 %; MCHC 33.3 g/dL (31.0-37.0); MCV 105.4 fL (80.0-100.0); Macrocytosis Moderate; Mean Platelet Volume 7.3; Monocytes # (A) 0.4 k/uL (0-1.0); Monocytes % (A) 5 %; Neutrophils # (A) 5.4 k/uL (1.3-7.7); Neutrophils % (A) 76 %; Platelet Count 359 k/uL (150-450); Poikilocytosis Moderate; RBC 2.73 m/uL (4.30-5.90); RDW 17.2 % (11.5-15.5); WBC 7.2 k/uL (3.8-10.6)
[2021-06-28 23:12] LABS: INR 0.8 (<1.2); Prothrombin Time 9.4 sec (9.0-12.0)
[2021-06-28 23:15] LABS: ALT 14 U/L (4-49); AST 26 U/L (17-59); African American GFR (CKD) >90 (>60 ml/min/1.73 sqM); Albumin 3.3 g/dL (3.5-5.0); Alkaline Phosphatase 109 U/L (38-126); Anion Gap 6 mmol/L; Blood Urea Nitrogen 19 mg/dL (9-20); Calcium 8.7 mg/dL (8.4-10.2); Carbon Dioxide 24 mmol/L (22-30); Chloride 114 mmol/L (98-107); Glucose 95 mg/dL (74-99); Non-African American GFR(CKD) >90 (>60 ml/min/1.73 sqM); Potassium 3.8 mmol/L (3.5-5.1); Sodium 144 mmol/L (137-145); Total Bilirubin 0.3 mg/dL (0.2-1.3); Total Protein 6.2 g/dL (6.3-8.2)
[2021-06-28 23:17] LABS: Partial Thromboplastin Time 21.8 sec (22.0-30.0)
[2021-06-29] MEDS ORDERED: NALOXONE 0.4 MG/ML 1 ML VIAL IV PRN (06:39)
--- NOTE | 2021-06-29 06:53 | ED ---
GI Bleed HPI - General Chief complaint: GI Bleed Stated complaint: GI issues Time Seen by Provider: 06/28/21 21:11 Source: family, EMS Mode of arrival: EMS - Related Data Home Medications Medication Instructions Recorded Confirmed Lacosamide [Vimpat] 200 mg PEG/G-TUBE 08/26/15 06/28/21 TID@1000,1700,0000 Folic Acid 1 mg PEG/G-TUBE DAILY@1000 12/28/18 06/28/21 clonazePAM [KlonoPIN] 1 mg PEG/G-TUBE TID@1000,1700,0000 12/28/18 06/28/21 levETIRAcetam [Keppra Oral 14 ml PEG/G-TUBE TID@1000,1700,0000 12/28/18 06/28/21 Solution] polyethylene glycoL 3350 [Miralax] 17 gm PEG/G-TUBE TID@1000,1700,0000 12/28/18 06/28/21 Dexlansoprazole [Dexilant] 60 mg PEG/G-TUBE DAILY@1000 09/20/19 06/28/21 Tamsulosin [Flomax] 0.4 mg PEG/G-TUBE DAILY@1000 09/20/19 06/28/21 Cbd Capsule 750 mg PEG/G-TUBE HS@0000 06/30/20 06/28/21 Lactulose 30 gm PO TID@1000,1700,0000 06/30/20 06/28/21 Banzel 400mg 1,200 mg PEG/G-TUBE DAILY@1200 09/05/20 06/28/21 Banzel 400mg 1,600 mg PEG/G-TUBE HS@0000 09/05/20 06/28/21 Pyridoxine HCl (Vitamin B6) 100 mg PO HS@0000 09/05/20 06/28/21 [Vitamin B-6] Diazepam [Valium] 5 mg PO DAILY PRN 06/28/21 06/28/21 Vitamin B-6 Complex 1 tab PEG/G-TUBE DAILY@1000 06/28/21 06/28/21 cloBAZam [Clobazam] 20 mg PO BID@1200,0000 06/28/21 06/28/21 Previous Rx's Medication Instructions Recorded Scopolamine [Scopolamine 1 MG/72 1 patch TRANSDERM Q72H #10 patch 10/19/19 HR patch] Allergies Allergy/AdvReac Type Severity Reaction Status Date / Time amoxicillin trihydrate Allergy Unknown Verified 06/28/21 22:09 [From Augmentin] ceftriaxone sodium Allergy Unknown Verified 06/28/21 22:09 [From Rocephin] cephalexin monohydrate Allergy Unknown Verified 06/28/21 22:09 [From Keflex] Penicillins Allergy Unknown Verified 06/28/21 22:09 phenobarbital Allergy Unknown Verified 06/28/21 22:09 phenytoin sodium Allergy Unknown Verified 06/28/21 22:09 [From Dilantin] phenytoin sodium extended Allergy Unknown Verified 06/28/21 22:09 [From Dilantin] potassium clavulanate Allergy Unknown Verified 06/28/21 22:09 [From Augmentin] Cephalosporins AdvReac Unknown Verified 06/28/21 22:09 lorazepam [From Ativan] AdvReac Unknown Verified 06/28/21 22:09 surgical tape AdvReac hyperpigmentation Uncoded 06/28/21 21:04 of skin Review of Systems ROS Statement: Those systems with pertinent positive or pertinent negative responses have been documented in the HPI. ROS Other: All systems not noted in ROS Statement are negative. Past Medical History Past Medical History: Asthma, Renal Disease, Seizure Disorder Additional Past Medical History / Comment(s): Developmental delay, Autism, daily seizures, [place] Gasteat Seizures, last Grand mal Seizure (Status Epilepticus Dec 05 2017) has trach, PEG Tube, urinary retention, chronic constipation. Hx ulcers. Tenses up, clenches fists, shakes, a lot, screeches when excited, has a strong upper body. Arms are permanently bent, he walks on toes. "Flight Risk." History of Any Multi-Drug Resistant Organisms: VRE Date of last positivie culture/infection: 10/10/19 MDRO Source:: VRE URINE Additional Past Surgical History / Comment(s): Vagal nerve stimulator, left UPJ endopylotomy, embolist surgery (renal artery), heel cord lengthening, transurethral bladder neck and prostate incision 09/22/2019. Traceostomy. PEG Tube palced. Exploratory Laprotomy. Past Anesthesia/Blood Transfusion Reactions: No Reported Reaction Past Psychological History: ADD/ADHD Smoking Status: Never smoker Past Alcohol Use History: None Reported Past Drug Use History: None Reported - Past Family History Mother Additional Family Medical History / Comment(s): of Suicide at 22. Course Vital Signs 06/28/21 06/29/21 06/29/21 21:08 02:11 06:06 Temperature 98.4 F 97.8 F Pulse Rate 77 71 95 Respiratory 15 15 20 Rate Blood Pressure 92/62 107/69 95/49 O2 Sat by Pulse 100 98 97 Oximetry Medical Decision Making - Lab Data Result diagrams: 06/28/21 21:29 06/28/21 21:29 Lab Results 06/28/21 06/28/21 06/28/21 Range/Units 00:06 21:29 21:29 WBC 7.2 (3.8-10.6) k/uL RBC 2.73 L (4.30-5.90) m/uL Hgb 9.6 L (13.0-17.5) gm/dL Hct 28.8 L (39.0-53.0) % MCV 105.4 H (80.0-100.0) fL MCH 35.0 (25.0-35.0) pg MCHC 33.3 (31.0-37.0) g/dL RDW 17.2 H (11.5-15.5) % Plt Count 359 (150-450) k/uL MPV 7.3 Neutrophils % 76 % Lymphocytes % 17 % Monocytes % 5 % Eosinophils % 1 % Basophils % 0 % Neutrophils # 5.4 (1.3-7.7) k/uL Lymphocytes # 1.2 (1.0-4.8) k/uL Monocytes # 0.4 (0-1.0) k/uL Eosinophils # 0.1 (0-0.7) k/uL Basophils # 0.0 (0-0.2) k/uL Hypochromasia Slight Poikilocytosis Moderate Anisocytosis Slight Macrocytosis Moderate PT 9.4 (9.0-12.0) sec INR 0.8 (<1.2) APTT 21.8 L (22.0-30.0) sec Sodium (137-145) mmol/L Potassium (3.5-5.1) mmol/L Chloride (98-107) mmol/L Carbon Dioxide (22-30) mmol/L Anion Gap mmol/L BUN (9-20) mg/dL Creatinine (0.66-1.25) mg/dL Est GFR (CKD-EPI)AfAm (>60 ml/min/1.73 sqM) Est GFR (CKD-EPI)NonAf (>60 ml/min/1.73 sqM) Glucose (74-99) mg/dL Calcium (8.4-10.2) mg/dL Total Bilirubin (0.2-1.3) mg/dL AST (17-59) U/L ALT (4-49) U/L Alkaline Phosphatase (38-126) U/L Total Protein (6.3-8.2) g/dL Albumin (3.5-5.0) g/dL Gastric Occult Blood Positive (Negative) Blood Type Blood Type Recheck Bld Type Recheck Status Antibody Screen Spec Expiration Date 06/28/21 06/29/21 Range/Units 21:29 00:51 WBC (3.8-10.6) k/uL RBC (4.30-5.90) m/uL Hgb (13.0-17.5) gm/dL Hct (39.0-53.0) % MCV (80.0-100.0) fL MCH (25.0-35.0) pg MCHC (31.0-37.0) g/dL RDW (11.5-15.5) % Plt Count (150-450) k/uL MPV Neutrophils % % Lymphocytes % % Monocytes % % Eosinophils % % Basophils % % Neutrophils # (1.3-7.7) k/uL Lymphocytes # (1.0-4.8) k/uL Monocytes # (0-1.0) k/uL Eosinophils # (0-0.7) k/uL Basophils # (0-0.2) k/uL Hypochromasia Poikilocytosis Anisocytosis Macrocytosis PT (9.0-12.0) sec INR (<1.2) APTT (22.0-30.0) sec Sodium 144 (137-145) mmol/L Potassium 3.8 (3.5-5.1) mmol/L Chloride 114 H (98-107) mmol/L Carbon Dioxide 24 (22-30) mmol/L Anion Gap 6 mmol/L BUN 19 (9-20) mg/dL Creatinine 1.05 (0.66-1.25) mg/dL Est GFR (CKD-EPI)AfAm >90 (>60 ml/min/1.73 sqM) Est GFR (CKD-EPI)NonAf >90 (>60 ml/min/1.73 sqM) Glucose 95 (74-99) mg/dL Calcium 8.7 (8.4-10.2) mg/dL Total Bilirubin 0.3 (0.2-1.3) mg/dL AST 26 (17-59) U/L ALT 14 (4-49) U/L Alkaline Phosphatase 109 (38-126) U/L Total Protein 6.2 L (6.3-8.2) g/dL Albumin 3.3 L (3.5-5.0) g/dL Gastric Occult Blood (Negative) Blood Type O Positive Blood Type Recheck O Pos Bld Type Recheck Status No Antibody Screen NEGATIVE Spec Expiration Date 07/02/2021 - 2350 Disposition Clinical Impression: GI bleeding, Anemia Disposition: ADMITTED IP TO THIS [facility] Condition: Fair Instructions (If sedation given, give patient instructions): Gastrointestinal Bleeding (ED) Is patient prescribed a controlled substance at d/c from ED?: No Referrals: Rodri Alcantar MD [Primary Care Provider] - 1-2 days
[2021-06-29] MEDS: SODIUM CHLORIDE 0.9% 1,000 ML IV SCH ×2 (07:52→23:29)
[2021-06-29] MEDS: PANTOPRAZOLE 40 MG/10 ML VIAL IV SCH (07:53)
[2021-06-29] MEDS ORDERED: diazePAM 5 MG TAB PO PRN (11:31)
--- NOTE | 2021-06-29 11:47 | P.HPIM ---
History of Present Illness 30-year-old male with the Doppler and the delay, mental retardation chronic contractures and autism,aunt is caregiver patient has long-standing seizure history was brought in the by the caregiver because of dark is discoloration in the residuals of the PEG tube. She is concerned about GI bleed. Patient didn't have any bowel movement here. Patient hemoglobin is 9.7 patient had history of GI bleeds in the past because of which caregiver is concerned. Patient doesn't have any clinical evidence of GI bleed at this time. We'll repeat hemoglobin today again. Patient has elevated MCV of 104 because of which I'll obtain B12 and folate levels which need to be followed as an outpatient. Patient is nonverbal and unable to obtain any kind of history from the patient. Have chronic constipation as well. REVIEW OF SYSTEMS: Unable to obtain due to his clinical condition PHYSICAL EXAMINATION: GENERAL: Thin built with chronic contractures . HEENT: Pupils are round and equally reacting to light. EOMI. No scleral icterus. No conjunctival pallor. Normocephalic, atraumatic. No pharyngeal erythema. No thyromegaly. CARDIOVASCULAR: S1 and S2 present. No murmurs, rubs, or gallops. PULMONARY: Chest is clear to auscultation, no wheezing or crackles. ABDOMEN: Soft, nontender, nondistended, No palpable organomegaly. PEG tube in place sluggish bowel sounds MUSCULOSKELETAL: No joint swelling or deformity. EXTREMITIES: No cyanosis, clubbing, or pedal edema. NEUROLOGICAL: Diffuse muscle atrophy and chronic contractures SKIN: No rashes. Assessment and plan -Ruled out GI bleed. Patient clinically doesn't have any GI bleed at this time we flushed the PEG tube which is clear. Patient will will be given his medications via PEG tube. We'll recheck the hemoglobin today again patient will be discharged later today -Chronic anemia need to evaluate for B12 and folate deficiency labs of which were ordered, I do not anticipate these lab results back need to be followed as an outpatient. -Intractable seizures for which patient is on multiple medications she'll be continued -Autism -Chronic contractures: Supportive care Patient will be discharged today Past Medical History Past Medical History: Asthma, Renal Disease, Seizure Disorder Additional Past Medical History / Comment(s): Developmental delay, Autism, daily seizures, [place] Gasteat Seizures, last Grand mal Seizure (Status Epilepticus Dec 05 2017) has trach, PEG Tube, urinary retention, chronic constipation. Hx ulcers. Tenses up, clenches fists, shakes, a lot, screeches when excited, has a strong upper body. Arms are permanently bent, he walks on toes. "Flight Risk." History of Any Multi-Drug Resistant Organisms: VRE Date of last positivie culture/infection: 10/10/19 MDRO Source:: VRE URINE Additional Past Surgical History / Comment(s): Vagal nerve stimulator, left UPJ endopylotomy, embolist surgery (renal artery), heel cord lengthening, transurethral bladder neck and prostate incision 09/22/2019. Traceostomy. PEG Tube palced. Exploratory Laprotomy. Past Anesthesia/Blood Transfusion Reactions: No Reported Reaction Past Psychological History: ADD/ADHD Smoking Status: Never smoker Past Alcohol Use History: None Reported Past Drug Use History: None Reported - Past Family History Mother Additional Family Medical History / Comment(s): of Suicide at 22. Medications and Allergies Home Medications Medication Instructions Recorded Confirmed Type Lacosamide [Vimpat] 200 mg PEG/G-TUBE 08/26/15 06/28/21 History TID@1000,1700,0000 Folic Acid 1 mg PEG/G-TUBE DAILY@1000 12/28/18 06/28/21 History clonazePAM [KlonoPIN] 1 mg PEG/G-TUBE TID@1000,1700,0000 12/28/18 06/28/21 History levETIRAcetam [Keppra Oral 14 ml PEG/G-TUBE TID@1000,1700,0000 12/28/18 06/28/21 History Solution] polyethylene glycoL 3350 [Miralax] 17 gm PEG/G-TUBE TID@1000,1700,0000 12/28/18 06/28/21 History Dexlansoprazole [Dexilant] 60 mg PEG/G-TUBE DAILY@1000 09/20/19 06/28/21 History Tamsulosin [Flomax] 0.4 mg PEG/G-TUBE DAILY@1000 09/20/19 06/28/21 History Cbd Capsule 750 mg PEG/G-TUBE HS@0000 06/30/20 06/28/21 History Lactulose 30 gm PO TID@1000,1700,0000 06/30/20 06/28/21 History Banzel 400mg 1,200 mg PEG/G-TUBE DAILY@1200 09/05/20 06/28/21 History Banzel 400mg 1,600 mg PEG/G-TUBE HS@0000 09/05/20 06/28/21 History Pyridoxine HCl (Vitamin B6) 100 mg PO HS@0000 09/05/20 06/28/21 History [Vitamin B-6] Diazepam [Valium] 5 mg PO DAILY PRN 06/28/21 06/28/21 History Vitamin B-6 Complex 1 tab PEG/G-TUBE DAILY@1000 06/28/21 06/28/21 History cloBAZam [Clobazam] 20 mg PO BID@1200,0000 06/28/21 06/28/21 History Scopolamine [Scopolamine 1 MG/72 1 patch TRANSDERM Q72H #10 patch 06/29/21 06/28/21 Rx HR patch] Allergies Allergy/AdvReac Type Severity Reaction Status Date / Time amoxicillin trihydrate Allergy Unknown Verified 06/28/21 22:09 [From Augmentin] ceftriaxone sodium Allergy Unknown Verified 06/28/21 22:09 [From Rocephin] cephalexin monohydrate Allergy Unknown Verified 06/28/21 22:09 [From Keflex] Penicillins Allergy Unknown Verified 06/28/21 22:09 phenobarbital Allergy Unknown Verified 06/28/21 22:09 phenytoin sodium Allergy Unknown Verified 06/28/21 22:09 [From Dilantin] phenytoin sodium extended Allergy Unknown Verified 06/28/21 22:09 [From Dilantin] potassium clavulanate Allergy Unknown Verified 06/28/21 22:09 [From Augmentin] Cephalosporins AdvReac Unknown Verified 06/28/21 22:09 lorazepam [From Ativan] AdvReac Unknown Verified 06/28/21 22:09 surgical tape AdvReac hyperpigmentation Uncoded 06/28/21 21:04 of skin Physical Exam Vitals: Vital Signs Temp Pulse Resp BP Pulse Ox 06/29/21 07:53 98.9 F 91 18 93/51 100 06/29/21 06:06 97.8 F 95 20 95/49 97 06/29/21 02:11 71 15 107/69 98 06/28/21 21:08 98.4 F 77 15 92/62 100 Intake and Output 06/28/21 06/29/21 06/29/21 22:59 06:59 14:59 Other: Weight 54.885 kg Results CBC & Chem 7: 06/28/21 21:29 06/28/21 21:29 Labs: Abnormal Lab Results - Last 24 Hours (Table) 06/28/21 06/28/21 06/28/21 Range/Units 21:29 21:29 21:29 RBC 2.73 L (4.30-5.90) m/uL Hgb 9.6 L (13.0-17.5) gm/dL Hct 28.8 L (39.0-53.0) % MCV 105.4 H (80.0-100.0) fL RDW 17.2 H (11.5-15.5) % APTT 21.8 L (22.0-30.0) sec Chloride 114 H (98-107) mmol/L Total Protein 6.2 L (6.3-8.2) g/dL Albumin 3.3 L (3.5-5.0) g/dL
[2021-06-29] MEDS: PATIENT'S OWN (Clobazam [Clobazam] 20 MG Tablet) PO SCH (11:59)
[2021-06-29 12:10] LABS: Anisocytosis Slight; HGB 9.6 gm/dL (13.0-17.5); Hypochromasia Slight; MCH 35.7 pg (25.0-35.0); MCHC 33.1 g/dL (31.0-37.0); Macrocytosis Marked; Mean Platelet Volume 7.4; Platelet Count 372 k/uL (150-450); Poikilocytosis Moderate; RBC 2.68 m/uL (4.30-5.90); RDW 17.9 % (11.5-15.5); WBC 8.3 k/uL (3.8-10.6)
[2021-06-29 13:58] VITALS: BMI 17.3
--- NOTE | 2021-06-29 14:43 | P.CONS ---
History of Present Illness - Reason for Consult Consult date: 06/29/21 GI bleed Requesting physician: Tobin Ugalde - Chief Complaint coffee ground emesis - History of Present Illness This is a 30-year-old male patient with multiple comorbidities including mental retardation, chronic contracture, autism long-standing seizure history who was brought in by his cook frozen dessert Kaylynn was his aunt because of dark red blood and PEG tube. After speaking today and on phone she states that yesterday she saw some dark red blood in the PEG tube, however denied that any nausea or vomiting. States that he had been anemic and she was concerned that there was a GI bleed. States he does take iron. She does state he has a history of ulcers however unsure if he's had upper endoscopy recently. Believes that last time he was diagnosed with ulcer was in 2018 he had [facility]. States he has a long-standing history as well of chronic constipation. He is nonverbal. Admitting labs WBC 7.2 hemoglobin 9.6 hematocrit 28, platelet count 359,000, LFTs unremarkable. Gastric occult blood positive. Repeat labs today hemoglobin stable at 9.6. Nursing staff is reporting no nausea or vomiting no blood seen from the trach tube. No signs or symptoms of GI bleed. Review of Systems Patient is nonverbal ROS unobtainable: due to mental status Past Medical History Past Medical History: Asthma, Renal Disease, Seizure Disorder Additional Past Medical History / Comment(s): Developmental delay, Autism, daily seizures, [place] Gasteat Seizures, last Grand mal Seizure (Status Epilepticus Dec 05 2017) has trach, PEG Tube, urinary retention, chronic constipation. Hx ulcers. Tenses up, clenches fists, shakes, a lot, screeches when excited, has a strong upper body. Arms are permanently bent, he walks on toes. "Flight Risk." History of Any Multi-Drug Resistant Organisms: VRE Year Discovered:: 10/10/19 MDRO Source:: VRE URINE Additional Past Surgical History / Comment(s): Vagal nerve stimulator, left UPJ endopylotomy, embolist surgery (renal artery), heel cord lengthening, transurethral bladder neck and prostate incision 09/22/2019. Traceostomy. PEG Tube palced. Exploratory Laprotomy. Past Anesthesia/Blood Transfusion Reactions: No Reported Reaction Past Psychological History: ADD/ADHD Smoking Status: Never smoker Past Alcohol Use History: None Reported Past Drug Use History: None Reported - Past Family History Mother Additional Family Medical History / Comment(s): of Suicide at 22. Medications and Allergies Home Medications Medication Instructions Recorded Confirmed Type Lacosamide [Vimpat] 200 mg PEG/G-TUBE 08/26/15 06/28/21 History TID@1000,1700,0000 Folic Acid 1 mg PEG/G-TUBE DAILY@1000 12/28/18 06/28/21 History clonazePAM [KlonoPIN] 1 mg PEG/G-TUBE TID@1000,1700,0000 12/28/18 06/28/21 History levETIRAcetam [Keppra Oral 14 ml PEG/G-TUBE TID@1000,1700,0000 12/28/18 06/28/21 History Solution] polyethylene glycoL 3350 [Miralax] 17 gm PEG/G-TUBE TID@1000,1700,0000 12/28/18 06/28/21 History Dexlansoprazole [Dexilant] 60 mg PEG/G-TUBE DAILY@1000 09/20/19 06/28/21 History Tamsulosin [Flomax] 0.4 mg PEG/G-TUBE DAILY@1000 09/20/19 06/28/21 History Cbd Capsule 750 mg PEG/G-TUBE HS@0000 06/30/20 06/28/21 History Lactulose 30 gm PO TID@1000,1700,0000 06/30/20 06/28/21 History Banzel 400mg 1,200 mg PEG/G-TUBE DAILY@1200 09/05/20 06/28/21 History Banzel 400mg 1,600 mg PEG/G-TUBE HS@0000 09/05/20 06/28/21 History Pyridoxine HCl (Vitamin B6) 100 mg PO HS@0000 09/05/20 06/28/21 History [Vitamin B-6] Diazepam [Valium] 5 mg PO DAILY PRN 06/28/21 06/28/21 History Vitamin B-6 Complex 1 tab PEG/G-TUBE DAILY@1000 06/28/21 06/28/21 History cloBAZam [Clobazam] 20 mg PO BID@1200,0000 06/28/21 06/28/21 History Scopolamine [Scopolamine 1 MG/72 1 patch TRANSDERM Q72H #10 patch 06/29/21 06/28/21 Rx HR patch] Allergies Allergy/AdvReac Type Severity Reaction Status Date / Time amoxicillin trihydrate Allergy Unknown Verified 06/28/21 22:09 [From Augmentin] ceftriaxone sodium Allergy Unknown Verified 06/28/21 22:09 [From Rocephin] cephalexin monohydrate Allergy Unknown Verified 06/28/21 22:09 [From Keflex] Penicillins Allergy Unknown Verified 06/28/21 22:09 phenobarbital Allergy Unknown Verified 06/28/21 22:09 phenytoin sodium Allergy Unknown Verified 06/28/21 22:09 [From Dilantin] phenytoin sodium extended Allergy Unknown Verified 06/28/21 22:09 [From Dilantin] potassium clavulanate Allergy Unknown Verified 06/28/21 22:09 [From Augmentin] Cephalosporins AdvReac Unknown Verified 06/28/21 22:09 lorazepam [From Ativan] AdvReac Unknown Verified 06/28/21 22:09 surgical tape AdvReac hyperpigmentation Uncoded 06/28/21 21:04 of skin Physical Exam Vitals: Vital Signs Temp Pulse Resp BP Pulse Ox 06/29/21 07:53 98.9 F 91 18 93/51 100 06/29/21 06:06 97.8 F 95 20 95/49 97 06/29/21 02:11 71 15 107/69 98 06/28/21 21:08 98.4 F 77 15 92/62 100 Intake and Output 06/28/21 06/29/21 06/29/21 22:59 06:59 14:59 Other: Weight 54.885 kg General appearance: The patient is awake, nonverbal. HET: Head is normocephalic with soft protective helmet. Neck: Supple without lymphadenopathy. Trachea midline. Tracheostomy present Heart: S1 S2. Regular rate and rhythm. Lungs: Clear to auscultation. Abdomen: Soft, nontender, nondistended.. No guarding or rigidity. PEG tube present.Skin: No rashes. No jaundice. Extremities: Normal skin color and turgor. No pedal edema. Neurological: patient with mental retardation and nonverbal. Results CBC & Chem 7: 06/29/21 11:30 06/28/21 21:29 Labs: Abnormal Lab Results - Last 24 Hours (Table) 06/28/21 06/28/21 06/28/21 Range/Units 21:29 21:29 21:29 RBC 2.73 L (4.30-5.90) m/uL Hgb 9.6 L (13.0-17.5) gm/dL Hct 28.8 L (39.0-53.0) % MCV 105.4 H (80.0-100.0) fL RDW 17.2 H (11.5-15.5) % APTT 21.8 L (22.0-30.0) sec Chloride 114 H (98-107) mmol/L Total Protein 6.2 L (6.3-8.2) g/dL Albumin 3.3 L (3.5-5.0) g/dL Assessment and Plan (1) Anemia Narrative/Plan: 30-year-old male with multiple comorbidities including history of mental retardation, autism, significant seizure disorder and reported history of peptic ulcer disease came into the emergency department brought in by his aunt who is his cook frozen dessert who reported that she saw some dark red blood in his PEG tube. She states that he has been recently treated for anemia and has been on iron but states that she believes that he may have some GI bleed and wanted further evaluation. Once hospitalized he is had no further GI bleed. Hemoglobin on admission was 9.6 and today remains 9.6. Nursing has reported no further signs of GI bleed although gastric occult was positive. Patient has a tracheostomy as well as a PEG tube in place. He is nonverbal. Abdomen had been soft with no guarding or rigidity with palpation. No planned then endoscopic evaluation. Continue to monitor for signs and symptoms of GI bleed. Current Visit: Yes Status: Acute Code(s): D64.9 - ANEMIA, UNSPECIFIED SNOMED Code(s): 315386732 (2) Seizure disorder Current Visit: No Status: Acute Code(s): G40.909 - EPILEPSY, UNSP, NOT INTRACTABLE, WITHOUT STATUS EPILEPTICUS SNOMED Code(s): 567781706 Plan: 1. Continue symptomatic and supportive care 2. Continue to monitor for signs and symptoms of GI bleed. 3. Protonix 40 mg daily 4. No plan for an endoscopic evaluation Thank you for allowing us to participate in the care of the patient, the GI service will sign off, gastroenterology will not be available at the hospital this weekend and through next week. If further evaluation by gastroenterology is required the patient will need transfer as per the primary team's discretion. Dr. Talia Trammell I agree with the dictator's note, documented as a scribe by Nany Portillo.
[2021-06-29] MEDS: levETIRAcetam ORAL SOLN 500 MG/5 ML CUP PEG/G-TUBE SCH (16:00)
[2021-06-29] MEDS: ACETAMINOPHEN SUPPOSITORY 650 MG SUPP RECTAL PRN (16:36)
[2021-06-29] MEDS: LACOSAMIDE 50 MG TABLET PEG/G-TUBE SCH (16:48)
[2021-06-29] MEDS: polyethylene glycoL 3350 17 GM POWD.PACK PEG/G-TUBE SCH (16:48)
[2021-06-29] MEDS: LACTULOSE 20 GM/30 ML CUP PO SCH (16:49)
[2021-06-29] MEDS: clonazePAM 1 MG TAB PEG/G-TUBE SCH (16:50)
[2021-06-29] MEDS ORDERED: SODIUM CHLORIDE 0.9% 1,000 ML IV ONE (18:32)
--- NOTE | 2021-06-29 19:23 | XR ---
EXAMINATION TYPE: XR chest 1V portable DATE OF EXAM: 06/29/2021 COMPARISON: 09/05/2020 HISTORY: Possible infection. Cough TECHNIQUE: Single view FINDINGS: There is tracheostomy tube. Heart is normal. There is left axillary pacemaker noted. There is no pleural effusion. There are no hilar masses. IMPRESSION: No active cardiopulmonary disease there is improved inspiration compared to old exam.
[2021-06-29 20:04] LABS: Folate, Serum >20.00 ng/mL (4.40-31.00)
[2021-06-30] MEDS ORDERED: CANNABIDIOL PEG/G-TUBE SCH
[2021-06-30] MEDS: PATIENT'S OWN (Clobazam [Clobazam] 20 MG Tablet) PO SCH ×3 (02:48→23:47)
[2021-06-30] MEDS: clonazePAM 1 MG TAB PEG/G-TUBE SCH ×4 (02:49→23:43)
[2021-06-30] MEDS: PYRIDOXINE 50 MG TAB PO SCH ×2 (02:49→23:49)
[2021-06-30] MEDS: LACTULOSE 20 GM/30 ML CUP PO SCH ×4 (02:50→23:42)
[2021-06-30] MEDS: LACOSAMIDE 50 MG TABLET PEG/G-TUBE SCH ×3 (02:50→16:14)
[2021-06-30] MEDS: levETIRAcetam ORAL SOLN 500 MG/5 ML CUP PEG/G-TUBE SCH ×4 (02:50→23:48)
[2021-06-30] MEDS: polyethylene glycoL 3350 17 GM POWD.PACK PEG/G-TUBE SCH ×4 (02:50→23:43)
[2021-06-30] MEDS: PANTOPRAZOLE 40 MG/10 ML VIAL IV SCH (08:37)
[2021-06-30 08:39] LABS: INR 0.9 (<1.2); Prothrombin Time 10.1 sec (9.0-12.0)
[2021-06-30 08:48] LABS: Glucose,Whole Blood 75 mg/dL (75-99)
[2021-06-30] MEDS ORDERED: levETIRAcetam IV 500 MG in SODIUM CHLORIDE 0.9% 100 ML IVPB STA (08:52)
[2021-06-30] MEDS ORDERED: SODIUM CHLORIDE 0.9% 500 ML 500 ML IV ONE (08:52)
[2021-06-30] MEDS ORDERED: DEXTROSE 50% SYRINGE 50 ML IVP STA (08:52)
[2021-06-30] MEDS ORDERED: DEXLANSOPRAZOLE 60 MG PEG/G-TUBE SCH (10:00)
[2021-06-30] MEDS ORDERED: [UNRECOGNIZED DRUG - OTHER] PEG/G-TUBE SCH (10:00)
--- NOTE | 2021-06-30 10:55 | P.CNNES ---
History of Present Illness Consult date: 06/30/21 Requesting physician: Tobin Ugalde Reason for Consult: seizure History of Present Illness: This is a 30-year-old gentleman with medical history of autism, seizure, developmental delay, constipation, presented emergency department for dark red discoloration on the PEG tube. History was obtained from medical record. It seems that the patient was accompanied by his caregiver who is his hands and was concerned about the GI bleed. Neurology consulted for the patient history of seizures. No seizures reported on presentation. Patient is nonverbal at baseline per nurse and seems severely developmental delay. Per nurse it seems family having difficulty taking care of patient. Regarding the seizures the patient is on Keppra 14 mm by PEG tube he times a day. Vimpat 200 mg once he times a day, clonazepam 20 mg 1 tablet twice a day, Clobazam 20mg 1 tab bid, CBD capsule 750mg daily, Banzel 1200mg daily and 1600mg qhs, Valium 5 mg daily when necessary. Patient is also on folic acid 1 mg daily, Vitamin B6 1 tab daily. 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 Patient has history of a PEG and a trach tube and he is nonverbal. Some of the work-up consisted of: Initial vital signs his blood pressure of 92/62, heart rate of 77, respiratory of 15, temperature of 98.4 Fahrenheit axillary and pulse ox of 100% room air. Blood cell is 7.2 thousand, platelets of 359,000. Immobile but is not 0.6 and hematocrit is 28.8. AST 26, ALT 14, sodium is 144, creatinine is 1.05, serum glucose 95, plasma lactic acid vein is 21.1. Gastric occult blood is positive. Berry virus PCR was not detected. Review of Systems View of system is limited by the prone positive and negative as per HPI. Past Medical History Past Medical History: Asthma, Renal Disease, Seizure Disorder Additional Past Medical History / Comment(s): Developmental delay, Autism, daily seizures, Joss Gasteat Seizures, last Grand mal Seizure (Status Epilepticus Dec 05 2017) has trach, PEG Tube, urinary retention, chronic constipation. Hx ulcers. Tenses up, clenches fists, shakes, a lot, screeches when excited, has a strong upper body. Arms are permanently bent, he walks on toes. "Flight Risk." History of Any Multi-Drug Resistant Organisms: VRE Date of last positivie culture/infection: 10/10/19 MDRO Source:: VRE URINE Additional Past Surgical History / Comment(s): Vagal nerve stimulator, left UPJ endopylotomy, embolist surgery (renal artery), heel cord lengthening, transurethral bladder neck and prostate incision 09/22/2019. Traceostomy. PEG Tube palced. Exploratory Laprotomy. Past Anesthesia/Blood Transfusion Reactions: No Reported Reaction Past Psychological History: ADD/ADHD Smoking Status: Never smoker Past Alcohol Use History: None Reported Past Drug Use History: None Reported - Past Family History Mother Additional Family Medical History / Comment(s): of Suicide at 22. Medications and Allergies Home Medications Medication Instructions Recorded Confirmed Type Lacosamide [Vimpat] 200 mg PEG/G-TUBE 08/26/15 06/28/21 History TID@1000,1700,0000 Folic Acid 1 mg PEG/G-TUBE DAILY@1000 12/28/18 06/28/21 History clonazePAM [KlonoPIN] 1 mg PEG/G-TUBE TID@1000,1700,0000 12/28/18 06/28/21 History levETIRAcetam [Keppra Oral 14 ml PEG/G-TUBE TID@1000,1700,0000 12/28/18 06/28/21 History Solution] polyethylene glycoL 3350 [Miralax] 17 gm PEG/G-TUBE TID@1000,1700,0000 12/28/18 06/28/21 History Dexlansoprazole [Dexilant] 60 mg PEG/G-TUBE DAILY@1000 09/20/19 06/28/21 History Tamsulosin [Flomax] 0.4 mg PEG/G-TUBE DAILY@1000 09/20/19 06/28/21 History Cbd Capsule 750 mg PEG/G-TUBE HS@0000 06/30/20 06/28/21 History Lactulose 30 gm PO TID@1000,1700,0000 06/30/20 06/28/21 History Banzel 400mg 1,200 mg PEG/G-TUBE DAILY@1200 09/05/20 06/28/21 History Banzel 400mg 1,600 mg PEG/G-TUBE HS@0000 09/05/20 06/28/21 History Pyridoxine HCl (Vitamin B6) 100 mg PO HS@0000 09/05/20 06/28/21 History [Vitamin B-6] Diazepam [Valium] 5 mg PO DAILY PRN 06/28/21 06/28/21 History Vitamin B-6 Complex 1 tab PEG/G-TUBE DAILY@1000 06/28/21 06/28/21 History cloBAZam [Clobazam] 20 mg PO BID@1200,0000 06/28/21 06/28/21 History Scopolamine [Scopolamine 1 MG/72 1 patch TRANSDERM Q72H #10 patch 06/29/21 06/28/21 Rx HR patch] Allergies Allergy/AdvReac Type Severity Reaction Status Date / Time amoxicillin trihydrate Allergy Unknown Verified 06/28/21 22:09 [From Augmentin] ceftriaxone sodium Allergy Unknown Verified 06/28/21 22:09 [From Rocephin] cephalexin monohydrate Allergy Unknown Verified 06/28/21 22:09 [From Keflex] Penicillins Allergy Unknown Verified 06/28/21 22:09 phenobarbital Allergy Unknown Verified 06/28/21 22:09 phenytoin sodium Allergy Unknown Verified 06/28/21 22:09 [From Dilantin] phenytoin sodium extended Allergy Unknown Verified 06/28/21 22:09 [From Dilantin] potassium clavulanate Allergy Unknown Verified 06/28/21 22:09 [From Augmentin] Cephalosporins AdvReac Unknown Verified 06/28/21 22:09 lorazepam [From Ativan] AdvReac Unknown Verified 06/28/21 22:09 surgical tape AdvReac hyperpigmentation Uncoded 06/28/21 21:04 of skin Physical Examination - Vital Signs Vital Signs: Vital Signs Temp Pulse Pulse Resp BP BP Pulse Ox 06/30/21 08:55 78 95/50 06/30/21 08:38 98.7 F 78 20 91/41 100 06/30/21 08:02 97 06/30/21 03:52 96 06/30/21 03:00 98.6 F 86 22 120/70 96 06/29/21 23:30 98.0 F 82 22 102/60 96 06/29/21 21:30 85 20 102/57 98 06/29/21 21:00 97.7 F 97 22 91/51 06/29/21 16:04 98.9 F 117 H 28 H 88/58 06/29/21 14:46 98.7 F 87 16 95/54 97 GENERAL: The patient is lying in bed and does not seem in acute distress. CHEST: The heart rate is regular rate rhythm. No murmurs to auscultation. No carotid bruit bilaterally. LUNG: Clear to auscultation bilaterally no wheezing noted throughout. Not labor ed breathing. Has trach. ABDOMEN/GI: Bowel sounds present in all 4 quadrants. No tenderness to palpation throughout.. Has PEG. NEUROLOGICAL: Higher mental function: The patient is awake. But not is nonverbal and not following commands. Cranial nerves: The pupils are round, equal and reactive to light. Extraocular movement is tracking throughout the room and no appreciable nystagmus. No fa cial weakness. Otherwise rest is limited. Motor: The strength is lifting bilateral upper extremities above gravity and bending his knees at beds. Has decrease tone over wrist and hand bilaterally. Cerebellum: Could not assess. Sensation: Could not assess. Reflexes (right/left): 2+ throughout. Plantars are mute bilaterally. Results - Laboratory Findings CBC and BMP: 06/29/21 11:30 06/28/21 21:29 Abnormal Lab Findings: Abnormal Labs 06/28/21 06/28/21 06/28/21 21:29 21:29 21:29 RBC 2.73 L Hgb 9.6 L Hct 28.8 L MCV 105.4 H MCH RDW 17.2 H Macrocytosis APTT 21.8 L Chloride 114 H Plasma Lactic Acid Antonio Total Protein 6.2 L Albumin 3.3 L 06/29/21 06/29/21 11:30 17:19 RBC 2.68 L Hgb 9.6 L Hct 29.0 L MCV 108.0 H MCH 35.7 H RDW 17.9 H Macrocytosis Marked A APTT Chloride Plasma Lactic Acid Antonio 21.1 H* Total Protein Albumin Assessment and Plan Assessment: History of seizures and is on multiple antiepileptic drugs. Chronic anemia. Rule out acute GI bleed. Autism Developmental delay (seems severe) History of peptic ulcer disease PEG tube Tracheostomy Plan: From a neurological perspective the patient needs to follow-up with the his neurologist for further evaluation of the his history of seizures. Continue his home medication of his multiple antiepileptic drugs and will not modify and of his medication and we'll defer to his outpatient neurologist. No further workup needed from a neurological perspective as stated will defer as an outpatient. GI team is on board. Defer the rest of the medical management to the primary team The plan is discussed with the nurse. Thank you for the consultation. Ziggy Hernández MD Neuro-Hospitalist Time with Patient: Greater than 30
[2021-06-30 11:39] LABS: HCT 24.6 % (39.6-50.0); HGB 7.1 g/dL (13.0-17.0); MCH 33.5 pg (27.0-32.0); MCHC 28.9 g/dL (32.0-37.0); Mean Platelet Volume 9.7 fL (9.5-12.2); Platelet Count 253 X 10*3/uL (140-440); RBC 2.12 X 10*6/uL (4.40-5.60); RDW 17.5 % (11.5-14.5)
[2021-06-30 11:58] LABS: African American GFR (CKD) 109.9 (60.0-200.0); Anion Gap 11.6 mmol/L (10.00-18.00); BUN/Creat Ratio 12.29 Ratio (12.00-20.00); Blood Urea Nitrogen 12.9 mg/dL (9.0-27.0); Carbon Dioxide 17.2 mmol/L (20.0-27.5); Non-African American GFR(CKD) 94.8 (60.0-200.0); Potassium 3.8 mmol/L (3.5-5.5)
[2021-06-30] MEDS: SODIUM CHLORIDE 0.9% 1,000 ML IV SCH (12:06)
[2021-06-30 12:23] LABS: Basophils # (A) 0.02 X 10*3/uL (0.00-0.10); Basophils % (A) 0.3 %; Eosinophils # (A) 0.02 X 10*3/uL (0.04-0.35); Eosinophils % (A) 0.3 %; Lymphocytes # (A) 1.18 X 10*3/uL (0.90-5.00); Lymphocytes % (A) 15.9 %; Macrocytosis (M) 2+; Monocytes # (A) 0.54 X 10*3/uL (0.20-1.00); Monocytes % (A) 7.3 %; Neutrophils # (A) 5.61 X 10*3/uL (1.80-7.70); Neutrophils % (A) 75.8 %
[2021-06-30] MEDS: TAMSULOSIN 0.4 MG CAP.ER.24H PO SCH (12:23)
[2021-06-30] MEDS: FOLIC ACID 1 MG TAB PEG/G-TUBE SCH (12:23)
--- NOTE | 2021-06-30 15:39 | P.PN ---
Subjective 30-year-old male with the Doppler and the delay, mental retardation chronic contractures and autism,aunt is caregiver patient has long-standing seizure history was brought in the by the caregiver because of dark is discoloration in the residuals of the PEG tube. She is concerned about GI bleed. Patient didn't have any bowel movement here. Patient hemoglobin is 9.7 patient had history of GI bleeds in the past because of which caregiver is concerned. Patient doesn't have any clinical evidence of GI bleed at this time. We'll repeat hemoglobin today again. Patient has elevated MCV of 104 because of which I'll obtain B12 and folate levels which need to be followed as an outpatient. Patient is nonverbal and unable to obtain any kind of history from the patient. Have chronic constipation as well. 06/30/2021 Patient had a couple seizures yesterday which were brief antiseizure today and this is common for the patient. Patient is on multiple medications for his seizures. Patient is bit hyper and hyponatremic IV fluids will be discontinued patient may need to D5 water. A she is caregiver cannot take of the patient anymore because of which patient related to be placed in a rehab Review of systems: Unable to obtain due to his clinical condition All inpatient medications were reviewed and appropriate changes in these medications as dictated in the interval history and assessment and plan. PHYSICAL EXAMINATION: GENERAL: Thin built with chronic contractures . HEENT: Pupils are round and equally reacting to light. EOMI. No scleral icterus. No conjunctival pallor. Normocephalic, atraumatic. No pharyngeal erythema. No t hyromegaly. CARDIOVASCULAR: S1 and S2 present. No murmurs, rubs, or gallops. PULMONARY: Chest is clear to auscultation, no wheezing or crackles. ABDOMEN: Soft, nontender, nondistended, No palpable organomegaly. PEG tube in place sluggish bowel sounds MUSCULOSKELETAL: No joint swelling or deformity. EXTREMITIES: No cyanosis, clubbing, or pedal edema. NEUROLOGICAL: Diffuse muscle atrophy and chronic contractures SKIN: No rashes. Assessment and plan -Ruled out GI bleed. Patient clinically doesn't have any GI bleed at this time we flushed the PEG tube which is clear. Patient will will be given his medications via PEG tube. We'll recheck the hemoglobin today again patient will be discharged later today -Chronic anemia need to evaluate for B12 and folate deficiency labs of which were ordered, I do not anticipate these lab results back need to be followed as an outpatient. -Intractable seizures for which patient is on multiple medications she'll be continued -Autism -Chronic contractures: Supportive care Objective - Vital Signs Vital signs: Vital Signs Temp 98.6 F 06/30/21 14:00 Pulse 104 H 06/30/21 14:00 Resp 20 06/30/21 14:00 BP 94/57 06/30/21 14:00 Pulse Ox 96 06/30/21 14:00 Intake & Output 06/29/21 06/30/21 06/30/21 18:59 06:59 18:59 Weight 54.885 kg - Labs CBC & Chem 7: 06/30/21 07:58 06/30/21 07:58 Labs: Abnormal Lab Results - Last 24 Hours (Table) 06/29/21 06/30/21 06/30/21 Range/Units 17:19 07:58 07:58 RBC 2.12 L (4.40-5.60) X 10*6/uL Hgb 7.1 L (13.0-17.0) g/dL Hct 24.6 L (39.6-50.0) % MCV 116.0 H (80.0-97.0) fL MCH 33.5 H (27.0-32.0) pg MCHC 28.9 L (32.0-37.0) g/dL RDW 17.5 H (11.5-14.5) % Eosinophils # 0.02 L (0.04-0.35) X 10*3/uL Sodium 150 H (135-145) mmol/L Chloride 121 H (96-109) mmol/L Carbon Dioxide 17.2 L (20.0-27.5) mmol/L Glucose 68 L (70-110) mg/dL Plasma Lactic Acid Antonio 21.1 H* (0.7-2.0) mmol/L Calcium 8.0 L (8.7-10.3) mg/dL
[2021-07-01 00:32] LABS: Glucose,Whole Blood 71 mg/dL (75-99)
[2021-07-01] MEDS ORDERED: LORazepam 2 MG/ML INJ ONE (02:09)
[2021-07-01] MEDS ORDERED: LORazepam 2 MG/ML INJ IV STA ×2 (02:22→02:47)
[2021-07-01] MEDS ORDERED: VALPROATE SODIUM 1,000 MG in SODIUM CHLORIDE 0.9% 50 ML IVPB ONE (02:23)
[2021-07-01] MEDS ORDERED: LACOSAMIDE IV 100 MG in SODIUM CHLORIDE 0.9% 50 ML IVPB STA (02:33)
[2021-07-01] MEDS: LORazepam 2 MG/ML INJ IV STA (02:51)
[2021-07-01 03:02] LABS: Glucose,Whole Blood 84 mg/dL (75-99)
[2021-07-01] MEDS: ACETAMINOPHEN SUPPOSITORY 650 MG SUPP RECTAL PRN (03:10)
[2021-07-01 05:18] LABS: Anisocytosis Slight; HCT 24.9 % (39.0-53.0); HGB 8.4 gm/dL (13.0-17.5); Hypochromasia Slight; MCH 36.8 pg (25.0-35.0); MCHC 33.8 g/dL (31.0-37.0); MCV 108.8 fL (80.0-100.0); Macrocytosis Marked; Mean Platelet Volume 7.5; Platelet Count 338 k/uL (150-450); Poikilocytosis Moderate; RBC 2.29 m/uL (4.30-5.90); RDW 17.9 % (11.5-15.5); WBC 8.2 k/uL (3.8-10.6)
[2021-07-01 05:20] LABS: Albumin 2.9 g/dL (3.5-5.0); Calcium 8.8 mg/dL (8.4-10.2); Magnesium 1.9 mg/dL (1.6-2.3); Potassium 4.1 mmol/L (3.5-5.1); Total Bilirubin 0.3 mg/dL (0.2-1.3); Total Protein 5.6 g/dL (6.3-8.2)
--- NOTE | 2021-07-01 05:29 | P.EN ---
A- team: Indication: Seizure Arrived on Scene to find: Patient having grand mal seizure. Reviewed the chart and discussed the case with RN. The patient is a 30-year-old male, with history of severe developmental delay, nonverbal at baseline with a PMH of refractory seizures, on multiple antiepileptics, was admitted for GI bleeding. The patient began having grand mal seizures at roughly 1:30 AM today. While at the scene, the patient had roughly 10 seizures, to 3 minutes apart, grand mal in nature, lasting for 20-30 seconds at a time. I discussed the case in great detail with neurologist nursing information systems coordinator Dr. Edgar Trinh who recommended loading doses of Depakote and Vimpat along with Ativan IV push. Furthermore, it was recommended that patient be transferred to a tertiary care facility for continuous EEG monitoring due to concerns for status epilepticus. The case was also discussed with the patient's aunt (Kaylynn, legal guardian), who noted that he has a significant history of refractory seizures and he typically has 5-7 seizures per day at baseline. Patient seen and examined at bedside. Vital signs reviewed General: Chronically ill appearing male, intermittent grand-mal seizures, [appears at stated age] Derm: [warm], [dry] Head: [atraumatic], [normocephalic], [symmetric] Eyes: [anicteric sclera] Mouth: [no lip lesion], [mucus membranes moist] Cardiovascular: [S1S2 reg], tachycardic, [no murmur], [positive posterior tibial pulse bilateral], Lungs: [CTA bilateral], [no rhonchi, no rales] , [no accessory muscle use] Abdominal: [soft], [nontender to palpation], PEG tube in place Ext: [no gross muscle atrophy], [no edema], [no contractures] Neuro: Unable to assess, patient unresponsive to noxious stimuli, intermittent grand-mal seizures Psych: Unable to assess Assessment: Breakthrough tonic-clonic seizures w/ concerns for status epilepticus -Status post Depakote 1000 mg IV, Vimpat 100 mg IV -Transferred to ICU Notified: Family, Neurologist A Total of 45 minutes of critical care time was spent on the complex care of this patient.
[2021-07-01 06:09] LABS: Glucose,Whole Blood 80 mg/dL (75-99)
[2021-07-01] MEDS: PANTOPRAZOLE 40 MG/10 ML VIAL IV SCH (08:33)
[2021-07-01] MEDS: LACOSAMIDE 50 MG TABLET PEG/G-TUBE SCH ×2 (08:35→10:38)
[2021-07-01] MEDS: clonazePAM 1 MG TAB PEG/G-TUBE SCH (08:38)
[2021-07-01] MEDS: TAMSULOSIN 0.4 MG CAP.ER.24H PO SCH (08:38)
[2021-07-01] MEDS: FOLIC ACID 1 MG TAB PEG/G-TUBE SCH (08:38)
[2021-07-01] MEDS: polyethylene glycoL 3350 17 GM POWD.PACK PEG/G-TUBE SCH (08:39)
[2021-07-01] MEDS: LACTULOSE 20 GM/30 ML CUP PO SCH (08:39)
[2021-07-01] MEDS ORDERED: VALPROATE SODIUM 500 MG in SODIUM CHLORIDE 0.9% 100 ML IVPB SCH (09:00)
[2021-07-01] MEDS: levETIRAcetam ORAL SOLN 500 MG/5 ML CUP PEG/G-TUBE SCH (10:20)
--- NOTE | 2021-07-01 10:47 | P.PN ---
Subjective Progress Note Date: 07/01/21 I was notified by the patient's nurse today between 1:30 to 3am that the patient was having recurrent seizures and was in status. He was having grand mal seizure and was noted the was at 1:30 and it seems that the patient had 10 seizures 3 minutes apart lasting 20-30 seconds. Then was becoming more freq uent. Patient received the Ativan 8 mg and total as a result. I notified them the to load the patient with Depakote at thousand milligram once and did start him on Depakote 500mg every 12 hours which was ordered. Also since the patient was having frequent seizures and the patient was transferred to ICU and the recommended the sedation to control his status and consider transfer for usp EEG. Dr. Zamora (A-team) spoke with the family members and the patient has significant refractory seizures and he typically has 5-7 seizures per day at baseline. Family member refused for the patient to be on IV sedation and the addition and they decided to move forward with comfort care measure. Objective - Vital Signs Vital signs: Vital Signs Temp 99.7 F H 07/01/21 08:00 Pulse 114 H 07/01/21 08:00 Resp 16 07/01/21 08:00 BP 95/48 07/01/21 08:00 Pulse Ox 96 07/01/21 08:05 Intake & Output 06/30/21 07/01/21 07/01/21 18:59 06:59 18:59 Intake Total 209 59 Output Total 0 0 Balance 209 59 Intake: Intake, IV Titration 150 Amount Lacosamide IV 100 mg In 100 Sodium Chloride 0.9% 50 ml @ 100 mls/hr IVPB ONCE STA Rx#:[id number] Valproate Sodium 1,000 mg 50 In Sodium Chloride 0.9% 50 ml @ 50 mls/hr IVPB ONCE ONE Rx#:[id number] Tube Feeding 59 59 Output: Urine 0 0 Other: Voiding Method Diaper Incontinent # Voids 2 - Exam GENERAL: The patient is lying in bed and does not seem in acute distress. LUNG: Has trach. Is not in respiratory distress. ABDOMEN/GI: Has PEG. NEUROLOGICAL: Higher mental function: The patient is comatose. Is no awake or following commands. At baseline he is non-verbal. Cranial nerves: Manually opened his eyes and primary gaze is midline. The pupils are round, equal and reactive to light. No facial weakness. Otherwise rest is limited. Motor: The strength is limited and no movement noted. Has decrease tone over wrist and hand bilaterally Decrease bulk throughout.. Cerebellum: Could not assess. Sensation: Could not assess light touch. - Labs CBC & Chem 7: 07/01/21 04:50 07/01/21 04:50 Labs: Abnormal Lab Results - Last 24 Hours (Table) 06/30/21 06/30/21 07/01/21 Range/Units 07:58 07:58 00:21 RBC 2.12 L (4.40-5.60) X 10*6/uL Hgb 7.1 L (13.0-17.0) g/dL Hct 24.6 L (39.6-50.0) % MCV 116.0 H (80.0-97.0) fL MCH 33.5 H (27.0-32.0) pg MCHC 28.9 L (32.0-37.0) g/dL RDW 17.5 H (11.5-14.5) % Eosinophils # 0.02 L (0.04-0.35) X 10*3/uL Macrocytosis Sodium 150 H (135-145) mmol/L Chloride 121 H (96-109) mmol/L Carbon Dioxide 17.2 L (20.0-27.5) mmol/L Creatinine (0.66-1.25) mg/dL Glucose 68 L (70-110) mg/dL POC Glucose (mg/dL) 71 L (75-99) mg/dL Calcium 8.0 L (8.7-10.3) mg/dL Total Protein (6.3-8.2) g/dL Albumin (3.5-5.0) g/dL 07/01/21 07/01/21 Range/Units 04:50 04:50 RBC 2.29 L (4.40-5.60) X 10*6/uL Hgb 8.4 L (13.0-17.0) g/dL Hct 24.9 L (39.6-50.0) % MCV 108.8 H (80.0-97.0) fL MCH 36.8 H (27.0-32.0) pg MCHC (32.0-37.0) g/dL RDW 17.9 H (11.5-14.5) % Eosinophils # (0.04-0.35) X 10*3/uL Macrocytosis Marked A Sodium (135-145) mmol/L Chloride 118 H (96-109) mmol/L Carbon Dioxide 18 L (20.0-27.5) mmol/L Creatinine 1.27 H (0.66-1.25) mg/dL Glucose 72 L (70-110) mg/dL POC Glucose (mg/dL) (75-99) mg/dL Calcium (8.7-10.3) mg/dL Total Protein 5.6 L (6.3-8.2) g/dL Albumin 2.9 L (3.5-5.0) g/dL Microbiology - Last 24 Hours (Table) 06/29/21 17:19 Blood Culture - Preliminary Blood No Growth after 24 hours Assessment and Plan Assessment: Status epilepticus Medical Refractory seizure (on numerous antiepileptic drugs. At baseline has 5- 7 seizures per day). Chronic anemia. Rule out acute GI bleed. Autism Severe Developmental delay (non-verbal) History of peptic ulcer disease PEG tube Tracheostomy Plan: Continue his home medication of Keppra 14 mm by PEG tube he times a day. Vimpat 200 mg once he times a day, clonazepam 20 mg 1 tablet twice a day, Clobazam 20mg 1 tab bid, CBD capsule 750mg daily, Banzel 1200mg daily and 1600mg qhs. Also added Depakote 500mg every 12 hours. Family would like to pursue with comfort care measures. They do not want any IV sedation, do want any ventilator. The plan is discussed with the nurse. Neurology will sign off. Please reconsult if needed. Ziggy Hernández MD Neuro-Hospitalist Time with Patient: Less than 30
[2021-07-01 10:56] VITALS: RESP 20
[2021-07-01 12:41] VITALS: PULSE 114
[2021-07-01] MEDS: PATIENT'S OWN (Clobazam [Clobazam] 20 MG Tablet) PO SCH (12:55)
[2021-07-01] MEDS ORDERED: BANZEL 400 MG PEG/G-TUBE SCH (13:30)
--- NOTE | 2021-07-01 13:35 | P.DS ---
Providers Date of admission: 06/30/21 16:58 Attending physician: Rakesh Haji Consults: 06/29/21 18:35 Consult Physician Routine Consulting Provider: Alessia Evans Consult Reason/Comments: seizures Do you want consulting provider notified?: Yes 07/01/21 03:01 Consult Physician Routine Consulting Provider: Chase Schafer Consult Reason/Comments: ICU management, airway protection Do you want consulting provider notified?: Already Contacted Primary care physician: Ortiz Mace Hospital Course: Final Diagnosis -Status Epilepticus -Intractable seizures for which patient is on multiple medications -Ruled out GI bleed. Patient clinically doesn't have any GI bleed at this time we flushed the PEG tube which is clear -Chronic anemia, B12 and Folate WNL -Autism, with severe developmental delay; nonverbal -Chronic contractures: Supportive care -Peg Tube -Tracheostomy Discharge Disposition Patient is discharged from inpatient medical services and will be opened to [facility] with hospice. Hospital Course This is a 30-year-old male with autism and developmental delay, chronic contractures that was brought in by his aunt who is his caregiver is a dark discoloration and residuals in his PEG tube. Denied nausea vomiting. Patient with a past medical history significant for long-standing seizures on multiple medications, he has a PEG tube and tracheostomy as well. Patient's aunt is also his legal guardian. There was not any clinical evidence of GI bleed at this time, his PEG tube was flushed and it was clear. He does have chronic constipation. Patient is nonverbal and was unable to obtain any History from the patient. Labs on admission include white count of 7.2, hemoglobin 9.6, platelet count 359, INR is 0.8, sodium 144, potassium 3.8, chloride 114, BUN 19, creatinine 1.05, sugars are in the 80s, lactic acid 0.9, AST 26, ALT 14, albumin 6.2, B12 644 and folate less than 20. Gastric occult was positive and Covid PCR was not detected. He was evaluated by GI services who recommended Protonix 40 mg daily and did not recommend endoscopic evaluation at this time. Hemoglobin was stable this admission, dropped to 7.1 and then resolved up to 8.4. Patient was hydrated. Vital signs include a temp of 99.7 axillary, heart rate ranging from 114-56, blood pressures are in the low 80s over 30s up to the high 90s over 40s, he is oxygen saturation about 96% on 10L with an Fi02 of 98% via tracheostomy. There was a rapid response conducted bpm architect on 07/01/2021, the patient was having ongoing seizures that was most likely status epilepticus, as the patient was having 10 seizures about 3 minutes apart lasting 20-30 seconds; more frequent. Patient was started on Depakote, given IV push Ativan and because of the frequency of seizures was transferred to ICU. Versed infu jacy was ordered as well as mechanical ventilation. Patient's caregiver and legal guardian refused infusion and intubation and they wished to proceed with comfort care and hospice measures. Patient generally has about 5-7 seizures per day at baseline. Neurology has signed off the case as family would like to pursue comfort measures at this time. 07/01/2021 Patient evaluated today at bedside in the ICU. He has been downgraded to the medical floor as he will not be started on IV sedation infusion, and family had wished to pursue comfort measures. It seemed that the seizures had started to s low down however the nurse stated that around 10 AM the seizures had seemed to start to pick back up again. Patient's is also hypotensive at this time 82/34 and because he will be made comfort care we are not going to aggressively treat this blood pressure. Hemoglobin appears stable today 8.4, there are no signs of acute bleeding. Lung sounds are coarse. Spoke with hospice, and we will begin to transition patient to [facility]. Called patients Legal guardian to update and left a voicemail. Thank you for allowing us to participate in the care of this patient. Patient Condition at Discharge: Fair Plan - Discharge Summary Discharge Rx Participant: No New Discharge Prescriptions: Continue Lacosamide [Vimpat] 200 mg PEG/G-TUBE TID@1000,1700,0000 polyethylene glycoL 3350 [Miralax] 17 gm PEG/G-TUBE TID@1000,1700,0000 Folic Acid 1 mg PEG/G-TUBE DAILY@1000 levETIRAcetam [Keppra Oral Solution] 14 ml PEG/G-TUBE TID@1000,1700,0000 clonazePAM [KlonoPIN] 1 mg PEG/G-TUBE TID@1000,1700,0000 Tamsulosin [Flomax] 0.4 mg PEG/G-TUBE DAILY@1000 Dexlansoprazole [Dexilant] 60 mg PEG/G-TUBE DAILY@1000 Cbd Capsule 750 mg PEG/G-TUBE HS@0000 Lactulose 30 gm PO TID@1000,1700,0000 Banzel 400mg 1,200 mg PEG/G-TUBE DAILY@1200 Pyridoxine HCl (Vitamin B6) [Vitamin B-6] 100 mg PO HS@0000 Banzel 400mg 1,600 mg PEG/G-TUBE HS@0000 cloBAZam [Clobazam] 20 mg PO BID@1200,0000 Vitamin B-6 Complex 1 tab PEG/G-TUBE DAILY@1000 Scopolamine [Scopolamine 1 MG/72 HR patch] 1 patch TRANSDERM Q72H #10 patch Diazepam [Valium] 5 mg PO DAILY PRN PRN Reason: AGGRESSION Discharge Medication List Lacosamide [Vimpat] 200 mg PEG/G-TUBE TID@1000,1700,0000 08/26/15 [History] Folic Acid 1 mg PEG/G-TUBE DAILY@1000 12/28/18 [History] clonazePAM [KlonoPIN] 1 mg PEG/G-TUBE TID@1000,1700,0000 12/28/18 [History] levETIRAcetam [Keppra Oral Solution] 14 ml PEG/G-TUBE TID@1000,1700,0000 12/28/18 [History] polyethylene glycoL 3350 [Miralax] 17 gm PEG/G-TUBE TID@1000,1700,0000 12/28/18 [History] Dexlansoprazole [Dexilant] 60 mg PEG/G-TUBE DAILY@1000 09/20/19 [History] Tamsulosin [Flomax] 0.4 mg PEG/G-TUBE DAILY@1000 09/20/19 [History] Cbd Capsule 750 mg PEG/G-TUBE HS@0000 06/30/20 [History] Lactulose 30 gm PO TID@1000,1700,0000 06/30/20 [History] Banzel 400mg 1,200 mg PEG/G-TUBE DAILY@1200 09/05/20 [History] Banzel 400mg 1,600 mg PEG/G-TUBE HS@0000 09/05/20 [History] Pyridoxine HCl (Vitamin B6) [Vitamin B-6] 100 mg PO HS@0000 09/05/20 [History] Diazepam [Valium] 5 mg PO DAILY PRN 06/28/21 [History] Vitamin B-6 Complex 1 tab PEG/G-TUBE DAILY@1000 06/28/21 [History] cloBAZam [Clobazam] 20 mg PO BID@1200,0000 06/28/21 [History] Scopolamine [Scopolamine 1 MG/72 HR patch] 1 patch TRANSDERM Q72H #10 patch 06/29/21 [Rx] Follow up Appointment(s)/Referral(s): Rodri Alcantar MD [Primary Care Provider] - 3 Days Patient Instructions/Handouts: Gastrointestinal Bleeding (ED) Activity/Diet/Wound Care/Special Instructions: Gracy
[2021-07-01 14:08] VITALS: BP 84/34; TEMP 103.4
[2021-07-01] MEDS ORDERED: CANNABIDIOL PO SCH (21:00)
[2021-07-02] MEDS ORDERED: BANZEL 400 MG PEG/G-TUBE SCH
== END 2021-07-01 14:24 | disposition other institution (70) | DRG 101 ==
LOC: EC 21:00 → 4SSUR 06-29 06:39 → OBSVTOIN 06-30 16:58 → 4SSUR 06-30 22:37 → 2SICU 07-01 02:33
PROVIDERS: ADMIT Hospitalist; ATTEND Hospitalist
DX: G40.411 Other generalized epilepsy and epileptic syndromes, intractable, with status epilepticus (principal); E87.1 Hypo-osmolality and hyponatremia; F84.0 Autistic disorder; Z16.24 Resistance to multiple antibiotics; D64.9 Anemia, unspecified; Z20.822 Contact with and (suspected) exposure to COVID-19; F79 Unspecified intellectual disabilities; F90.9 Attention-deficit hyperactivity disorder, unspecified type; K59.09 Other constipation; M24.59 Contracture, other specified joint; F90.2 Attention-deficit hyperactivity disorder, combined type; N28.9 Disorder of kidney and ureter, unspecified; Z96.82 Presence of neurostimulator; Z93.0 Tracheostomy status; Z93.1 Gastrostomy status; Z87.11 Personal history of peptic ulcer disease; Z79.899 Other long term (current) drug therapy; Z51.5 Encounter for palliative care; I95.9 Hypotension, unspecified; R00.0 Tachycardia, unspecified; R33.9 Retention of urine, unspecified; R11.10 Vomiting, unspecified; R62.50 Unspecified lack of expected normal physiological development in childhood; J45.909 Unspecified asthma, uncomplicated
CPT/HCPCS: 36415; 71045; 80048; 80053; 82271; 82607; 82746; 82747; 83605; 83735; 85025; 85027; 85610; 85730; 86850; 86900; 86901; 87040; 87635; 94760; 99285

== ENCOUNTER 2021-07-01 13:02 | Inpatient (IN) | payer MEDICAID ==
[2021-07-01] MEDS ORDERED: ATROPINE OPHTH SOLN 1% 5ML BTL SUBLINGUAL PRN (13:48)
[2021-07-01] MEDS ORDERED: GLYCOPYRROLATE 0.2 MG/ML 2 ML VIAL IVP PRN (13:48)
[2021-07-01] MEDS ORDERED: LORazepam 2 MG/ML INJ IV PRN (13:48)
[2021-07-01] MEDS ORDERED: MORPHINE SULFATE 2 MG/ML SYRINGE IV PRN (13:48)
[2021-07-01] MEDS ORDERED: SCOPOLAMINE 1.5MG/72HR PATCH TRANSDERM SCH (14:00)
[2021-07-01] MEDS ORDERED: diazePAM 5 MG TAB PO PRN (14:21)
[2021-07-01] MEDS: MORPHINE SULFATE (100 MG/2 ML) 100 MG in SODIUM CHLORIDE 0.9% 100 ML IV SCH (14:59)
[2021-07-01] MEDS: levETIRAcetam ORAL SOLN 500 MG/5 ML CUP PEG/G-TUBE SCH ×2 (15:04→23:16)
[2021-07-01 15:26] VITALS: PULSE 130
[2021-07-01] MEDS: LACOSAMIDE 50 MG TABLET PO SCH ×2 (15:31→21:47)
[2021-07-01] MEDS: clonazePAM 1 MG TAB PO SCH ×2 (15:31→21:47)
[2021-07-01] MEDS: ACETAMINOPHEN SUPPOSITORY 650 MG SUPP RECTAL PRN (15:32)
[2021-07-01] MEDS ORDERED: LORazepam Vial 25 MG in DEXTROSE 5% IN WATER 238 ML IV SCH ×2 (18:00)
[2021-07-01] MEDS: VALPROATE SODIUM 500 MG in SODIUM CHLORIDE 0.9% 100 ML IVPB SCH (22:17)
--- NOTE | 2021-07-01 23:45 | P.HPIM ---
History of Present Illness H&P Date: 07/01/21 Chief Complaint: Epilepsy; open for GIP This is a 30-year-old male with autism and developmental delay, chronic contractures that was brought in by his aunt on 06/30/2021 for concern of dark discoloration and residuals in his PEG tube. Denied nausea vomiting. Patient with a past medical history significant for long-standing seizures on multiple medications, he has a PEG tube and tracheostomy as well. Patient's aunt is also his legal guardian. There was not any clinical evidence of GI bleed at this time, his PEG tube was flushed and it was clear. He does have chronic constipation. Patient is nonverbal and was unable to obtain any History from the patient. Labs on admission include white count of 7.2, hemoglobin 9.6, platelet count 359, INR is 0.8, sodium 144, potassium 3.8, chloride 114, BUN 19, creatinine 1.05, sugars are in the 80s, lactic acid 0.9, AST 26, ALT 14, albumin 6.2, B12 644 and folate less than 20. Gastric occult was positive and Covid PCR was not detected. He was evaluated by GI services who recommended Protonix 40 mg daily and did not recommend endoscopic evaluation at this time. Hemoglobin was stable this admission, dropped to 7.1 and then resolved up to 8.4. Patient was hydrated. There was a rapid response conducted bondactor machine operator on 07/01/2021, the patient was having ongoing seizures that was most likely status epilepticus, as the patient was having 10 seizures about 3 minutes apart lasting 20-30 seconds; more frequent. Patient was started on Depakote, given IV push Ativan and because of the frequency of seizures was transferred to ICU. Versed infusion was ordered as well as mechanical ventilation. Patient's caregiver and legal guardian refused infusion and intubation and they wished to proceed with comfort care and hospice measures. Patient generally has about 5-7 seizures per day at baseline. Neurology has signed off the case as family would like to pursue comfort measures at this time. Patient was subsequently opened with hospice inpatient and transerred out of the ICU to the medical floor. Patient apparently had 4 seizures in a row upon arrival to the unit despite receiving Keppra, Vimpat, Klonopin, Valium, Ativan, and Banzel for seizure control. Patient was then started on ativan Gtt in addition to morphine Gtt. Vitals reviewed: Temp 102.6 axillary, heart rate 130, respirations 38, blood pressure 92/40, oxygen saturation 92% on 15L oxygen. REVIEW OF SYSTEMS: Unable to obtain due to his clinical condition PHYSICAL EXAMINATION: GENERAL: Thin built with chronic contractures . HEENT: Pupils are round and equally reacting to light. EOMI. No scleral icterus. No conjunctival pallor. Normocephalic, atraumatic. No pharyngeal erythema. No thyromegaly. CARDIOVASCULAR: S1 and S2 present. No murmurs, rubs, or gallops. PULMONARY: There are some coarse lung sounds scattered posteriorly ABDOMEN: Soft, nontender, nondistended, No palpable organomegaly. PEG tube in place sluggish bowel sounds MUSCULOSKELETAL: No joint swelling or deformity. EXTREMITIES: No cyanosis, clubbing, or pedal edema. NEUROLOGICAL: Diffuse muscle atrophy and chronic contractures SKIN: No rashes. Assessment and Plan Assessment -Status Epilepticus -Refractory seizures for which patient is on multiple medications -Ruled out GI bleed -Chronic anemia, B12 and Folate WNL -Autism, with severe developmental delay; nonverbal -Chronic contractures: Supportive care -Peg Tube -Tracheostomy Plan Continue with Morphine gtt and IVP morphine for breakthrough Continue with Ativan gtt with IVP ativan for breakthrough seizures Continue with vimpat, keppra, valium, klonopin Continue with IVPB Depaoke Continue with all other supportive care and comfort measures. Titrate medications per protocol in response to tachycardia/tachypnea Goal respiratory rate between 10-15 breaths per minute Wean oxygen as tolerated Past Medical History Past Medical History: Asthma, Renal Disease, Seizure Disorder Additional Past Medical History / Comment(s): Developmental delay, Autism, daily seizures, Morton Gasteat Seizures, last Grand mal Seizure (Status Epilepticus Dec 05 2017) has trach, PEG Tube, urinary retention, chronic constipation. Hx ulcers. Tenses up, clenches fists, shakes, a lot, screeches when excited, has a strong upper body. Arms are permanently bent, he walks on toes. "Flight Risk." History of Any Multi-Drug Resistant Organisms: VRE Date of last positivie culture/infection: 10/10/19 MDRO Source:: VRE URINE Additional Past Surgical History / Comment(s): Vagal nerve stimulator, left UPJ endopylotomy, embolist surgery (renal artery), heel cord lengthening, transurethral bladder neck and prostate incision 09/22/2019. Traceostomy. PEG Tube palced. Exploratory Laprotomy. Past Anesthesia/Blood Transfusion Reactions: No Reported Reaction Past Psychological History: ADD/ADHD Additional Psychological History / Comment(s): Pt resides with his Aunt, Kaylynn, who is also his legal guardian and direct care specialist. Kaylynn states she can not take patient back home, her mother recently and she states she had a "falling out" with her son who was also a caregiver for patient. She is requesting that patient be placed in [facility]. Smoking Status: Never smoker Past Alcohol Use History: None Reported Past Drug Use History: None Reported - Past Family History Mother Additional Family Medical History / Comment(s): of Suicide at 22. Medications and Allergies Home Medications Medication Instructions Recorded Confirmed Type Lacosamide [Vimpat] 200 mg PEG/G-TUBE 08/26/15 07/01/21 History TID@1000,1700,0000 Folic Acid 1 mg PEG/G-TUBE DAILY@1000 12/28/18 07/01/21 History clonazePAM [KlonoPIN] 1 mg PEG/G-TUBE TID@1000,1700,0000 12/28/18 07/01/21 History levETIRAcetam [Keppra Oral 14 ml PEG/G-TUBE TID@1000,1700,0000 12/28/18 07/01/21 History Solution] polyethylene glycoL 3350 [Miralax] 17 gm PEG/G-TUBE TID@1000,1700,0000 12/28/18 07/01/21 History Dexlansoprazole [Dexilant] 60 mg PEG/G-TUBE DAILY@1000 09/20/19 07/01/21 History Tamsulosin [Flomax] 0.4 mg PEG/G-TUBE DAILY@1000 09/20/19 07/01/21 History Cbd Capsule 750 mg PEG/G-TUBE HS@0000 06/30/20 07/01/21 History Lactulose 30 gm PO TID@1000,1700,0000 06/30/20 07/01/21 History Banzel 400mg 1,200 mg PEG/G-TUBE DAILY@1200 09/05/20 07/01/21 History Banzel 400mg 1,600 mg PEG/G-TUBE HS@0000 09/05/20 07/01/21 History Pyridoxine HCl (Vitamin B6) 100 mg PO HS@0000 09/05/20 07/01/21 History [Vitamin B-6] Diazepam [Valium] 5 mg PO DAILY PRN 06/28/21 07/01/21 History Vitamin B-6 Complex 1 tab PEG/G-TUBE DAILY@1000 06/28/21 07/01/21 History cloBAZam [Clobazam] 20 mg PO BID@1200,0000 06/28/21 07/01/21 History Scopolamine [Scopolamine 1 MG/72 1 patch TRANSDERM Q72H #10 patch 06/29/21 07/01/21 Rx HR patch] Allergies Allergy/AdvReac Type Severity Reaction Status Date / Time amoxicillin trihydrate Allergy Unknown Verified 06/28/21 22:09 [From Augmentin] ceftriaxone sodium Allergy Unknown Verified 06/28/21 22:09 [From Rocephin] cephalexin monohydrate Allergy Unknown Verified 06/28/21 22:09 [From Keflex] Penicillins Allergy Unknown Verified 06/28/21 22:09 phenobarbital Allergy Unknown Verified 06/28/21 22:09 phenytoin sodium Allergy Unknown Verified 06/28/21 22:09 [From Dilantin] phenytoin sodium extended Allergy Unknown Verified 06/28/21 22:09 [From Dilantin] potassium clavulanate Allergy Unknown Verified 06/28/21 22:09 [From Augmentin] Cephalosporins AdvReac Unknown Verified 06/28/21 22:09 lorazepam [From Ativan] AdvReac Unknown Verified 06/28/21 22:09 surgical tape AdvReac hyperpigmentation Uncoded 06/28/21 21:04 of skin Physical Exam Vitals: Vital Signs Temp Pulse Resp BP Pulse Ox 07/01/21 18:02 99.4 F 07/01/21 15:20 102.6 F H 130 H 38 H 92/40 92 L 07/01/21 15:19 92/40 Intake and Output 07/01/21 07/01/21 07/02/21 14:59 22:59 06:59 Intake Total 135.989 Output Total 480 Balance -344.011 Intake: IV 75 0.9% Sodium Chloride 75 Intake, IV Titration 1.989 Amount Morphine Sulfate (100 mg/ 1.989 2 ml) 100 mg In Sodium Chloride 0.9% 100 ml @ 1 MG/HR 1.02 mls/hr IV . Q24H [facility] Rx#:[id number] Tube Feeding 59 Output: Urine 480 Other: Voiding Method External Catheter Weight 54.8 kg Assessment and Plan Time with Patient: Greater than 30
[2021-07-02] MEDS: clonazePAM 1 MG TAB PO SCH ×3 (07:42→21:04)
[2021-07-02] MEDS: LACOSAMIDE 50 MG TABLET PO SCH ×3 (07:42→21:04)
[2021-07-02] MEDS: levETIRAcetam ORAL SOLN 500 MG/5 ML CUP PEG/G-TUBE SCH ×3 (07:42→21:04)
[2021-07-02] MEDS: VALPROATE SODIUM 500 MG in SODIUM CHLORIDE 0.9% 100 ML IVPB SCH ×2 (08:44→21:04)
[2021-07-02 08:49] VITALS: BP 120/83
[2021-07-02] MEDS: ACETAMINOPHEN SUPPOSITORY 650 MG SUPP RECTAL PRN ×2 (09:01→17:43)
[2021-07-02 10:19] VITALS: BMI 17.3
--- NOTE | 2021-07-02 11:27 | P.PN ---
Subjective Progress Note Date: 07/02/21 This is a 30-year-old male with autism and developmental delay, chronic contractures that was brought in by his aunt on 06/30/2021 for concern of dark discoloration and residuals in his PEG tube. Denied nausea vomiting. Patient with a past medical history significant for long-standing seizures on multiple medications, he has a PEG tube and tracheostomy as well. Patient's aunt is also his legal guardian. There was not any clinical evidence of GI bleed at this time, his PEG tube was flushed and it was clear. He does have chronic constipation. Patient is nonverbal and was unable to obtain any History from the patient. Labs on admission include white count of 7.2, hemoglobin 9.6, platelet count 359, INR is 0.8, sodium 144, potassium 3.8, chloride 114, BUN 19, creatinine 1.05, sugars are in the 80s, lactic acid 0.9, AST 26, ALT 14, albumin 6.2, B12 644 and folate less than 20. Gastric occult was positive and Covid PCR was not detected. He was evaluated by GI services who recommended Protonix 40 mg daily and did not recommend endoscopic evaluation at this time. Hemoglobin was stable this admission, dropped to 7.1 and then resolved up to 8.4. Patient was hydrated. There was a rapid response conducted illusionist on 07/01/2021, the patient was having ongoing seizures that was most likely status epilepticus, as the patient was having 10 seizures about 3 minutes apart lasting 20-30 seconds; more frequent. Patient was started on Depakote, given IV push Ativan and because of the frequency of seizures was transferred to ICU. Versed infusion was ordered as well as mechanical ventilation. Patient's caregiver and legal guardian refused infusion and intubation and they wished to proceed with comfort care and hospice measures. Patient generally has about 5-7 seizures per day at baseline. Neurology has signed off the case as family would like to pursue comfort measures at this time. Patient was subsequently opened with hospice inpatient and transerred out of the ICU to the medical floor. Patient apparently had 4 seizures in a row upon arrival to the unit despite receiving Keppra, Vimpat, Klonopin, Valium, Ativan, and Banzel for seizure control. Patient was then started on ativan Gtt in addition to morphine Gtt. Vitals reviewed: Temp 102.6 axillary, heart rate 130, respirations 38, blood pressure 92/40, oxygen saturation 92% on 15L oxygen. 07/02/2021 Patient evaluated today resting in bed. He is not responsive to voice, which is his baseline. He continues on an IV morphine gtt, respirations are around 10 breaths per minute, blood pressure 120/84, he is febrile with a temp of 106.7 temporal. He does have ice packs in his axilla and received a rectal tylenol t marisel. He does not appear to be in any distress, and he is being turned in the bed with pillow support. REVIEW OF SYSTEMS: Unable to obtain due to his clinical condition PHYSICAL EXAMINATION: GENERAL: Thin built with chronic contractures . HEENT: Pupils are round and equally reacting to light. EOMI. No scleral icterus. No conjunctival pallor. Normocephalic, atraumatic. No pharyngeal erythema. No thyromegaly. CARDIOVASCULAR: S1 and S2 present. No murmurs, rubs, or gallops. PULMONARY: There are some coarse lung sounds scattered posteriorly ABDOMEN: Soft, nontender, nondistended, No palpable organomegaly. PEG tube in place sluggish bowel sounds MUSCULOSKELETAL: No joint swelling or deformity. EXTREMITIES: No cyanosis, clubbing, or pedal edema. NEUROLOGICAL: Diffuse muscle atrophy and chronic contractures SKIN: No rashes. Assessment and Plan Assessment -Status Epilepticus -Refractory seizures for which patient is on multiple medications -Ruled out GI bleed -Chronic anemia, B12 and Folate WNL -Autism, with severe developmental delay; nonverbal -Chronic contractures: Supportive care -Peg Tube -Tracheostomy Plan Continue with Morphine gtt and IVP morphine for breakthrough Continue with Ativan gtt with IVP ativan for breakthrough seizures Continue with vimpat, keppra, valium, klonopin Continue with IVPB Depaoke Continue with all other supportive care and comfort measures. Titrate medications per protocol in response to tachycardia/tachypnea Goal respiratory rate between 10-15 breaths per minute Wean oxygen as tolerated Objective - Vital Signs Vital signs: Vital Signs Temp 106.7 F H 07/02/21 08:47 Pulse 130 H 07/01/21 15:20 Resp 14 07/02/21 08:47 BP 120/83 07/02/21 08:47 Pulse Ox 98 07/02/21 08:47 Intake & Output 07/01/21 07/02/21 07/02/21 18:59 06:59 18:59 Intake Total 135.989 394.917 Output Total 30 500 Balance 105.989 -105.083 Weight 54.8 kg 54.8 kg Intake: IV 75 240 0.9% Sodium Chloride 75 240 Intake, IV Titration 1.989 154.917 Amount LORazepam Vial 25 mg In 54.917 Dextrose 5% in Water 238 ml @ Per Protocol IV .Q0M [facility] Rx#:[id number] Morphine Sulfate (100 mg/ 1.989 2 ml) 100 mg In Sodium Chloride 0.9% 100 ml @ 1 MG/HR 1.02 mls/hr IV . Q24H [facility] Rx#:[id number] Valproate Sodium 500 mg 100 In Sodium Chloride 0.9% 100 ml @ 100 mls/hr IVPB BID [facility] Rx#:[id number] Oral 0 Tube Feeding 59 Output: Urine 30 500 Other: Voiding Method External Catheter External Catheter External Catheter
[2021-07-02] MEDS: MORPHINE SULFATE (100 MG/2 ML) 100 MG in SODIUM CHLORIDE 0.9% 100 ML IV SCH (19:29)
[2021-07-02 19:41] VITALS: RESP 16
[2021-07-02 20:11] VITALS: TEMP 100
--- NOTE | 2021-07-03 14:47 | P.DS ---
Providers Date of admission: 07/01/21 14:26 Attending physician: Luz Hardwick Primary care physician: Ortiz Mace [facility] Course: Final Diagnosis -Status Epilepticus -Refractory seizures for which patient is on multiple medications -Ruled out GI bleed -Chronic anemia, B12 and Folate WNL -Autism, with severe developmental delay; nonverbal -Chronic contractures: Supportive care -Peg Tube -Tracheostomy Patient evaluated for GI bleed initially during this hospital stay which was a negative work up. He was evaluated by neurology after an apparent episode of status epilepticus with increasing seizure activity this hospital stay despite his home medications being resumed. Neurology recommendation during rapid response was to intubate the patient and began IV sedation infusion, and pts Aunt and legal guardian refused intubation and wished to proceed with hospice and comfort care measures. Hospice evaluated the patient and recommended GIP. Patient was opened to inpatient hospice and transferred out of the ICU to the medical floor and on 07/03/2021 under the care of Hospice services. Family has been updated. Plan - Discharge Summary New Discharge Prescriptions: No Action Lacosamide [Vimpat] 200 mg PEG/G-TUBE TID@1000,1700,0000 polyethylene glycoL 3350 [Miralax] 17 gm PEG/G-TUBE TID@1000,1700,0000 Folic Acid 1 mg PEG/G-TUBE DAILY@1000 levETIRAcetam [Keppra Oral Solution] 14 ml PEG/G-TUBE TID@1000,1700,0000 clonazePAM [KlonoPIN] 1 mg PEG/G-TUBE TID@1000,1700,0000 Tamsulosin [Flomax] 0.4 mg PEG/G-TUBE DAILY@1000 Dexlansoprazole [Dexilant] 60 mg PEG/G-TUBE DAILY@1000 Cbd Capsule 750 mg PEG/G-TUBE HS@0000 Lactulose 30 gm PO TID@1000,1700,0000 Banzel 400mg 1,200 mg PEG/G-TUBE DAILY@1200 Pyridoxine HCl (Vitamin B6) [Vitamin B-6] 100 mg PO HS@0000 Banzel 400mg 1,600 mg PEG/G-TUBE HS@0000 cloBAZam [Clobazam] 20 mg PO BID@1200,0000 Vitamin B-6 Complex 1 tab PEG/G-TUBE DAILY@1000 Scopolamine [Scopolamine 1 MG/72 HR patch] 1 patch TRANSDERM Q72H #10 patch Diazepam [Valium] 5 mg PO DAILY PRN PRN Reason: AGGRESSION Discharge Medication List Lacosamide [Vimpat] 200 mg PEG/G-TUBE TID@1000,1700,0000 08/26/15 [History] Folic Acid 1 mg PEG/G-TUBE DAILY@1000 12/28/18 [History] clonazePAM [KlonoPIN] 1 mg PEG/G-TUBE TID@1000,1700,0000 12/28/18 [History] levETIRAcetam [Keppra Oral Solution] 14 ml PEG/G-TUBE TID@1000,1700,0000 12/28/18 [History] polyethylene glycoL 3350 [Miralax] 17 gm PEG/G-TUBE TID@1000,1700,0000 12/28/18 [History] Dexlansoprazole [Dexilant] 60 mg PEG/G-TUBE DAILY@1000 09/20/19 [History] Tamsulosin [Flomax] 0.4 mg PEG/G-TUBE DAILY@1000 09/20/19 [History] Cbd Capsule 750 mg PEG/G-TUBE HS@0000 06/30/20 [History] Lactulose 30 gm PO TID@1000,1700,0000 06/30/20 [History] Banzel 400mg 1,200 mg PEG/G-TUBE DAILY@1200 09/05/20 [History] Banzel 400mg 1,600 mg PEG/G-TUBE HS@0000 09/05/20 [History] Pyridoxine HCl (Vitamin B6) [Vitamin B-6] 100 mg PO HS@0000 09/05/20 [History] Diazepam [Valium] 5 mg PO DAILY PRN 06/28/21 [History] Vitamin B-6 Complex 1 tab PEG/G-TUBE DAILY@1000 06/28/21 [History] cloBAZam [Clobazam] 20 mg PO BID@1200,0000 06/28/21 [History] Scopolamine [Scopolamine 1 MG/72 HR patch] 1 patch TRANSDERM Q72H #10 patch 06/29/21 [Rx] Discharge Disposition: - Preliminary Cause of Preliminary Cause of : Epilepsy
== END 2021-07-03 06:27 | disposition expired | DRG 951 ==
LOC: 2SICU 14:26 → 5NMEDONC 16:33
PROVIDERS: ADMIT Internal Medicine; ATTEND Internal Medicine
DX: Z51.5 Encounter for palliative care (principal); G40.411 Other generalized epilepsy and epileptic syndromes, intractable, with status epilepticus; F84.0 Autistic disorder; F90.9 Attention-deficit hyperactivity disorder, unspecified type; M62.40 Contracture of muscle, unspecified site; K59.09 Other constipation; J45.909 Unspecified asthma, uncomplicated; R62.50 Unspecified lack of expected normal physiological development in childhood; Z93.0 Tracheostomy status; Z93.1 Gastrostomy status; Z79.899 Other long term (current) drug therapy